=== PATIENT | male | born 1950 | race Caucasian/White ===

== ENCOUNTER 2021-09-09 12:17 | Observation (INO) ==
--- NOTE | 2021-09-09 12:56 | Emergency Department Note ---
History of Present Illness General Chief complaint: Arrhythmia/Palpitations Stated complaint: IRREGULAR HEARTBEAT Time Seen by Provider: 09/09/21 12:38 Source: patient History of Present Illness Provider complaint: Chest pain Onset (ago): week(s) Location: chest Radiation: non-radiation Pain Consistency: + intermittent and + now resolved Maximum Pain Intensity: 3 Quality: + dull Relieved By: + none Exacerbated By: + other (Using the stairs) Associated symptoms: + chest pain, + cough, + malaise and + shortness of breath; no fever/chills or no nausea/vomiting This is a 71-year-old male sent here from an urgent care center for evaluation of chest pain and palpitations. The patient states that he has had chest pain for at least a week probably longer. He describes it as a dull pain in the middle of his chest. He denies any radiation of his pain. He does not know any modifying factors but his states that he tends to have the chest pain when he comes down the stairs in the morning. He has associated shortness of breath with it. He has also had a cough for the past 3 days. He has chronic loss of taste or smell which is unchanged. He denies any diarrhea. He has been vaccinated for COVID-19 but has not received a booster. He did get a COVID test at the urgent care center but does not know the results. He also states that he has had palpitations and feels like his heart skips a beat every once in a while. He states the chest pain lasts about several minutes and then goes away on its own. He denies any leg swelling or pain. He has had no vomiting, abdominal pain or urinary symptoms. He does state that he has been feeling very fatigued for about a week. Home Medications Medication Instructions Recorded Confirmed Type amlodipine 10 mg tablet 10 mg PO QAM 07/17/19 09/09/21 History aspirin 81 mg tablet,delayed 81 mg PO QAM 07/17/19 09/09/21 History release atorvastatin 40 mg tablet 40 mg PO QAM 07/17/19 09/09/21 History furosemide 40 mg tablet 40 mg PO QAM 07/17/19 09/09/21 History glipizide 10 mg tablet 10 mg PO BID 07/17/19 09/09/21 History glucosam 750 mg-chondroi 100 1 tab PO QAM 07/17/19 09/09/21 History mg-hyalur 1.65 mg-CF borate 108 mg tablet ([employer]) lisinopril 40 mg tablet 40 mg PO BID 07/17/19 09/09/21 History sertraline 25 mg tablet (Zoloft) 25 mg PO QAM 07/17/19 09/09/21 History tamsulosin 0.4 mg capsule 0.4 mg PO QAM 07/17/19 09/09/21 History multivitamin 1 tab PO QAM 09/09/21 09/09/21 History Allergies Allergy/AdvReac Type Severity Reaction Status Date / Time No Known Allergies Allergy Unknown Verified 09/09/21 14:01 Past Med/Surg History Medical History (Updated 09/09/21 @ 17:03 by Irineo Griggs MD) Colon cancer NO CHEMO OR RADAITION Cyst, kidney, acquired MEDICAL DOCTOR WATHCING IT Depression Diabetes mellitus, type 2 Hyperlipidemia Hypertension Surgical History Hx of arthroscopy of right knee Hx of colonoscopy Hx of resection of large bowel D/T COLON CANCER Social History Smoking Status: Current every day smoker Tobacco Type: Cigarettes Cigarettes Per Day: 1/2 pack; Second Hand Exposure: No; Do You Dip or Chew Tobacco: No; Tobacco Cessation Education Requested by Patient: No Hx Alcohol Use: No Hx Substance Use: No Preferred Language: Slovenian Communication Ability: Effective Contract Writer Required: No Beliefs That Will Affect Care: None Current Living Situation: Spouse Other Information That Helps Us Care for You: No Feels Safe at Home: Yes Safety Concerns: Feels Safe At This Time Assistive Devices: None Review of Systems See HPI for pertinent positives & negatives. and A total of 10 systems reviewed and were otherwise negative Physical Exam Vital Signs Vital Signs - 24 hr 09/09/21 12:25 09/09/21 13:27 09/09/21 13:28 Temperature 36.7 C Temperature Source Oral Pulse Rate 68 60 Pulse Rate [Apical] Pulse Rhythm Regular Pulse Strength Normal Respiratory Rate 20 Respiratory Effort / Characteristics Non-Labored Spontaneous Respiratory Depth Normal Respiratory Pattern Regular Blood Pressure 150/75 H Blood Pressure [Left Arm] Blood Pressure Mean 100 Blood Pressure Mean [Left Arm] Pulse Oximetry 97 96 96 Oxygen Delivery Method Room Air Room Air Room Air Oxygen Flow Rate 0 Sepsis Recent Fever Within 48 Hours No Sepsis New/Unexplained Change in Mental Status N/A Sepsis Action Taken by Nursing No Action Required 09/09/21 14:17 Temperature Temperature Source Pulse Rate Pulse Rate [Apical] 65 Pulse Rhythm Pulse Strength Respiratory Rate 18 Respiratory Effort / Characteristics Respiratory Depth Respiratory Pattern Blood Pressure Blood Pressure [Left Arm] 137/69 Blood Pressure Mean Blood Pressure Mean [Left Arm] 91 Pulse Oximetry 98 Oxygen Delivery Method Room Air Oxygen Flow Rate Sepsis Recent Fever Within 48 Hours Sepsis New/Unexplained Change in Mental Status Sepsis Action Taken by Nursing Constitutional: Vital signs reviewed. Eyes: Pupils are equal round reactive to light. Conjunctiva are noninjected. ENT: Pharynx is clear without erythema or exudate. Mucous membranes are moist. Neck supple without meningeal signs. Respiratory: Clear to auscultation bilaterally. Breath sounds are equal bilaterally. Cardiovascular: Regular rate and rhythm. No rubs or gallops. GI: Soft, nondistended and nontender. Bowel sounds are present. Musculoskeletal: No peripheral edema. No lower extremity tenderness. Integumentary: No cyanosis. or jaundice. Neurological: The patient is awake and alert. No focal deficits. Psychiatric: Normal affect. Not anxious appearing. Medical Decision Making Differential Diagnosis Pneumonia, bronchitis, COVID-19, unstable angina, CO Medical Records Attestation: I reviewed the patient's medical records. I did perform a limited focused review of portions of the patient's old chart on the electronic medical record. The patient has had no recent pertinent visits to this hospital. Home Medications Current Medication List: was personally reviewed by me Laboratory Data Attestation: I reviewed the patient's lab results. Result diagrams: 09/09/21 13:10 09/09/21 13:10 Lab Results 09/09/21 09/09/21 09/09/21 Range/Units 13:10 13:10 13:10 WBC 5.13 (4.8-10.8) K/uL RBC 3.43 L (4.7-6.1) M/uL Hgb 11.5 L (14.0-18.0) g/dL Hct 33.3 L (42-52) % MCV 97.1 (80-100) fL MCH 33.5 (25-34) pg MCHC 34.5 (32-36) g/dL RDW Std Deviation 43.4 (36.4-46.3) fL RDW Coeff of Matt 12.2 (11.5-14.5) % Plt Count 171 (130-400) K/uL MPV 9.8 (7.4-10.4) fL Immature Gran % (Auto) 0.2 % Neut % (Auto) 64.3 % Lymph % (Auto) 23.2 % [place] % (Auto) 8.6 % Eos % (Auto) 3.3 % Baso % (Auto) 0.4 % Neut # (Auto) 3.30 (1.4-6.5) K/uL Lymph # (Auto) 1.19 L (1.2-3.4) K/uL [place] # (Auto) 0.44 (0.11-0.59) K/uL Eos # (Auto) 0.17 (0-0.5) K/uL Baso # (Auto) 0.02 (0-0.2) K/uL Immature Gran # (Auto) 0.01 (0.00-0.02) K/uL Sodium 138 (136-145) mmol/L Potassium 4.9 (3.5-5.1) mmol/L Chloride 107 (98-107) mmol/L Carbon Dioxide 26 (21-32) mmol/L Anion Gap 5 (3-11) BUN 48 H (6-23) mg/dl Creatinine 2.42 H (0.6-1.4) mg/dl Est Cr Clr Drug Dosing 30.6 ml/min Est GFR ( Amer) 30.4 ml/min Est GFR (Non-Af Amer) 26.3 ml/min BUN/Creatinine Ratio 19.8 (10-20) Glucose 119 H (70-99(Fasting)) mg/dl Calcium 8.8 (8.5-10.1) mg/dl Total Bilirubin 0.4 (0.2-1.0) mg/dl AST 18 (13-39) U/L ALT 20 (7-52) U/L Alkaline Phosphatase 85 (34-104) U/L Troponin I < 0.03 (0-0.04) ng/ml C-Reactive Protein 0.72 H (0-0.5) mg/dl Total Protein 6.6 (6.0-8.3) gm/dl Albumin 3.6 (3.4-5.0) gm/dl Globulin 3.0 (2.5-4.0) gm/dl Albumin/Globulin Ratio 1.2 (0.9-2) SARS-CoV-2, RNA, NAAT (NEGATIVE) 09/09/21 Range/Units 13:36 WBC (4.8-10.8) K/uL RBC (4.7-6.1) M/uL Hgb (14.0-18.0) g/dL Hct (42-52) % MCV (80-100) fL MCH (25-34) pg MCHC (32-36) g/dL RDW Std Deviation (36.4-46.3) fL RDW Coeff of Matt (11.5-14.5) % Plt Count (130-400) K/uL MPV (7.4-10.4) fL Immature Gran % (Auto) % Neut % (Auto) % Lymph % (Auto) % [place] % (Auto) % Eos % (Auto) % Baso % (Auto) % Neut # (Auto) (1.4-6.5) K/uL Lymph # (Auto) (1.2-3.4) K/uL [place] # (Auto) (0.11-0.59) K/uL Eos # (Auto) (0-0.5) K/uL Baso # (Auto) (0-0.2) K/uL Immature Gran # (Auto) (0.00-0.02) K/uL Sodium (136-145) mmol/L Potassium (3.5-5.1) mmol/L Chloride (98-107) mmol/L Carbon Dioxide (21-32) mmol/L Anion Gap (3-11) BUN (6-23) mg/dl Creatinine (0.6-1.4) mg/dl Est Cr Clr Drug Dosing ml/min Est GFR ( Amer) ml/min Est GFR (Non-Af Amer) ml/min BUN/Creatinine Ratio (10-20) Glucose (70-99(Fasting)) mg/dl Calcium (8.5-10.1) mg/dl Total Bilirubin (0.2-1.0) mg/dl AST (13-39) U/L ALT (7-52) U/L Alkaline Phosphatase (34-104) U/L Troponin I (0-0.04) ng/ml C-Reactive Protein (0-0.5) mg/dl Total Protein (6.0-8.3) gm/dl Albumin (3.4-5.0) gm/dl Globulin (2.5-4.0) gm/dl Albumin/Globulin Ratio (0.9-2) SARS-CoV-2, RNA, NAAT POSITIVE A* (NEGATIVE) Imaging Data Radiologist's Impression: Chest X-Ray 09/09/21 12:49 SINGLE VIEW CHEST CLINICAL HISTORY: Atypical chest pain. Palpitations. FINDINGS: An AP, portable, upright chest radiograph is obtained. No prior studies are available for comparison at the time of dictation. The examination is degraded by portable technique and apical lordotic positioning. The heart is enlarged noting atherosclerotic calcification of the thoracic aorta. The pulmonary vasculature is noncongested. There is mild bibasilar atelectasis. The lungs and pleural spaces are otherwise clear. No pneumothorax is seen. The skeletal structures appear osteopenic. The bony thorax is grossly intact. IMPRESSION: Cardiomegaly with no acute cardiopulmonary abnormality. ACT 112: Negative or not required by law. Electronically signed by: Jordon Olson M.D. 09/09/2021 1:06 PM ECG Data Attestation: I personally reviewed and interpreted this ECG as follows: Indication: + chest pain Rate (beats per minute): 71 Rhythm: + normal sinus ECG [place]: + Left axis deviation ECG ST segments: no ST elevation ECG Findings: + Q waves (Leads III and aVF); no PVCs Comparison ECG Date: from (September 11, 2011) Change: no significant change (Q waves and left axis deviation was previously present) MDM Narrative I did evaluate the patient as noted above. He is presenting with intermittent chest pain for the past week with palpitations. He also developed cold symptoms several days ago. He was sent here from an urgent care center. IV access was established. I did place an order for continuous cardiac monitoring. The monitor showed normal sinus rhythm at a rate of 60 bpm. I did order and personally review the patient's 12-lead EKG as described above. He has old Q waves and left axis deviation. No acute ischemic changes are noted. I did order and personally reviewed the images of the patient's chest x-ray as described above. This chest x-ray is unremarkable without signs of pneumonia. I did order and review the patient's blood work as noted in the electronic medical record. CBC demonstrates a hemoglobin 11.5. His white count is 5 and his platelet count is 171. Electrolytes are unremarkable. BUN and creatinine are 48 and 2.4 respectively. LFTs are unremarkable. Troponin is negative. COVID-19 testing is positive. He was placed in respiratory isolation. I did obtain records from the [facility]. His last creatinine was 2.8 on July 20. His last hemoglobin was 12.1 on July 20. I did discuss the test results with the patient and his . He will be hospitalized for further care and evaluation. I did discuss the case with the hospitalist and test case developer. Impression & Plan Exertional chest pain, COVID-19, Chronic kidney disease, Chronic anemia Discharge Plan Visit Data Chief Complaint: Arrhythmia/Palpitations Stated Complaint: IRREGULAR HEARTBEAT ED Provider: Austen Santillan Discharge Problem: Exertional chest pain, COVID-19, Chronic kidney disease, Chronic anemia Patient Disposition: Admitted As Inpatient Discharge Instructions Interventions: ED Discharge Assessment Last Done: 09/09/21 16:30 Discharge Problem: Chronic kidney disease Qualifiers: Chronic kidney disease stage: unspecified stage Qualified Code(s): N18.9 - Chronic kidney disease, unspecified
--- NOTE | 2021-09-09 13:08 | XRay Report ---
SINGLE VIEW CHEST CLINICAL HISTORY: Atypical chest pain. Palpitations. FINDINGS: An AP, portable, upright chest radiograph is obtained. No prior studies are available for c omparison at the time of dictation. The examination is degraded by portable technique and apical lord otic positioning. The heart is enlarged noting atherosclerotic calcification of the thoracic aorta. T he pulmonary vasculature is noncongested. There is mild bibasilar atelectasis. The lungs and pleural spaces are otherwise clear. No pneumothorax is seen. The skeletal structures appear osteopenic. The b edward thorax is grossly intact. IMPRESSION: Cardiomegaly with no acute cardiopulmonary abnormality. ACT 112: Negative or not required by law. Electronically signed by: Jordon Olson M.D. 09/09/2021 1:06 PM
[2021-09-09 13:20] LABS: Basophils # (auto) 0.02 K/uL (0-0.2); Basophils % (auto) 0.4 %; Eosinophils # (auto) 0.17 K/uL (0-0.5); Eosinophils % (auto) 3.3 %; Hematocrit (blood only) 33.3 % (42-52); Hemoglobin 11.5 g/dL (14.0-18.0); Immature Granulocytes # (auto) 0.01 K/uL (0.00-0.02); Immature Granulocytes % (auto) 0.2 %; Lymphocytes # (auto) 1.19 K/uL (1.2-3.4); Lymphocytes % (auto) 23.2 %; Mean Corpuscular Hemoglobin 33.5 pg (25-34); Mean Corpuscular Hgb Conc 34.5 g/dL (32-36); Mean Corpuscular Volume 97.1 fL (80-100); Mean Platelet Volume 9.8 fL (7.4-10.4); Monocytes # (auto) 0.44 K/uL (0.11-0.59); Monocytes % (auto) 8.6 %; Neutrophils % (auto) 64.3 %; Platelet Count 171 K/uL (130-400); RDW Coefficient of Variation 12.2 % (11.5-14.5); RDW Standard Deviation 43.4 fL (36.4-46.3); Red Blood Count 3.43 M/uL (4.7-6.1); White Blood Count 5.13 K/uL (4.8-10.8)
[2021-09-09 13:58] LABS: Troponin I < 0.03 ng/ml (0-0.04)
[2021-09-09 14:01] LABS: Alanine Aminotransferase 20 U/L (7-52); Albumin Globulin Ratio 1.2 (0.9-2); Albumin Level 3.6 gm/dl (3.4-5.0); Alkaline Phosphatase 85 U/L (34-104); Anion Gap 5 (3-11); Aspartate Aminotransferase 18 U/L (13-39); BUN Creatinine Ratio 19.8 (10-20); Bilirubin,Total 0.4 mg/dl (0.2-1.0); Blood Urea Nitrogen 48 mg/dl (6-23); Calcium 8.8 mg/dl (8.5-10.1); Carbon Dioxide 26 mmol/L (21-32); Chloride 107 mmol/L (98-107); Creatinine Clr Calc Pharmacy 30.6 ml/min; Est GFR (African American) 30.4 ml/min; Est GFR (Non-African American) 26.3 ml/min; Glucose 119 mg/dl (70-99(Fasting)); Potassium 4.9 mmol/L (3.5-5.1); Sodium 138 mmol/L (136-145); Total Protein 6.6 gm/dl (6.0-8.3)
[2021-09-09] MEDS ORDERED: CARBOHYDRATES FOR HYPOGLYCEMIA PO PRN ×2 (15:56→16:38)
[2021-09-09] MEDS ORDERED: DEXTROSE 50% 50 ML SYRINGE IV PRN ×2 (15:56→16:38)
[2021-09-09] MEDS ORDERED: GLUCOSE 40% GEL 15 GM TUBE PO PRN ×2 (15:56→16:38)
[2021-09-09] MEDS ORDERED: GLUCAGON FOR INJ 1 MG VIAL SQ PRN ×2 (15:56→16:38)
[2021-09-09] MEDS ORDERED: GLUCOSE 10 TABS/TUBE PO PRN ×2 (15:56→16:38)
--- NOTE | 2021-09-09 16:51 | History & Physical Report ---
Date of Service September 09, 2021 Assessment & Plan (1) Chest pain: (2) Palpitation: (3) Type 2 diabetes mellitus with chronic kidney disease: (4) Essential hypertension: (5) Chronic kidney disease: (6) COVID-19: (7) History of colon cancer: Plan: 1. Chest pain/palpitation- Details as above. Last echo 2011. No known h/o heart disease. Chest pain atypical. Trop negative in ED. EKG with no acute ischemic change. Trend trop, tele, repeat EKG in am. Echo. Cardio evaluation. Continue home aspirin. 2. Covid 19 positive- tested positive today. No respiratory issues, saturating well in room air, CXR with no pneumonia. Doesn't qualify for remdesevir or steroids. Conservative care 3. DM-2 with CKD4- Hold home glipizide. Diabetic diet. Sensitive SSI prn 4. Essential HTN- Stable, Continue home amlodipine, lisinopril with hold parameters 5. CKD-4- Cr 2.4, stable, at baseline. Avoid nephrotoxics. Hold home lasix 6. Depression- continue zoloft 7. H/o colon cancer s/p resection 2007 with no recurrence 8. Tobacco abuse- now down to half pack a day. Nicoderm patch Consider PT/OT eval DVT prophyalxis: sc heparin Contact: updated at bedside History of Present Illness Chief Complaint: Chest pain, palpitation, fatigue, weakness Primary Care Provider: Thomas Chavez DO Patient is a 71-year-old male with history of hypertension, diabetes mellitus type 2, CKD 4, colon cancer 2007 with resection with no recurrence, chronic back pain, tobacco abuse, depression who [facility] and [facility]ations. Patient has been having fatigue, weakness, chest congestion for the past week. Also had central dull chest pain for the past 3 days. Describes chest pain as central, dull, non exertional, no radiation with no associated symptoms. Would occur at rest, lasted for couple minutes only. Occured about 2-3 times a day. Also had intermittent palpitations unrelated to chest pain. [facility]. EKG was done which was abnormal and he was sent to ED for evaluation. In the ED, he was afebrile and hemodynamically stable. Labs reviewed, troponin negative, EKG with no acute ischemic changes. Also tested positive for Covid but chest x-ray was negative for pneumonia. Saturating well in room air. Comfortable during encounter. Denies any chest pain or palpitations since ED arrival. Denies any personal history of heart disease. Family history of heart attack in his grandfather. Doesn't see cardiology. Not much active physically. Smokes but cut down to about half pack a day. Allergies Allergy/AdvReac Type Severity Reaction Status Date / Time No Known Allergies Allergy Unknown Verified 09/09/21 14:01 Home Medications Medication Instructions Recorded Confirmed Type amlodipine 10 mg tablet 10 mg PO QAM 07/17/19 09/09/21 History aspirin 81 mg tablet,delayed 81 mg PO QAM 07/17/19 09/09/21 History release atorvastatin 40 mg tablet 40 mg PO QAM 07/17/19 09/09/21 History furosemide 40 mg tablet 40 mg PO QAM 07/17/19 09/09/21 History glipizide 10 mg tablet 10 mg PO BID 07/17/19 09/09/21 History glucosam 750 mg-chondroi 100 1 tab PO QAM 07/17/19 09/09/21 History mg-hyalur 1.65 mg-CF borate 108 mg tablet ([facility] lisinopril 40 mg tablet 40 mg PO BID 07/17/19 09/09/21 History sertraline 25 mg tablet (Zoloft) 25 mg PO QAM 07/17/19 09/09/21 History tamsulosin 0.4 mg capsule 0.4 mg PO QAM 07/17/19 09/09/21 History multivitamin 1 tab PO QAM 09/09/21 09/09/21 History Past Med/Surg History Medical History (Updated 09/09/21 @ 17:03 by Irineo Griggs MD) Colon cancer NO CHEMO OR RADAITION Cyst, kidney, acquired MEDICAL DOCTOR WATHCING IT Depression Diabetes mellitus, type 2 Hyperlipidemia Hypertension Surgical History Hx of arthroscopy of right knee Hx of colonoscopy Hx of resection of large bowel D/T COLON CANCER Social History Smoking Status: Current every day smoker Tobacco Type: Cigarettes Cigarettes Per Day: 1/2 pack; Second Hand Exposure: No; Do You Dip or Chew Tobacco: No; Tobacco Cessation Education Requested by Patient: No Hx Alcohol Use: No Hx Substance Use: No Preferred Language: Hungarian Communication Ability: Effective Secretary Book Keeper Required: No Beliefs That Will Affect Care: None Current Living Situation: Spouse Other Information That Helps Us Care for You: No Feels Safe at Home: Yes Safety Concerns: Feels Safe At This Time Assistive Devices: None Review of Systems Review of Systems: All systems reviewed & are unremarkable except as noted in Subjective Physical Exam Physical Exam: General: Lying comfortably in bed, not in distress, on room air HEENT: EOMI, STAN[place], MMM Chest: Clear breath sounds bilaterally, no wheezes or crackles CVS: Regular rate and rhythm, normal heart sounds, no murmur Abdomen: Soft, non tender, not distended, normal bowel sounds Neuro: Awake, alert, oriented, conversing well, non focal Extremities: No cyanosis, clubbing or edema Results & Data Results & Data ([facility]) Vital Signs (Past 12 Hours) Vital Signs Temp Pulse Pulse Resp BP BP Pulse Ox 09/09/21 16:30 65 12 122/61 97 09/09/21 16:00 62 15 120/58 L 94 09/09/21 14:17 65 18 137/69 98 09/09/21 13:28 96 09/09/21 13:27 60 96 09/09/21 12:25 36.7 C 68 20 150/75 H 97 Laboratory Results Short CBC 09/09/21 Range/Units 13:10 WBC 5.13 (4.8-10.8) K/uL Hgb 11.5 L (14.0-18.0) g/dL Hct 33.3 L (42-52) % Plt Count 171 (130-400) K/uL BMP 09/09/21 13:10 Sodium 138 Potassium 4.9 Chloride 107 Carbon Dioxide 26 BUN 48 H Creatinine 2.42 H Glucose 119 H Calcium 8.8 Cardiac Enzymes 09/09/21 Range/Units 13:10 Troponin I < 0.03 (0-0.04) ng/ml Liver Function 09/09/21 Range/Units 13:10 Total Bilirubin 0.4 (0.2-1.0) mg/dl AST 18 (13-39) U/L ALT 20 (7-52) U/L Alkaline Phosphatase 85 (34-104) U/L Albumin 3.6 (3.4-5.0) gm/dl Diagnostic Findings Chest X-Ray 09/09/21 12:49 SINGLE VIEW CHEST CLINICAL HISTORY: Atypical chest pain. Palpitations. FINDINGS: An AP, portable, upright chest radiograph is obtained. No prior studies are available for comparison at the time of dictation. The examination is degraded by portable technique and apical lordotic positioning. The heart is enlarged noting atherosclerotic calcification of the thoracic aorta. The pulmonary vasculature is noncongested. There is mild bibasilar atelectasis. The lungs and pleural spaces are otherwise clear. No pneumothorax is seen. The skeletal structures appear osteopenic. The bony thorax is grossly intact. IMPRESSION: Cardiomegaly with no acute cardiopulmonary abnormality. ACT 112: Negative or not required by law. Electronically signed by: Jordon Olson M.D. 09/09/2021 1:06 PM Code Status & VTE Plan VTE Prophylaxis Plan VTE Prophylaxis will be ordered: Yes (1) Chronic kidney disease Chronic kidney disease stage: unspecified stage Qualified Code(s): N18.9 - Chronic kidney disease, unspecified
[2021-09-09] MEDS ORDERED: amLODIPine BESYLATE 5 MG TAB PO SCH (21:00)
[2021-09-09] MEDS: INSULIN ASPART PER UNIT SC SCH (21:10)
[2021-09-09] MEDS: HEPARIN SOD 5,000 UNIT/0.5 ML VIAL SQ SCH (21:11)
[2021-09-09] MEDS ORDERED: ZOLPIDEM TARTRATE 5 MG TAB PO STA (23:00)
[2021-09-10] MEDS: HEPARIN SOD 5,000 UNIT/0.5 ML VIAL SQ SCH (06:19)
[2021-09-10] MEDS: INSULIN ASPART PER UNIT SC SCH ×2 (08:00→12:48)
[2021-09-10] MEDS ORDERED: SERTRALINE HCL 50 MG TABLET PO SCH (09:00)
[2021-09-10] MEDS ORDERED: lisinopril 40 MG TAB PO SCH (09:00)
[2021-09-10] MEDS ORDERED: ATORVASTATIN 40 MG TAB PO SCH (09:00)
[2021-09-10] MEDS ORDERED: ASPIRIN 81 MG ECTAB PO SCH (09:00)
[2021-09-10] MEDS ORDERED: TAMSULOSIN HCL 0.4 MG CAP PO SCH (09:00)
[2021-09-10 09:33] LABS: Basophils # (auto) 0.01 K/uL (0-0.2); Basophils % (auto) 0.3 %; Eosinophils # (auto) 0.09 K/uL (0-0.5); Eosinophils % (auto) 2.4 %; Hematocrit (blood only) 33.4 % (42-52); Hemoglobin 11.3 g/dL (14.0-18.0); Immature Granulocytes # (auto) 0.01 K/uL (0.00-0.02); Immature Granulocytes % (auto) 0.3 %; Lymphocytes # (auto) 1.23 K/uL (1.2-3.4); Lymphocytes % (auto) 32.7 %; Mean Corpuscular Hemoglobin 32.5 pg (25-34); Mean Corpuscular Hgb Conc 33.8 g/dL (32-36); Mean Platelet Volume 9.6 fL (7.4-10.4); Monocytes # (auto) 0.28 K/uL (0.11-0.59); Monocytes % (auto) 7.4 %; Neutrophils # (auto) 2.14 K/uL (1.4-6.5); Neutrophils % (auto) 56.9 %; Platelet Count 162 K/uL (130-400); RDW Standard Deviation 42.2 fL (36.4-46.3); Red Blood Count 3.48 M/uL (4.7-6.1); White Blood Count 3.76 K/uL (4.8-10.8)
[2021-09-10 09:53] LABS: Calcium 8.4 mg/dl (8.5-10.1); Creatinine Clr Calc Pharmacy 30.7 ml/min; Est GFR (African American) 30.6 ml/min; Est GFR (Non-African American) 26.4 ml/min; Potassium 4.3 mmol/L (3.5-5.1)
--- NOTE | 2021-09-10 11:31 | Electrocardiogram Report ---
Test Reason : Blood Pressure : / mmHG Vent. Rate : 058 BPM Atrial Rate : 058 BPM P-R Int : 142 ms QRS Dur : 090 ms QT Int : 434 ms P-R-T Axes : 011 -53 018 degrees QTc Int : 426 ms Sinus bradycardia Left axis deviation Inferior infarct (cited on or before 11-SEP-2011) Abnormal ECG When compared with ECG of 11-SEP-2011 09:06, No significant change was found Confirmed by Rich Carrera ([id number]) on 09/10/2021 11:30:58 AM Referred By: REFERRED SELF Confirmed By:Rich Carrera
--- NOTE | 2021-09-10 12:20 | Cardiology Consultation ---
Date of Consultation September 10, 2021 Assessment & Plan (1) Viral pericarditis with pericardial effusion: (2) COVID-19: (3) Chronic kidney disease: (4) HTN (hypertension): (5) Anemia: 71-year-old patient admitted with chest discomfort and echocardiogram revealing small pericardial effusion with out hemodynamic significance. Discomfort likely related to pericarditis in the setting of COVID-19 infection. No evidence of ACS or myocarditis. Patient with stage III-IV CKD which limits treatment options. Avoid high-dose NSAIDs and colchicine with diminished GFR. Recommend 10-day prednisone taper starting with 20 mg today. Repeat limited echocardiogram in 7-14 days. With significant risk factors noted above, further risk stratification with stress testing may be considered pending outpatient cardiology follow-up. Thank you for allow me to participate in the care of your patient. History of Present Illness Reason for Consultation: Chest pain, COVID-19 infection Requesting Physician: Dr. Clements Attending Physician: Mignon Brasher MD History of Present Illness 71-year-old patient present to the emergency department with chest discomfort, cough, and fatigue. Reports symptoms beginning on Saturday. Cough ensued on Saturday. Denies any sputum production. Admits to active tobacco abuse. Notes chest discomfort described as a sharp pain in his lower substernal region. Discomfort can last up to 1 hour. There is no positional component. Discomfort is not worsened/reproduced with deep inspiration. Currently pain-free however experienced discomfort last evening. No exertional chest heaviness, tightness, or pressure. Chronic dyspnea on exertion stable. Denies orthopnea, PND, or lower extremity edema. No palpitations, lightheadedness, dizziness, syncope, or near syncope. Cardiovascular risk factors include diabetes, dyslipidemia, chronic kidney disease, and hypertension. Denies personal history of coronary disease, congestive heart failure, peripheral vascular disease, or rheumatic fever as a child. Currently patient resting comfortably. Mild nonproductive cough appreciated. No conversational dyspnea. Requesting discharge if possible. Oxygen saturation 97% on room air. Allergies Allergy/AdvReac Type Severity Reaction Status Date / Time No Known Allergies Allergy Unknown Verified 09/09/21 14:01 Home Medications Medication Instructions Recorded Confirmed Type amlodipine 10 mg tablet 10 mg PO QAM 07/17/19 09/09/21 History aspirin 81 mg tablet,delayed 81 mg PO QAM 07/17/19 09/09/21 History release atorvastatin 40 mg tablet 40 mg PO QAM 07/17/19 09/09/21 History furosemide 40 mg tablet 40 mg PO QAM 07/17/19 09/09/21 History glipizide 10 mg tablet 10 mg PO BID 07/17/19 09/09/21 History glucosam 750 mg-chondroi 100 1 tab PO QAM 07/17/19 09/09/21 History mg-hyalur 1.65 mg-CF borate 108 mg tablet (TRAN.SL) lisinopril 40 mg tablet 40 mg PO BID 07/17/19 09/09/21 History sertraline 25 mg tablet (Zoloft) 25 mg PO QAM 07/17/19 09/09/21 History tamsulosin 0.4 mg capsule 0.4 mg PO QAM 07/17/19 09/09/21 History multivitamin 1 tab PO QAM 09/09/21 09/09/21 History prednisone 5 mg tablet See Rx Instructions .ROUTE 09/10/21 Rx .COMPLEX #18 tab Patient History Medical History (Updated 09/10/21 @ 12:18 by Austen Schmid DO) Colon cancer NO CHEMO OR RADAITION Cyst, kidney, acquired [employer]ICAL DOCTOR ELLIS TIRADO Depression Diabetes mellitus, type 2 Hyperlipidemia Hypertension Surgical History Hx of arthroscopy of right knee Hx of colonoscopy Hx of resection of large bowel D/T COLON CANCER Social History Smoking Status: Current every day smoker Tobacco Type: Cigarettes Cigarettes Per Day: 1/2 pack; Second Hand Exposure: No; Do You Dip or Chew Tobacco: No; Tobacco Cessation Education Requested by Patient: No Hx Alcohol Use: No Hx Substance Use: No Preferred Language: Lithuanian Communication Ability: Effective Electronics Supervisor Required: No Beliefs That Will Affect Care: None Current Living Situation: Spouse Other Information That Helps Us Care for You: No Feels Safe at Home: Yes Safety Concerns: Feels Safe At This Time Assistive Devices: None Review of Systems Review of Systems: All systems reviewed & are unremarkable except as noted in Subjective Physical Exam Constitutional: well developed and well nourished; no acute distress Respiratory: Auscultation: + diminished lung sounds (Bilateral); no crackles, no rales, no rhonchi and no wheezes Cardiovascular: Rate/Rhythm: regular rate and regular rhythm Heart Sounds: normal S1 and normal S2; no murmur Vessels: radial pulses present; no JVD and no carotid bruit Extremities: no edema Gastrointestinal (Abdomen): Inspection/Auscultation: abdomen normal to inspection and normal bowel sounds; abdomen not distended Percussion/Palpation: abdomen soft; abdomen nontender, no guarding and abdomen not rigid Neurologic: CN's II-XI intact bilaterally and moves all extremities; no focal motor deficits Motor/Sensory: no tremor Psychiatric: A+Ox3, euthymic affect Results & Data ([facility]) Vital Signs (Past 12 Hours) Vital Signs Temp Pulse Pulse Resp BP Pulse Ox 09/10/21 11:12 36.9 C 64 17 135/65 97 09/10/21 08:00 50 L 09/10/21 07:27 36.9 C 60 14 128/65 97 09/10/21 03:44 36.9 C 61 18 103/67 96 (1) Chronic kidney disease Chronic kidney disease stage: unspecified stage Qualified Code(s): N18.9 - Chronic kidney disease, unspecified
--- NOTE | 2021-09-10 12:21 | Discharge Summary ---
Date of Service September 10, 2021 Admission HPI Per Admitting Provider Patient is a 71-year-old male with history of hypertension, diabetes mellitus type 2, CKD 4, colon cancer 2007 with resection with no recurrence, chronic back pain, tobacco abuse, depression who [facility] and palpitations. Patient has been having fatigue, weakness, chest congestion for the past week. Also had central dull chest pain for the past 3 days. Describes chest pain as central, dull, non exertional, no radiation with no associated symptoms. Would occur at rest, lasted for couple minutes only. Occured about 2-3 times a day. Also had intermittent palpitations unrelated to chest pain. [facility]. EKG was done which was abnormal and he was sent to ED for evaluation. In the ED, he was afebrile and hemodynamically stable. Labs reviewed, troponin negative, EKG with no acute ischemic changes. Also tested positive for Covid but chest x-ray was negative for pneumonia. Saturating well in room air. Comfortable during encounter. De nies any chest pain or palpitations since ED arrival. Denies any personal history of heart disease. Family history of heart attack in his grandfather. Doesn't see cardiology. Not much active physically. Smokes but cut down to about half pack a day. Admission Exam Per Admitting Provider General: Lying comfortably in bed, not in distress, on room air HEENT: EOMI, STANLEY, MMM Chest: Clear breath sounds bilaterally, no wheezes or crackles CVS: Regular rate and rhythm, normal heart sounds, no murmur Abdomen: Soft, non tender, not distended, normal bowel sounds Neuro: Awake, alert, oriented, conversing well, non focal Extremities: No cyanosis, clubbing or edema Principal Diagnosis COVID 19 infection Viral pericarditis with pericardial effusion. Discharge Exam Constitutional + well hydrated; no acute distress Eyes PERRL, conjunctivae normal, anicteric sclerae ENMT Hearing deficits Respiratory normal respiratory effort, lungs clear to auscultation Cardiovascular Rate/Rhythm: regular rate and regular rhythm S1 S2 Gastrointestinal (Abdomen) normal bowel sounds, soft, nontender, no hepatosplenomegaly Musculoskeletal no cyanosis or clubbing, extremities motor strength 5/5 Neurologic PERRL, EOMI, accommodation nl, no face palsy, no dysarthria Psychiatric A+Ox3, euthymic affect Discharge Data Allergies Allergy/AdvReac Type Severity Reaction Status Date / Time No Known Allergies Allergy Unknown Verified 09/09/21 14:01 Consultations 09/09/21 14:36 ED Decision to Admit Stat 09/09/21 15:46 Consult Cardiology Routine Hospital Course (1) Chest pain: (2) Palpitation: (3) Type 2 diabetes mellitus with chronic kidney disease: (4) Essential hypertension: (5) Chronic kidney disease: (6) COVID-19: (7) History of colon cancer: Patient presented with chest pain has been intermittent. Chest pain is atypical EKG did not show ischemic changes Troponin trends were negative Echocardiogram showed EF of 55 to 60% with mild concentric LVH, mild MR, small circumferential pericardial effusion with mild organization, no echocardiographic indications of cardiac tamponade. Patient also tested positive for Covid 19. Chest x-ray did not show any acute abnormality. Has been on room air. Discussed with cardiology. Recommend discharging on a 10-day tapering dose of prednisone for possible viral pericarditis with pericardial effusion. Colchicine is contraindicated due to renal function. Patient discharged on prednisone taper 20 mg for 3 days, 10 mg for 3 days and 5 mg of 4 days and then stop. Patient to follow-up with cardiology outpatient in 2 weeks and will have repeat echocardiogram done for reevaluation Patient has CKD4. Patient also has diabetes mellitus type 2. Counseled patient on need to monitor blood sugar closely while on prednisone. I also called patient's and updated her about this. Provided patient education on COVID-19 home isolation instructions. Total Time Total Time Spent Total Time Spent (In Minutes): 35 Total Time Includes: Examination of the Patient, Discharge Planning, Medication Reconciliation, Communication With Other Providers and Other Discharge Plan Discharge Items Patient Disposition: Home - Self-Care Reason For Visit: CHEST PAIN, PALPITATION, FATIGUE, WEAKNESS Discharge Diagnosis: COVID 19 infection Pericardial effusion. Activity: Resume your previous activity Non-emergency contact: Primary Care Provider and Produce Sorter Call non-emergency contact if: you have any medication questions and your symptoms worsen Follow-up/Referrals: Thomas Chavez DO [Primary Care Provider] - Diet: Carb Consistent or DM2, Heart Healthy and Low Sodium (2gm) Addtl Attending Provider Instructions: Mr Gallardo You came to the hospital complaining of chest pain. You were evaluated by the Produce Sorter. Your echocardiogram showed small fluid around your heart and you tested positive for COVID 19 infection. You are started on prednisone. Please take prednisone 20mg daily from tomorrow, for 2 days (09/11/21 to 09/12/21), then take 10mg daily from 09/13/21 to 09/15/21, then take 5mg daily from 09/16/21 to and then stop. It is very important to monitor your blood glucose closely during this period as we discussed. Please ensure you follow up with Cardiology office. Please ensure home isolation for next 10 days as we discussed due to your COVID 19 infection. It was a pleasure taking care of you. Pending Studies at Discharge: No Stand-Alone Forms: My [facility], Smoking Cessation Medications and DC Order Prescriptions: New prednisone 5 mg tablet See Rx Instructions .ROUTE .COMPLEX Qty: 18 RF: 0 Continued furosemide 40 mg Tablet 40 mg PO QAM RF: 0 atorvastatin 40 mg Tablet 40 mg PO QAM RF: 0 glipizide 10 mg Tablet 10 mg PO BID RF: 0 aspirin 81 mg Tablet,Delayed Release (Dr/Ec) 81 mg PO QAM RF: 0 tamsulosin 0.4 mg Capsule 0.4 mg PO QAM RF: 0 amlodipine 10 mg Tablet 10 mg PO QAM RF: 0 sertraline [Zoloft] 25 mg Tablet 25 mg PO QAM RF: 0 lisinopril 40 mg Tablet 40 mg PO BID RF: 0 [facility] 750 mg-100 mg- 1.65 mg-108 mg Tablet 1 tab PO QAM RF: 0 multivitamin Tablet 1 tab PO QAM RF: 0 Discharge Orders: Discharge Order (Routine); Ordered 09/10/21 Ordered By: Mignon Brasher Admission Data Admit Date/Time: 09/09/21 15:46 Attending Provider: Mignon Brasher I. Admit Provider: Irineo Griggs Primary Care Provider: Thomas Chavez V. Other Providers: Wiley Toure ; Hi Watts ; Joel Beltran ; Austen Schmid ; Isaías Munroe ; Christoph Lamar ; Sharee Ambrose ; Steff Mcgowan ; Cata Bullock ; Vernon Douglas ; Irineo Griggs. Other Interventions: Discharge Summary Assessment (RN) Last Done: 09/10/21 12:44
[2021-09-10] MEDS ORDERED: predniSONE 20 MG TAB PO ONE (12:30)
[2021-09-11 07:16] LABS: Estimated Average Glucose 148 mg/dl; Hemoglobin A1C 6.8 % (4.5-5.6)
--- NOTE | 2021-09-11 10:20 | Electrocardiogram Report ---
Test Reason : Blood Pressure : / mmHG Vent. Rate : 071 BPM Atrial Rate : 071 BPM P-R Int : 132 ms QRS Dur : 088 ms QT Int : 396 ms P-R-T Axes : 014 -62 057 degrees QTc Int : 430 ms Normal sinus rhythm Left axis deviation Abnormal ECG When compared with ECG of 11-SEP-2011 09:06, No significant change was found Confirmed by Harpal Lemus ([id number]) on 09/11/2021 10:19:58 AM Referred By: REFERRED SELF Confirmed By:Jeremy Lemus
== END 2021-09-10 13:14 | disposition home or self-care (01) ==
LOC: ED 12:17 → 2E 12:17 → SUATTDRO 15:46 → 2E 16:30

== ENCOUNTER 2023-05-28 05:59 | Inpatient (IN) ==
--- NOTE | 2023-05-06 11:18 | PAT Medication Instructions ---
Medication Instructions Date of Service May 06, 2023 Home Medications amlodipine 10 mg tablet 5 mg PO QPM atorvastatin 40 mg tablet 40 mg PO QAM furosemide 40 mg tablet 40 mg PO QAM glipizide 10 mg tablet 10 mg PO BID glucosam 750 mg-chondroi 100 mg-hyalur 1.65 mg-CF borate 108 mg tablet ([facility]) 1 tab PO QAM lisinopril 40 mg tablet 40 mg PO BID sertraline 25 mg tablet (Zoloft) 25 mg PO QAM tamsulosin 0.4 mg capsule 0.4 mg PO QAM multivitamin 1 tab PO QAM ascorbic acid (vitamin C) 500 mg tablet (Vitamin C) 500 mg PO QAM aspirin 81 mg tablet,delayed release 81 mg PO QAM cinnamon bark 500 mg capsule (Cinnamon) 1,000 mg PO QPM iron 1 dose PO QAM trazodone 150 mg tablet 150 mg PO HS zinc 50 mg capsule 50 mg PO QAM ASK your prescriber and surgeon aspirin 81 mg tablet,delayed release 81 mg PO QAM STOP taking 2 weeks before surgery (or as soon as possible if surgery is within 2 weeks) glucosam 750 mg-chondroi 100 mg-hyalur 1.65 mg-CF borate 108 mg tablet ([facility]) 1 tab PO QAM cinnamon bark 500 mg capsule (Cinnamon) 1,000 mg PO QPM DO NOT take the morning of surgery furosemide 40 mg tablet 40 mg PO QAM glipizide 10 mg tablet 10 mg PO BID lisinopril 40 mg tablet 40 mg PO BID multivitamin 1 tab PO QAM ascorbic acid (vitamin C) 500 mg tablet (Vitamin C) 500 mg PO QAM iron 1 dose PO QAM zinc 50 mg capsule 50 mg PO QAM Take morning of surgery With a small sip of water, OTHERWISE NOTHING TO EAT OR DRINK AFTER MIDNIGHT: atorvastatin 40 mg tablet 40 mg PO QAM sertraline 25 mg tablet (Zoloft) 25 mg PO QAM tamsulosin 0.4 mg capsule 0.4 mg PO QAM Take evening before surgery amlodipine 10 mg tablet 5 mg PO QPM glipizide 10 mg tablet 10 mg PO BID lisinopril 40 mg tablet 40 mg PO BID trazodone 150 mg tablet 150 mg PO HS Other Notes If you have any questions please call us at [phone] or [phone] or [phone] or [phone]
--- NOTE | 2023-05-07 13:48 | Anesthesiology Consultation ---
Date of Service May 07, 2023 Assessment & Plan (1) Encounter for pre-operative examination: - Check BSG AM DOS - Infectious disease screening: Per assessment on 05/07/23: No known infectious disease contacts or current infectious disease symptoms. No noted Covid positive test result in past 90 days. - PCP visit (12/28/22): Seen for preop prior to cataract removal > "Preoperative serum creatinine >2.0 mg/dL (177 micromol/L). Yes.. Pt has revised cardiac index score of One Risk Factor- 1.0% (95% CI: 0.5-1.4) for the surgery scheduled. Patient is low risk for the listed procedure. There is no medical contraindication for the proposed surgery and anesthesia." Chart Review Chart Review: Acceptable Risk for Surgery and Patient seen in Pre Admission Testing Teaching & Discussion Pre-Anesthesia Teaching/Discussion Notes: Instructed NPO after midnight before surgery,except medications with 15 cc of water. Medication instructions provided according to the PAT guidelines. History Surgery Operation Date: 05/21/23 10:05 Proposed Procedures p L4-S1 Decompression and Fusion, Spinal Cord Monitoring - Romario Michaud DO Height/Weight Height: 5 ft 8 in Weight: 88.4 kg Allergies Allergy/AdvReac Type Severity Reaction Status Date / Time No Known Allergies Allergy Unknown Verified 05/01/23 12:21 Medications Home Medications Medication Instructions Recorded Confirmed Last Taken amlodipine 10 mg tablet 5 mg PO QPM 07/17/19 05/01/23 09/09/21 atorvastatin 40 mg tablet 40 mg PO QAM 07/17/19 05/01/23 09/09/21 furosemide 40 mg tablet 40 mg PO QAM 07/17/19 05/01/23 09/09/21 glipizide 10 mg tablet 10 mg PO BID 07/17/19 05/01/23 09/09/21 glucosam 750 mg-chondroi 100 1 tab PO QAM 07/17/19 05/01/23 09/09/21 mg-hyalur 1.65 mg-CF borate 108 mg tablet [place] [employer] lisinopril 40 mg tablet 40 mg PO BID 07/17/19 05/01/23 09/09/21 sertraline 25 mg tablet (Zoloft) 25 mg PO QAM 07/17/19 05/01/23 09/09/21 tamsulosin 0.4 mg capsule 0.4 mg PO QAM 07/17/19 05/01/23 09/09/21 multivitamin 1 tab PO QAM 09/09/21 05/01/23 09/09/21 ascorbic acid (vitamin C) 500 mg 500 mg PO QAM 05/01/23 05/01/23 Unknown tablet (Vitamin C) aspirin 81 mg tablet,delayed 81 mg PO QAM 05/01/23 05/01/23 Unknown release cinnamon bark 500 mg capsule 1,000 mg PO QPM 05/01/23 05/01/23 Unknown (Cinnamon) iron 1 dose PO QAM 05/01/23 05/01/23 Unknown trazodone 150 mg tablet 150 mg PO HS 05/01/23 05/01/23 Unknown zinc 50 mg capsule 50 mg PO QAM 05/01/23 05/01/23 Unknown Past Medical History Medical History Anemia Chronic kidney disease Stage IV, creatinine stable in the 2.1-2.4 range for past 1+ years PCP aware/monitoring Colon cancer Dx 2007, Treated surgically Cyst, kidney, acquired PCP monitors Depression Diabetes mellitus, type 2 Hard of hearing Hyperlipidemia Hypertension Exercise / Class Metabolic Activity II 4-5 Yardwork/Stairs/Walk up hill Past Surgical History Surgical History History of cataract surgery Hx of arthroscopy of right knee Hx of colonoscopy Hx of resection of large bowel Past Anesthesia History No Hx of Anesthesia Complications and No Family Hx of Anesthesia Complications History of PONV No Hx of PONV and No Hx of Motion Sickness Social History Smoking Status: Current every day smoker tobacco type: cigarettes Smoking cigarettes per day: 1/2-1 PPD Do You Dip or Chew Tobacco: Yes (occasional- advised none DOS) Hx Alcohol Use: No Hx Substance Use: No substance use type: does not use Review of Systems Patient denies chest pain, shortness of breath, dyspnea on exertion, fever, chills, cough, wheezing, palpitations. Physical Exam Vital Signs VITALS BP 113/68 P 63 TEMP 98.3 SP02 98%RA RESP 18 PHYSICAL Full cervical extension range of motion. Full TMJ range of motion. TMD 3.5 finger breaths Mallampati Score 1 Dentition: several missing, only few remaining, + loose teeth/poor dentition Lungs: clear throughout to auscultation Cardiac: regular rate and rhythm, no murmurs noted Spine: normal Carotid arteries: negative bruit Extremities: no LE edema Short connolly Lab Results Anesthesia Preop Results Results Anesthesia Widget: WBC 9.04 K/ul (4.8-10.8) 05/07/23 Hgb 12.5 g/dl (14.0-18.0) L 05/07/23 Hct 35.2 % (42.0-52.0) L 05/07/23 Plt 221 K/uL (130-400) 05/07/23 Na 139 mmol/L (136-145) 05/07/23 K 5.3 mmol/L (3.5-5.1) H 05/07/23 Cl 107 mmol/L (98-107) 05/07/23 CO2 29 mmol/L (21-32) 05/07/23 BUN 23 mg/dl (6-23) 05/07/23 Creat 2.19 mg/dl (0.6-1.4) H 05/07/23 Glucose Level 267 mg/dl (70-99(Fasting)) H 05/07/23 PT 10.7 Seconds (9.0-12.0) 05/07/23 PTT 21.9 Seconds (21.0-31.0) 05/07/23 INR 1.0 (0.9-1.1) 05/07/23 HA1c 7.6 % (4.5-5.6) H 05/07/23 Urine Color Dark Yellow 05/07/23 Urine Appearance Clear (Clear) 05/07/23 Urine pH 5.0 (4.5-7.5) 05/07/23 Urine Specific [place] 1.016 (1.000-1.030) 05/07/23 Urine Protein 1+ (Negative) H 05/07/23 Urine Glucose (UA) Negative (Negative) 05/07/23 Urine Ketones Negative (Negative) 05/07/23 Urine Blood Negative (Negative) 05/07/23 Urine Nitrite Negative (Negative) 05/07/23 Urine Bilirubin Negative (Negative) 05/07/23 Urine Urobilinogen Negative (Negative) 05/07/23 Urine Leukocyte Esterase Negative (Negative) 05/07/23 Urine WBC (Auto) 1-5 /hpf (0-5) 05/07/23 Urine RBC (Auto) 0-4 /hpf (0-4) 05/07/23 Urine Hyaline Casts (Auto) 5-10 /lpf (0-5) H 05/07/23 Urine Epithelial Cells (Auto) 0-5 /lpf (0-5) 05/07/23 Urine Bacteria (Auto) Negative (Negative) 05/07/23 Blood Type A Positive 05/07/23 Antibody Screen NEGATIVE 05/07/23 Testing Electrocardiogram Date: 05/07/23 SB at 56bpm. LAD. Low voltage QRS. Compared to 09/10/21, criteria for inferior infarct no longer present per heel attacher wood comparison. Chest X-Ray Date: 05/07/23 FINDINGS: Cardiomediastinal and hilar silhouettes are unchanged. Atherosclerosis of the aorta. No pneumothorax, pleural effusion, airspace consolidation or pulmonary edema. Spondylotic spurring of the spine. IMPRESSION: No acute process.
[~2023-05-28 05:59] MED LIST: ACETAMINOPHEN 500 MG TAB PO SCH; CeleBREX 200 MG CAP PO SCH; GABAPENTIN 900 MG DOSE PO SCH; LR 60ML/HR IV SCH; SODIUM CHLORIDE 0.9% 1000ML IV SCH; ceFAZolin 2000MG 2,000 MG/15 ML SYR IV SCH
[2023-05-28] MEDS ORDERED: CeleBREX 200 MG CAP PO SCH (06:00)
[2023-05-28] MEDS ORDERED: GABAPENTIN 900 MG DOSE PO SCH (06:00)
[2023-05-28] MEDS ORDERED: SODIUM CHLORIDE 0.9% 1000ML IV SCH (06:00)
[2023-05-28] MEDS ORDERED: ACETAMINOPHEN 500 MG TAB PO SCH (06:00)
[2023-05-28] MEDS ORDERED: ceFAZolin 2000MG 2,000 MG/15 ML SYR IV SCH (06:00)
[2023-05-28] MEDS ORDERED: ceFAZolin 330 MG/ML 1 GM VIAL ONE (06:54)
[2023-05-28] MEDS ORDERED: BUPIVACAINE/EPINEPHRINE 0.25% 1:200,000 30 ML VIAL ONE (06:55)
[2023-05-28] MEDS ORDERED: LR 60ML/HR IV SCH (07:00)
[2023-05-28] MEDS ORDERED: ROCURONIUM BROMIDE 10 MG/ML 5 ML VIAL IV ONE ×2 (07:10→08:32)
[2023-05-28] MEDS ORDERED: PROPOFOL IV EMULSION 10 MG/ML 20 ML VIAL IV ONE (07:10)
[2023-05-28] MEDS ORDERED: MIDAZOLAM HCL 1 MG/ML 2ML VIAL ONE (07:10)
[2023-05-28] MEDS ORDERED: fentaNYL citrate PF 100 MCG/2 ML VIAL ONE (07:10)
[2023-05-28] MEDS ORDERED: DexMEDEtomidine HCL IV 100 MCG/ML VIAL IV ONE (07:14)
--- NOTE | 2023-05-28 07:37 | History & Physical Bridge Note ---
Date of Service May 28, 2023 History & Physical Bridge Note I have examined the patient, reviewed the History & Physical and in the interval since the performance of the History & Physical I have noted the following changes of clinical significance: no changes noted
--- NOTE | 2023-05-28 07:38 | History & Physical Report ---
Date of Service May 28, 2023 Assessment & Plan (1) Neurogenic claudication due to lumbar spinal stenosis: Plan: L4-S1 decompression and fusion History of Present Illness Chief Complaint: Back and leg pain Primary Care Provider: Mark Choudhury MD This is a 73-year-old male presents chronic/back and leg pain Course of nonoperative care is here for surgical invention. Allergies Allergy/AdvReac Type Severity Reaction Status Date / Time No Known Allergies Allergy Unknown Verified 05/01/23 12:21 Home Medications Medication Instructions Recorded Confirmed Type amlodipine 10 mg tablet 5 mg PO QPM 07/17/19 05/01/23 History atorvastatin 40 mg tablet 40 mg PO QAM 07/17/19 05/28/23 History furosemide 40 mg tablet 40 mg PO QAM 07/17/19 05/28/23 History glipizide 10 mg tablet 10 mg PO BID 07/17/19 05/28/23 History glucosam 750 mg-chondroi 100 1 tab PO QAM 07/17/19 05/28/23 History mg-hyalur 1.65 mg-CF borate 108 mg tablet ([facility] [place] [employer]) lisinopril 40 mg tablet 40 mg PO BID 07/17/19 05/28/23 History sertraline 25 mg tablet (Zoloft) 25 mg PO QAM 07/17/19 05/28/23 History tamsulosin 0.4 mg capsule 0.4 mg PO QAM 07/17/19 05/28/23 History multivitamin 1 tab PO QAM 09/09/21 05/28/23 History ascorbic acid (vitamin C) 500 mg 500 mg PO QAM 05/01/23 05/01/23 History tablet (Vitamin C) aspirin 81 mg tablet,delayed 81 mg PO QAM 05/01/23 05/28/23 History release cinnamon bark 500 mg capsule 1,000 mg PO QPM 05/01/23 05/01/23 History (Cinnamon) iron 1 dose PO QAM 05/01/23 05/28/23 History trazodone 150 mg tablet 150 mg PO HS 05/01/23 05/28/23 History zinc 50 mg capsule 50 mg PO QAM 05/01/23 05/28/23 History Past Med/Surg History Medical History Anemia Chronic kidney disease Stage IV, creatinine stable in the 2.1-2.4 range for past 1+ years PCP aware/monitoring Colon cancer Dx 2007, Treated surgically Cyst, kidney, acquired PCP monitors Depression Diabetes mellitus, type 2 Hard of hearing Hyperlipidemia Hypertension Surgical History History of cataract surgery Hx of arthroscopy of right knee Hx of colonoscopy Hx of resection of large bowel Social History Smoking Status: Current every day smoker Tobacco Type: Cigarettes Cigarettes Per Day: 1/2-1 PPD; Second Hand Exposure: Yes ( smokes); Do You Dip or Chew Tobacco: Yes (occasional- advised none DOS); Tobacco Cessation Education Requested by Patient: No Hx Alcohol Use: No Hx Substance Use: No Preferred Language: Maltese Communication Ability: Effective Cash Crop Farmer Required: No Beliefs That Will Affect Care: None Current Living Situation: Spouse Assistive Devices: Hearing Aid - Bilateral Physical Exam Physical Exam: Patient is alert and oriented Heart regular in rhythm Lungs clear Results & Data Results & Data Vital Signs (Past 12 Hours) Vital Signs Temp Pulse Resp BP Pulse Ox O2 Del Method 05/28/23 06:27 37.0 C 65 18 123/67 97 Room Air
[2023-05-28] MEDS ORDERED: FLOSEAL HEMOSTATIC MATRIX 10ML TOP ONE (08:30)
[2023-05-28] MEDS ORDERED: ONDANSETRON INJ 2 MG/ML 2 ML VIAL IV PRN ×2 (08:41→11:43)
[2023-05-28] MEDS ORDERED: LABETALOL HCL IV 5 MG/ML 20ML IV PRN (08:41)
[2023-05-28] MEDS ORDERED: FLUMAZENIL 0.1 MG/1 ML 10 ML VIAL IV PRN (08:41)
[2023-05-28] MEDS ORDERED: fentaNYL citrate PF 100 MCG/2 ML VIAL IV PRN (08:41)
[2023-05-28] MEDS ORDERED: ePHEDrine sulfate 50 MG/ML AMP IV PRN (08:41)
[2023-05-28] MEDS ORDERED: ATROPINE SULFATE 0.1 MG/ML 10ML SYR IV PRN (08:41)
[2023-05-28] MEDS ORDERED: NALOXONE HCL 0.4 MG/1 ML VIAL/CARP IV PRN ×2 (08:41→11:43)
[2023-05-28] MEDS ORDERED: PROMETHAZINE HCL 12.5 MG in SODIUM CHLORIDE 0.9% 50 ML IV PRN ×2 (08:41→11:43)
[2023-05-28] MEDS ORDERED: HYDROmorphone INJ 1 MG/ML SYRINGE IV PRN ×2 (08:41→11:43)
[2023-05-28] MEDS ORDERED: ePHEDrine sulfate 50 MG/ML AMP ONE (08:46)
[2023-05-28] MEDS ORDERED: ONDANSETRON INJ 2 MG/ML 2 ML VIAL ONE (08:46)
[2023-05-28] MEDS ORDERED: DEXAMETHASONE SOD INJ 4 MG/ML VIAL ONE (08:46)
[2023-05-28] MEDS ORDERED: HYDROmorphone INJ 2 MG/ML SYR/VIAL ONE (09:00)
[2023-05-28] MEDS ORDERED: PHENYLEPHRINE 100MCG/ML 5ML SYR ONE (09:39)
[2023-05-28 09:41] LABS: iSTAT Blood Urea Nitrogen 31 mg/dl (7-18); iSTAT Carbon Dioxide 26 mmol/L (24-31); iSTAT Chloride 106 mmol/L (101-112); iSTAT Glucose 128 mg/dl (70-99); iSTAT Hematocrit 39 % (42-52); iSTAT Hemoglobin 13.3 g/dl (14.0-18.0); iSTAT Potassium 5.7 mmol/L (3.3-5.0); iSTAT Sodium 146 mmol/L (135-144)
[2023-05-28] MEDS ORDERED: SUGAMMADEX SODIUM 200 MG/2 ML VIAL IV ONE (09:56)
--- NOTE | 2023-05-28 10:05 | Operative Report ---
Post Operative Report Pre & Post Diagnosis Operation Date: 05/28/23 07:45 Pre-Op Diagnosis: Spinal Stenosis, Lumbar Region with Neurogenic Post-Op Diagnosis: Spinal Stenosis, Lumbar Region with Neurogenic I identified the patient and participated in the time-out.: Yes Procedure Operation Date: 05/28/23 07:45 Actual Procedures 1. Lumbar decompression bilateral medial facetectomies and foraminotomies L3- L4, L4-L5 and L5-S1. #2 posterior spinal fusion L4-S1. #3 placed posterior instrumentation L4-S1. #4 interbody fusion L4-5 L5-S1. #5 placement Spira 14 x 26 mm at L4-5 and 13 x 26 mm x 2 at L5-S1. #6 placement locally harvested morselized autograft and posterior gutters. #7 placement of I factor in the interbody space and infuse collagen sponge, mass graft in the posterior lateral gutters. Surgeon Romario Michaud, Veneer Repairer Machine Arabella Lake Estimated Blood Loss 350 Findings Consistent with Post-Op Diagnosis Specimens None Indications This is a 73-year-old male who presents above-mentioned diagnosis and failing since course of nonoperative care is here for surgical invention. Description of Procedure Patient was met with identified informed consent obtained. Patient was then taken to the operative suite underwent ablation placed in a prone position on the Jonathan table on top of the Kareem frame. All bony promises well-padded eyes inspected to ensure no external pressure placed upon the. This point the lumbar spine was prepped and draped in a sterile fashion. Sharp dissection with assistance of Bovie cautery to form down to and exposing the lamina transverse processes of L4-5 and the sacral ala bilaterally. From caudal cephalad fashion complete laminectomy L5 L4 partial laminectomy L3 was performed including bilateral medial facetectomies and foraminotomies addressing severe spinal stenosis. Pedicle screws were then placed in L4-L5 and S1 levels bilaterally with assistance of fluoroscopy and the properly sized edmund placed. By way of a transforaminal approach on the right and discectomy of L5-S1 was performed endplates guided to subcortical mean bone and a 13 x 26 mm Spira cage with I factor tapped in position. Then proceeded the transforaminal area at L5-S1 on the left. I completed the discectomy curetted the endplates to subcortical b leeding bone and placed a second 13 x 26 mm Spira cage filled with I factor into the space. I then proceeded L4-[address] the transforaminal approach and right complete discectomy was performed endplates guided to subcortical bleeding bone and a 14 x 26 mm Spira cage with I factor tapped in position. The rods were then compressed locked in final position bilaterally. The transverse processes of L4-5 and the sacral ala burred to subcortically bone. Infuse collagen sponge, master graft locally harvested morselized autograft was placed in the posterior gutters. 15 round RAÚL drain inserted. The incision was then closed with 1 Vicryl the fascia 2-0 Vicryl subcutaneously and 4 Monocryl for final skin closure. Steri-Strips sterile dressing placed. Patient waken taken to PACU in stable condition. Please note spinal cord monitoring was utilized at the procedure no changes noted. Lastly Arabella Lake was present at the entire surgeon while the patient positioning complex portion of the surgery and final skin closure. I attest to the content of the Intraoperative Record and any orders documented therein. Any exceptions are noted below.
--- NOTE | 2023-05-28 10:11 | Fluoroscopy Report ---
FL lumbar spine 2-3V CLINICAL HISTORY: L4-S1 DECOMPRESSION AND FUSION COMPARISON STUDY: None FLUOROSCOPY TIME: 24.5 seconds FLUOROSCOPY IMAGES: 2 EXPOSURE DOSE: 17.26 mGy FINDINGS: Posterior interbody edmund and screw fusion with discectomy at L4-S1. The hardware appears int act. No unexpected opaque foreign bodies. IMPRESSION: Fluoroscopic assistance as above. ACT 112: Negative or not required by law. Electronically signed by: Michael Jones M.D. 05/28/2023 10:10 AM
--- NOTE | 2023-05-28 11:33 | Anesthesiology Progress Note ---
Date of Service May 28, 2023 Anesthesia Post Procedure Vital Signs Vital Signs: Temp Pulse Pulse Resp BP Pulse Ox O2 Del Method 05/28/23 11:25 72 12 116/54 L 95 Nasal Cannula 05/28/23 11:15 36.4 C L 70 10 L 116/51 L 96 Nasal Cannula 05/28/23 11:05 70 12 104/54 L 95 Nasal Cannula 05/28/23 10:55 71 12 117/61 96 Nasal Cannula 05/28/23 10:45 71 10 L 121/54 L 94 Oxymask 05/28/23 10:35 72 12 111/56 L 93 Oxymask 05/28/23 10:25 81 12 115/55 L 95 Oxymask 05/28/23 10:19 36.1 C L 74 16 134/53 L 96 Oxymask 05/28/23 06:27 37.0 C 65 18 123/67 97 Room Air O2 Flow Rate 05/28/23 11:25 3 05/28/23 11:15 3 05/28/23 11:05 3 05/28/23 10:55 3 05/28/23 10:45 6 05/28/23 10:35 6 05/28/23 10:25 6 05/28/23 10:19 6 05/28/23 06:27 Pain Intensity Back: Pain Intensity: 6 Transfer of Care Handoff Completed per policy Notes Mental Status: alert / awake / arousable Patient Amnestic to Procedure: Yes Nausea / Vomiting: adequately controlled Pain: adequately controlled Airway Patency, RR, SpO2: stable & adequate BP & HR: stable & adequate Hydration State: stable & adequate Anesthetic Complications: no major complications apparent
[2023-05-28] MEDS ORDERED: PHARMACY GLYCEMIC MGMT CONSULT PRN (11:43)
[2023-05-28] MEDS ORDERED: traMADol HCL 50 MG TABLET PO PRN (11:43)
[2023-05-28] MEDS ORDERED: hydrOXYzine HCl 25 MG TAB PO PRN (11:43)
[2023-05-28] MEDS ORDERED: ACETAMINOPHEN 500 MG TAB PO PRN (11:43)
[2023-05-28] MEDS ORDERED: FAMOTIDINE 20 MG TAB PO PRN (11:43)
[2023-05-28] MEDS ORDERED: HYDROmorphone INJ 0.5 MG/0.5 ML SYR IV PRN (11:43)
[2023-05-28] MEDS ORDERED: DO NOT ADMINISTER FLU VACCINE PRN (11:43)
[2023-05-28] MEDS ORDERED: diphenhydrAMINE Capsule 25 MG CAP PO PRN (11:43)
[2023-05-28] MEDS ORDERED: METOCLOPRAMIDE HCL INJ 5 MG/ML 2 ML VIAL IV PRN (11:43)
[2023-05-28] MEDS ORDERED: ONDANSETRON 4 MG OD TAB PO PRN (11:43)
[2023-05-28] MEDS ORDERED: oxyCODONE HCL IR 5 MG TAB (IMMEDIATE RELEASE) PO PRN (11:43)
[2023-05-28] MEDS ORDERED: ALUMINUM/MAGNESIUM SUSP 30 ML UDC PO PRN (11:43)
[2023-05-28] MEDS ORDERED: LORazepam 2 MG/1 ML VIAL IV PRN (11:43)
[2023-05-28] MEDS ORDERED: DO NOT ADMINISTER PNEUMOCOCCAL VACCINE PRN (11:43)
[2023-05-28] MEDS ORDERED: MAGNESIUM HYDROXIDE SUSP 30 ML UDC PO PRN (11:43)
[2023-05-28] MEDS ORDERED: SOD PHOSPHATE/SOD BIPHOSPHATE ENEMA 132 ML BTL PR PRN (11:43)
[2023-05-28] MEDS ORDERED: bisacodyL 10 MG SUPP PR PRN (11:43)
[2023-05-28] MEDS ORDERED: ACETAMINOPHEN 1,000 MG/100 ML VIAL IV PRN (11:43)
[2023-05-28] MEDS: SODIUM CHLORIDE 0.9% 1,000 ML IV SCH ×2 (11:57→20:46)
[2023-05-28] MEDS: INSULIN ASPART PER UNIT CHARGE SC SCH ×3 (12:29→20:55)
[2023-05-28] MEDS ORDERED: LANTUS PER UNIT CHARGE SC SCH (12:30)
--- NOTE | 2023-05-28 12:52 | Hospitalist Consultation ---
Date of Consultation May 28, 2023 Assessment & Plan (1) Neurogenic claudication due to lumbar spinal stenosis: - Pain management, bowel regimen and DVT ppx per the primary team - PT/OT consults - Follow am CBC to monitor for acute blood loss - last hgb was 13.3 today prior to surgery - Pt notes hx of constipation and uses docusate and miralax on daily basis, has required lactulose in the past (2) DM (diabetes mellitus): - Holding glipizide - ISS with accuchecks achs -Last A1c was 7.6 in April (3) HTN (hypertension): -May continue amlodipine, lisinopril, and resuming Lasix in the morning. -Noted that the patient was slightly hyperkalemic with a potassium of 5.7 with [id number] check this morning, monitor with a.m. lab, encourage water consumption, patient has been on 100 mL NSS since 1143 this morning. Will allow 1 bag total infusion. -Monitor volume status closely, Wright catheter in place, strict I's and O's (4) Hyperlipidemia: -Continue statin therapy (5) Chronic kidney disease: -Stage III, chronic, stable - Trend creatinine/BUN with a.m. labs DVT PPx: teds, scds Lines 2 PIV CODE: Full code GI/FEN: DM/low potassium clear liquid diet for now, advance as tolerated Dispo: From home, likely to remain in the hospital x 1-2 days Thank you for involving us in the care of Mr. Gallardo. If you have any questions or concerns please do not hesitate to call. At this time medicine will follow along. Supervising Physician Co-Signing Physician Notes Patient seen and examined at bedside as a consult for medical management status post lumbar spine surgery. Patient underwent elective surgery today for RLE radiculopathy/worsening ambulation/severe back pain. Patient still drowsy from anesthesia but reports improvement in his RLE radiculopathy symptoms. Patient's at bedside. Continue other home medication as able, low potassium diet for noted mild hyperkalemia in the lab. Labs in AM. Monitor for acute blood loss anemia. On exam: GENERAL: Appears lethargic, opens eyes spontaneously, NAD, on 1 L oxygen via nasal cannula HEENT: No pallor, no icterus. Pupils equal, round and reactive to light. Oral mucosa moist. NECK: No JVD, no neck masses. HEART: S1 and S2 heard. Regular rate and rhythm. No murmur, no gallop. RESPIRATORY SYSTEM: Normal AP diameter. No accessory muscle use. No wheezing, no crackles. ABDOMEN: Soft, bowel sounds present, nontender, no distention. CENTRAL NERVOUS SYSTEM: No facial droop. Speech is clear. Obeys simple commands. Moves extremities. EXTREMITIES: No edema, no erythema seen. Low back dressing C/D/I. RAÚL drain with moderate serosanguineous collection noted. I have seen and examined the patient and have discussed the case with the pr rosanneer above. I agree with the assessment and plan as stated. History of Present Illness Reason for Consultation: Post op medical management Requesting Physician: Dr. Michaud Attending Physician: Romario Michaud, DO History of Present Illness This is a 73 yo M with PMhx of HTN, HLD, DM II, MDD, diverticulosis, with hx of benign colon polyps who presents for elective L3-S1 lumbar decompression, facetectomy, foraminotomy, fusion by Dr. Michaud on 05/28/2023. He was having lower back pain and difficulty standing and walking, has been ongoing for a number of years but over the past 1 year had significantly worsened. Pt is still somnolent at the time of my visit. His is present at bedside and reports that he has been upstairs for about 2 hours, and that she came in shortly after lunchtime. He has been following commands, can move his legs and arms without difficulty, his speech is somewhat garbled and his slower responses. notes that he speaks like this whenever he first gets up in the morning and is very tired. He denies any acute pain or complaints. He tolerated a full cup of water and to frozen ice cups at lunchtime. Denies any nausea, vomiting. notes that he has issues with constipation and takes stool softener, fiber agent and sometimes requires lactulose at home. Last bowel movement was yesterday. Patient does not know his home medications, has a list which we reviewed at bedside. She notes that he does not manage any of his medications himself, she does it for him. He has had much difficulty with walking prior to the surgery and is hopeful this will improve things. Allergies Allergy/AdvReac Type Severity Reaction Status Date / Time No Known Allergies Allergy Unknown Verified 05/01/23 12:21 Home Medications Medication Instructions Recorded Confirmed Type amlodipine 10 mg tablet 5 mg PO QPM 07/17/19 05/28/23 History atorvastatin 40 mg tablet 40 mg PO QAM 07/17/19 05/28/23 History furosemide 40 mg tablet 40 mg PO QAM 07/17/19 05/28/23 History glipizide 10 mg tablet 10 mg PO BID 07/17/19 05/28/23 History lisinopril 40 mg tablet 40 mg PO BID 07/17/19 05/28/23 History sertraline 25 mg tablet (Zoloft) 25 mg PO QAM 07/17/19 05/28/23 History tamsulosin 0.4 mg capsule 0.4 mg PO QAM 07/17/19 05/28/23 History multivitamin 1 tab PO QAM 09/09/21 05/28/23 History ascorbic acid (vitamin C) 500 mg 500 mg PO QAM 05/01/23 05/28/23 History tablet (Vitamin C) aspirin 81 mg tablet,delayed 81 mg PO QAM 05/01/23 05/28/23 History release cinnamon bark 500 mg capsule 1,000 mg PO QPM 05/01/23 05/28/23 History (Cinnamon) iron 1 dose PO QAM 05/01/23 05/28/23 History trazodone 150 mg tablet 150 mg PO HS 05/01/23 05/28/23 History zinc 50 mg capsule 50 mg PO QAM 05/01/23 05/28/23 History docusate sodium 50 mg capsule 50 mg PO DAILY 05/28/23 05/28/23 History polyethylene glycol 3350 17 17 g PO DAILY 05/28/23 05/28/23 History gram/dose oral powder Patient History Medical History (Updated 05/28/23 @ 13:33 by Georgette Butler PA-C) Chronic kidney disease Stage IV, creatinine stable in the 2.1-2.4 range for past 1+ years PCP aware/monitoring Hard of hearing Anemia Colon cancer Dx 2007, Treated surgically Cyst, kidney, acquired PCP monitors Diabetes mellitus, type 2 Depression Hypertension Hyperlipidemia Surgical History History of cataract surgery Hx of arthroscopy of right knee Hx of resection of large bowel Hx of colonoscopy Social History Smoking Status: Current every day smoker Tobacco Type: Cigarettes Cigarettes Per Day: 1/2-1 PPD; Second Hand Exposure: Yes ( smokes); Do You Dip or Chew Tobacco: Yes (occasional- advised none DOS); Tobacco Cessation Education Requested by Patient: No Hx Alcohol Use: No Hx Substance Use: No Preferred Language: Georgian Communication Ability: Effective Electrical Hardware Engineer Required: No Beliefs That Will Affect Care: None Current Living Situation: Spouse Assistive Devices: Hearing Aid - Bilateral Review of Systems Review of Systems: Constitutional: No fever, sweats or chills Eyes: No diplopia, no worsening or blurred vision ENT: normal hearing, no trouble swallowing Respiratory: No cough, sputum, dyspnea at rest or on exertion Cardiovascular: No chest pain, tightness or palpitations Abdomen: No pain, nausea, vomiting, diarrhea or constipation Musculoskeletal: No joint pain, calf pain, swelling Neurologic: No weakness, numbness/tingling, or balance problems Psychiatric: No anxiety or depression Skin: No rash or itch Physical Exam Physical Exam: General: awake, fatigued and lethargic still s/p surgery, answers questions with one word and slow, no apparent distress Head: Normocephalic, atraumatic ENT: PERRL, EOMI, no pharyngeal exudate, mucous membranes moist Chest: Clear to auscultation, on room air, no adventitious breath sounds Cardiac: Regular rate and rhythm, no murmur, no JVD, normal peripheral pulses, good capillary refill Back: Lumbar spine dressing c/d/i, RAÚL drain in place : wright catheter in place draining dark yellow urine Abdominal: NABS x 4 quadrants, soft, nondistended, nontender to palpation, no rebound or guarding Extremities: Normal inspection, no peripheral edema or erythema, calfs nontender to palpation Psych: Normal mood and affect Neuro: AAO x 3, strength intact bilaterally and rated 4/5 throughout, no gross motor deficits, speech is garbled and slowed currently, no peripheral sensory deficits Results & Data Results & Data Vital Signs (Past 12 Hours) Vital Signs Temp Pulse Pulse Resp BP Pulse Ox O2 Del Method 05/28/23 12:36 36.4 C L 76 12 116/62 96 Nasal Cannula 05/28/23 12:10 36.6 C 77 12 120/60 97 Nasal Cannula 05/28/23 11:40 36.5 C 76 12 138/62 95 Nasal Cannula 05/28/23 11:25 72 12 116/54 L 95 Nasal Cannula 05/28/23 11:15 36.4 C L 70 10 L 116/51 L 96 Nasal Cannula 05/28/23 11:05 70 12 104/54 L 95 Nasal Cannula 05/28/23 10:55 71 12 117/61 96 Nasal Cannula 05/28/23 10:45 71 10 L 121/54 L 94 Oxymask 05/28/23 10:35 72 12 111/56 L 93 Oxymask 05/28/23 10:25 81 12 115/55 L 95 Oxymask 05/28/23 10:19 36.1 C L 74 16 134/53 L 96 Oxymask 05/28/23 06:27 37.0 C 65 18 123/67 97 Room Air O2 Flow Rate 05/28/23 12:36 1 05/28/23 12:10 2 05/28/23 11:40 2 05/28/23 11:25 3 05/28/23 11:15 3 05/28/23 11:05 3 05/28/23 10:55 3 05/28/23 10:45 6 05/28/23 10:35 6 05/28/23 10:25 6 05/28/23 10:19 6 05/28/23 06:27 (5) Chronic kidney disease Chronic kidney disease stage: unspecified stage Qualified Code(s): N18.9 - Chronic kidney disease, unspecified
[2023-05-28] MEDS ORDERED: INFLUENZA VACCINE HIGH-DOSE (HD-IIV4) PF 65+ 0.7mL SYR IM ONE (13:02)
--- NOTE | 2023-05-28 14:46 | Pharmacy Report ---
Pharmacy Glycemic Short Note 2 - Date of Service May 28, 2023 - Glycemic Short BSG Results (Last 24 hours): 05/28/23 05/28/23 05/28/23 06:30 07:41 10:24 POC Glucose 161 H 188 H POC Glucose (other) 128 H 05/28/23 11:49 POC Glucose 239 H POC Glucose (other) OUTPATIENT ANTIDIABETIC REGIMEN: * Glipizide 10 mg PO BID ASSESSMENT: * 73 y/o M admitted for Lumbar decompression surgery. Patient with history of type 2 diabetes managed on only oral glipizide at home. * He received IV Dexamethasone 8 mg in OR this morning. IV Dex 6 mg QAM continued. * Blood sugars trended up from 161 mg/dl this AM to 239 mg/dl pre-lunch. * Basal insulin ordered based on stress of 3 and Novolog also based on stress of 3. PLAN FOR INPATIENT GLYCEMIC CONTROL: * Hold outpatient oral diabetes medications * Basal insulin * Lantus 20 units SQ x1 today, will re-assess dose tomorrow AM * Bolus insulin * NovoLog per scale ACHS or Q6hrs while NPO and 00,04 checks added * Goal Range: Low 110 mg/dL - High 140 mg/dL * Correction Factor: 20 mg/dL/unit * Nutritional / Prandial insulin per carb ratio of 1 unit per 7 grams CHO consumed
[2023-05-28] MEDS: ceFAZolin 2000MG 2,000 MG/15 ML SYR IV SCH (15:24)
[2023-05-28] MEDS: amLODIPine BESYLATE 5 MG TAB PO SCH (20:34)
[2023-05-28] MEDS: DOCUSATE SODIUM/SENNA 50/8.6MG TAB PO SCH (20:35)
[2023-05-28] MEDS: traZODone HCL 50 MG TAB PO SCH (20:35)
[2023-05-28] MEDS ORDERED: glipiZIDE 5 MG TAB PO SCH (21:00)
[2023-05-28] MEDS ORDERED: lisinopril 40 MG TAB PO SCH (21:00)
[2023-05-29] MEDS: INSULIN ASPART PER UNIT CHARGE SC SCH ×6 (00:19→20:59)
[2023-05-29] MEDS: ceFAZolin 2000MG 2,000 MG/15 ML SYR IV SCH (00:19)
[2023-05-29] MEDS: POLYETHYLENE (MIRALAX) 17 GM PACK PO SCH ×3 (05:36→17:09)
[2023-05-29] MEDS: SODIUM CHLORIDE 0.9% 1,000 ML IV SCH (07:08)
[2023-05-29 07:09] LABS: Basophils # (auto) 0.01 K/uL (0.00-0.20); Basophils % (auto) 0.1 %; Eosinophils # (auto) 0.01 K/uL (0.00-0.50); Eosinophils % (auto) 0.1 %; Hematocrit (blood only) 24.4 % (42.0-52.0); Hemoglobin 8.7 g/dl (14.0-18.0); Immature Granulocytes # (auto) 0.08 K/uL (0.01-0.20); Immature Granulocytes % (auto) 0.6 %; Lymphocytes # (auto) 1.46 K/uL (1.20-3.40); Lymphocytes % (auto) 10.6 %; Mean Corpuscular Hemoglobin 33.3 pg (25.0-34.0); Mean Corpuscular Hgb Conc 35.7 g/dL (32.0-36.0); Mean Corpuscular Volume 93.5 fL (80.0-100.0); Mean Platelet Volume 10.3 fL (9.4-12.4); Monocytes # (auto) 0.88 K/uL (0.11-0.59); Monocytes % (auto) 6.4 %; Neutrophils % (auto) 82.2 %; Platelet Count 167 K/uL (130-400); RDW Coefficient of Variation 12.7 % (11.5-14.5); Red Blood Count 2.61 M/uL (4.70-6.10); White Blood Count 13.74 K/ul (4.8-10.8)
[2023-05-29 07:40] LABS: Calcium 7.8 mg/dl (8.6-10.3); Potassium 4.1 mmol/L (3.5-5.1)
[2023-05-29 07:45] LABS: BUN Creatinine Ratio 11.1 (10-20); Creatinine Clr Calc Pharmacy 25.2 ml/min; Est GFR (African American) 24.2 ml/min; Est GFR (Non-African American) 20.9 ml/min
[2023-05-29] MEDS: LANTUS PER UNIT CHARGE SC SCH (08:37)
[2023-05-29] MEDS: dexAMETHasone 6 MG in SYRINGE 0 ML IV SCH (08:40)
[2023-05-29] MEDS: ATORVASTATIN 40 MG TAB PO SCH (08:40)
[2023-05-29] MEDS: ZINC SULFATE 220 MG CAPSULE PO SCH (08:41)
[2023-05-29] MEDS: FUROSEMIDE 40 MG TAB PO SCH (08:41)
[2023-05-29] MEDS: SERTRALINE HCL 50 MG TABLET PO SCH (08:41)
[2023-05-29] MEDS: TAMSULOSIN HCL 0.4 MG CAP PO SCH (08:42)
[2023-05-29] MEDS: ASPIRIN 81 MG ECTAB PO SCH (08:42)
[2023-05-29] MEDS: MULTIVITAMIN TAB PO SCH (08:42)
[2023-05-29] MEDS ORDERED: IRON PO SCH (09:00)
--- NOTE | 2023-05-29 09:59 | Orthopedic Progress Note ---
Date of Service May 29, 2023 Assessment & Plan (1) Neurogenic claudication due to lumbar spinal stenosis: Plan: At this time we will continue physical therapy monitor his RAÚL output of the discharge home later this week. Admission and Anticipated Discharge Date Admission Date: May 28, 2023 Subjective Back pain controlled leg pain improved Physical Exam Physical Exam: Patient is constricted testing. Peers comfortable. Results & Data Vital Signs (Past 12 Hours) Vital Signs Temp Pulse Pulse Resp BP BP Pulse Ox 05/29/23 07:09 37.0 C 74 18 108/58 L 93 05/29/23 04:00 36.8 C 72 18 95/55 L 96 05/29/23 00:04 36.8 C 70 18 107/64 96 O2 Del Method 05/29/23 07:09 Room Air 05/29/23 04:00 Room Air 05/29/23 00:04 Room Air
--- NOTE | 2023-05-29 12:39 | Hospitalist Progress Note ---
Date of Service May 29, 2023 Assessment & Plan (1) Neurogenic claudication due to lumbar spinal stenosis: Plan: Pain management, bowel regimen and DVT ppx per the primary team PT/OT consults Follow am CBC to monitor for acute blood loss - Pt notes hx of constipation and uses docusate and miralax on daily basis, has required lactulose in the past, bowel regimen per surgery (2) Acute blood loss anemia: Plan: Preop hemoglobin 12.5 POD #1 hemoglobin 8.7 Anemia secondary to expected surgical blood loss Continue to monitor hemoglobin, no indication for transfusion at this time Transfuse for hemoglobin less than 7 or otherwise symptomatic (3) DM (diabetes mellitus): Plan: chronic, stable Holding glipizide ISS with accuchecks achs Last A1c was 7.6 in April pharmacy on board, appreciate their recommendations (4) HTN (hypertension): Plan: Hold amlodipine, lisinopril, and Lasix as blood pressure softer side Resume when able (5) Hyperlipidemia: Plan: Continue statin therapy chronic, stable (6) Chronic kidney disease: Plan: Acute/Chronic CKD-3 Baseline cr appears to be 2.1-2.4 hold lasix, lisinopril cr 2.89 today will continue IVF, repeat labs in a.m. DVT PPx: teds, scds CODE: Full code Dispo: per primary Thank you for this consultation. We will follow the patient with you during their hospital stay. You can reach a member of the [facility] Hospitalist Team 11/02 via hospitalist role on tiger text. Pt was seen and examined in collaboration with Dr. Yoder, please see addendum Admission and Anticipated Discharge Date Admission Date: May 28, 2023 Supervising Physician Co-Signing Physician Notes I have seen and discussed the case with the collaborating KEIRA. I agree with the above H&P. I have reviewed and confirmed the patients medical history, the findings on physical examination, and the patients diagnosis and treatment plan with [place] CROCKETT and agree with the information documented. Mr Gallardo is a 73 year old gentleman who is now POD 1 from lumbar decompression. Patient with hypertension, DM, CKD. Patient with relative hypotension post-op, as well as post op anemia noted. Trend H&H and hold home meds for BP. Transfuse hgb < 7.0. Rest as above. Subjective Patient was seen and examined in room 301. Follow-up lumbar surgery. Currently he complains of incisional lower back pain but denies any radicular symptoms. He denies any fever, chills, sweats, lightheadedness, dizziness, chest pain, shortness of breath, nausea or vomiting. He did have vomiting yesterday but this has since resolved and he is tolerating diet. He states he is not yet passing flatus. Review of Systems Review of Systems: All systems reviewed & are unremarkable except as noted in HPI & below Physical Exam Physical Exam: Gen: WD/WN, NAD, A&O x3 HEENT: Normocephalic, atraumatic, conjunctivae moist, sclerae anicteric, mucous membranes moist. Lung: Clear to Auscultation bilaterally, no wheezes/rales/rhonchi Heart: Regular rate, regular rhythm, no murmurs, rubs, or gallops Abdomen: Soft, NT, ND +BS x 4 Extremities: No edema, lumbar dressing CDI with RAÚL drain in place with serosanguineous drainage Skin: Warm, no rash, negative turgor. : Vences catheter draining yellow urine Results & Data Results & Data Vital Signs (Past 12 Hours) Vital Signs Temp Pulse Pulse Resp BP BP Pulse Ox 05/29/23 11:28 36.7 C 78 18 115/66 94 05/29/23 07:09 37.0 C 74 18 108/58 L 93 05/29/23 04:00 36.8 C 72 18 95/55 L 96 O2 Del Method 05/29/23 11:28 Room Air 05/29/23 07:09 Room Air 05/29/23 04:00 Room Air Laboratory Results Short CBC 05/29/23 Range/Units 06:18 WBC 13.74 H (4.8-10.8) K/ul Hgb 8.7 L (14.0-18.0) g/dl Hct 24.4 L (42.0-52.0) % Plt Count 167 (130-400) K/uL BMP 05/29/23 06:18 Sodium 138 Potassium 4.1 Chloride 108 H Carbon Dioxide 26 BUN 32 H Creatinine 2.89 H Glucose 70 Calcium 7.8 L Medications Administered Current Inpatient Medications Acetaminophen (Acetaminophen 500 Mg Tab) 1,000 mg PO Q8H PRN PRN Reason: MILD Pain Scale 1,2,3 & Pre PT Stop: 06/27/23 11:42 Al Hydrox/Mg Hydrox/Simethicone (Aluminum/Magnesium Susp 30 Ml Udc) 30 ml PO Q6H PRN PRN Reason: Dyspepsia Stop: 06/27/23 11:42 Amlodipine Besylate (Amlodipine Besylate 5 Mg Tab) 5 mg PO QPM [facility] Stop: 06/27/23 20:59 Last Admin: 05/28/23 20:34 Dose: 5 mg Aspirin (Aspirin 81 Mg Ectab) 81 mg PO [facility] Stop: 06/28/23 08:59 Last Admin: 05/29/23 08:42 Dose: 81 mg Atorvastatin Calcium (Atorvastatin 40 Mg Tab) 40 mg PO [facility] Stop: 06/28/23 08:59 Last Admin: 05/29/23 08:40 Dose: 40 mg Bisacodyl (Bisacodyl 10 Mg Supp) 10 mg AL DAILY PRN PRN Reason: Constipation Stop: 06/27/23 11:42 Diphenhydramine HCl (Diphenhydramine Capsule 25 Mg Cap) 25 mg PO Q6H PRN PRN Reason: Allergic Rhinitis/Insomnia Stop: 06/27/23 11:42 Famotidine (Famotidine 20 Mg Tab) 20 mg PO Q12H PRN PRN Reason: Dyspepsia Stop: 06/27/23 11:42 Furosemide (Furosemide 40 Mg Tab) 40 mg PO [facility] Stop: 06/28/23 08:59 Last Admin: 05/29/23 08:41 Dose: 40 mg Hydromorphone HCl (Hydromorphone Inj 0.5 Mg/0.5 Ml Syr) 0.5 mg IV Q3H PRN PRN Reason: MODERATE Pain (Scale 4,5,6) & Pre PT Stop: 06/11/23 11:42 Hydromorphone HCl (Hydromorphone Inj 1 Mg/Ml Syringe) 1 mg IV Q3H PRN PRN Reason: SEVERE Pain (Scale 7,8,9,10) Stop: 06/11/23 11:42 Hydroxyzine HCl (Hydroxyzine Hcl 25 Mg Tab) 25 mg PO Q8H PRN PRN Reason: Anxiety Stop: 06/27/23 11:42 Last Admin: 05/28/23 20:44 Dose: 25 mg Sodium Chloride (Nss) 1,000 mls @ 100 mls/hr IV .Q10H [facility] Stop: 06/27/23 11:42 Last Admin: 05/29/23 07:08 Dose: 100 mls/hr Promethazine HCl 12.5 mg/ (Sodium Chloride) 50.5 mls @ 202 mls/hr IV Q6H PRN PRN Reason: Nausea &/or Vomiting Stop: 06/27/23 11:42 Dexamethasone 6 mg/ Syringe 1.5 mls @ 1 mls/min IV DAILY [facility] Stop: 05/31/23 09:02 Last Admin: 05/29/23 08:40 Dose: 1 mls/min Influenza Virus Vaccine Quadrival (Do Not Administer Flu Vaccine) 1 each N/A PRN PRN PRN Reason: Notification Stop: 06/27/23 11:42 Insulin Aspart (Insulin Aspart Per Unit Charge) 0 units SC ACHS [facility] Stop: 06/27/23 12:29 Last Admin: 05/29/23 12:28 Dose: 6 units Insulin Glargine (Lantus Per Unit Charge) 20 units SC QAM [facility] Stop: 06/28/23 08:59 Last Admin: 05/29/23 08:37 Dose: 20 units Lisinopril (Lisinopril 40 Mg Tab) 40 mg PO BID [facility] Stop: 06/27/23 20:59 Last Admin: 05/28/23 20:35 Dose: 40 mg Lorazepam (Lorazepam 0.5 Mg Tab) 0.5 mg PO Q8H PRN PRN Reason: Sedation/Anxiety Stop: 06/27/23 11:42 Lorazepam (Lorazepam 2 Mg/1 Ml Vial) 0.5 mg IV Q8H PRN PRN Reason: Sedation/Anxiety Stop: 06/27/23 11:42 Magnesium Hydroxide (Magnesium Hydroxide Susp 30 Ml Udc) 30 ml PO Q24H PRN PRN Reason: Constipation Stop: 06/27/23 11:42 Metoclopramide HCl (Metoclopramide Hcl Inj 5 Mg/Ml 2 Ml Vial) 10 mg IV Q6H PRN PRN Reason: Nausea &/or Vomiting Stop: 06/27/23 11:42 Miscellaneous Information (Pharmacy Glycemic Mgmt Consult) 1 each N/A UD PRN PRN Reason: Consult Stop: 06/27/23 11:42 Multivitamins (Multivitamin Tab) 1 tab PO QAM [facility] Stop: 06/28/23 08:59 Last Admin: 05/29/23 08:42 Dose: 1 tab Naloxone HCl (Naloxone Hcl 0.4 Mg/1 Ml Vial/Carp) 0.1 mg IV Q5M PRN PRN Reason: Oversedation/Resp depression Stop: 06/27/23 11:42 Ondansetron HCl (Ondansetron Inj 2 Mg/Ml 2 Ml Vial) 4 mg IV Q6H PRN PRN Reason: Nausea &/or Vomiting Stop: 06/27/23 11:42 Last Admin: 05/28/23 20:45 Dose: 4 mg Ondansetron HCl (Ondansetron 4 Mg Od Tab) 4 mg PO Q6H PRN PRN Reason: Nausea Stop: 06/27/23 11:42 Oxycodone HCl (Oxycodone Hcl Ir 5 Mg Tab (Immediate Release)) 5 - 10 mg PO Q4H PRN PRN Reason: Pain & Pre PT Stop: 06/11/23 11:42 Pneumococcal Polyvalent Vaccine (Do Not Administer Pneumococcal Vaccine) 1 each N/A PRN PRN PRN Reason: Notification Stop: 06/27/23 11:42 Polyethylene Glycol (Polyethylene (Miralax) 17 Gm Pack) 17 gm PO Q6 [facility] Stop: 06/28/23 05:59 Last Admin: 05/29/23 12:31 Dose: 17 gm Senna/Docusate Sodium (Docusate Sodium/Senna 50/8.6mg Tab) 2 tab PO HS [facility] Stop: 06/27/23 20:59 Last Admin: 05/28/23 20:35 Dose: 2 tab Sertraline HCl (Sertraline Hcl 50 Mg Tablet) 25 mg PO QAM [facility] Stop: 06/28/23 08:59 Last Admin: 05/29/23 08:41 Dose: 25 mg Sodium Biphosphate/Sodium Phosphate (Sod Phosphate/Sod Biphosphate Enema 132 Ml Btl) 132 ml AL ONE PRN PRN Reason: Constipation Stop: 06/27/23 11:42 Tamsulosin HCl (Tamsulosin Hcl 0.4 Mg Cap) 0.4 mg PO QAM [facility] Stop: 06/28/23 08:59 Last Admin: 05/29/23 08:42 Dose: 0.4 mg Tramadol HCl (Tramadol Hcl 50 Mg Tablet) 50 - 100 mg PO Q4H PRN PRN Reason: Moderate-Severe pain & Pre PT Stop: 06/27/23 11:42 Trazodone HCl (Trazodone Hcl 50 Mg Tab) 150 mg PO HS [facility] Stop: 06/27/23 20:59 Last Admin: 05/28/23 20:35 Dose: 150 mg Zinc Sulfate (Zinc Sulfate 220 Mg Capsule) 220 mg PO QAM [facility] Stop: 06/28/23 08:59 Last Admin: 05/29/23 08:41 Dose: 220 mg (6) Chronic kidney disease Chronic kidney disease stage: unspecified stage Qualified Code(s): N18.9 - Chronic kidney disease, unspecified
[2023-05-29] MEDS ORDERED: LORazepam 0.5 MG in SYRINGE 0.25 ML IV PRN (14:25)
[2023-05-29] MEDS: LACTATED RINGER'S 1,000 ML IV SCH (16:34)
[2023-05-29] MEDS: DOCUSATE SODIUM/SENNA 50/8.6MG TAB PO SCH (20:53)
[2023-05-29] MEDS: traZODone HCL 50 MG TAB PO SCH (20:53)
[2023-05-29] MEDS: LORazepam 0.5 MG TAB PO PRN (20:59)
[2023-05-30] MEDS: POLYETHYLENE (MIRALAX) 17 GM PACK PO SCH ×5 (00:53→22:53)
[2023-05-30] MEDS: LACTATED RINGER'S 1,000 ML IV SCH (04:59)
[2023-05-30 06:59] LABS: Basophils # (auto) 0.01 K/uL (0.00-0.20); Basophils % (auto) 0.1 %; Eosinophils # (auto) 0.02 K/uL (0.00-0.50); Eosinophils % (auto) 0.2 %; Hematocrit (blood only) 24.2 % (42.0-52.0); Hemoglobin 8.6 g/dl (14.0-18.0); Immature Granulocytes # (auto) 0.05 K/uL (0.01-0.20); Immature Granulocytes % (auto) 0.4 %; Lymphocytes # (auto) 1.59 K/uL (1.20-3.40); Lymphocytes % (auto) 13.9 %; Mean Corpuscular Hemoglobin 32.8 pg (25.0-34.0); Mean Corpuscular Hgb Conc 35.5 g/dL (32.0-36.0); Mean Corpuscular Volume 92.4 fL (80.0-100.0); Mean Platelet Volume 10.4 fL (9.4-12.4); Monocytes # (auto) 0.76 K/uL (0.11-0.59); Monocytes % (auto) 6.7 %; Neutrophils # (auto) 8.99 K/uL (1.40-6.50); Neutrophils % (auto) 78.7 %; Platelet Count 169 K/uL (130-400); RDW Coefficient of Variation 12.6 % (11.5-14.5); RDW Standard Deviation 42.6 fL (36.4-46.3); Red Blood Count 2.62 M/uL (4.70-6.10); White Blood Count 11.42 K/ul (4.8-10.8)
[2023-05-30 07:31] LABS: BUN Creatinine Ratio 13.3 (10-20); Calcium 8.5 mg/dl (8.6-10.3); Est GFR (African American) 26.3 ml/min; Est GFR (Non-African American) 22.7 ml/min; Potassium 4.2 mmol/L (3.5-5.1)
[2023-05-30] MEDS: ATORVASTATIN 40 MG TAB PO SCH (07:58)
[2023-05-30] MEDS: ASPIRIN 81 MG ECTAB PO SCH (07:58)
[2023-05-30] MEDS: ZINC SULFATE 220 MG CAPSULE PO SCH (07:59)
[2023-05-30] MEDS: SERTRALINE HCL 50 MG TABLET PO SCH (07:59)
[2023-05-30] MEDS: TAMSULOSIN HCL 0.4 MG CAP PO SCH (07:59)
[2023-05-30] MEDS: dexAMETHasone 6 MG in SYRINGE 0 ML IV SCH (07:59)
[2023-05-30] MEDS: MULTIVITAMIN TAB PO SCH (07:59)
[2023-05-30] MEDS: LANTUS PER UNIT CHARGE SC SCH (08:09)
[2023-05-30] MEDS: INSULIN ASPART PER UNIT CHARGE SC SCH ×4 (08:09→21:29)
--- NOTE | 2023-05-30 10:28 | Orthopedic Progress Note ---
Date of Service May 30, 2023 Assessment & Plan (1) Neurogenic claudication due to lumbar spinal stenosis: Plan: José is postoperative day 2 status post L4-S1 decompression and instrumented fusion. We will continue with physical therapy today. Maintain RAÚL drain. Continue with pain control. DVT prophylaxis is in the form of teds and SCDs. Anticipate discharge home tomorrow Admission and Anticipated Discharge Date Admission Date: May 28, 2023 Subjective José is postoperative day 2 status post L4-S1 decompression instrumented fusion. No complaints. He is doing well. Pain is improved. RAÚL drain output last shift was 80 cc. Yesterday in physical therapy ambulating roughly 130 feet. Review of Systems Review of Systems: All systems reviewed & are unremarkable except as noted in HPI & below Physical Exam Physical Exam: Alert and oriented x3 No acute distress Lumbar dressing is clean dry and intact with functioning RAÚL drain Strength intact bilateral lower extremities Results & Data Vital Signs (Past 12 Hours) Vital Signs Temp Pulse Resp BP Pulse Ox O2 Del Method 05/30/23 07:25 36.6 C 60 18 157/75 H 95 Room Air
--- NOTE | 2023-05-30 13:30 | Pharmacy Report ---
Pharmacy Glycemic Short Note 2 - Date of Service May 30, 2023 - Glycemic Short BSG Results (Last 24 hours): 05/29/23 05/29/23 05/30/23 16:37 20:45 05:36 Glucose 97 POC Glucose 153 H 145 H 05/30/23 05/30/23 07:28 11:52 Glucose POC Glucose 114 H 162 H OUTPATIENT ANTIDIABETIC REGIMEN: * Glipizide 10 mg PO BID ASSESSMENT: 05/30: * Patient received total of 40 units of insulin yesterday: 20 units basal and 20 units bolus. * BSGs yesterday were 42-111-223-145 mg/dl. Fasting BSG today was 97 mg/dl. * Patient continues on IV Dex 6 mg qAM- tomorrow will be the last dose of this. * Basal insulin reduced slightly for tomorrow AM, in case patient gets discharged home on oral anti-diabetic meds, to prevent hypoglycemia. 05/28: * 73 y/o M admitted for Lumbar decompression surgery. Patient with history of type 2 diabetes managed on only oral glipizide at home. * He received IV Dexamethasone 8 mg in OR this morning. IV Dex 6 mg QAM continued. * Blood sugars trended up from 161 mg/dl this AM to 239 mg/dl pre-lunch. * Basal insulin ordered based on stress of 3 and Novolog also based on stress of 3. PLAN FOR INPATIENT GLYCEMIC CONTROL: * Hold outpatient oral diabetes medications * Basal insulin * Lantus 20 units SQ today, 15 units SQ tomorrow AM * Bolus insulin * NovoLog per scale ACHS or Q6hrs while NPO and 00,04 checks added * Goal Range: Low 110 mg/dL - High 140 mg/dL * Correction Factor: 20 mg/dL/unit * Nutritional / Prandial insulin per carb ratio of 1 unit per 6 grams CHO consumed
--- NOTE | 2023-05-30 14:33 | Hospitalist Progress Note ---
Date of Service May 30, 2023 Assessment & Plan (1) Neurogenic claudication due to lumbar spinal stenosis: Plan: POD#2 Pain management, bowel regimen and DVT ppx per the primary team PT/OT consults Pt notes hx of constipation and uses docusate and miralax on daily basis, has required lactulose in the past, bowel regimen per surgery Passing flatus today, consider adding lactulose tomorrow if no bowel movement before (2) Acute blood loss anemia: Plan: Preop hemoglobin 12.5 POD #1 hemoglobin 8.7 -> stable at 8.6 today Anemia secondary to expected surgical blood loss Continue to monitor hemoglobin, no indication for transfusion at this time Transfuse for hemoglobin less than 7 or otherwise symptomatic (3) DM (diabetes mellitus): Plan: chronic, stable Holding glipizide ISS with accuchecks achs Last A1c was 7.6 in April pharmacy on board, appreciate their recommendations (4) HTN (hypertension): Plan: Resumed amlodipine for this evening, continue pain control Cont holding lisinopril and Lasix for now, although renal function improving Resume when able (5) Hyperlipidemia: Plan: Continue statin therapy chronic, stable (6) Chronic kidney disease: Plan: Acute/Chronic CKD-4 GFR reveals a range of 26.3-29.2 since Aug 2021. Baseline cr appears to be 2.1-2.4 hold lasix, lisinopril cr 2.89 -> 2.70 today repeat labs in a.m. DVT PPx: teds, scds CODE: Full code Dispo: per primary Thank you for this consultation. We will follow the patient with you during their hospital stay. You can reach a member of the [facility] Hospitalist Team 11/02 via hospitalist role on tiger text. Pt was seen and examined in collaboration with Dr. Yoder, please see addendum Admission and Anticipated Discharge Date Admission Date: May 28, 2023 Supervising Physician Co-Signing Physician Notes I have seen and discussed the case with the collaborating KEIRA. I agree with the above H&P. I have reviewed and confirmed the patients medical history, the findings on physical examination, and the patients diagnosis and treatment plan with [place] CROCKETT and agree with the information documented. Mr Gallardo is a 73 year old gentleman who is now POD 1 from lumbar decompression. Patient with hypertension, DM, CKD. Patient with relative hypotension post-op, as well as post op anemia noted.Hypotension improving, resuming amlodipine. JENNIFER improving slowly, will introduce lasix and lisinopril as able, monitor fluid status.. Transfuse hgb < 7.0. Rest as above. Subjective Seen and examined in 301 in follow up for spinal surgery. Feeling well today and sitting at edge of bed. Pain currently controlled. Tolerating diet without N/V. No F/C, chest pain, SOB, abdominal pain, dysuria. Vences removed and urinating without issue. Passing flatus, no post-op bowel movement. Review of Systems Review of Systems: At least ten systems reviewed and negative except as noted in the HPI. Physical Exam Physical Exam: Gen: WD/WN, NAD, sitting at side of bed, A&Ox3 HEENT: Normocephalic, atraumatic, conjunctivae moist, sclerae anicteric, mucous membranes moist Lung: Clear to Auscultation bilaterally, no wheezes/rales/rhonchi Heart: Regular rate, regular rhythm, no murmurs, rubs, or gallops Abdomen: Soft, NT, ND +BS x 4 Extremities: Spinal dressing c/d/i, RAÚL drain visualized, no edema Skin: Warm, no rash Results & Data Results & Data Vital Signs (Past 12 Hours) Vital Signs Temp Pulse Resp BP Pulse Ox O2 Del Method 05/30/23 07:50 Room Air 05/30/23 07:25 36.6 C 60 18 157/75 H 95 Room Air Laboratory Results Short CBC 05/30/23 Range/Units 05:36 WBC 11.42 H (4.8-10.8) K/ul Hgb 8.6 L (14.0-18.0) g/dl Hct 24.2 L (42.0-52.0) % Plt Count 169 (130-400) K/uL BMP 05/30/23 05:36 Sodium 139 Potassium 4.2 Chloride 108 H Carbon Dioxide 26 BUN 36 H Creatinine 2.70 H Glucose 97 Calcium 8.5 L Diagnostic Findings Lumbar Spine X-Ray 05/28/23 07:45 [place] lumbar spine 2-3V CLINICAL HISTORY: L4-S1 DECOMPRESSION AND FUSION COMPARISON STUDY: None FLUOROSCOPY TIME: 24.5 seconds FLUOROSCOPY IMAGES: 2 EXPOSURE DOSE: 17.26 mGy FINDINGS: Posterior interbody edmund and screw fusion with discectomy at L4-S1. The hardware appears intact. No unexpected opaque foreign bodies. IMPRESSION: Fluoroscopic assistance as above. ACT 112: Negative or not required by law. Electronically signed by: Michael Jones M.D. 05/28/2023 10:10 AM (6) Chronic kidney disease Chronic kidney disease stage: stage 4 (severe) Qualified Code(s): N18.4 - Chronic kidney disease, stage 4 (severe)
[2023-05-30 21:18] VITALS: RESP 16; O2SAT 97
[2023-05-30] MEDS: amLODIPine BESYLATE 5 MG TAB PO SCH (21:28)
[2023-05-30] MEDS: traZODone HCL 50 MG TAB PO SCH (21:29)
[2023-05-30] MEDS: DOCUSATE SODIUM/SENNA 50/8.6MG TAB PO SCH (21:29)
[2023-05-30] MEDS: LORazepam 0.5 MG TAB PO PRN (21:32)
[2023-05-31] MEDS: POLYETHYLENE (MIRALAX) 17 GM PACK PO SCH ×2 (05:39→13:02)
[2023-05-31 07:13] LABS: BUN Creatinine Ratio 16.2 (10-20); Calcium 8.8 mg/dl (8.6-10.3); Creatinine Clr Calc Pharmacy 29.5 ml/min; Est GFR (African American) 29.3 ml/min; Est GFR (Non-African American) 25.3 ml/min
[2023-05-31 07:30] VITALS: BP 152/73; PULSE 67; TEMP 98.2
[2023-05-31] MEDS: ASPIRIN 81 MG ECTAB PO SCH (08:12)
[2023-05-31] MEDS: dexAMETHasone 6 MG in SYRINGE 0 ML IV SCH (08:12)
[2023-05-31] MEDS: MULTIVITAMIN TAB PO SCH (08:12)
[2023-05-31] MEDS: ATORVASTATIN 40 MG TAB PO SCH (08:12)
[2023-05-31] MEDS: TAMSULOSIN HCL 0.4 MG CAP PO SCH (08:13)
[2023-05-31] MEDS: ZINC SULFATE 220 MG CAPSULE PO SCH (08:13)
[2023-05-31] MEDS: SERTRALINE HCL 50 MG TABLET PO SCH (08:13)
[2023-05-31] MEDS: INSULIN ASPART PER UNIT CHARGE SC SCH ×2 (08:23→13:01)
[2023-05-31] MEDS ORDERED: LANTUS PER UNIT CHARGE SC SCH (09:00)
--- NOTE | 2023-05-31 10:34 | Discharge Summary ---
Date of Service May 31, 2023 Admission HPI Per Admitting Provider This is a 73-year-old male presents chronic/back and leg pain Course of nonoperative care is here for surgical invention. Principal Diagnosis Lumbar spinal stenosis with neurogenic claudication Discharge Data Allergies Allergy/AdvReac Type Severity Reaction Status Date / Time No Known Allergies Allergy Unknown Verified 05/01/23 12:21 Consultations 05/28/23 11:43 Consult Hospitalist Routine Procedures Performed Operation Date: 05/28/23 07:45 Actual Procedures p L4-S1 Decompression and Fusion, Spinal Cord Monitoring - Romario Michaud DO Ordered Studies 05/28/23 07:45 [place] lumbar spine 2-3V Routine Hospital Course (1) Neurogenic claudication due to lumbar spinal stenosis: Patient with lumbar decompression fusion tolerated well taken to the orthopedic for postoperative. Postop day 1 is up and ambulating progressed out of hospital stay RAÚL drain decreasing ability. Extra strength testing. Pain well controlled. Subsequently discharged home. Discharge orders instructions are on the chart for further review. Total Time Total Time Spent Total Time Spent (In Minutes): 20 minutes Discharge Plan Discharge Items Patient Disposition: Home - Self-Care Reason For Visit: Spinal Stenosis, Lumbar Region with Neurogenic Discharge Diagnosis: lumbar stenosis with neurogenic claudication Activity: As commented below Non-emergency contact: Primary Care Provider Call non-emergency contact if: you have any medication questions Follow-up/Referrals: Mark Choudhury MD [Primary Care Provider] - (Date & Time 06/04/2023 11:00 AM Provider Mahi Zelaya MD Department [facility] ) Diet: Regular Addtl Attending Provider Instructions: ACTIVITY RECOMMENDATIONS: SELF CARE INSTRUCTIONS AFTER THORACIC/LUMBAR FUSIONS 1. You may walk to your tolerance. It is good exercise for your legs and back. Expect some back and intermittent leg aches and pains. 2. You may perform "counter-top" level activities (make a sandwich, josee with a project, etc.). 3. No bending or lifting of more than 10 pounds or back twisting of any nature (roll like a log when turning in bed). 4. You may ride in a car for 20-30 minutes at a time. No driving until after your first visit with your doctor. 5. Frequent changes of position and restricting sitting to 30 minutes at a time will help limit the amount of back spasms and stiffness you may experience. 6. You may discontinue the use of ambulatory aids (cane, crutches, etc.) once your strength and confidence allow. 7. You may ship engines operating engineer the shower and let water strike your incision when you arrive home at least once daily. Do not take a tub bath, sit in a hot tub or go into a swimming pool until after your first recheck in the office. SPECIAL CARE INSTRUCTIONS: VERY IMPORTANT TO READ AND REVIEW A. Your surgical incision has been closed with a cosmetic suture under the skin that will dissolve in about 6 weeks. In 14 days, you can use a pair of clean scissors and cut the suture that is left outside of the skin at the ends of your incision. 1. The small skin tapes can be removed 7 days after surgery if they have not fallen off by that point. 2. You may keep the wound open to air as much as possible to promote healing after post-op day number 5 unless told otherwise by your doctor. 3. If you think the wound looks like it is becoming infected (redness or worsening drainage) and/or you are experiencing fever, chill or worsening back pain and muscle spasms, contact the office so that we may evaluate you as soon as possible. B. Complications are uncommon, but please contact us if you have any signs or symptoms of: 1. wound infection (fever higher than 102.5 degrees F, redness, separation of wound, drainage, or increasing pain from the incision) 2. blood clots in legs (pain, swelling, redness and warmth in legs) 3. urinary tract infection (fever higher than 102.5 degrees F, burning upon urination or increased frequency of urination) 4. nerve problems (inability to walk on your toes or heels, numbness, loss of bowel or bladder control) 5. any other symptoms that concern you C. Please call the office at if you have any concerns or questions about your operation or recovery. D. No smoking! Smoking drastically decreases the chance of a solid fusion. E. Do not take any anti-inflammatory medications (Indocin, Advil, Motrin, Aspirin, Naprosyn, etc.) as these may inhibit the chance of a solid fusion. Tylenol is okay to take for pain. MANAGING PAIN AFTER SPINAL SURGERY 1. Narcotic medication is intended for short-term use and will be provided for surgical pain. Surgical pain usually lasts for a period of 4-6 weeks. Narcotic medication includes Percocet, Vicodin, Darvocet, Tylenol #3 or Lortab. 2. Longer-term pain is more appropriately treated with non-narcotic medication such as Tylenol ES. 3. Muscle spasm is not appropriately treated with narcotics. Muscle relaxers such as Soma, Flexeril or Skelaxin can be used along with Tylenol ES. 4. Remember that we all live with some "aches and pains". This is not unusual or uncommon after an injury or as we get older. a. Back pain is expected and may include muscle spasms for 4 to 6 weeks after surgery. The pain should gradually improve. If the pain worsens for no apparent reason, please contact the office. b. Intermittent leg pain may also be experienced and should not be concerned about unless it worsens for no apparent reason. If so, please contact the office. 5. We will provide appropriate medication within the normal guidelines of their prescribed use. We will also be very cautious and aware of potential abuse and extended duration of patients' medication needs. a. Pain medications are for your comfort and to assist with sleep and rest so that the tissue can heal. They are not provided in order to return to normal activity and should not be used through the day. To do so or worsening pain at night can result from ongoing tissue damage and development of tolerance to the prescribed medicine. 6. Please allow 2-3 days to process refills. Prescriptions will not be mailed but must be picked up at the office. FOLLOW UP VISIT: Keep your scheduled follow-up appointment. Any questions, please call the office at . Pending Studies at Discharge: No Stand-Alone Forms: My [facility] [employer], Smoking Cessation Medications and DC Order Prescriptions: New tramadol 50 mg tablet 50 mg PO Q6H PRN (Reason: pain, moderate) Qty: 30 0RF oxycodone 5 mg tablet 5 mg PO Q6H PRN (Reason: pain) Qty: 30 0RF Continued furosemide 40 mg Tablet 40 mg PO QAM atorvastatin 40 mg Tablet 40 mg PO QAM glipizide 10 mg Tablet 10 mg PO BID tamsulosin 0.4 mg Capsule 0.4 mg PO QAM amlodipine 10 mg Tablet 5 mg PO QPM sertraline [Zoloft] 25 mg Tablet 25 mg PO QAM lisinopril 40 mg Tablet 40 mg PO BID aspirin 81 mg Tablet,Delayed Release (Dr/Ec) 81 mg PO QAM ascorbic acid (vitamin C) [Vitamin C] 500 mg Tablet 500 mg PO QAM trazodone 150 mg Tablet 150 mg PO HS zinc 50 mg Capsule 50 mg PO QAM cinnamon bark [Cinnamon] 500 mg Capsule 1,000 mg PO QPM iron 1 dose PO QAM docusate sodium 50 mg Capsule 50 mg PO DAILY polyethylene glycol 3350 17 gram/dose Powder 17 g PO DAILY multivitamin Tablet 1 tab PO QAM Discharge Orders: Discharge Order (Routine); Ordered 05/31/23 Ordered By: Romario iMchaud Admission Data Admit Date/Time: 05/28/23 10:07 Attending Provider: Romario Michaud Admit Provider: Romario Michaud Primary Care Provider: Mark Choudhury Other Providers: Marla Brown; Yarelis Luong
[2023-05-31] MEDS: FUROSEMIDE 40 MG TAB PO SCH (12:22)
--- NOTE | 2023-05-31 13:22 | Hospitalist Progress Note ---
Date of Service May 31, 2023 Assessment & Plan (1) Neurogenic claudication due to lumbar spinal stenosis: Plan: POD#3 Pain management, bowel regimen and DVT ppx per the primary team PT/OT consults Pt notes hx of constipation and uses docusate and miralax on daily basis, has required lactulose in the past, bowel regimen per surgery Passing flatus today, no postop bowel movement yet (2) Acute blood loss anemia: Plan: Preop hemoglobin 12.5 POD #1 hemoglobin 8.7 -> stable at 8.6 today Anemia secondary to expected surgical blood loss Continue to monitor hemoglobin, no indication for transfusion at this time Transfuse for hemoglobin less than 7 or otherwise symptomatic (3) DM (diabetes mellitus): Plan: chronic, stable Holding glipizide ISS with accdonna mai Last A1c was 7.6 in April pharmacy on board, appreciate their recommendations (4) HTN (hypertension): Plan: Amlodipine resumed yesterday, lasix resumed today Renal function continues to improve Patient instructed to resume home dose lisinopril tomorrow (5) Hyperlipidemia: Plan: Continue statin therapy chronic, stable (6) Chronic kidney disease: Plan: Acute/Chronic CKD-4 GFR reveals a range of 26.3-29.2 since Aug 2021. Baseline cr appears to be 2.1-2.4 hold lasix, lisinopril cr 2.89 -> 2.70 -> 2.47 today repeat labs in a.m. DVT PPx: teds, scds CODE: Full code Dispo: per primary Thank you for this consultation. We will follow the patient with you during their hospital stay. You can reach a member of the [facility] Hospitalist Team 11/02 via hospitalist role on tiger text. Pt was seen and examined in collaboration with Dr. Yoder, please see addendum Admission and Anticipated Discharge Date Admission Date: May 28, 2023 Supervising Physician Co-Signing Physician Notes I have seen and discussed the case with the collaborating KEIRA. I agree with the above H&P. I have reviewed and confirmed the patients medical history, the fin dings on physical examination, and the patients diagnosis and treatment plan with [place] CROCKETT and agree with the information documented. Mr Gallardo is a 73 year old gentleman who is now POD 1 from lumbar decompression. Patient with hypertension, DM, CKD. Patient with relative hypotension post-op, as well as post op anemia noted.Hypotension improving, resumed amlodipine.Resumed lasix today. Resume lisinopril tomorrow. Medically stable for d/c. Rest as above. Subjective Seen and examined in 301 in follow up for spinal surgery. Feeling well today and resting in bed. No acute changes overnight. Pain currently controlled. Tolerating diet without N/V. No F/C, chest pain, SOB, abdominal pain, dysuria. Vences removed and urinating without issue. Passing flatus, no post-op bowel movement. Review of Systems Review of Systems: At least ten systems reviewed and negative except as noted in the HPI. Physical Exam Physical Exam: Gen: WD/WN, NAD, laying in bed comfortably, A&Ox3 HEENT: Normocephalic, atraumatic, conjunctivae moist, sclerae anicteric, mucous membranes moist Lung: Clear to Auscultation bilaterally, no wheezes/rales/rhonchi Heart: Regular rate, regular rhythm, no murmurs, rubs, or gallops Abdomen: Soft, NT, ND +BS x 4 Extremities: Spinal dressing c/d/i, RAÚL drain visualized, no edema Skin: Warm, no rash Results & Data Results & Data Vital Signs (Past 12 Hours) Vital Signs Temp Pulse Resp BP Pulse Ox O2 Del Method 05/31/23 07:29 36.8 C 67 16 152/73 H 97 Room Air 05/31/23 07:25 Room Air Laboratory Results [facility] 05/31/23 06:24 Sodium 139 Potassium 4.0 Chloride 107 Carbon Dioxide 27 BUN 40 H Creatinine 2.47 H Glucose 91 Calcium 8.8 Diagnostic Findings Lumbar Spine X-Ray 05/28/23 07:45 FL lumbar spine 2-3V CLINICAL HISTORY: L4-S1 DECOMPRESSION AND FUSION COMPARISON STUDY: None FLUOROSCOPY TIME: 24.5 seconds FLUOROSCOPY IMAGES: 2 EXPOSURE DOSE: 17.26 mGy FINDINGS: Posterior interbody edmund and screw fusion with discectomy at L4-S1. The hardware appears intact. No unexpected opaque foreign bodies. IMPRESSION: Fluoroscopic assistance as above. ACT 112: Negative or not required by law. Electronically signed by: Michael Jones M.D. 05/28/2023 10:10 AM (6) Chronic kidney disease Chronic kidney disease stage: stage 4 (severe) Qualified Code(s): N18.4 - Chronic kidney disease, stage 4 (severe)
--- OUTSIDE RECORDS SUMMARY | 2023-06-01 14:43 | External Medical Summary | Summary of Care ---
Author Name Unknown Organization [facility] Address [address] [place] [address] Phone [phone] Care Team Providers Care Chaplain Name Role Phone Mark Santos DO Primary Care Provid er Reason for Visit * Reason Comments eRx-Medication Refill Encounter Details Date Type Department Care Team ([facility] Contact Info) Description 05/24/[address] [phone] Mark Santos DO [address] [place] [id number] Dyslipidemia, goal LDL below 100 Allergies No known active allergiesdocumented as of this encounter (statuses as of 05/25/2023) Medications Medication Sig Dispensed Refills Start Date End Date Status ASPIRIN EC LOW STRENGTH TBEC 81 MG OR 1 by mouth daily to prevent heart attack 100 5 5 Active Iron-Vitamin C 65-125 MG Oral Tablet Take 1 Tablet by mouth in the morning. 0 0 Active Spironolactone 25 MG Oral Tablet (Aldactone) Take 0.5 Tabs by mouth daily. 45 Tab 0 1 Active traZODone HCl 100 MG Oral Tablet (Desyrel)Indicati ons:Persistent insomnia TAKE 1 TABLET BY MOUTH EVERYDAY AT BEDTIME 90 Tablet 1 1 Active Lactulose 10 GM/15ML Oral Solution (Constulose)Indic ations:Constipati on, unspecified constipation type Take 15 mL by mouth 3 times a day as needed for Constipation. severe constipation 237 mL 1 1 Active Additional Information Patient not taking.Reported on 01/09/2023 Multivitamin Adult Oral Tablet Take by mouth . 0 Ac tive Cinnamon 500 MG Oral Capsule Take 1 Capsule by mouth in the morning. 0 Active Zinc 10 MG Mouth/Throat Lozenge Apply to the mouth or throat . 0 Active Iron 28 MG Oral Tablet Take 1 Tablet by mouth in the morning. 0 Active Docusate Sodium 50 MG Oral Capsule Take by mouth daily . 0 Active Polyethylene Glycol 3350 17 GM Oral Packet (Miralax) Take 1 Packet by mouth in the morning. 0 Active Lisinopril 40 MG Oral TabletIndications :DM type 2, goal: symptom mgmt (HCC),Proteinuria , unspecified type,HTN, goal below 130/80 TAKE 1 TABLET BY MOUTH EVERY DAY 90 Tablet 3 3 Active Tamsulosin HCl 0.4 MG Oral Capsule (Flomax)Indicatio ns:Benign nodular prostatic hyperplasia without lower urinary tract symptoms TAKE 1 CAPSULE BY MOUTH EVERY DAY 90 Capsule 3 3 Active Sertraline HCl 50 MG Oral Tablet (Zoloft) TAKE 1 TABLET BY MOUTH EVERY DAY 90 Tablet 3 3 Active amLODIPine Besylate 10 MG Oral Tablet (Norvasc)Indicati ons:HTN, goal below 130/80 TAKE 1/2 TABLET BY MOUTH EVERY DAY 45 Tablet 0 3 Active HYDROcodone-Aceta minophen 5-325 MG Oral TabletIndications :Chronic bilateral low back pain with right-sided sciatica Take 1 Tablet by mouth every 6 hours as needed for Pain, Mild. 20 Tablet 0 3 Active Furosemide 40 MG Oral Tablet (Lasix)Indication s:Proteinuria, unspecified type,HTN, goal below 130/80 TAKE 1 TABLET BY MOUTH EVERY DAY 90 Tablet 1 3 Active prednisoLONE Acetate 1 % Ophthalmic Suspension (Pred Forte) Instill 1 Drop into both eyes in the morning and 1 Drop at noon and 1 Drop in the evening and 1 Drop before bedtime. 10 mL 1 3 Active Additional Information Patient not taking.Reported on 05/09/2023 glipiZIDE 10 MG Oral Tablet (Glucotrol)Indica tions:Type 2 diabetes mellitus with stage 3 chronic kidney disease, without long-term current use of insulin (HCC),DM type 2, goal: symptom mgmt (HCC) TAKE 2 TABLETS BY MOUTH TWICE A DAY 30 MINUTES BEFORE MORNING AND EVENING MEALS 360 Tablet 2 3 Active Atorvastatin Calcium 40 MG Oral Tablet (Lipitor)Indicati ons:Dyslipidemia, goal LDL below 100 TAKE 1 TABLET BY MOUTH EVERY DAY 90 Tablet 3 3 Active Atorvastatin Calcium 40 MG Oral Tablet (Lipitor)Indicati ons:Dyslipidemia, goal LDL below 100 TAKE 1 TABLET BY MOUTH EVERY DAY 90 Tablet 3 2 05/25/20 23 Discontinued documented as of this encounter (statuses as of 05/25/2023) Active Problems Problem Noted Date Diagnosed Date Insomnia due to medical condition 07/11/2022 Daytime somnolence 07/11/2022 Hx of colonic polyps 08/31/2021 Overview: Per colonoscopy 08/31/21 Diverticulosis of sigmoid colon 08/31/2021 Overview: Per colonoscopy 08/31/21 Recurrent major depressive disorder, in partial remission 04/11/2020 Type 2 diabetes mellitus wit h stage 4 chronic kidney disease, without long-term current use of insulin 11/11/2019 Hypertension associated with type 2 diabetes juan jose litus 08/18/2009 Overview: Per HTN Taxonomy. Hyperlipidemia due to type 2 diabetes mellitus 1 09/07/2008 Overview: Per Lipid Taxonomy. Tobacco use disorder 07/25/2005 documented as of this encounter (statuses as of 05/25/2023) Resolved Problems Problem Noted Date Diagnosed Date Resolved Date Ageusia 09/22/2020 07/05/2021 Type 2 diabetes mellitus wit h stage 3 chronic kidney disease, without long-term current use of insulin 11/11/2019 11/11/2019 Type 2 diabetes mellitus wit h hemoglobin A1c goal of less than 8.0% 11/11/2019 07/05/2021 Benign hypertension with chr onic kidney disease, stage III 02/19/2019 07/01/2019 Type 2 diabetes mellitus wit h stage 3 chronic kidney disease, without long-term current use of insulin 09/21/2015 07/01/2019 Kidney disease, chronic, sta ge III (GFR 30-59 ml/min) 12/10/2011 01/11/2017 Overview: Per CKD protocol #1 Type 2 diabetes mellitus wit h hemoglobin A1c goal of 7.0%-8.0% 04/13/2011 05/17/2015 Overview: ICD-10 update of inactive term DM type 2 causing renal disease 09/06/2009 10/14/2018 Proteinuria 09/06/2009 07/05/2021 Benign neoplasm of colon 08/22/200909/2016 Overview: polyps x5, adenomatous tissue f/u in 2 yrs Type 2 diabetes mellitus wit h hemoglobin A1c goal of less than 7.0% 05/19/2009 04/13/2011 Overview: Per Diabetes Taxonomy. ICD-10 update of inactive term Malignant neoplasm of colon 05/24/2008 10/14/2018 ADVANCE DIRECTIVE INFORMATION 11/22/2005 04/19/2020 Overview: Booklet given to pt today. HTN, goal below 140/90 08/15/200408/18 Overview: Per HTN Taxonomy. Dyslipidemia, goal to be determined 08/15/2004 07/07/2009 Overview: Per Lipid Taxonomy. Type 2 diabetes mellitus wit h hemoglobin A1c goal of less than 7.0% 01/04/2004 05/19/2009 Overview: Per Diabetes Taxonomy. ICD-10 update of inactive term documented as of this encounter (statuses as of 05/25/2023) Immunizations Name Administration Dates Next Due Pneumococcal Conjugate Vacc, 13 Valent (Prevnar) 06/07/2020 Pneumococcal Polysaccharide PPV23 (Pneumovax) ,11/22/2005 11/22/2010 Season Influenza, Quad, PF, Adjuvanted, 65+ Yrs, IM (FLUAD) 06/07/2020 Seasonal Influenza, Quadrivalent Hd (Fluzone Hd) 07/11/2022,07/05/2021 TDAP (age 11 and older)(Adacel) 03/16/2008 documented as of this encounter Social History Tobacco Use Types Packs/Day Years Used Date Smoking Tobacco: Every Day Cigarettes 1 40 Smokeless Tobacco: Current Alcohol Use Standard Drinks/Week Comments Not Currently 0 (1 standard drink = 0.6 oz pur e alcohol) has not had for many years PHQ-2 Answer Date Recorded PHQ Adult Total Score 0 07/11/2022 Hunger Vital Sign Answer Date Recorded Within the past 12 months, y ou worried that your food would run out before you got the money to buy more. Never true 11/08/19 21 Within the past 12 months, t he food you bought just didn't last and you didn't have money to get more. Never true 11/07/2020 Sex and Gender Information Value Date Recorded Sex Assigned at Male 09/22/2020 2:25 PM EST Gender Identity Male 09/22/2020 2:25 PM EST Sexual Orientation Straight 09/22/2020 2: 25 PM EST Job Start Date Occupation Industry Not on file Not on file Not on file documented as of this encounter Miscellaneous Notes * Telephone Encounter - Alberto Ferrell RP - 05/25/2023 3:20 PM EDTSigned Prescriptions: Disp Refills Atorvastatin Calcium 40 MG Oral Tablet (Li*90 Tab*3 Sig: TAKE 1 TABLET BY MOUTH EVERY DAYAuthorizing Provider: MARK SANTOS User: ALBERTO FERRELL documented in this encounter Plan of Treatment Upcoming Encounters Date Type Department Care Team ([facility] Contact Info) Description 06/12/2023 1:40 PM EST Office Visit [address] [phone] Mark Santos DO [address] [place] [phone] 03/19/2024 3:15 PM EDT Office Visit Ophthalmology, [facility] [address] [place] [address] Kody Mason, DO [address] [place] [id number] Scheduled Procedures Name Priority Associated Diagnoses Date/Ti me COLONOSCOPY FLEXIBLE PROXIMA L DIAGNOSTIC Recall History of colonic polyps Health Maintenance Due Date Last Done Comments DISCUSS TOBACCO CESSATION (REFER TO SMARTSET #3293) 1950 COVID-19 Vaccine (#1) 1950 Zoster Vaccines (1 of 2) 02/02/2002 Hepatitis B (1 of 3 - Risk 3-dose series) 2012 DTaP,Tdap,and Td Vaccines (2 - Td or Tdap) 03/16/2018 03/16/2008 PTH 11/18/2021 11/18/2020, 07/23, 08/03/2019, Additional history exists Nephrology Referral 07/26/2022 07/26/2021, 9 Influenza Vaccine (FLU shot) (#1) 2023 07/11/2022, 07/05/2021, 06/07/2020 Albumin/Creatinine Ratio 07/04/2023 022, 07/26/2021, 08/15/2020, Additional history exists GFR 07/04/2023 01/02/2023, 06/21, 04/02/2022, Additional history exists HbA1c 07/04/2023 01/02/2023, 06/0 03/2023, 04/02/2022, Additional history exists Phosphate 07/04/2023 07/04/2022, 03/22, 08/15/2020, Additional history exists Depression Screening 07/11/2023 07/11/2022 Diabetic Foot Exam 07/11/2023 07/11/2022, 1 09/05/2020, 04/11/2020, Additional history exists Diabetic Eye Exam 11/02/2023 11/01/2022, , 11/01/2022, Additional history exists Hgb 01/03/2024 01/02/2023, 03/22, 07/20/2021, Additional history exists COLONOSCOPY-EVERY 3 YRS AGES 18-100 08/31/2024 08/31/2021, 08/31/2021, 09/16/2019, Additional history exists Lipid Panel 01/03/2028 01/02/2023, 03/22, 07/20/2021, Additional history exists AAA Screening Completed 07/13/2019, 12/2011, 05/16/2009 LUNG CANCER SCREENING - USE SMARTSET [id number] Completed 07/13/2019, 05/23/2009 Pneumococcal Vaccine: 65+ Years Completed 07/05/2021, 06/07/2020, 11/22/2005 COLONOSCOPY-ANNUAL AGES 18-100 Discontinued 08/31/2021, 08/31/2021, 09/16/2019, Additional history exists GARDASIL-HPV IMMUNIZATION SERIES Aged Out No longer eligible based on patient's age to complete this topic MENINGOCOCCAL (MENACTRA/MENVEO) Aged Out No longer eligible based on patient's age to complete this topic documented as of this encounter Medical Devices Implanted Type Area Bag Filler Machine Operator Device Identifier Shelf Expiration Date Model / Serial / Lot Lens [id number] 12.5mm+22.50 - [id number] - [id number] Implanted:Qty: 1 on 01/09/2023 by Kody Mason DO at OR [facility] Left: Eye [employer] 08/21/2025 [id number] / [id number] / [id number] Lens [id number] 12.5mm+22.00 - [id number] - [id number] Implanted:Qty: 1 on 02/06/2023 by Kody Mason DO at OR [facility] Right: Eye [employer]OM[employer] 02/18/2025 [id number] / [id number] / [id number] documented as of this encounter Visit Diagnoses Diagnosis Dyslipidemia, goal LDL below 100 Other and unspecified hyperlipidemia documented in this encounter Advance Directives Latest Code Status on File Code Status Date Activated Date Inactivated Comments Full Code 02/06/2023 9:09 AM 02/06/2023 3:34 PM Question Answer Comments Discussion of Advance Directives occurred with: Not Discussed due to patient's condition Code Status History Code Status Date Activated Date Inactivated Comments Full Code 01/09/2023 10:47 AM 01/09/2023 5:32 PM Question Answer Comments Discussion of Advance Directives occurred with: Not Discussed due to patient's condition Care Teams Chaplain Relationship Specialty Start Date End Date Mark Santos DO [address] [place] [phone] PCP - General Internal Medicine 12/09/20 documented as of this encounter
--- OUTSIDE RECORDS SUMMARY | 2023-06-01 14:44 | External Medical Summary | Summary of Care ---
Author Name Unknown Organization [facility] Address [address] [place] [address] Phone [phone] Care Team Providers Care Hot Oiler Name Role Phone Macey Mark Morris Primary Care Provid er Encounter Details Date Type Department Care Team Description 03/12/2023 Orders Only Outcomes Research Department [address] [place] [address] Kyleigh Conway CHRA [employer] [facility] Other*[id number] Allergies No known active allergiesdocumented as of this encounter (statuses as of 03/12/2023) Medications Medication Sig Dispensed Refills Start Date End Date Status ASPIRIN EC LOW STRENGTH TBEC 81 MG OR 1 by mouth daily to prevent heart attack 100 5 10/02/2004 Active Iron-Vitamin C 65-125 MG Oral Tablet Take 1 Tablet by mouth in the morning. 0 08/04/2019 Active Spironolactone 25 MG Oral Tablet (Aldactone) Take 0.5 Tabs by mouth daily. 45 Tab 0 11/21/2020 Active traZODone HCl 100 MG Oral Tablet (Desyrel)Indication s:Persistent insomnia TAKE 1 TABLET BY MOUTH EVERYDAY AT BEDTIME 90 Tablet 1 06/28/2021 Active Lactulose 10 GM/15ML Oral Solution (Constulose)Indicat ions:Constipation, unspecified constipation type Take 15 mL by mouth 3 times a day as needed for Constipation. severe constipation 237 mL 1 07/05/2021 Active Additional Information Patient not taking.Reported on 01/09/2023 Multivitamin Adult Oral Tablet Take by mouth . 0 Active Cinnamon 500 MG Oral Capsule Take 1 [...] by mouth in the morning. 0 Active glipiZIDE 10 MG Oral Tablet (Glucotrol)Indicati ons:Type 2 diabetes mellitus with stage 3 chronic kidney disease, without long-term current use of insulin (HCC),DM type 2, goal: symptom mgmt (HCC) TAKE 2 TABS BY MOUTH 2 TIMES A DAY 30 MINUTES BEFORE MORNING AND EVENING MEALS. 360 Tablet 2 06/21/2022 Active Atorvastatin Calcium 40 MG Oral Tablet (Lipitor)Indication s:Dyslipidemia, goal LDL below 100 TAKE 1 TABLET BY MOUTH EVERY DAY 90 Tablet 3 06/29/2022 Active Lisinopril 40 MG Oral TabletIndications:D M type 2, goal: symptom mgmt (HCC),Proteinuria, unspecified type,HTN, goal below 130/80 TAKE 1 TABLET BY MOUTH EVERY DAY 90 Tablet 3 08/11/2022 Active Tamsulosin HCl 0.4 MG Oral Capsule (Flomax)Indications :Benign nodular prostatic hyperplasia without lower urinary tract symptoms TAKE 1 CAPSULE BY MOUTH EVERY DAY 90 Capsule 3 09/12/2022 Active Sertraline HCl 50 MG Oral Tablet (Zoloft) TAKE 1 TABLET BY MOUTH EVERY DAY 90 Tablet 3 09/12/2022 Active amLODIPine Besylate 10 MG Oral Tablet (Norvasc)Indication s:HTN, goal below 130/80 TAKE 1/2 TABLET BY MOUTH EVERY DAY 45 Tablet 0 09/12/2022 Active HYDROcodone-Acetami nophen 5-325 MG Oral TabletIndications: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 20 Tablet 0 09/11/2022 Active Furosemide 40 MG Oral Tablet (Lasix)Indications: Proteinuria, unspecified type,HTN, goal below 130/80 TAKE 1 TABLET BY MOUTH EVERY DAY 90 Tablet 1 12/07/2022 Active prednisoLONE Acetate 1 % Ophthalmic Suspension (Pred Forte) Instill 1 Drop into both eyes in the morning and 1 Drop at noon and 1 Drop in the evening and 1 Drop before bedtime. 10 mL 1 01/17/2023 Active documented as of this encounter (statuses as of 03/12/2023) Active Problems Problem Noted Date Insomnia due to medical condition 2021 Daytime somnolence 07/11/2022 Hx of colonic polyps 08/31/2021 Overview: Per colonoscopy 08/31/21 Diverticulosis of sigmoid colon 08/31/19 Overview: Per colonoscopy 08/31/21 Recurrent major depressive disorder, in partial remission 04/11/2020 Type 2 diabetes mellitus wit h stage 4 chronic kidney disease, without long-term current use of insulin 11/11/2019 Hypertension associated with type 2 diab etes mellitus 08/18/2009 Overview: Per HTN Taxonomy. Hyperlipidemia due to type 2 diabetes me llitus 07/07/2009 Overview: Per Lipid Taxonomy. Tobacco use disorder 07/25/2005 documented as of this encounter (statuses as of 03/12/2023) Resolved Problems Problem Noted Date Resolved Date Ageusia 09/22/2020 07/05/2021 Type 2 diabetes mellitus wit h stage 3 chronic kidney disease, without long-term current use of insulin 11/11/201910/21 Type 2 diabetes mellitus wit h hemoglobin A1c goal of less than 8.0% 11/11/2019 07/05/2021 Benign hypertension with chronic kidney disease, stage III 02/19/2019 07/01/2019 Type 2 diabetes mellitus wit h stage 3 chronic kidney disease, without long-term current use of insulin 09/21/201506/21 Kidney disease, chronic, stage III (GFR 30-59 ml /min) 12/10/2011 01/11/2017 Overview: Per CKD protocol #1 Type 2 diabetes mellitus wit h hemoglobin A1c goal of 7.0%-8.0% 04/13/2011 05/17/2015 Overview: ICD-10 update of inactive term DM type 2 causing renal disease 09/06/2009 10/14/2018 Proteinuria 09/06/2009 07/05/2021 Benign neoplasm of colon 08/22/2009 017 Overview: polyps x5, adenomatous tissue f/u in 2 yrs Type 2 diabetes mellitus wit h hemoglobin A1c goal of less than 7.0% 05/19/2009 04/13/2011 Overview: Per Diabetes Taxonomy. ICD-10 update of inactive term Malignant neoplasm of colon 05/24/200809/20 ADVANCE DIRECTIVE INFORMATION 11/22/2005 Overview: Booklet given to pt today. HTN, goal below 140/90 08/15/2004 0 Overview: Per HTN Taxonomy. Dyslipidemia, goal to be determined 08/15/2004 07/07/2009 Overview: Per Lipid Taxonomy. Type 2 diabetes mellitus wit h hemoglobin A1c goal of less than 7.0% 01/04/2004 05/19/2009 Overview: Per Diabetes Taxonomy. ICD-10 update of inactive term documented as of this encounter (statuses as of 03/12/2023) Immunizations Name Administration Dates Next Due Pneumococcal [...] alcohol) has not had for many years Food Insecurity Answer Date Recorded Within the past 12 months, y ou worried that your food would run out before you got money to buy more. Never true 11/07/2020 Within the past 12 months, t he food you bought just didn't last and you didn't have money to get more. Never true 11/07/2020 Sex Assigned at Date Recorded Male 09/22/2020 2:[address] Job Start Date Occupation Industry Not on file Not on file Not on file documented as of this encounter Plan of Treatment Upcoming Encounters Date Type Specialty Care Team Description 03/14/2023 [facility] [place] [phone] 06/12/2023 [facility] Visit [facility] [place] [place] [address] Scheduled Orders Name Type Priority Associated Diagnoses Orde r Schedule MYCODE SUBSEQUENT ADULT Lab Routine [facility] Research Other*[id number] Every 6 Months for 2 Occurrences starting 03/12/2023 until 03/31/2024 Scheduled Procedures Name Priority Associated Diagnoses Date/Ti me COLONOSCOPY FLEXIBLE PROXIMA L DIAGNOSTIC Recall History of colonic polyps Health Maintenance Due Date Last Done Comments DISCUSS TOBACCO CESSATION (REFER TO SMARTSET #3291) 1950 COVID-19 Vaccine (#1) 1950 Zoster Vaccines (1 of 2) 02/02/1971 DTaP,Tdap,and Td Vaccines (2 - Td or [...] 07/04/2023 07/04/2022, 03/22, 08/15/2020, Additional history exists DIABETES-FOOT EXAM 07/11/2023 07/11/2022, 1 09/05/2020, 04/11/2020, Additional history exists Depression Screening, Annual for Pts 12 and Over 07/11/2023 07/11/2022 DIABETES-EYE EXAM 11/02/2023 11/01/2022, , 11/01/2022, Additional history exists Hgb 01/03/2024 01/02/2023, 03/22, 07/20/2021, Additional history exists COLONOSCOPY-EVERY 3 YRS AGES 18-100 08/31/2024 08/31/2021, 08/31/2021, 09/16/2019, Additional history exists Lipid Panel 01/03/2028 01/02/2023, 03/22, 07/20/2021, Additional history exists AAA Screening Completed 07/13/2019, 12/2011, 05/16/2009 LUNG CANCER SCREENING - USE SMARTSET 53528 Completed 07/13/2019, 05/23/2009 Pneumococcal Vaccine: 65+ Years Completed 07/05/2021, 06/07/2020, 11/22/2005 COLONOSCOPY-ANNUAL AGES 18-100 Discontinued 08/31/2021, 08/31/2021, 09/16/2019, Additional history exists GARDASIL-HPV IMMUNIZATION SERIES Aged Out No longer eligible based on patient's age to complete this topic Hepatitis B Aged Out No longer eligi ble based on patient's age to complete this topic MENINGOCOCCAL (MENACTRA/MENVEO) Aged Out No longer eligible based on patient's age to complete this topic documented as of this encounter Medical Devices Implanted Type Area [employer] Associate Justice Device Identifier Shelf Expiration Date Model / Serial / Lot Lens [id number] 12.5mm+22.50 - [id number] - [id number] Implanted:Qty: 1 on 01/09/2023 by Kody Mason DO at OR [facility] Left: Eye [employer] LOMB 08/21/2025 [id number] / [id number] / [id number] Lens [id number] 12.5mm+22.00 - [id number] - [id number] Implanted:Qty: 1 on 02/06/2023 by Kody Mason DO at OR [facility] Right: Eye BAUSCH [employer] LOMB 02/18/2025 [id number] / [id number] / [id number] documented as of this encounter Visit Diagnoses Diagnosis [facility] Other*[id number] documented in this encounter Advance Directives Latest [...] Discussed due to patient's condition Care Teams Hot Oiler Relationship Specialty Start Date End Date Mark Choudhury DO [address] [place], [place] [phone] PCP - General Internal Medicine 12/09/20 documented as of this encounter
--- OUTSIDE RECORDS SUMMARY | 2023-06-01 14:44 | External Medical Summary | Summary of Care ---
Author Name Unknown Organization [facility] [address] [facility] [address] Phone [phone] Care Team Providers Care Director Of Religious Life Name Role Phone Mark Choudhury DO Primary Care Provid er Reason for Visit * Reason Comments Pre-op Clearance Encounter Details Date Type Department Care Team Description 05/09/2023 Office Visit [facility] [address] [place] [address] Cata Sebastian PA-C [address] [place] [phone] Pre-op evaluation* Allergies No known active allergiesdocumented as of this encounter (statuses as of 05/10/2023) Medications Medication Sig Dispensed Refills Start Date [...] by mouth in the morning. 0 Active Atorvastatin Calcium 40 MG Oral Tablet [...] before bedtime. 10 mL 1 01/17/2023 Active Additional Information Patient not taking.Reported on 05/09/2023 glipiZIDE 10 MG Oral Tablet (Glucotrol)Indicati ons:Type 2 diabetes mellitus with stage 3 chronic kidney disease, without long-term current use of insulin (HCC),DM type 2, goal: symptom mgmt (HCC) TAKE 2 TABLETS BY MOUTH TWICE A DAY 30 MINUTES BEFORE MORNING AND EVENING MEALS 360 Tablet 2 03/29/2023 Active documented as of this encounter (statuses as of 05/10/2023) Active Problems Problem Noted Date Insomnia due [...] as of this encounter (statuses as of 05/10/2023) Resolved Problems Problem Noted Date Resolved Date [...] as of this encounter (statuses as of 05/10/2023) Immunizations Name Administration Dates Next Due Pneumococcal [...] on file documented as of this encounter Last Filed Vital Signs Vital Sign Reading Time Taken Comments Blood Pressure 110/62 05/09/2023 11:02 AM EDT Pulse 90 05/09/2023 11:02 AM EDT Temperature 35.7 C (96.2 F) 05/09/2023 11:02 AM E DT Respiratory Rate 20 05/09/2023 11:02 AM EDT Oxygen Saturation 98% 05/09/2023 11:02 AM EDT Inhaled Oxygen Concentration - - Weight 89 kg (196 lb 3.2 oz) 05/09/2023 11:02 AM EDT Height - - Body Mass Index 30.72 02/06/2023 9:02 AM EDT documented in this encounter Progress Notes * Cata Sebastian PA-C - 05/09/2023 11:21 AM EDT Images from the original note were not included. Pre-Operative Medical Evaluation Procedure Information Type of Surgery: Lumbar Decompression at L4-L5 and L5-S1 with facetectomies Referring Physician / Surgeon: Dr. Michaud Date of procedure: 05/21/23 Brief History of Present Illness: Pt states that he has been feeling well. He has no specific complaints or concerns today. Pt is present today with . He specifically denies chest pain, SOB, Palpitations or dizziness. Medical History Problem List: Insomnia due to medical condition (07/11/2022) Daytime somnolence (07/11/2022) Hx of colonic polyps (08/31/2021) Diverticulosis of sigmoid colon (08/31/2021) Ageusia (09/22/2020) Recurrent major depressive disorder, in partial remission (HCC) () Type 2 diabetes mellitus with stage 4 chronic kidney disease, without long-term current use of insulin (HCC) (11/11/2019) Type 2 diabetes mellitus with stage 3 chronic kidney disease, without long-term current use of insulin ([facility]) (11/11/2019) Type 2 diabetes mellitus with hemoglobin A1c goal of less than 8.0% ([facility]) (11/11/2019) Benign hypertension with chronic kidney disease, stage III ([facility]) (07/2018) Type 2 diabetes mellitus with stage 3 chronic kidney disease, without long-term current use of insulin ([facility]) (09/21/2015) Kidney disease, chronic, stage III (GFR 30-59 ml/min) ([facility]) (2011) Type 2 diabetes mellitus with hemoglobin A1c goal of 7.0%-8.0% ([facility]) (04/13/2011) DM type 2 causing renal disease ([facility]) (09/06/2009) Proteinuria (09/06/2009) Benign neoplasm of colon (08/22/2009) Hypertension associated with type 2 diabetes mellitus (08/18/2009) Hyperlipidemia due to type 2 diabetes mellitus (07/07/2009) Type 2 diabetes mellitus with hemoglobin A1c goal of less than 7.0% ([facility]) (05/19/2009) Malignant neoplasm of colon ([facility]) (05/24/2008) ADVANCE DIRECTIVE INFORMATION (11/22/2005) Tobacco use disorder (07/25/2005) HTN, goal below 140/90 (08/15/2004) Dyslipidemia, goal to be determined (08/15/2004) Type 2 diabetes mellitus with hemoglobin A1c goal of less than 7.0% ([facility]) (01/04/2004) Current Medications glipiZIDE 10 MG Oral Tablet (Glucotrol), TAKE 2 TABLETS BY MOUTH TWICE A DAY 30 MINUTES BEFORE MORNING AND EVENING MEALS Furosemide 40 MG Oral Tablet (Lasix), TAKE 1 TABLET BY MOUTH EVERY DAY amLODIPine Besylate 10 MG Oral Tablet (Norvasc), TAKE 1/2 TABLET BY MOUTH EVERY DAY Sertraline HCl 50 MG Oral Tablet (Zoloft), TAKE 1 TABLET BY MOUTH EVERY DAY Tamsulosin HCl 0.4 MG Oral Capsule (Flomax), TAKE 1 CAPSULE BY MOUTH EVERY DAY HYDROcodone-Acetaminophen 5-325 MG Oral Tablet, 1 Tablet, Oral, Q6H PRN Lisinopril 40 MG Oral Tablet, TAKE 1 TABLET BY MOUTH EVERY DAY Atorvastatin Calcium 40 MG Oral Tablet (Lipitor), TAKE 1 TABLET BY MOUTH EVERY DAY Cinnamon 500 MG Oral Capsule, 500 mg, Oral, Daily(AM) Docusate Sodium 50 MG Oral Capsule, , Oral, Daily(AM) Iron 28 MG Oral Tablet, 28 mg, Oral, Daily(AM) Zinc 10 MG Mouth/Throat Lozenge, Apply to the mouth or throat . Multivitamin Adult Oral Tablet, Take by mouth . traZODone HCl 100 MG Oral Tablet (Desyrel), TAKE 1 TABLET BY MOUTH EVERYDAY AT BEDTIME Spironolactone 25 MG Oral Tablet (Aldactone), 12.5 mg, Oral, Daily(AM) Iron-Vitamin C 65-125 MG Oral Tablet, 1 Tablet, Oral, Daily(AM) ASPIRIN EC LOW STRENGTH TBEC 81 MG OR, 1 by mouth daily to prevent heart attack prednisoLONE Acetate 1 % Ophthalmic Suspension (Pred Forte), 1 Drop, Both eyes, QID(AM/NOON/PM/HS) (Patient not taking: Reported on 05/09/2023) Polyethylene Glycol 3350 17 GM Oral Packet (Miralax), 17 g, Oral, Daily(AM) (Patient not taking: Reported on 01/09/2023) Lactulose 10 GM/15ML Oral Solution (Constulose), 10 g, Oral, TID PRN (Patient not taking: Reported on 01/09/2023) Allergies: Patient has no known allergies. Past Medical History: has a past medical history of Benign neoplasm of colon (08/2009), Benign neoplasm of colon (09/05/11), Benign neoplasm of colon (04/2012), DM type 1, goal A1c below 7, and Dyslipidemia, goal to be determined. Past Surgical History: has a past surgical history that includes Colonoscopy w/ Lesion Removal, Snare (05/07/2008); Partial Colectomy w/Anastomosis (06/07/2008); Colonoscopy w/ Lesion Removal, Snare (08/26/2009); Colonoscopy w/ Biopsy (Rectum) (09/05/2011); cystoscopy (09/19/2011); Colonoscopy, Diagnostic (Rectum) (05/16/2012); Colonoscopy, Diagnostic (Rectum) (06/06/2015); Colonoscopy, Diagnostic (Rectum) (07/30/2019); Colonoscopy, Diagnostic (Rectum) (09/16/2019); exploration of scrotum (N/A, 12/15/2020); Colonoscopy, Diagnostic (Rectum) (08/31/2021); Inject Dx/Ther Substance Interlaminar Lumbar/Sacral W Image Guide (12/19/2022); cataract surgery,complex (Left, 01/09/2023); cataract surgery,complex (Right, 02/06/2023); and Lumbar / Sacral Epidural, single level (03/06/2023). Social History: reports that he has been smoking cigarettes. He has a 40.00 pack-year smoking history. He uses smokeless tobacco. He reports that he does not currently use alcohol. He reports that he does not use drugs. Family History: family history includes Diabetes in his father; Heart Disorder in his grandfather (paternal). Anesthesia History Type of Anesthesia: General Endotracheal and Caudal block Anesthesia reaction: No History of surgical complications: None Personal history of venous thromboembolic disease: None Physical Exam Vitals: 05/09/23 1102 Temp: 35.7 C (96.2 F) Pulse: 90 Resp: 20 SpO2: 98% BP: 110/62 Labs reviewed and are significant for: Labs reviewed and all stable. EKG by my review is significant for: EKG reviewed and when compared with ECG of Aug 2021 criteria for inferior infarct is no longer present. No other acute changes were found. Chest X-ray also reviewed and showed no acute findings Surgical Risk Scoring Revised Cardiac Risk Index (RCRI) High-risk type of surgery (examples include vascular and any open intraperitoneal or intrathoracic procedures): 0=No History of ischemic heart disease (history of myocardial infarction or positive exercise test, current compliant of chest pain considered to be secondary to myocardia ischemia, use of nitrate therapy, or ECG with pathological Q waves; do not count prior coronary revascularization procedure unless one of the other criteria for ischemic heart disease is present): 0=No History of heart failure: 0=No History of cerebrovascular disease: 0=No Diabetes mellitus requiring treatment with insulin: 0=No Preoperative serum creatinine >2.0 mg/dL (177 micromol/L): 1=Yes Pt has revised cardiac index score of: One Risk Factor- 1.0% (95% CI: 0.5-1.4) Screening for Obstructive Sleep Apnea (STOP-BANG) Do you Snore loudly? 1=Yes Do you often feel Tired, Fatigued, or Sleep? 0=No Has anyone Observed you Stop Breathing or Choking/Gasping during sleep? 0=No Do you have or are you being treated for High Blood Pressure? 1=Yes BMI over 35? 0=No Age older than 50? 1=Yes Neck size large? (For males - 17 inches or larger, For females - 16 inches or larger) 1=Yes Male? 1=Yes Score 0-2:low risk ANA MARÍA, 3-4: intermediate risk of ANA MARÍA, 5-8: high risk ANA MARÍA 5 Assessment and Plan There are no diagnoses linked to this encounter. Functional Assessment They are able to walk up a flight of stairs and walk two blocks at a moderate pace. The patient's functional status is adequate (equal to 4 METS). 1 MET: 4 METs: 4-10 METs: Can take care of self, such as eat, dress or use the toilet. Can walk to block or go up a flight of steps. Can do heavy house work. Surgical Risk Assessment Patient is low medical risk for the listed procedure. Labs, EKG and chest x-rays reviewed. No acutefindings or red flags. Pt cleared for surgery. Additional consults or testing: None documented in this encounter Nursing Notes * FABIANO Fung - 05/09/2023 11:00 AM EDT The patient has been properly identified by confirmation of name and date of . Chief Complaint Patient presents with Pre-op Clearance documented in this encounter Plan of Treatment Upcoming Encounters Date Type Specialty Care Team Description 06/12/2023 Office Visit [facility] [address] [facility] [place] [phone] 03/19/2024 Office Visit Ophthalmology Kody Mason DO [address] [place] [address] Scheduled Procedures Name Priority Associated Diagnoses Date/Ti me COLONOSCOPY FLEXIBLE PROXIMA L DIAGNOSTIC Recall History of colonic polyps Health Maintenance Due Date Last Done Comments DISCUSS TOBACCO CESSATION (REFER TO SMARTSET #0308) 1950 COVID-19 Vaccine (#1) 1950 Zoster Vaccines (1 of 2) 02/02/1971 DTaP,Tdap,and Td Vaccines (2 - Td or Tdap) 03/16/2018 03/16/2008 PTH 11/18/2021 11/18/2020, 07/23, 08/03/2019, Additional history exists Nephrology Referral 07/26/2022 07/26/2021, 9 Influenza Vaccine (FLU shot) (#1) 2023 07/11/2022, 07/05/2021, 06/07/2020 Albumin/Creatinine Ratio 07/04/2023 022, 07/26/2021, 08/15/2020, Additional history exists GFR 07/04/2023 01/02/2023, 06/21, 04/02/2022, Additional history exists HbA1c 07/04/2023 01/02/2023, 03/2023, 04/02/2022, Additional history exists Phosphate 07/04/2023 07/04/2022, 03/22, 08/15/2020, Additional history exists Depression Screening 07/11/2023 07/11/2022 Diabetic Foot Exam 07/11/2023 07/11/2022, 1 09/05/2020, 04/11/2020, Additional history exists DIABETES-EYE EXAM 11/02/2023 11/01/2022, , 11/01/2022, Additional history exists Hgb 01/03/2024 01/02/2023, 03/22, 07/20/2021, Additional history exists COLONOSCOPY-EVERY 3 YRS AGES 18-100 08/31/2024 08/31/2021, 08/31/2021, 09/16/2019, Additional history exists Lipid Panel 01/03/2028 01/02/2023, 03/22, 07/20/2021, Additional history exists AAA Screening Completed 07/13/2019, 12/2011, 05/16/2009 LUNG CANCER SCREENING - USE SMARTSET 19785 Completed 07/13/2019, 05/23/2009 Pneumococcal Vaccine: 65+ Years [...] this encounter Medical Devices Implanted Type Area Raw Shellfish Preparer Device Identifier Shelf Expiration Date Model / Serial / Lot Lens [id number] 12.5mm+22.50 - [id number] - [id number] Implanted:Qty: 1 on 01/09/2023 by Kody Mason DO at OR [facility] Left: Eye [employer]OM[employer] 08/21/2025 [id number] / [id number] / [id number] Lens [id number] 12.5mm+22.00 - [id number] - [id number] Implanted:Qty: 1 on 02/06/2023 by Kody Mason DO at OR [facility] Right: Eye BAUSCH [employer] LOMB 02/18/2025 [id number] / [id number] / [id number] documented as of this encounter Visit Diagnoses Diagnosis Pre-op evaluation- Primary Preoperative examination, unspecified documented in this encounter Advance Directives Latest [...] Discussed due to patient's condition Care Teams Director Of Religious Life Relationship Specialty Start Date End Date Mark Choudhury DO [address] [place] [id number] PCP - General Internal Medicine 12/09/20 documented as of this encounter
--- OUTSIDE RECORDS SUMMARY | 2023-06-01 14:44 | External Medical Summary | Summary of Care ---
Author Name Unknown Organization [facility] Address [address] [facility] [place] [address] Phone [phone] Care Team Providers Care Stock Pitcher Name Role Phone JamesaddisonMarkothy Primary Care Provid er Reason for Visit * Reason Comments Post-Op 1 month Post OP OU. Pt states "Vision is good" Encounter Details Date Type Department Care Team Description 03/14/2023 Office Visit Ophthalmology, [facility] [address] [facility] [place] [address] Kody Maosn DO [address] [facility] [place] [address] Pseudophakia*; S/P LASIK surgery Allergies No known active allergiesdocumented as of this encounter (statuses as of 03/14/2023) Medications Medication Sig Dispensed Refills Start Date [...] as of this encounter (statuses as of 03/14/2023) Active Problems Problem Noted Date Insomnia due [...] as of this encounter (statuses as of 03/14/2023) Resolved Problems Problem Noted Date Resolved Date [...] as of this encounter (statuses as of 03/14/2023) Immunizations Name Administration Dates Next Due Pneumococcal [...] on file documented as of this encounter Progress Notes * Kody Mason, DO - 03/14/2023 3:45 PM EDT 03/14/2023 [facility] Ophthalmology Clinic Note HPI: José Gallardo is a 73 year old pt who presents to the eye clinic today for return. 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 Base Eye Exam Visual Acuity (Snellen - Linear) Right Left Dist sc 20/25 -1 20/25 Near az 20/100 20/30 Tonometry (Tonopen, 3:58 PM) Right Left Pressure 11 10 Visual Zuniga (Counting fingers) Right Left Full Full Neuro/Psych Oriented x3: Yes Mood/Affect: Normal Dilation Both eyes: 0.5% Proparacaine @ 3:58 PM Additional Tests Keratometry K1 Kendleton K2 Kendleton Right 41.00 116 41.75 026 Left 41.75 068 42.50 158 Slit Lamp and Fundus Exam External Exam Right Left External Normal Normal Slit Lamp Exam Right Left Lids/Lashes DCL DCL Conjunctiva/Sclera White and quiet White and quiet Cornea LASIK flap, decreased TBUT LASIK flap, decreased TBUT Anterior Chamber Deep and quiet Deep and quiet Iris Round and reactive Round and reactive Lens PCIOL, trace PCO PCIOL, trace PCO Refraction Manifest Refraction Sphere Cylinder Kendleton Right -0.25 +0.75 016 Left -1.00 +1.00 167 A/P: Pseudophakia OU -Looks good -Happy w/ vision at near and far uncorrected RTC 1 year, AR, dilate, diabetic eye exam or sooner prn. Kody Mason DO 03/14/23 documented in this encounter Nursing Notes * FARA Willis - 03/14/2023 3:53 PM EDT José Gallardo Jr. presents for p/o check. 1 month post-op ECCE w/IOL insertion Surgical eye- BOTH EYES Patient denies complaints Have you finished taking the prescribed drops? Yes Current Ophthalmic Medications: None Vision, tonometry and AR can be found in the ophth exam documented in this encounter Plan of Treatment Upcoming Encounters Date Type Specialty Care Team Description 06/12/2023 Office Visit Family Medicine Mark Choudhury DO [address] [facility] [place] [address] 03/19/2024 Office Visit Ophthalmology Kody Mason DO [address] [facility] [place], [place] [id number] Scheduled Procedures Name Priority Associated Diagnoses Date/Ti [...] Additional history exists AAA Screening Completed 07/13/2019, 02/0 12/2011, 05/16/2009 LUNG CANCER SCREENING - USE SMARTSET 16471 Completed 07/13/2019, 05/23/2009 Pneumococcal Vaccine: 65+ Years [...] this encounter Medical Devices Implanted Type Area Blow Pit Operator Device Identifier Shelf Expiration Date Model / Serial / Lot Lens [id number] 12.5mm+22.50 - [id number] - [id number] Implanted:Qty: 1 on 01/09/2023 by Kody Mason DO at OR [facility] Left: Eye BAUSCH [employer] LOMB 08/21/2025 [id number] / [id number] / [id number] Lens [id number] 12.5mm+22.00 - [id number] - [id number] Implanted:Qty: 1 on 02/06/2023 by Kody Mason DO at OR [facility] Right: Eye BAUSCH & LOMB 02/18/2025 [id number] / [id number] / [id number] documented as of this encounter Visit Diagnoses Diagnosis Pseudophakia- Primary Lens replaced by other means S/P LASIK surgery Other states following surgery of eye and adnexa documented in this encounter Advance Directives Latest [...] Discussed due to patient's condition Care Teams Stock Pitcher Relationship Specialty Start Date End Date Mark Choudhury DO [address] [place] [address] PCP - General Internal Medicine 12/09/20 documented as of this encounter
--- OUTSIDE RECORDS SUMMARY | 2023-06-01 14:44 | External Medical Summary | Summary of Care ---
Author Name Unknown Organization [facility] Address [address] [facility] [place] [address] Phone [phone] Care Team Providers Care Inventory Specialist Name Role Phone JamesaddisonMarkothy Primary Care Provid er Reason for Visit * Reason Comments Post-Op 1 day Post Op OD. Pt states "Pain yesterday but not today, OD is doing good" notes watering a lot OD Encounter Details Date Type Department Care Team Description 02/07/2023 Office Visit Ophthalmology, [facility] [address] [facility] [place] [address] Kody Mason DO [address] [facility] [place] [address] Pseudophakia* Allergies No known active allergiesdocumented as of this encounter (statuses as of 02/07/2023) Medications Medication Sig Dispensed Refills Start Date [...] as of this encounter (statuses as of 02/07/2023) Active Problems Problem Noted Date Insomnia due [...] as of this encounter (statuses as of 02/07/2023) Resolved Problems Problem Noted Date Resolved Date [...] as of this encounter (statuses as of 02/07/2023) Immunizations Name Administration Dates Next Due Pneumococcal Conjugate Vacc, 13 Valent (Prevnar) 06/07/2020 Pneumococcal Polysaccharide PPV23 (Pneumovax) ,11/22/2005 11/22/2010 Seasonal Influenza, Quadrivalent Hd (Fluzone Hd) 07/11/2022,07/05/2021 Seasonal Influenza, Quadriva lent, No Preserve, Adjuvanted, 65+ Yrs, IM 06/07/2020 TDAP (age 11 and older)(Adacel) 03/16/2008 documented [...] of this encounter Progress Notes * Kody Mason DO - 02/07/2023 11:15 AM EDT 02/07/2023 [facility] Ophthalmology Post-operative Clinic Note HPI: José Gallardo Jr. is a 73 year old pt who presents to the eye clinic today for 1 day post-op CE PCIOL OD (Ensor TCC, post-refractive [email or web address] measurements, IFIS, MX60E 22.0 02/06/23). +FBS VAsc: 20/30 IOP: 15 mmhg LL: Normal Conjunctiva: Normal Cornea: CCI and paracentesis brook negative, sliver epi defect CCI, PEK AC: 2+ c/f Iris: residual dilation Lens: PCIOL centered A/P: 1 day post op CE PCIOL OD (Ensor TCC, post-refractive [email or web address] measurements, IFIS, MX60E 22.0 02/06/23) Doing well today Brook negative wounds Normal IOP Expected post operative inflammation is seen Reviewed eye drops: Vigamox QID Prednisolone QID Reviewed activity restrictions - no bending or lifting, no strenuous activity. Wear eye shield at bedtime. Call with flashes, floaters, dec vision eye pain. Advised of combustion engineer coverage for after hours/weekend emergencies. RTC 1 week or sooner prn. Kody Mason DO 02/07/23 documented in this encounter Nursing Notes * FARA Willis - 02/07/2023 11:41 AM EDT 1 day S/P cataract extraction OD VA 20/30-1 documented in this encounter Plan of Treatment Upcoming Encounters Date Type Specialty Care Team Description 02/14/2023 Office Visit Pain Medicine NicolasChuy goncalves, DO [address] [place] [address] 02/14/2023 Office Visit Ophthalmology Kody Mason, DO [address] [place] [address] 06/12/2023 Office Visit [facility] Medicine [facility] [address] Scheduled Procedures Name Priority Associated Diagnoses Date/Ti me COLONOSCOPY FLEXIBLE PROXIMA L DIAGNOSTIC Recall History of colonic polyps Health Maintenance Due Date Last Done Comments DISCUSS TOBACCO CESSATION (REFER TO SMARTSET #4071) 1950 COVID-19 Vaccine (#1) 1950 Zoster Vaccines [...] 05/16/2009 LUNG CANCER SCREENING - USE SMARTSET 51869 Completed 07/13/2019, 05/23/2009 Pneumococcal Vaccine: 65+ Years [...] this encounter Medical Devices Implanted Type Area Tomography Technologist Device Identifier Shelf Expiration Date Model / Serial / Lot Lens [id number] 12.5mm+22.50 - [id number] - [id number] Implanted:Qty: 1 on 01/09/2023 by Kody Mason DO at OR [facility] Left: Eye BAUSCH & LOMB 08/21/2025 [id number] / [id number] / [id number] Envista Intraocular Lens Implanted:Qty: 1 on 02/06/2023 by Kody Mason DO at OR [facility] Right: Eye BAUSCH & LOMB 02/18/2025 [id number] / [id number] / [id number] documented as of this encounter Visit Diagnoses Diagnosis Pseudophakia- Primary Lens replaced by other means documented in this encounter Advance Directives Latest [...] Discussed due to patient's condition Care Teams Inventory Specialist Relationship Specialty Start Date End Date [place] [address] PCP - General Internal Medicine 12/09/20 documented as of this encounter
--- OUTSIDE RECORDS SUMMARY | 2023-06-01 14:44 | External Medical Summary | Summary of Care ---
Author Name Unknown Organization [facility] Address [address] [facility] [place] [address] Phone [phone] Care Team Providers Care Logistics Supply Officer Name Role Phone JamesaddisonMark Arturo Primary Care Provid er Encounter Details Date Type Department Care Team Description 02/14/2023 Office Visit Interventional Pain Center, [facility] [address] [place] [address] CousinsChuy DO [address] [place] [address] Lumbar radicular pain*; Spinal stenosis of lumbar region with neurogenic claudication Allergies No known active allergiesdocumented as of this encounter (statuses as of 02/14/2023) Medications Medication Sig Dispensed Refills Start Date [...] as of this encounter (statuses as of 02/14/2023) Active Problems Problem Noted Date Insomnia due [...] as of this encounter (statuses as of 02/14/2023) Resolved Problems Problem Noted Date Resolved Date [...] as of this encounter (statuses as of 02/14/2023) Immunizations Name Administration Dates Next Due Pneumococcal [...] as of this encounter Progress Notes * Chuy Dominguez Cousins, DO - 02/14/2023 1:02 PM EDT Name: José Gallardo Jr. Date: 02/14/2023 HPI: José Gallardo Jr. is a 73 year old male who presents for re-evaluation. He had undergone caudal epidural steroid injection about 2 months ago without notable improvement. He is asked to present today for re-evaluation. He is having predominantly right lumbosacral or upper buttock pain then skipping to the posterior lateral calf. He denies obvious motor weakness. Symptoms still remain moderate tosevere despite significant conservative treatment to this point. I did review his MRI images with he and his today. He does have the right- sided facet cyst L5-S1 as well as the moderate to marked the central stenosis L4-L5. History: Past Medical History: Diagnosis Date Benign neoplasm of colon 08/2009 polyps x5, adenomatous tissue f/u in 2 yrs Benign neoplasm of colon 09/05/11 -benign--poor prep repeat in one year cold bx Benign neoplasm of colon 04/2012 adenomatous polyp repeat in 3 yrs DM type 1, goal A1c below 7 Dyslipidemia, goal to be determined Past Surgical History: Procedure Laterality Date CATARACT SURGERY,COMPLEX Left 01/09/2023 LEFT EXTRACAPSULAR CATARACT REMOVAL COMPLEX WITH IOL performed by Kody Mason DO at OR [facility] CATARACT SURGERY,COMPLEX Right 02/06/2023 RIGHT EXTRACAPSULAR CATARACT REMOVAL COMPLEX WITH IOL performed by Kody Mason DO at OR [facility] COLONOSCOPY W/ BIOPSY (RECTUM) 09/05/2011 polyps x2 --benign--poor prep repeat in one year cold bx COLONOSCOPY W/ LESION REMOVAL, SNARE 05/07/2008 polyp x 2 removed, diverticula COLONOSCOPY W/ LESION REMOVAL, SNARE 08/26/2009 polyps x5, adenomatous tissue f/u in 2 yrs COLONOSCOPY, DIAGNOSTIC (RECTUM) 05/16/2012 adenomatous polyp repeat in 3 yrs COLONOSCOPY, DIAGNOSTIC (RECTUM) 06/06/2015 adenomatous polyp, repeat 5 yr/COLONOSCOPY FLEXIBLE PROXIMAL DIAGNOSTIC performed by Tanner Bruner MD at ENDOSCOPY [facility] COLONOSCOPY, DIAGNOSTIC (RECTUM) 07/30/2019 poor prep, repeat / [facility] COLONOSCOPY, DIAGNOSTIC (RECTUM) 09/16/2019 adenomatous polyps, fair prep, repeat 1 yr / [facility] COLONOSCOPY, DIAGNOSTIC (RECTUM) 08/31/2021 benign adenomatous polyps, diverticulosis, lipoma, repeat 3 yrs / COLONOSCOPY FLEXIBLE PROXIMAL DIAGNOSTIC performed by Tanner Bruner MD at ENDOSCOPY [facility] CYSTOSCOPY 09/19/2011 cysto under anesthesia EXPLORATION OF SCROTUM N/A 12/15/2020 SCROTAL EXPLORATION performed by Clara Yi MD at [facility] INJECT DX/THER SUBSTANCE INTERLAMINAR LUMBAR/SACRAL W IMAGE GUIDE 12/19/2022 INJECTION SPINE LUMBAR OR SACRAL performed by Chuy Asencio DO at OR [facility] PARTIAL COLECTOMY W/ANASTOMOSIS 06/07/2008 Laparoscopic, hand assisted, converted to open low anterior resection with primary anastomosis, proctoscopy, [facility], Dr. Thompson Current Outpatient Medications Medication Sig Dispense Refill ASPIRIN EC LOW STRENGTH TBEC 81 MG OR 1 by mouth daily to prevent heart attack 100 5 Iron-Vitamin C 65-125 MG Oral Tablet Take 1 Tablet by mouth in the morning. Spironolactone 25 MG Oral Tablet (Aldactone) Take 0.5 Tabs by mouth daily. 45 Tab 0 traZODone HCl 100 MG Oral Tablet (Desyrel) TAKE 1 TABLET BY MOUTH EVERYDAY AT BEDTIME 90 Tablet1 Lactulose 10 GM/15ML Oral Solution (Constulose) Take 15 mL by mouth 3 times a day as needed forConstipation. severe constipation (Patient not taking: Reported on 01/09/2023) 237 mL 1 Multivitamin Adult Oral Tablet Take by mouth . Cinnamon 500 MG Oral Capsule Take 1 Capsule by mouth in the morning. Zinc 10 MG Mouth/Throat Lozenge Apply to the mouth or throat . Iron 28 MG Oral Tablet Take 1 Tablet by mouth in the morning. Docusate Sodium 50 MG Oral Capsule Take by mouth daily . Polyethylene Glycol 3350 17 GM Oral Packet (Miralax) Take 1 Packet by mouth in the morning. (Patient not taking: Reported on 01/09/2023) glipiZIDE 10 MG Oral Tablet (Glucotrol) TAKE 2 TABS BY MOUTH 2 TIMES A DAY 30 MINUTES BEFORE MORNING AND EVENING MEALS. 360 Tablet 2 Atorvastatin Calcium 40 MG Oral Tablet (Lipitor) TAKE 1 TABLET BY MOUTH EVERY DAY 90 Tablet 3 Lisinopril 40 MG Oral Tablet TAKE 1 TABLET BY MOUTH EVERY DAY 90 Tablet 3 Tamsulosin HCl 0.4 MG Oral Capsule (Flomax) TAKE 1 CAPSULE BY MOUTH EVERY DAY 90 Capsule 3 Sertraline HCl 50 MG Oral Tablet (Zoloft) TAKE 1 TABLET BY MOUTH EVERY DAY 90 Tablet 3 amLODIPine Besylate 10 MG Oral Tablet (Norvasc) TAKE 1/2 TABLET BY MOUTH EVERY DAY 45 Tablet 0 HYDROcodone-Acetaminophen 5-325 MG Oral Tablet Take 1 Tablet by mouth every 6 hours as needed for Pain, Mild. 20 Tablet 0 Furosemide 40 MG Oral Tablet (Lasix) TAKE 1 TABLET BY MOUTH EVERY DAY 90 Tablet 1 prednisoLONE Acetate 1 % Ophthalmic Suspension (Pred Forte) Instill 1 Drop into both eyes in the morning and 1 Drop at noon and 1 Drop in the evening and 1 Drop before bedtime. 10 mL 1 No current facility-administered medications for this visit. Review of patient's allergies indicates: No Known Allergies Social History Tobacco Use Smoking Status Every Day Packs/day: 1.00 Years: 40.00 Pack years: 40.00 Types: Cigarettes Smokeless Tobacco Current Social History Substance and Sexual Activity Alcohol Use Not Currently Comment: has not had for many years EXAM MRI L SPINE WO CONTRAST-09/17/2022 12:14 pm HISTORY Low back pain; Low back pain, no complicating feature; Chronic LBP duration >= 3 months; Worsening or not improving; PT/chiropractic in the last 60 days; No known/automatically detected potential contraindications to imaging COMPARISON CT abdomen of 2009 TECHNIQUE Sagittal T1, T2, STIR, axial T1, T2 sagittal images of lumbar spine are obtained. FINDINGS There are 5 lumbar type vertebrae. Conus terminates at T12-L1. Mild disc disease at L5-S1. Disc spaces are normal. Minimal anterolisthesis of L4 on L5 due to severe facet arthropathy. Findings by level: L1-2: Mild facet arthropathy without canal or foraminal narrowing. L2-3: Mild facet arthropathy without canal or foraminal narrowing L3-4: Moderate facet arthropathy and mild bilateral foraminal narrowing L4-5: Moderate canal narrowing. Moderate to severe bilateral foraminal narrowing there is a small ligamentum flavum cyst lobe measuring 6 mm which causes mild effacement of right lateral recess and may contact the right L5 nerve root. L5-S1: Mild facet arthropathy and moderate left foraminal narrowing. There is moderate/severe rightforaminal narrowing. PHYSICAL EXAM: There were no vitals taken for this visit. He can stand ambulate with an antalgic gait. He has +5 over 5 motor function lower extremities. There are no gross sensory deficits noted. He does complain of pain with extension facet loading on theright although not his usual pain. ASSESSMENT: Right lumbar radicular pain Lumbar facet cyst Lumbar spinal stenosis RECOMMENDATION: He does have rather severe facet arthropathy although symptoms still seem more radicular. Did offerto pursue a 2nd injection using a transforaminal approach targeting right L5. Procedural risks including bleeding, infection, headache, nerve or spinal cord injury, worsening pain or steroid side effects were reviewed and accepted. He would like to proceed will be scheduled pending insurance approval. Chuy Asencio DO 02/14/2023 1:02 PM I spent a total of 20-29 minutes (exact time 23 mins) on the date of service in preparation, delivery, and documentation of the care provided to José Gallardo JrRacquel excluding any time spent in the performance of separately billed services. documented in this encounter Plan of Treatment Upcoming Encounters Date Type Specialty Care Team Description 02/14/2023 Office Visit Ophthalmology Kody Mason DO [address] [place] [address] Pseudophakia* 03/06/2023 Hospital Encounter Surgery Chuy Asencio DO [address] [place] [address] 03/06/2023 Surgery Surgery Chuy Asencio DO [address] [place] [address] INJECTION TRANSFORAMINAL EPIDURAL LUMBAR OR SACRAL 06/12/2023 Office Visit Family Medicine M[place], Mark Morris, [address] [address] Scheduled Orders Name Type Priority Associated Diagnoses Orde r Schedule LUMBAR / SACRAL EPIDURAL, SINGLE LEVEL Procedures Routine Lumbar radicular pain Expected: 02/28/2023, Expires: 03/17/2024 Scheduled Procedures Name Priority Associated Diagnoses Date/Ti me INJECTION TRANSFORAMINAL EPIDURAL LUMBAR OR SACRAL Lumbar radiculopathy 03/06/2023 2:20 PM EDT COLONOSCOPY FLEXIBLE PROXIMAL DIAGNOSTIC Recall History of colonic polyps Health Maintenance Due Date Last Done Comments DISCUSS TOBACCO CESSATION (REFER TO SMARTSET #1103) 1950 COVID-19 Vaccine (#1) 1950 Zoster Vaccines (1 of 2) 02/02/1971 DTaP,Tdap,and Td Vaccines (2 - Td or Tdap) 03/16/2018 03/16/2008 PTH 11/18/2021 11/18/2020, 07/23, 08/03/2019, Additional history exists Nephrology Referral 07/26/2022 07/26/2021, 9 Influenza Vaccine (FLU shot) (#1) 2023 07/11/2022, 07/05/2021, 06/07/2020 Albumin/Creatinine Ratio 07/04/2023 022, 07/26/2021, 08/15/2020, Additional history exists GFR 07/04/2023 01/02/2023, 06/21, 04/02/2022, Additional history exists HbA1c 07/04/2023 01/02/2023, 0603/2023, 04/02/2022, Additional history exists Phosphate 07/04/2023 07/04/2022, [...] 05/16/2009 LUNG CANCER SCREENING - USE SMARTSET 96885 Completed 07/13/2019, 05/23/2009 Pneumococcal Vaccine: 65+ Years [...] this encounter Medical Devices Implanted Type Area Route Service Representative Device Identifier Shelf Expiration Date Model / Serial / Lot Lens [id number] 12.5mm+22.50 - [id number] - [id number] Implanted:Qty: 1 on 01/09/2023 by Kody Mason DO at OR [facility] Left: Eye [employer]USCH [employer] LOMB 08/21/2025 [id number] / [id number] / [id number] Lens [id number] 12.5mm+22.00 - [id number] - [id number] Implanted:Qty: 1 on 02/06/2023 by Kody Mason DO at OR [facility] Right: Eye BAUSCH & LOMB 02/18/2025 [id number] / [id number] / [id number] documented as of this encounter Visit Diagnoses Diagnosis Pseudophakia- Primary Lens replaced by other means Lumbar radicular pain- Primary Thoracic or lumbosacral neuritis or radiculitis, unspecified Spinal stenosis of lumbar region with neurogenic claudication Spinal stenosis, lumbar region, with neurogenic claudication Lumbar radiculopathy Thoracic or lumbosacral neuritis or radiculitis, unspecified documented in this encounter Advance Directives [...] Discussed due to patient's condition Care Teams Logistics Supply Officer Relationship Specialty Start Date End Date Mark Choudhury, [address] [address] PCP - General Internal Medicine 12/09/20 documented as of this encounter
--- OUTSIDE RECORDS SUMMARY | 2023-06-01 14:44 | External Medical Summary ---
Author Name Unknown Address Unknown Organization : Laboratory Report Ordering Provider Test Date Status LUANA SAUER 02/06/2023 09:32:39 Final Observation Date Value Abnormality Reference (Units ) Status Glucose Point of Care 02/06/2023 09:32:39 136 Above high normal 70-120 (mg/dL) Final Performing Location
--- OUTSIDE RECORDS SUMMARY | 2023-06-01 14:44 | External Medical Summary | Summary of Care ---
Author Name Unknown Organization [facility] Address [address] [facility] [place] [address] Phone [phone] Care Team Providers Care Web Communications Specialist Name Role Phone JamesaddisonMark Arturo DO Primary Care Provid er Reason for Visit * Reason Comments Lumbar Pain W/radiation Encounter Details Date Type Department Care Team Description 04/16/2023 Telemedicine Inter[facility], [facility] [address] [place] [address] CousinsChuy DO [address] [place] [address] Lumbar radicular pain*; Spinal stenosis of lumbar region with neurogenic claudication Allergies No known active allergiesdocumented as of this encounter (statuses as of 04/16/2023) Medications Medication Sig Dispensed Refills Start Date [...] before bedtime. 10 mL 1 01/17/2023 Active glipiZIDE 10 MG Oral Tablet (Glucotrol)Indicati ons:Type 2 diabetes mellitus with stage 3 chronic kidney disease, without long-term current use of insulin (HCC),DM type 2, goal: symptom mgmt (HCC) TAKE 2 TABLETS BY MOUTH TWICE A DAY 30 MINUTES BEFORE MORNING AND EVENING MEALS 360 Tablet 2 03/29/2023 Active documented as of this encounter (statuses as of 04/16/2023) Active Problems Problem Noted Date Insomnia due [...] as of this encounter (statuses as of 04/16/2023) Resolved Problems Problem Noted Date Resolved Date [...] as of this encounter (statuses as of 04/16/2023) Immunizations Name Administration Dates Next Due Pneumococcal [...] of this encounter Progress Notes * Chuy Valenzuelasincolton, DO - 04/16/2023 12:28 PM EDT Name: José Gallardo Jr. Date: 04/16/2023 HPI: José Gallardo Jr. is a 73 year old male who presents for telephonic visit.After connecting to the patient via telephone, the patient was identified by name and date of . Patient was then informed that this was a telephone call only visit. The patient agreed to participate. Visit Disposition: Routine follow-up Total call duration was 6 minutes. Not improved with right L5 TF BHANU, or previous caudal BHANU. Still with right back/hip/calf pain as before. Interested in seeing at [facility], not going to [place] or . No motor weakness or B/B dysfunction. History: Past Medical History: Diagnosis Date Benign [...] performed by Kody Mason DO at OR [facility] CATARACT SURGERY,COMPLEX Right 02/06/2023 RIGHT EXTRACAPSULAR CATARACT REMOVAL COMPLEX WITH IOL performed by Kody Mason DO at OR [facility] COLONOSCOPY W/ BIOPSY (RECTUM) 09/05/2011 polyps [...] performed by Tanner Bruner MD at ENDOSCOPY [facility] COLONOSCOPY, DIAGNOSTIC (RECTUM) 07/30/2019 poor prep, repeat / [facility] COLONOSCOPY, DIAGNOSTIC (RECTUM) 09/16/2019 adenomatous polyps, fair prep, repeat 1 yr / [facility] COLONOSCOPY, DIAGNOSTIC (RECTUM) 08/31/2021 benign adenomatous polyps, diverticulosis, lipoma, repeat 3 yrs / COLONOSCOPY FLEXIBLE PROXIMAL DIAGNOSTIC performed by Tanner Bruner MD at ENDOSCOPY [facility] CYSTOSCOPY 09/19/2011 cysto under anesthesia EXPLORATION OF SCROTUM N/A 12/15/2020 SCROTAL EXPLORATION performed by Clara Yi MD at [place] [facility] INJECT DX/THER SUBSTANCE INTERLAMINAR LUMBAR/SACRAL W IMAGE GUIDE 12/19/2022 INJECTION SPINE LUMBAR OR SACRAL performed by Chuy Asencio DO at OR [facility] LUMBAR / SACRAL EPIDURAL, SINGLE LEVEL 03/06/2023 INJECTION TRANSFORAMINAL EPIDURAL LUMBAR OR SACRAL performed by Chuy Asencio DO at OR [facility] PARTIAL COLECTOMY W/ANASTOMOSIS 06/07/2008 Laparoscopic, hand assisted, converted to open low anterior resection with primary anastomosis, proctoscopy, [facility], Dr. Thompson Current Outpatient Medications Medication Sig [...] MOUTH EVERYDAY AT BEDTIME 90 Tablet 1 Lactulose 10 GM/15ML Oral Solution (Constulose) Take 15 mL by mouth 3 times a day as needed for Constipation. severe constipation (Patient not taking: Reported on [...] morning. (Patient not taking: Reported on 01/09/2023) Atorvastatin Calcium 40 MG Oral Tablet (Lipitor) [...] 1 Drop before bedtime. 10 mL 1 glipiZIDE 10 MG Oral Tablet (Glucotrol) TAKE 2 TABLETS BY MOUTH TWICE A DAY 30 MINUTES BEFORE MORNING AND EVENING MEALS 360 Tablet 2 No current facility-administered medications for this visit. Review of patient's allergies indicates: No Known Allergies Social History Tobacco Use Smoking Status Every Day Packs/day: 1.00 Years: 40.00 Pack years: 40.00 Types: Cigarettes Smokeless Tobacco Current Social History Substance and Sexual Activity Alcohol Use Not Currently Comment: has not had for many years ASSESSMENT: Right Lumbar radicular pain Lumbar spinal stenosis Lumbar facet cyst RECOMMENDATION: I will arrange for spine surgical evaluation as above Chuy Asencio DO 04/16/2023 12:28 PM documented in this encounter Plan of Treatment Upcoming Encounters Date Type Specialty Care Team Description 06/12/2023 Office Visit Family Medicine Mark Choudhury DO [address] [place] [address] 03/19/2024 Office Visit Ophthalmology Kody Mason, DO [address] [facility] [place] [id number] Scheduled Procedures Name Priority Associated Diagnoses Date/Ti me COLONOSCOPY FLEXIBLE PROXIMA L DIAGNOSTIC Recall History of colonic polyps Health Maintenance Due Date Last Done Comments DISCUSS TOBACCO CESSATION (REFER TO SMARTSET #2468) 1950 COVID-19 Vaccine (#1) 1950 Zoster Vaccines [...] 05/16/2009 LUNG CANCER SCREENING - USE SMARTSET [id number] Completed 07/13/2019, 05/23/2009 Pneumococcal Vaccine: 65+ Years [...] this encounter Medical Devices Implanted Type Area Sizing Sponger Device Identifier Shelf Expiration Date Model / Serial / Lot Lens [id number] 12.5mm+22.50 - [id number] - [id number] Implanted:Qty: 1 on 01/09/2023 by Kody Mason DO at OR [facility] Left: Eye [employer] 08/21/2025 [id number] / [id number] / [id number] Lens [id number] 12.5mm+22.00 - [id number] - [id number] Implanted:Qty: 1 on 02/06/2023 by Kody Mason DO at OR [facility] Right: Eye [employer]CH [employer] LOMB 02/18/2025 [id number] / [id number] / [id number] documented as of this encounter Visit Diagnoses Diagnosis Lumbar radicular pain- Primary Thoracic or lumbosacral neuritis or radiculitis, unspecified Spinal stenosis of lumbar region with neurogenic claudication Spinal stenosis, lumbar region, with neurogenic claudication documented in this encounter Advance Directives Latest [...] Discussed due to patient's condition Care Teams Web Communications Specialist Relationship Specialty Start Date End Date Mark Choudhury, [place] [address] PCP - General Internal Medicine 12/09/20 documented as of this encounter
--- OUTSIDE RECORDS SUMMARY | 2023-06-01 14:44 | External Medical Summary | Summary of Care ---
Author Name Unknown Organization [facility] Address [address] [place] [address] Phone [phone] Care Team Providers Care Osd Clerk Name Role Phone Mark Choudhuryothy Primary Care Provid er Reason for Referral * Precert (Within 10 days (routine)) - Authorized Specialty Diagnoses / Procedures Referred By Contac t Referred To Contact Radiology Diagnoses Spinal stenosis, lumbar region with neurogenic claudication Procedures MRI L SPINE WO CONTRAST Isaías Chow PA-C [address] [place] [id number] Referral ID Status Reason Start Date Expiration Date V isits Requested Visits Authorized [id number] Authorized 05/01/2023 999 [id number] Encounter Details Date Type Department Care Team Description 05/01/2023 Orders Only Radiology, [facility] [address] [place] [address] Requisition, External Radiology [address] [place] [address] Spinal stenosis, lumbar region with neurogenic claudication* Allergies No known active allergiesdocumented as of this encounter (statuses as of 05/01/2023) Medications Medication Sig Dispensed Refills Start Date [...] as of this encounter (statuses as of 05/01/2023) Active Problems Problem Noted Date Insomnia due [...] Taxonomy. Hyperlipidemia due to type 2 diabetes llverónica 07/07/2009 Overview: Per Lipid Taxonomy. Tobacco use disorder 07/25/2005 documented as of this encounter (statuses as of 05/01/2023) Resolved Problems Problem Noted Date Resolved Date [...] as of this encounter (statuses as of 05/01/2023) Immunizations Name Administration Dates Next Due Pneumococcal [...] Encounters Date Type Specialty Care Team Description 05/02/2023 Imaging Radiology 05/09/2023 Office Visit Family Medicine Cata Sebastian PA-C [address] [place] [address] 06/12/2023 Office Visit Family Medicine Mark Choudhury DO [address] [place] [address] 03/19/2024 Office Visit [facility] Mason, DO [address] [facility] [place] [address] Scheduled Orders Name Type Priority Associated Diagnoses Orde r Schedule MRI L SPINE WO CONTRAST Medical Imaging Routine Spinal stenosis, lumbar region with neurogenic claudication Expected: 05/01/2023, Expires: 06/01/2024 Scheduled Procedures Name Priority Associated Diagnoses Date/Ti me COLONOSCOPY FLEXIBLE PROXIMA L DIAGNOSTIC Recall History of colonic polyps Health Maintenance Due Date Last Done Comments DISCUSS TOBACCO CESSATION (REFER TO SMARTSET #8870) 1950 COVID-19 Vaccine (#1) 1950 Zoster Vaccines [...] 05/16/2009 LUNG CANCER SCREENING - USE SMARTSET [id number] Completed 07/13/2019, 05/23/2009 Pneumococcal Vaccine: 65+ Years [...] this encounter Medical Devices Implanted Type Area Assembler Tester Device Identifier Shelf Expiration Date Model / Serial / Lot Lens [id number] 12.5mm+22.50 - [id number] - [id number] Implanted:Qty: 1 on 01/09/2023 by Kody Mason DO at OR [facility] Left: Eye [employer] 08/21/2025 [id number] / [id number] / [id number] Lens [id number] 12.5mm+22.00 - [id number] - [id number] Implanted:Qty: 1 on 02/06/2023 by Kody Mason DO at OR [facility] Right: Eye BA[employer]CH [employer] LOMB 02/18/2025 [id number] / [id number] / [id number] documented as of this encounter Visit Diagnoses Diagnosis Spinal stenosis, lumbar region with neurogenic claudication- Primary documented in this encounter Advance Directives Latest [...] Discussed due to patient's condition Care Teams Osd Clerk Relationship Specialty Start Date End Date Mark Choudhury DO [address] [place] [id number] PCP - General Internal Medicine 12/09/20 documented as of this encounter
--- OUTSIDE RECORDS SUMMARY | 2023-06-01 14:44 | External Medical Summary | Summary of Care ---
Author Name Unknown Organization [facility] Address [address] [facility] [place] [address] Phone [phone] Care Team Providers Care Security Screener Name Role Phone Mark Santos DO Primary Care Provid er Reason for Visit * Reason Comments eRx-Medication Refill Encounter Details Date Type Department Care Team Description 03/26/[address] [phone] Mark Santos DO [address] [place] [id number] Type 2 diabetes mellitus with stage 3 chronic kidney disease, without long-term current use of insulin (HCC); DM type 2, goal: symptom mgmt ([facility]) Allergies No known active allergiesdocumented as of this encounter (statuses as of 03/29/2023) Medications Medication Sig Dispensed Refills Start Date [...] MOUTH EVERY DAY 90 Tablet 3 2 Active Lisinopril 40 MG Oral TabletIndications :DM [...] before bedtime. 10 mL 1 3 Active glipiZIDE 10 MG Oral Tablet (Glucotrol)Indica tions:Type 2 diabetes mellitus with stage 3 chronic kidney disease, without long-term current use of insulin (HCC),DM type 2, goal: symptom mgmt (HCC) TAKE 2 TABLETS BY MOUTH TWICE A DAY 30 MINUTES BEFORE MORNING AND EVENING MEALS 360 Tablet 2 3 Active glipiZIDE 10 MG Oral Tablet (Glucotrol)Indica tions:Type 2 diabetes mellitus with stage 3 chronic kidney disease, without long-term current use of insulin (HCC),DM type 2, goal: symptom mgmt (HCC) TAKE 2 TABS BY MOUTH 2 TIMES A DAY 30 MINUTES BEFORE MORNING AND EVENING MEALS. 360 Tablet 2 2 03/29/20 23 Discontinued documented as of this encounter (statuses as of 03/29/2023) Active Problems Problem Noted Date Insomnia due [...] as of this encounter (statuses as of 03/29/2023) Resolved Problems Problem Noted Date Resolved Date [...] as of this encounter (statuses as of 03/29/2023) Immunizations Name Administration Dates Next Due Pneumococcal [...] encounter Miscellaneous Notes * Telephone Encounter - Mark Santos DO - 03/29/2023 6:39 AM EDT Signed Prescriptions: Disp Refills glipiZIDE 10 MG Oral Tablet (Glucotrol) 360 Ta*2 Sig: TAKE 2 TABLETS BY MOUTH TWICE A DAY 30 MINUTES BEFORE MORNING AND EVENING MEALS Authorizing Provider: MARK SANTOS * Telephone Encounter - Interface, E-Rx S[facility] Inbound - 03/28/2023 11:23 AM EDT Pending Prescriptions: Disp Refills glipiZIDE 10 MG Oral Tablet [Pharmacy Med *360 Ta*2 Sig: TAKE 2 TABLETS BY MOUTH TWICE A DAY 30 MINUTES BEFORE MORNING AND EVENING MEALS * Telephone Encounter - Lissy Saavedra [facility] - 03/28/2023 7:11 AM EDTPending Prescriptions: Disp Refills glipiZIDE 10 MG Oral Tablet [Pharmacy Med *360 Ta*2 Sig: TAKE 2 TABLETS BY MOUTH TWICE A DAY 30 MINUTES BEFORE MORNING AND EVENING MEALS * Telephone Encounter - Lissy Saavedra [facility] - 03/28/2023 7:11 AM EDT Unable to authorize medication refills for pended medication(s) at this time. Part of the protocol criteria used for refill authorization was not satisfied. Patient needs creatinine within normal limits. Please approve if appropriate. Serum creatinine: 2.1 mg/dL (H) 01/02/23 0942 Estimated creatinine clearance: 34.3 mL/min (A) ThanksLissy Clinical Pharmacist [facility] ([facility]) [phone] 03/28/2023, 7:11 AM * Telephone Encounter - Lissy Saavedra [facility] - 03/28/2023 7:10 AM EDT Did you pend patient's preferred pharmacy and medication before forwarding?yes Pharmacy: [id number] [facility] Pending Prescriptions: Disp Refills glipiZIDE 10 MG Oral Tablet (Glucotrol) [*360 Ta*2 Sig: TAKE 2 TABLETS BY MOUTH TWICE A DAY 30 MINUTES BEFORE MORNING AND EVENING MEALS Last Visit: 12/28/2022 (in office), Visit date not found (telemedicine) Next Visit: 06/12/2023 If no future appointments scheduled, and last appointment is greater than a year ago, please schedule patient for a follow-up appointment Last date the medication was ordered: 06/21/22 Is this request for a controlled substance?No Urine Drug Screen:No results found for this or any previous visit. Patient Phone Numbers Labs: Lab Results Component Value Date/Time CREAT 2.1 (H) 01/02/2023 09:42 AM CREAT 2.8 (H) 08/15/2020 03:19 PM POTASSIUM 4.9 01/02/2023 09:42 AM POTASSIUM 4.9 08/15/2020 03:19 PM TSH 1.30 11/18/2020 03:07 PM TSH 1.61 05/24/2017 12:02 PM LDLCALC UNINTERPRETABLE RESULT 04/22/2014 08:45 AM LDLDIRECT 87 01/02/2023 09:42 AM LDLDIRECT 57 03/29/2020 08:58 AM LDLDIRECT 100 10/02/2018 08:19 AM ALT 17 01/02/2023 09:42 AM ALT 15 08/15/2020 03:19 PM HGBA1C 7.8 (H) 01/02/2023 09:42 AM HGBA1C 7.5 (H) 12/28/2022 12:35 PM HGBA1C 7.0 (H) 06/03/2020 09:34 AM documented in this encounter Plan of Treatment Upcoming Encounters Date Type Specialty Care Team Description 06/12/2023 [facility] [address] [facility] [place] [address] 03/19/2024 Office Visit Ophthalmology Kody Mason DO [address] [place] [address] Scheduled Procedures Name Priority Associated Diagnoses Date/Ti me COLONOSCOPY FLEXIBLE PROXIMA L DIAGNOSTIC Recall History of colonic polyps Health Maintenance Due Date Last Done Comments DISCUSS TOBACCO CESSATION (REFER TO SMARTSET #8661) 1950 COVID-19 Vaccine (#1) 1950 Zoster Vaccines [...] 05/16/2009 LUNG CANCER SCREENING - USE SMARTSET [id number] Completed 07/13/2019, 05/23/2009 Pneumococcal Vaccine: 65+ Years [...] this encounter Medical Devices Implanted Type Area Working Supervisor Device Identifier Shelf Expiration Date Model / Serial / Lot Lens [id number] 12.5mm+22.50 - [id number] - [id number] Implanted:Qty: 1 on 01/09/2023 by Kody Mason DO at OR [facility] Left: Eye [employer] 08/21/2025 [id number] / [id number] / [id number] Lens [id number] 12.5mm+22.00 - [id number] - [id number] Implanted:Qty: 1 on 02/06/2023 by Kody Mason DO at OR [facility] Right: Eye [employer]CH [employer] LOMB 02/18/2025 [id number] / [id number] / [id number] documented as of this encounter Visit Diagnoses Diagnosis DM type 2, goal: symptom mgmt (HCC) Type II or unspecified type diabetes mellitus without mention of complication, not stated as uncontrolled documented in this encounter Advance Directives Latest [...] Discussed due to patient's condition Care Teams Security Screener Relationship Specialty Start Date End Date Mark Santos DO [address] [place] [address] PCP - General Internal Medicine 12/09/20 documented as of this encounter
--- OUTSIDE RECORDS SUMMARY | 2023-06-01 14:44 | External Medical Summary | Summary of Care ---
Author Name Unknown Organization [facility] Address [address] [facility] [place] [address] Phone [phone] Care Team Providers Care Produce Specialist Name Role Phone JamesaddisonMarkothy Primary Care Provid er Reason for Visit * Auth/Cert Specialty Diagnoses / Procedures Referred By Karen t Referred To Contact Diagnoses Cataract Cataract [H26.9] Procedures CATARACT SURGERY,COMPLEX RIGHT EXTRACAPSULAR CATARACT REMOVAL COMPLEX WITH IOL Referral ID Status Reason Start Date Expiration Date Visits Re quested Visits Authorized [id number] Encounter Details Date Type Department Care Team Description 02/06/2023 Hospital Encounter OR [facility], Operating Room [facility] [address] [place] [address] Kody Mason DO [address] [facility] [place] [address] Allergies No known active allergiesdocumented as of this encounter (statuses as of 02/06/2023) Medications Medication Sig Dispensed Refills Start Date [...] as of this encounter (statuses as of 02/06/2023) Active Problems Problem Noted Date Insomnia due [...] as of this encounter (statuses as of 02/06/2023) Resolved Problems Problem Noted Date Resolved Date [...] as of this encounter (statuses as of 02/06/2023) Immunizations Name Administration Dates Next Due Pneumococcal [...] Sign Reading Time Taken Comments Blood Pressure 117/84 02/06/2023 11:15 AM EDT Pulse 60 02/06/2023 11:15 AM EDT Temperature 36.4 C (97.5 F) 02/06/2023 11:00 AM E DT Respiratory Rate 16 02/06/2023 11:15 AM EDT Oxygen Saturation 100% 02/06/2023 11:15 AM EDT Inhaled Oxygen Concentration - - Weight 88.5 kg (195 lb) 02/06/2023 9:02 AM EDT Height 170.2 cm (5' 7.01") 02/06/2023 9:02 AM ED T Body Mass Index 30.53 02/06/2023 9:02 AM EDT documented in this encounter Discharge Instructions * Discharge Instr - AVS* Kody Mason, - 02/06/2023 10:57 AM EDT Discharge Date: 02/06/23 Check your Patient Education Brochure for further information. If you have any further questions orconcerns after discharge and before 4:00 p.m. please contact your surgeons (Dr. Kody Mason) office at [phone]. After 4:00 p.m. or on the weekend, call the [facility] at ([phone]) and ask for the fish icer pollution control technician in [place]. Go to the Emergency Room if you feel the situation is an emergency. If you present to another facility's emergency room, please call and inform your surgeon's office at the phone number provided above. The information below provides you with the instructions and the list of medications you need to betaking following discharge from the hospital. If you have any questions, please ask before leaving.Please carry this letter with you when you see your doctor in the clinic. If you have questions, you can reach us at the numbers above. Diet: Start with clear liquids (jello, tea, apple juice), avoid dairy products (milk, cheese, pudding, ice cream) and fried, greasy foods. Progress to prescribed diet as tolerated. If nausea should occur, have clear liquids only until soft foods can be tolerated. Activity: A responsible adult must be with the patient for 24 hours after surgery. Rest today and tomorrow, and then increase activity as tolerated. DO NOT drive, operate any appliances and/or machinery or sign legal documents for 24 hours. DO NOT touch or rub the operative eye. Keep shield in place except to place eyedrops. Sleep with eyeshield in place. Eye Drops: Begin eyedrops when arrive home Moxifloxacin: One Drop to right eye 4 times per day Prednisolone acetate (shake well): One Drop to right eye 4 times per day Erythromycin ophthalmic ointment - Instill at bedtime or as needed for pain/discomfort right eye Please use the Moxifloxacin drop first followed by the prednisolone drop. Shake the prednisolone 10-15 times prior to use. Wait at least 5 minutes between eyedrops. Please use your eyedrops first thing in morning prior to postoperative day 1 visit. Pain Contol: Tylenol extra-strength 1 tablet every 4 hours as needed for pain. Warnings: Call your surgeon promptly in case of: A. Pain that is not relieved by the medicine you were told to take (surface irritation and burning is common and not a concern) B. Swelling or pus-like drainage C. Persistent nausea and vomiting D. Other Questions or concerns Special Instructions: A. Do not lift heavy objects or bend until appointment tomorrow. B. If you have burning or scratchy sensation, it is okay to use the ophthalmic ointment In the blue kit - apply 1/4 inch into the gutter created by pulling lower eyelid down. Other Instructions/follow-up: A. A follow-up appointment has been made for you tomorrow, at the Eye clinic in the [facility] on the second floor. Please show up at your scheduled appointment time. B. Please Bring the blue bag with both eyedrops with you to post-op visit tomorrow. documented in this encounter Progress Notes * Kody Mason DO - 02/06/2023 10:57 AM EDT [facility] ENDOSCOPY [address] [address] OUTPATIENT SURGERY DISCHARGE SUMMARY NOTE Name: José Gallardo Jr. Location: OR [facility]/[place] Date: 02/06/2023 Time: 10:57 AM Surgery Date: 02/06/2023 Procedure: Procedure(s): RIGHT EXTRACAPSULAR CATARACT REMOVAL COMPLEX WITH IOL Right Surgeon: Surgeon(s): Kody Mason DO Discharge Diagnosis: Same After examination of this patient, I have determined he is ready for discharge to home when the patient meets criteria. Discharge instructions were given to the patient. documented in this encounter H&P Notes * Kody Mason DO - 02/06/2023 10:10 AM EDT HISTORY & PHYSICAL INTERVAL NOTE [address] [address] History and Physical Update: Name: José Gallardo Jr. Location: OR [facility]/[place] Date: 02/06/2023 Time: 10:10 AM DATE OF HISTORY AND PHYSICAL: 02/06/23 BP: 134 mmHg/65 mmHg (02/06/23901) Pulse: 67 (02/06/23901) Temp: 36.11 C (02/06/23901) Resp: 17 (02/06/23901) SpO2: 100 % (02/06/23901) Heart Exam: regular rate and rhythm Lung Exam: clear to auscultation bilaterally This patient has undergone a preprocedural evaluation. A determination has been made to proceed with the planned procedure under [facility] procedural guidelines and the [facility] Non-Emergent, Elective Medical Services and Treatment Recommendations (published on 10-27-19). I have reviewed the H&P previously performed and examined the patient today. There are no new findings noted. * Kody Mason DO - 02/06/2023 10:09 AM EDT HISTORY & PHYSICAL EXAMINATION - Ophthalmology [facility] [address] [address] Name: José Gallardo Jr. Location: [facility]/[place] Date: 02/06/2023 Time: 10:10 AM PRESENTING PROBLEM: Cataract, right eye HISTORY OF PRESENT ILLNESS: José is a 73 year old male who presents for cataract extraction with implant, right eye. PAST MEDICAL HISTORY: Past Medical History: Diagnosis Date Benign neoplasm of colon 08/2009 polyps x5, adenomatous tissue f/u in 2 yrs Benign neoplasm of colon 09/05/11 -benign--poor prep repeat in one year cold bx Benign neoplasm of colon 04/2012 adenomatous polyp repeat in 3 yrs DM type 1, goal A1c below 7 Dyslipidemia, goal to be determined PAST SURGICAL HISTORY: Past Surgical History: Procedure Laterality Date CATARACT SURGERY,COMPLEX Left 01/09/2023 LEFT EXTRACAPSULAR CATARACT REMOVAL COMPLEX WITH IOL performed by Kody Mason DO at OR [facility] COLONOSCOPY W/ BIOPSY (RECTUM) 09/05/2011 polyps x2 [...] performed by Tanner Bruner MD at ENDOSCOPY [facility] COLONOSCOPY, DIAGNOSTIC (RECTUM) 07/30/2019 poor prep, repeat / [facility] COLONOSCOPY, DIAGNOSTIC (RECTUM) 09/16/2019 adenomatous polyps, fair prep, repeat 1 yr / [facility] COLONOSCOPY, DIAGNOSTIC (RECTUM) 08/31/2021 benign adenomatous polyps, diverticulosis, lipoma, repeat 3 yrs / COLONOSCOPY FLEXIBLE PROXIMAL DIAGNOSTIC performed by Tanner Bruner MD at ENDOSCOPY [facility] CYSTOSCOPY 09/19/2011 cysto under anesthesia EXPLORATION OF SCROTUM N/A 12/15/2020 SCROTAL EXPLORATION performed by Clara Yi MD at [place] [facility] INJECT DX/THER SUBSTANCE INTERLAMINAR LUMBAR/SACRAL W IMAGE GUIDE 12/19/2022 INJECTION SPINE LUMBAR OR SACRAL performed by Chuy Asencio DO at OR [facility] PARTIAL COLECTOMY W/ANASTOMOSIS 06/07/2008 Laparoscopic, hand assisted, converted to open low anterior resection with primary anastomosis, proctoscopy, [facility], Dr. Thompson FAMILY HISTORY: Family History Problem Relation Age of Onset Diabetes Father Heart Disorder Grandfather (Paternal) Multiple MT's? age 75 SOCIAL HISTORY: Social History Tobacco Use Smoking status: Every Day Packs/day: 1.00 Years: 40.00 Pack years: 40.00 Types: Cigarettes Smokeless tobacco: Current Vaping Use Vaping Use: Never used Substance Use Topics Alcohol use: Not Currently Comment: has not had for many years Drug use: No CURRENT HOSPITAL MEDICATIONS: Note that completed medications (per the MAR) continue to display for 24 hours. Ordered medicationsto be given in the future also display. Current Facility-Administered Medications Medication Dose Route Frequency Provider isolyte-S pH 7.4 infusion Intravenous Continuous Kody Mason DO lidocaine urethral/mucosal 2 % gel 2 mL 2 mL Topical Once Kody Mason DO ALLERGIES: Patient has no known allergies. REVIEW OF SYSTEMS: no recent significant change in vision, no eye pain, redness, discharge and no diplopia PHYSICAL EXAMINATION: Head: normocephalic / atraumatic Ears: hearing intact to voice Nose: nares clear Throat: throat normal Respiratory: CTA Neck: clear Cardiovascular: normal S1 S2 Abdomen: obese Extremities: 1+ edema Neurologic: grossly intact Mental Status/Communication: within range of normal variation Physical Disabilities: none IMPRESSION: Cataract, right eye PLAN: 1. Cataract extraction with implant, right eye 2. IN & OUT surgery 3. F/u 1 day post operatively in office 4. Instructions to be given in post op recovery area This H&P is intended for pre-operative clearance. documented in this encounter Nursing Notes * Yue Mariscal RN - 02/06/2023 11:28 AM EDT Patient awake and oriented x3. Denies pain. No drainage from eye noted. Tolerating PO fluids. Discharge instructions given and patient verbalizes understanding. Patient ambulated to private vehicle and discharged to home. * Yue Mariscal RN - 02/06/2023 11:00 AM EDT Patient transferred to pacu 2 status post right cataract removal and lens placement. No drainage noted. Patient awake. Denies pain and nausea. Respirations are even and unlabored on room air. Abdomensoft and non distended. Vital signs stable. * Erma Siegel RN - 02/06/2023 9:23 AM EDT Surgical consent verified with patient. Patient agrees with listed procedure and verified signature. documented in this encounter OR Notes * OR Surgeon - Kody Mason DO - 02/06/2023 10:57 AM EDT [facility] [address] [address] OPERATIVE REPORT Name: José Gallardo Jr. Date: 02/06/2023 Time: 10:58 AM Service: Ophthalmology Date of Operation: 02/06/2023 Pre-op Diagnosis: 1. 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 Nuclear age related Cataract Right eye Surgeon: Kody Mason DO Assistants: None Anesthesia: Monitored Local Anesthesia with Sedation Operation: Cataract extraction to the Right eye with implantation of posterior intraocular lens. Case considered complex due to need of iris manipulation device to aid in pupillary dilation. Findings: None Estimated Blood Loss: minimal IV Intake:<100 ml Urine output: 0 ml Drains: 0 INDICATIONS AND PERTINENT HISTORY: The patient has a visually significant cataract of the Right eye. The proposed procedure was discussed in detail with the patient. All feasible options were reviewed with the appropriate indications and expected outcomes. Specimens and Disposition: None Complications: none Condition: Stable Description of Operation: The patient was identified with two identifiers and the procedure verified. Proper consent was verified. Antibiotic and dilating drops were instilled in the right eye pre-operatively in the Pre-operative holding area. Fifteen minutes prior to transfer to the Operating Room, topical proparacaine drops and topical 2% lidocaine jelly were placed over the right eye. The patient was then taken back tothe Operating Room. Ophthalmic Betadine 5% was placed in the superior and inferior cul-de-sacs of the right eye. The right eye was then prepped with 10% povidone-iodine and draped in the usual sterile fashion. After the lid speculum was inserted, a paracentesis incision was made at the 11 o'clock position with a sharp blade. MPF lidocaine was instilled. The anterior chamber was then refilled withViscoat. The main wound was then created at 9' using the 2.4mm phacokeratome blade. Due to poor dilation, a Malyugan ring, 7.0 mm in size was inserted into the anterior chamber and put into place with the manipulator. Additional viscoelastic was instilled into the anterior chamber. A continuous curvilinear capsulorrhexis was then performed initially with a cystotome, then completed with Utrada forceps. Hydrodissection and hydrodelineation were achieved with balanced salt solution through a Guerra cannula. The phacoemulsification handpiece was utilized to remove the lens nucleus with a [id number] technique. Residual cortical material was removed with the irrigating and aspirating device. The capsular bag was re-formed with viscoelastic. An [id number] 22.0 diopters in power, acrylic foldable lens was placed into the capsular bag uneventfully and rotated into position with a Sinskey hook. It was noted to be in a central and stable position. The Malyugin ring was removed. The residual viscoelastic was irrigated and aspirated from the anterior chamber. Stromal hydration was applied to the wound. The anterior chamber was re-formed with balanced salt solution. The wounds were checked with Weck-cels and found to be watertight. The lid speculum was then removed. Brimonidine, prednisolone acetate, ocuflox drops and erythromycin oph ointment were instilled in the eye. The patient tolerated the procedure well. There were no complications I performed the entire procedure Kody Mason DO 02/06/2023 10:58 AM documented in this encounter Plan of Treatment Upcoming Encounters Date Type Specialty Care Team Description 02/07/2023 Office Visit Ophthalmology Kody Mason DO [address] [facility] [place] [address] 02/14/2023 Office Visit Pain Medicine Chuy Asencio DO [address] [place] [address] 02/14/2023 Office Visit Ophthalmology Kody Mason DO [address] [facility] [place] [address] 06/12/2023 Office Visit Family Medicine Mark Choudhury DO [address] [place], [place] [id number] Scheduled Orders Name Type Priority Associated Diagnoses Orde r Schedule GLUCOSE METER, POINT OF CARE (COMMUNICATION ORDER) Point of Care Testing Routine As Needed until discontinued starting 02/06/2023 Scheduled Procedures Name Priority Associated Diagnoses Date/Ti me EXTRACAPSULAR CATARACT REMOVAL COMPLEX WITH IOL Cataract 02/06/2023 10:07 AM EDT COLONOSCOPY FLEXIBLE PROXIMAL DIAGNOSTIC Recall History of colonic polyps Health Maintenance Due Date Last Done Comments DISCUSS TOBACCO CESSATION (REFER TO SMARTSET #2436) 1950 COVID-19 Vaccine (#1) 1950 Zoster Vaccines [...] 01/03/2028 01/02/2023, 03/22, 07/20/2021, Additional history exists LUNG CANCER SCREENING - USE SMARTSET 22840 Completed 07/13/2019, 05/23/2009 Pneumococcal Vaccine: 65+ Years Completed 07/05/2021, 06/07/2020, 11/22/2005 COLONOSCOPY-ANNUAL AGES 18-100 Discontinued 08/31/2021, 08/31/2021, 09/16/2019, Additional history exists AAA Screening Completed 12/12/2022, 11/19, 07/13/2019, Additional history exists GARDASIL-HPV IMMUNIZATION SERIES Aged Out No longer eligible based on patient's age to complete this topic Hepatitis B Aged Out No longer eligi ble based on patient's age to complete this topic MENINGOCOCCAL (MENACTRA/MENVEO) Aged Out No longer eligible based on patient's age to complete this topic documented as of this encounter Medical Devices Implanted Type Area Director Of Epidemiology Device Identifier Shelf Expiration Date Model / Serial / Lot Lens [id number] 12.5mm+22.50 - [id number] - [id number] Implanted:Qty: 1 on 01/09/2023 by Kody Mason DO at OR [facility] Left: Eye [employer] 08/21/2025 [id number] / [id number] / [id number] Envista Intraocular Lens Implanted:Qty: 1 on 02/06/2023 by Kody Mason DO at OR [facility] Right: Eye [employer]OM[employer] 02/18/2025 [id number] / [id number] / [id number] documented as of this encounter Procedures Procedure Name Priority Date/Time Associated Diagnosis Comments GLUCOSE METER, POINT OF CARE [facility] 02/06/2023 9:32 AM EDT documented in this encounter Results * (ABNORMAL) GLUCOSE METER, POINT OF CARE (02/06/2023 9:32 AM EDT) Glucose Meter 136(H) 70 - 120 mg/dL 02/06/2023 9:35 AM EDT [facility] [place] 57 Blood Whole blood specimen / Unknown 02/06/2023 9:32 AM EDT 02/06/2023 9:35 AM EDT Kody Mason DO LAB POINT OF CARE TE ST DOCKED DEVICE UNSOLICITED RESULTS [facility] [place] 57 [address] [facility] [place] [address] documented in this encounter Visit Diagnoses Diagnosis Age-related nuclear cataract of right eye- Primary Senile nuclear sclerosis Pseudophakia- Primary Lens replaced by other means documented in this encounter Administered Medications Inactive Administered Medications - up to 3 most recent administrations Medication Order MAR Action Action Date Dose Rate Site Acetaminophen (Tylenol) tab 650 mg 650 mg, Oral, PRN Pain, Mild, Starting on Sat02/06/23 at 1104, Until Sat02/06/23 at 1529, For 1 dose, Maximum of 4 grams (4000 mg) per day., Post-op cyclopentolate (Cyclogyl) 1 % ophthalmic solution 1 Drop 1 Drop, Right eye, Q5 MINUTES, First dose on Sat02/06/23 at 0945, Last dose on Sat02/06/23 at 0955, For 3 doses Given 02/06/2023 9:40 AM EDT 1 Drop Given 02/06/2023 9:34 AM EDT 1 Drop Given 02/06/2023 9:29 AM EDT 1 Drop Diclofenac Sodium (Voltaren) 0.1 % ophthalmic solution 1 Drop 1 Drop, Right eye, Q5 MINUTES, First dose on Sat02/06/23 at 0945, Last dose on Sat02/06/23 at 0955, For 3 doses, PRE-OP: One drop to right eye every 5 minutes for 3 doses, Pre-Op Given 02/06/2023 9:4 0 AM EDT 1 Drop Given 02/06/2023 9:35 AM EDT 1 Drop Given 02/06/2023 9:29 AM EDT 1 Drop isolyte-S pH 7.4 infusion Intravenous, Plasma-LYTE 148, isolyte-S, and isolyte-S pH 7.4 are considered equivalent - including for MAR barcode scanning., CONTINUOUS, Starting on Sat02/06/23 at 0945, Until Sat02/06/23 at 1529, Pre-Op Continue from Pre-Op 02/06/2023 10:19 AM EDT 100 mL/hr New Bag 02/06/2023 9:42 AM EDT 1,000 mL 100 mL/hr moxifloxacin (Vigamox) 0.5 % ophthalmic solution 1 Drop 1 Drop, Right eye, Q5 MINUTES, First dose on Sat02/06/23 at 0945, Last dose on Sat02/06/23 at 0955, For 3 doses, PRE-OP: One drop to right eye every 5 minutes for 3 doses, Pre-Op Given 02/06/2023 9:3 9 AM EDT 1 Drop Given 02/06/2023 9:34 AM EDT 1 Drop Given 02/06/2023 9:29 AM EDT 1 Drop prednisoLONE Acetate (Pred Forte) 1 % ophthalmic suspension 1 Drop 1 Drop, Right eye, Q5 MINUTES, First dose on Sat02/06/23 at 0945, Last dose on Sat02/06/23 at 0955, For 3 doses, PRE-OP: One drop to right eye every 5 minutes for 3 doses., Pre-Op Given 02/06/2023 9:40 AM EDT 1 Drop Given 02/06/2023 9:35 AM EDT 1 Drop Given 02/06/2023 9:29 AM EDT 1 Drop proparacaine (Alcaine) 0.5 % ophthalmic solution 1 Drop 1 Drop, Right eye, ONCE, On Sat02/06/23 at 0945, For 1 dose, PRE-OP: 15 minutes prior to scheduled surgery time for 1 dose, Pre-Op Given 02/06/2023 9:29 AM EDT 1 Drop tropicamide 1%-PHENYLephrine 2.5% Ophthalmic Solution 1 Drop, Right eye, Q5 MINUTES, First dose on Sat02/06/23 at 0945, Last dose on Sat02/06/23 at 0955, For 3 doses Given 02/06/2023 9:40 AM EDT 1 Drop Given 02/06/2023 9:34 AM EDT 1 Drop Given 02/06/2023 9:29 AM EDT 1 Drop documented in this encounter Active and Recently Administered Medications Times are shown in EDT. Scheduled Medication Order 02/04/2023 02/05/2023 02/06/2023 cyclopentolate (Cyclogyl) 1 % ophthalmic solution 1 Drop (COMPLETED) 1 Drop, Right eye, Q5 MINUTES, First dose on Sat02/06/23 at 0945, Last dose on Sat02/06/23 at 0955, For 3 doses 0929 (Given - Provid er: Erma Siegel RN)0934 (Given - Provider: Erma Siegel RN)0940 (Given - Provider: Erma Siegel RN) Diclofenac Sodium (Voltaren) 0.1 % ophthalmic solution 1 Drop (COMPLETED) 1 Drop, Right eye, Q5 MINUTES, First dose on Sat02/06/23 at 0945, Last dose on Sat02/06/23 at 0955, For 3 doses, PRE-OP: One drop to right eye every 5 minutes for 3 doses, Pre-Op 09 (Given - Provid er: Erma Siegel RN)0935 (Given - Provider: Erma Siegel RN)0940 (Given - Provider: Erma Siegel RN) lidocaine urethral/mucosal 2 % gel 2 mL 2 mL, Topical, ONCE, On Sat02/06/23 at 0945, For 1 dose, 15 minutes prior to scheduled surgery time, apply 2 ml to superior and inferior fornices right eye & tape eyes shut., Pre-Op 944 (Due) moxifloxacin (Vigamox) 0.5 % ophthalmic solution 1 Drop (COMPLETED) 1 Drop, Right eye, Q5 MINUTES, First dose on Sat02/06/23 at 0945, Last dose on Sat02/06/23 at 0955, For 3 doses, PRE-OP: One drop to right eye every 5 minutes for 3 doses, Pre-Op 928 (Given - Provid er: Erma Siegel RN)0934 (Given - Provider: Erma Siegel RN)0939 (Given - Provider: Erma Siegel RN) prednisoLONE Acetate (Pred Forte) 1 % ophthalmic suspension 1 Drop (COMPLETED) 1 Drop, Right eye, Q5 MINUTES, First dose on Sat02/06/23 at 0945, Last dose on Sat02/06/23 at 0955, For 3 doses, PRE-OP: One drop to right eye every 5 minutes for 3 doses., Pre-Op 09 (Given - Provid er: Erma Siegel RN)0935 (Given - Provider: Erma Siegel RN)0940 (Given - Provider: Erma Siegel RN) proparacaine (Alcaine) 0.5 % ophthalmic solution 1 Drop (COMPLETED) 1 Drop, Right eye, ONCE, On Sat02/06/23 at 0945, For 1 dose, PRE-OP: 15 minutes prior to scheduled surgery time for 1 dose, Pre-Op 0929 (Given - Provid er: Erma Siegel RN) tropicamide 1%-PHENYLephrine 2.5% Ophthalmic Solution (COMPLETED) 1 Drop, Right eye, Q5 MINUTES, First dose on Sat02/06/23 at 0945, Last dose on Sat02/06/23 at 0955, For 3 doses 0929 (Given - Provid er: Erma Siegel RN)0934 (Given - Provider: Erma Siegel RN)0940 (Given - Provider: Erma Siegel RN) Continuous Medication Order 02/04/2023 02/05/2023 02/06/2023 isolyte-S pH 7.4 infusion Intravenous, Plasma-LYTE 148, isolyte-S, and isolyte-S pH 7.4 are considered equivalent - including for MAR barcode scanning., CONTINUOUS, Starting on Sat02/06/23 at 0945, Until Sat02/06/23 at 1529, Pre-Op 0942 (New Bag - Prov ider: Erma Siegel RN)1019 (Continue from Pre-Op - Provider: Keegan Sommer CRNA) PRN Medication Order 02/04/2023 02/05/2023 02/06/2023 Acetaminophen (Tylenol) tab 650 mg 650 mg, Oral, PRN Pain, Mild, Starting on Sat02/06/23 at 1104, Until Sat02/06/23 at 1529, For 1 dose, Maximum of 4 grams (4000 mg) per day., Post-op briMONidine tartrate (Alphagan) 0.2 % ophthalmic solution (CANCELED) ONCE PRN INTRA PROCEDURE, Starting on Sat02/06/23 at 1034, Until Sat02/06/23 at 1053, Intra-Op 1034 (Given - Provid er: Kody Mason DO) DUOVISC inj KIT (CANCELED) ONCE PRN INTRA PROCEDURE, Starting on Sat02/06/23 at 1034, Until Sat02/06/23 at 1053, Intra-Op 1034 (Given - Provid er: Kody Mason DO - Comment: qs) EPINEPHrine 0.5 mg in balanced salt solution 500 mL inj (CANCELED) ONCE PRN INTRA PROCEDURE, Starting on Sat02/06/23 at 1034, Until Sat02/06/23 at 1053, Intra-Op 1034 (Given - Provid er: Kody Mason, - Comment: qs) Erythromycin ophthalmic ointment (CANCELED) ONCE PRN INTRA PROCEDURE, Starting on Sat02/06/23 at 1035, Until Sat02/06/23 at 1053, Intra-Op 1035 (Given - Provid er: Kody Mason DO) hydroxypropyl methylcellulose (Ocucoat) 2 % intraocular inj (CANCELED) ONCE PRN INTRA PROCEDURE, Starting on Sat02/06/23 at 1035, Until Sat02/06/23 at 1053, Intra-Op 1035 (Given - Provid er: Kody Mason DO - Comment: qs) Lidocaine 1 % (PF) inj (CANCELED) ONCE PRN INTRA PROCEDURE, Starting on Sat02/06/23 at 1035, Until Sat02/06/23 at 1053, Intra-Op 1035 (Given - Provid er: Kody Mason DO - Comment: qs) moxifloxacin (Vigamox) 0.5 % ophthalmic solution (CANCELED) ONCE PRN INTRA PROCEDURE, Starting on Sat02/06/23 at 1035, Until Sat02/06/23 at 1053, Intra-Op 1035 (Given - Provid er: Kody Mason, DO - Comment: qs) prednisoLONE Acetate (Pred Forte) 1 % ophthalmic suspension (CANCELED) ONCE PRN INTRA PROCEDURE, Starting on Sat02/06/23 at 1035, Until Sat02/06/23 at 1053, Intra-Op 1035 (Given - Provid er: Kody Mason DO) Tetracaine (Pontocaine) 0.5 % ophthalmic solution (CANCELED) ONCE PRN INTRA PROCEDURE, Starting on Sat02/06/23 at 1035, Until Sat02/06/23 at 1053, Intra-Op 1035 (Given - Provid er: Kody Mason DO) documented in this encounter Advance Directives Latest [...] Discussed due to patient's condition Care Teams Produce Specialist Relationship Specialty Start Date End Date Mark Choudhury, [facility] [address] PCP - General Internal Medicine 12/09/20 documented as of this encounter
--- OUTSIDE RECORDS SUMMARY | 2023-06-01 14:44 | External Medical Summary | Summary of Care ---
Author Name Unknown Organization [facility] Address [address] [facility] [address] Phone [phone] Care Team Providers Care Writing Tutor Name Role Phone JamesaddisonMarkothy Primary Care Provid er Reason for Visit * Reason Comments Post-Op 1 week post op OD Encounter Details Date Type Department Care Team Description 02/14/2023 Office Visit Ophthalmology, [facility] [address] [facility] [place] [id number] Kody Mason DO [address] [facility] [place] [address] Pseudophakia* Allergies No known active allergiesdocumented as [...] Day Cigarettes 1 40 Smokeless Tobacco: Current Tobacco Cessation:Ready to Q uit: No; Counseling Given: No Alcohol Use Standard Drinks/Week Comments Not Currently [...] Progress Notes * Kody Mason DO - 02/14/2023 3:00 PM EDT 02/14/2023 [facility] Ophthalmology Post-operative Clinic Note HPI: José Gallardo Jr. is a 73 year old pt who presents to the eye clinic today for 1 week post-opCE PCIOL OD (Ensor TCC, post-refractive [email or web address] measurements, IFIS, MX60E 22.0 02/06/23). VA: 20/25 IOP: 12 mmHg LL: Normal Conjunctiva: Normal Cornea: CCI and paracentesis brook negative, LASIK flap AC: 1+ c/f Iris: dilation Lens: PCIOL centered Vitreous: PVD Optic nerve: Normal Macula: Normal Vessels: Normal Periphery: No break/tear A/P: 1 week post op CE PCIOL OD (Ensor TCC, post-refractive [email or web address] measurements, IFIS, MX60E 22.0 02/06/23) Stable DFE Taper prednisolone as directed by one drop weekly May stop vigamox D/c eye shield Gradual return to normal activity levels Call with flashes, floaters, dec vision eye pain. Advised of tongsman coverage for after hours/weekend emergencies. RTC 4 weeks or sooner prn. Kody Mason DO 02/14/23 documented in this encounter Nursing Notes * Willie Henry RN - 02/14/2023 2:08 PM EDT 1 week S/P cataract extraction OD documented in this encounter Plan of Treatment Upcoming Encounters Date Type Specialty Care Team Description 03/06/2023 Hospital Encounter Surgery Chuy Asencio, DO [address] [place] [address] 03/06/2023 Surgery Surgery Chuy Asencio, [address] [place] [address] INJECTION TRANSFORAMINAL EPIDURAL LUMBAR OR SACRAL 03/14/2023 Office Visit Ophthalmology Kody Mason, DO [address] [place] [address] 06/12/2023 Office Visit Family Medicine Mark Choudhury DO [address] [place] [address] Scheduled Procedures Name Priority Associated Diagnoses Date/Ti me INJECTION TRANSFORAMINAL EPIDURAL LUMBAR OR SACRAL Lumbar radiculopathy 03/06/2023 2:20 PM EDT COLONOSCOPY FLEXIBLE PROXIMAL DIAGNOSTIC Recall History of colonic polyps Health Maintenance Due Date Last Done Comments DISCUSS TOBACCO CESSATION (REFER TO SMARTSET #2660) 1950 COVID-19 Vaccine (#1) 1950 Zoster Vaccines [...] 05/16/2009 LUNG CANCER SCREENING - USE SMARTSET 56115 Completed 07/13/2019, 05/23/2009 Pneumococcal Vaccine: 65+ Years [...] this encounter Medical Devices Implanted Type Area Railcar Switcher Device Identifier Shelf Expiration Date Model / Serial / Lot Lens [id number] 12.5mm+22.50 - [id number] - [id number] Implanted:Qty: 1 on 01/09/2023 by Kody Mason DO at OR [facility] Left: Eye [employer]OMB 08/21/2025 [id number] / [id number] / [id number] Lens [id number] 12.5mm+22.00 - [id number] - [id number] Implanted:Qty: 1 on 02/06/2023 by Kody Mason DO at OR [facility] Right: Eye BAUSCH & LOMB 02/18/2025 [id number] / [id number] / [id number] documented as of this encounter Visit Diagnoses Diagnosis Pseudophakia- Primary Lens replaced by other means Lumbar radiculopathy Thoracic or lumbosacral neuritis or [...] Discussed due to patient's condition Care Teams Writing Tutor Relationship Specialty Start Date End Date Mark Choudhury DO [address] [place] [phone] PCP - General Internal Medicine 12/09/20 documented as of this encounter
--- OUTSIDE RECORDS SUMMARY | 2023-06-01 14:44 | External Medical Summary | Summary of Care ---
Author Name Unknown Organization [facility] Address [address] [facility] [place] [address] Phone [phone] Care Team Providers Care Fingerprint Expert Name Role Phone JamesaddisonMark Arturo Primary Care Provid er Reason for Visit * Auth/Cert Specialty Diagnoses / Procedures Referred By Karen t Referred To Contact Diagnoses Lumbar radiculopathy Lumbar radiculopathy [M54.16] Procedures LUMBAR / SACRAL EPIDURAL, SINGLE LEVEL INJECTION TRANSFORAMINAL EPIDURAL LUMBAR OR SACRAL Referral ID Status Reason Start Date Expiration Date Visits Re quested Visits Authorized [id number] Encounter Details Date Type Department Care Team Description 03/06/2023 Hospital Encounter OR [facility], Operating Room [facility] [address] [place] [id number] Cousins, Chuy Dominguez DO [address] [place] [address] Allergies No known active allergiesdocumented as of this encounter (statuses as of 03/07/2023) Medications Medication Sig Dispensed Refills Start Date [...] as of this encounter (statuses as of 03/07/2023) Active Problems Problem Noted Date Insomnia due [...] as of this encounter (statuses as of 03/07/2023) Resolved Problems Problem Noted Date Resolved Date [...] as of this encounter (statuses as of 03/07/2023) Immunizations Name Administration Dates Next Due Pneumococcal [...] Sign Reading Time Taken Comments Blood Pressure 132/67 03/06/2023 2:17 PM EDT Pulse 78 03/06/2023 2:17 PM EDT Temperature 36.7 C (98.1 F) 03/06/2023 2:17 PM ED T Respiratory Rate 18 03/06/2023 2:17 PM EDT Oxygen Saturation 98% 03/06/2023 2:17 PM EDT Inhaled Oxygen Concentration - - Weight - - Height - - Body Mass Index - - documented in this encounter Discharge Instructions * Discharge Instr - AVS* Chuy Asencio DO - 03/06/2023 2:13 PM EDT [facility] [address] [place] [address] Discharge Date: 03/06/2023 [facility] at [phone] during business hours. For after-hours emergencies call 911. Your attending physician at the time of your discharge was: Chuy Asencio DO [address] [facility] [place] [address] The information below provides you with the instructions and the list of medications you need to betaking following discharge from the hospital. If you have any questions, please ask before leaving.Please carry this letter with you when you see your doctor in the clinic. Diet: Resume your normal diet If you are diabetic, follow your blood sugars closely for next 2-3 days as they are likely to be elevated. If you are having difficulty controlling your blood sugars call your family doctor or the physician that treats your diabetes. Activity: Do not engage in strenuous activity today Resume your normal activities tomorrow Do not soak in water for 24 hours. No swimming, hot tub or bath but showering is allowed. Do not use heat on the injection site for 24 hours. If uncomfortable ice may be helpful. Some injections may make your arms or legs weak for a few hours. Be extremely careful when walking or changing positions that you do not fall. Have someone assist you for the next 6 hours. If weakness or numbness becomes progressive CALL IMMEDIATELY or GO TO THE NEAREST EMERGENCY ROOM Keep a diary of your pain until seen in the office to help us determine how effective the injectionwas Do not restart physical therapy or chiropractic manipulation until 48 hours after your injection Call : If weakness or numbness suddenly becomes worse or become progressive If the injection site becomes red, swollen, warm to the touch, begins to bleed or drain fluid, or is excessively painful. If you have any questions Medications: Resume all the medications you were taking prior to your injection. Resume your anticoagulants tomorrow unless otherwise instructed by your family physician, level vial inspector or the anticoagulation clinic. Additional Instructions: Driving: . Date you may return to work or school: Follow Up: Call [phone] in 4 weeks. documented in this encounter Progress Notes * Chuy Asencio DO - 03/06/2023 2:13 PM EDT [facility] [address] [address] OUTPATIENT SURGERY DISCHARGE SUMMARY NOTE Name: José Gallardo Location: OR [facility]/OR Date: 03/06/2023 Time: 2:13 PM Surgery Date: 03/06/2023 Procedure: Procedure(s): INJECTION TRANSFORAMINAL EPIDURAL LUMBAR OR SACRAL No laterality found for procedure #1 Surgeon: Surgeon(s): Chuy Asencio DO Discharge Diagnosis: right lumbar radicular pain After examination of this patient, I have determined he is ready for discharge to home when the patient meets criteria. Discharge instructions were given to the patient. documented in this encounter H&P Notes * Chuy Asencio DO - 03/06/2023 7:01 AM EDT Interventional Pain Pre-Procedure Assessment Name:José Gallardo Jr. Date:03/06/2023 Time:7:01 AM Procedure(s): Right L5 transforaminal epidural steroid injection Diagnosis: Lumbar radicular pain Pre-Procedure Assessment: Prior to the procedure, the patient was identified. The patient's history, medications and allergies were reviewed . The patient is competent. The risks and benefits of the proposed procedure and theplanned sedation were discussed with the patient. All questions were answered and informed consent for the procedure was obtained. Prior to Admission medications Medication Sig Last Dose Discont. prednisoLONE Acetate 1 % Ophthalmic Suspension (Pred Forte) Instill 1 Drop into both eyes in the morning and 1 Drop at noon and 1 Drop in the evening and 1 Drop before bedtime. Furosemide 40 MG Oral Tablet (Lasix) TAKE 1 TABLET BY MOUTH EVERY DAY amLODIPine Besylate 10 MG Oral Tablet (Norvasc) TAKE 1/2 TABLET BY MOUTH EVERY DAY Sertraline HCl 50 MG Oral Tablet (Zoloft) TAKE 1 TABLET BY MOUTH EVERY DAY Tamsulosin HCl 0.4 MG Oral Capsule (Flomax) TAKE 1 CAPSULE BY MOUTH EVERY DAY HYDROcodone-Acetaminophen 5-325 MG Oral Tablet Take 1 Tablet by mouth every 6 hours as needed for Pain, Mild. Lisinopril 40 MG Oral Tablet TAKE 1 TABLET BY MOUTH EVERY DAY Atorvastatin Calcium 40 MG Oral Tablet (Lipitor) TAKE 1 TABLET BY MOUTH EVERY DAY glipiZIDE 10 MG Oral Tablet (Glucotrol) TAKE 2 TABS BY MOUTH 2 TIMES A DAY 30 MINUTES BEFORE MORNING AND EVENING MEALS. Cinnamon 500 MG Oral Capsule Take 1 Capsule by mouth in the morning. Docusate Sodium 50 MG Oral Capsule Take by mouth daily . Iron 28 MG Oral Tablet Take 1 Tablet by mouth in the morning. Polyethylene Glycol 3350 17 GM Oral Packet (Miralax) Take 1 Packet by mouth in the morning. Patient not taking: Reported on 01/09/2023 Zinc 10 MG Mouth/Throat Lozenge Apply to the mouth or throat . Multivitamin Adult Oral Tablet Take by mouth . Lactulose 10 GM/15ML Oral Solution (Constulose) Take 15 mL by mouth 3 times a day as needed for Constipation. severe constipation Patient not taking: Reported on 01/09/2023 traZODone HCl 100 MG Oral Tablet (Desyrel) TAKE 1 TABLET BY MOUTH EVERYDAY AT BEDTIME Spironolactone 25 MG Oral Tablet (Aldactone) Take 0.5 Tabs by mouth daily. Iron-Vitamin C 65-125 MG Oral Tablet Take 1 Tablet by mouth in the morning. ASPIRIN EC LOW STRENGTH TBEC 81 MG OR 1 by mouth daily to prevent heart attack Review of patient's allergies indicates: No Known Allergies There were no vitals taken for this visit. Physical Exam: Mental Status Examination: alert and oriented. Airway Examination: normal oropharyngeal airway and neck mobility. Respiratory Examination: clear to auscultation. CV Examination: normal. ASA Grade: II - A patient with mild systemic disease. After reviewing the risks and benefits, the patient was deemed in satisfactory condition to undergothe procedure. The anesthesia plan was to use local anesthesia. Chuy Asencio DO 03/06/2023 documented in this encounter Nursing Notes * Barbara Hernandez RN - 03/06/2023 2:20 PM EDT Discharged via wheelchair to car. No drainage noted @ discharge. * Kourtney Jackson RN - 03/06/2023 2:11 PM EDT Band aid applied to area. Patient transferred to PACU 11 via wheelchair * Kourtney Jackson RN - 03/06/2023 2:07 PM EDT Patient tolerating pain management injection well. documented in this encounter OR Notes * OR Surgeon - Chuy Asencio DO - 03/06/2023 2:14 PM EDT OPERATIVE RECORD OR [facility], Operating Room [facility] [address] [place] [id number] José Gallardo Jr. : 1950 Location: @LOCATIONNAME@ SERVICE: Pain Management DATE: 03/06/2023 PRE-OP DIAGNOSIS: Right lumbar radicular pain. POST-OP DIAGNOSIS: Same. SURGEON: Chuy Asencio DO. ASSISTANTS: None. ANESTHESIA: 2 cubic centimeters of 1% lidocaine. OPERATION: Right L5 transforaminal epidural steroid injection. FINDINGS: No intraoperative findings. ESTIMATED BLOOD LOSS: None. DRAINS: There were no drains placed. FLUIDS: None. URINE OUTPUT: None. SPECIMEN: None collected. COMPLICATIONS: None. CONDITION: Good. INDICATIONS AND HISTORY: The patient presents in anticipation of undergoing epidural steroid injection for persistent low back and right lower extremity radicular pain refractory to conservative treatment. The injection procedure was reviewed, as well as the risks of bleeding, infection, headache, nerve or spinal cord injury, worsening pain, or steroid side effects. DESCRIPTION OF OPERATION: The patient was identified, and the procedure was verified. After obtaining appropriate informed consent, the patient was taken to the fluoroscopy suite, placed in a prone position. A time-out was taken to properly identify the patient and injection sites. The right lumbarregion was sterilely prepped with ChloraPrep and draped. C-arm was turned in a left oblique projection. The skin and subcutaneous tissue infiltrated with 1% lidocaine, 2 cubic centimeters. A #22-gauge, 5-inch spinal needle was then directed with the aid of oblique and lateral fluoroscopic control toward the superior aspect of the right L5 neural foramen. There was no pain or paresthesia with needle placement. No aspiration of blood or cerebrospinal fluid. With the C-arm in an AP projection and the aid of real-time fluoroscopy, Omnipaque 240, 0.75 cubic centimeters, was easily injected and showed excellent neural and epidural spread. There was a transient paresthesia with contrast injection,so the needle was withdrawn slightly and additional 0.25cc of contrast was injected without pain. There was no evidence of intravascular or subarachnoid spread of contrast. Dexamethasone 10 mg with 1cubic centimeter of preservative-free normal saline was slowly and easily injected without pain. There was appropriate washout of contrast. The needle was removed. The patient tolerated the procedurewell and will be re-evaluated in 4 weeks by phone, and was given appropriate discharge instructionsfollowing postprocedural monitoring. documented in this encounter Plan of Treatment Upcoming Encounters Date Type Specialty Care Team Description 03/14/2023 Office Visit Ophthalmology Kody Mason DO [address] [facility] [place] [address] 06/12/2023 Office Visit Family Medicine Mark Choudhury DO [address] [place] [address] Scheduled Procedures Name Priority Associated Diagnoses Date/Ti me COLONOSCOPY FLEXIBLE PROXIMA L DIAGNOSTIC Recall History of colonic polyps Health Maintenance Due Date Last Done Comments DISCUSS TOBACCO CESSATION (REFER TO SMARTSET #3297) 1950 COVID-19 Vaccine (#1) 1950 Zoster Vaccines [...] 05/16/2009 LUNG CANCER SCREENING - USE SMARTSET 33135 Completed 07/13/2019, 05/23/2009 Pneumococcal Vaccine: 65+ Years [...] this encounter Medical Devices Implanted Type Area Web Press Operator Apprentice Device Identifier Shelf Expiration Date Model / Serial / Lot Lens [id number] 12.5mm+22.50 - [id number] - [id number] Implanted:Qty: 1 on 01/09/2023 by Kody Mason DO at OR [facility] Left: Eye [employer]OM[employer] 08/21/2025 [id number] / [id number] / [id number] Lens [id number] 12.5mm+22.00 - [id number] - [id number] Implanted:Qty: 1 on 02/06/2023 by Kody Mason DO at [facility] Right: Eye BA[employer]CH [employer] LOMB 02/18/2025 [id number] / [id number] / [id number] documented as of this encounter Procedures Procedure Name Priority Date/Time Associated Diagnosis Comments FLUORO INTERVENTIONAL PAIN PROCEDURE NONBILLABLE Routine 03/06/2023 2:15 PM EDT documented in this encounter Results * FLUORO INTERVENTIONAL PAIN PROCEDURE NONBILLABLE (03/06/2023 2:15 PM EDT) Narrative Scheduling, Silent - 03/06/2023 2:15 PM EDT This procedure will not be read by a Radiologist. Please see operative note. Chuy Asencio DO RAD FLUOROSCOPY documented in this encounter Administered Medications Inactive Administered Medications - up to 3 most recent administrations Medication Order MAR Action Action Date Dose Rate Site Dexamethasone Sodium Phosphate (Decadron) 10 MG/ML inj 8 mg 8 mg, Intramuscular, ONCE, On Sat03/06/23 at 1430, For 1 dose, PROTECT FROM LIGHT Given 03/06/2023 2:10 PM EDT 8 mg Other -Specify Iohexol (Omnipaque 180) inj 0.5 mL 0.5 mL, Injection, ONCE, On Sat03/06/23 at 1430, For 1 dose Given 03/06/2023 2:09 PM EDT 0.5 mL lidocaine 1 % inj 20 mg 20 mg (2 mL), Subcutaneous, ONCE, On Sat03/06/23 at 1430, For 1 dose Given 03/06/2023 2:06 PM EDT 20 mg Other -Specify documented in this encounter Active and Recently Administered Medications Times are shown in EDT. Scheduled Medication Order 03/04/2023 03/05/2023 03/06/2023 Dexamethasone Sodium Phosphate (Decadron) 10 MG/ML inj 8 mg (COMPLETED) 8 mg, Intramuscular, ONCE, On Sat03/06/23 at 1430, For 1 dose, PROTECT FROM LIGHT 1410 (Given - Provid er: Kourtney Jackson RN - Comment: RIGHT L5) Iohexol (Omnipaque 180) inj 0.5 mL (COMPLETED) 0.5 mL, Injection, ONCE, On Sat03/06/23 at 1430, For 1 dose 1409 (Given - Provid er: Kourtney Jackson RN - Comment: RIGHT L5) lidocaine 1 % inj 20 mg (COMPLETED) 20 mg (2 mL), Subcutaneous, ONCE, On Sat03/06/23 at 1430, For 1 dose 1406 (Given - Provid er: Kourtney Jackson RN - Comment: RIGHT L5) documented in this encounter Advance Directives Latest [...] Discussed due to patient's condition Care Teams Fingerprint Expert Relationship Specialty Start Date End Date Mark Choudhury, DO [address] [place] [address], [place] [address] PCP - General Internal Medicine 12/09/20 documented as of this encounter
--- OUTSIDE RECORDS SUMMARY | 2023-06-01 14:44 | External Medical Summary | Summary of Care ---
Author Name Unknown Organization [facility] Address [address] [facility] [place] [address] Phone [phone] Care Team Providers Care Grit Blaster Name Role Phone Jamesaddison Mark Morris DO Primary Care Provid er Reason for Visit * Reason Onset Date Comments Films 04/16/2023 Encounter Details Date Type Department Care Team Description 04/16/2023 Telephone Interventional Pain Center, [facility] [address] [place] [address] CousinsChuy DO [address] [place] [address] Films Allergies No known active allergiesdocumented as of [...] encounter Miscellaneous Notes * Telephone Encounter - ANA MARÍA Mcwilliams - 04/16/2023 3:29 PM EDT [facility] requesting 09-17-22 MRI images be pushed to their system. [place] Authorization to Release on file. Images pushed to [facility] external connection through [employer] Report(s) faxed to [phone]. Successful fax confirmation received. * Telephone Encounter - Cata Aranda LPN - 04/16/2023 3:23 PM EDT Please push lumbar spine images to [facility] for upcoming apt Thank you! documented in this encounter Plan of Treatment Upcoming Encounters Date Type Specialty Care Team Description 06/12/2023 Office Visit Family Medicine [facility] [address] 03/19/2024 Office Visit Ophthalmology Kody Mason DO [address] [facility] [place] [address] Scheduled Procedures Name Priority Associated Diagnoses Date/Ti me COLONOSCOPY FLEXIBLE PROXIMA L DIAGNOSTIC Recall History of colonic polyps Health Maintenance Due Date Last Done Comments DISCUSS TOBACCO CESSATION (REFER TO SMARTSET #7381) 1950 COVID-19 Vaccine (#1) 1950 Zoster Vaccines [...] 05/16/2009 LUNG CANCER SCREENING - USE SMARTSET [id number] Completed 07/13/2019, 05/23/2009 Pneumococcal Vaccine: 65+ Years [...] this encounter Medical Devices Implanted Type Area Manager Assessment Device Identifier Shelf Expiration Date Model / Serial / Lot Lens [id number] 12.5mm+22.50 - [id number] - [id number] Implanted:Qty: 1 on 01/09/2023 by Kody Mason DO at OR [facility] Left: Eye [employer] LOMB 08/21/2025 [id number] / [id number] / [id number] Lens [id number] 12.5mm+22.00 - [id number] - [id number] Implanted:Qty: 1 on 02/06/2023 by Kody Mason DO at OR [facility] Right: Eye [employer]CH [employer] LOMB 02/18/2025 [id number] / [id number] / [id number] documented as of this encounter Advance Directives Latest Code Status [...] Discussed due to patient's condition Care Teams Grit Blaster Relationship Specialty Start Date End Date Mark Choudhury, [address] [place] [address] PCP - General Internal Medicine 12/09/20 documented as of this encounter
--- OUTSIDE RECORDS SUMMARY | 2023-06-01 14:44 | External Medical Summary | Summary of Care ---
Author Name Unknown Organization [facility] Address [address] [facility] [place] [address] Phone [phone] Care Team Providers Care Side Laster Name Role Phone Jose Emadeline Mark Morris DO Primary Care Provid er Reason for Visit * Reason Onset Date Comments Appointment 05/02/2023 Encounter Details Date Type Department Care Team Description 05/02/2023 Telephone Radiology [address] [facility] [place] [address] Norma Lorenz, RT (R) Appointment Allergies No known active allergiesdocumented as of this encounter (statuses as of 05/02/2023) Medications Medication Sig Dispensed Refills Start Date [...] as of this encounter (statuses as of 05/02/2023) Active Problems Problem Noted Date Insomnia due [...] as of this encounter (statuses as of 05/02/2023) Resolved Problems Problem Noted Date Resolved Date [...] as of this encounter (statuses as of 05/02/2023) Immunizations Name Administration Dates Next Due Pneumococcal [...] encounter Miscellaneous Notes * Telephone Encounter - RT Simon (R) - 05/02/2023 8:37 AM EDT Name: José Gallardo Jr. Do you have any of the following: Pacemaker, stents, heart valves, aneurysm clips? No Have you ever worked with metal or have you ever gotten metal in your eyes? No Have you had a colonoscopy in the last 30 days? No On dialysis? No Do you have any dermals or body piercing's? No or ? Do you wear an insulin pump or diabetic monitor? no RT Simon (R) documented in this encounter Plan of Treatment Upcoming Encounters Date Type Specialty Care Team Description 05/04/2023 Imaging Radiology 05/09/2023 Office Visit Family Medicine Cata Sebastian PA-C [address] [place] [address] 06/12/2023 Office Visit Family Medicine Mark Choudhury DO [address] [place] [address] 03/19/2024 Office Visit Ophthalmology Kody Mason, DO [address] [place] [address] Scheduled Procedures Name Priority Associated Diagnoses Date/Ti me COLONOSCOPY FLEXIBLE PROXIMA L DIAGNOSTIC Recall History of colonic polyps Health Maintenance Due Date Last Done Comments DISCUSS TOBACCO CESSATION (REFER TO SMARTSET #2189) 1950 COVID-19 Vaccine (#1) 1950 Zoster Vaccines [...] 05/16/2009 LUNG CANCER SCREENING - USE SMARTSET [id number] Completed 07/13/2019, 05/23/2009 Pneumococcal Vaccine: 65+ Years [...] this encounter Medical Devices Implanted Type Area Music Promoter Device Identifier Shelf Expiration Date Model / Serial / Lot Lens [id number] 12.5mm+22.50 - [id number] - [id number] Implanted:Qty: 1 on 01/09/2023 by Kody Mason DO at OR [facility] Left: Eye BAUSCH [employer] LOMB 08/21/2025 [id number] / [id number] / [id number] Lens [id number] 12.5mm+22.00 - [id number] - [id number] Implanted:Qty: 1 on 02/06/2023 by Kody Mason DO at OR [facility] Right: Eye BAUSCH & LOMB 02/18/2025 [id number] / [id number] / [id number] documented as of this encounter Advance Directives [...] Discussed due to patient's condition Care Teams Side Laster Relationship Specialty Start Date End Date Mark Choudhury, [place] [address] PCP - General Internal Medicine 12/09/20 documented as of this encounter
--- OUTSIDE RECORDS SUMMARY | 2023-06-01 14:44 | External Medical Summary | Summary of Care ---
Author Name Unknown Organization [facility] Address [address] [facility] [place] [address] Phone [phone] Care Team Providers Care Instrument Repair Technician Name Role Phone Jose EmadelineMark Arturo Primary Care Provid er Encounter Details Date Type Department Care Team (Late st Contact Info) Description 05/07/2023 Result Scan Unspecified Department <No scans attached> Allergies No known active allergiesdocumented as of this encounter (statuses as of 05/14/2023) Medications Medication Sig Dispensed Refills Start Date [...] as of this encounter (statuses as of 05/14/2023) Active Problems Problem Noted Date Diagnosed Date [...] as of this encounter (statuses as of 05/14/2023) Resolved Problems Problem Noted Date Diagnosed Date [...] as of this encounter (statuses as of 05/14/2023) Immunizations Name Administration Dates Next Due Pneumococcal [...] Recorded PHQ Adult Total Score 0 07/11/2022 Sex and Gender Information Value Date Recorded Sex Assigned at Male 09/22/2020 2:25 PM EST Gender Identity Male 09/22/2020 2:25 PM EST Sexual Orientation Straight 09/22/2020 2: 25 PM EST Job Start Date Occupation Industry Not on file Not on file Not on file documented as of this encounter Plan of Treatment Upcoming Encounters Date Type Department Care Team (Late st Contact Info) Description 06/12/2023 1:40 PM EST Office Visit [facility] [address] [facility] [place] [phone] Mark Choudhury Arturo, DO [address] [facility] [address] 03/19/2024 3:15 PM EDT Office Visit Ophthalmology, [facility] [address] [place] [address] Kody Mason, DO [address] [place] [phone] Scheduled Procedures Name Priority Associated Diagnoses Date/Ti me COLONOSCOPY FLEXIBLE PROXIMA L DIAGNOSTIC Recall History of colonic polyps Health Maintenance Due Date Last Done Comments DISCUSS TOBACCO CESSATION (REFER TO SMARTSET #1383) 1950 COVID-19 Vaccine (#1) 1950 Zoster Vaccines [...] 05/16/2009 LUNG CANCER SCREENING - USE SMARTSET [id number] Completed 07/13/2019, 05/23/2009 Pneumococcal Vaccine: 65+ Years Completed 07/05/2021, 06/07/2020, 11/22/2005 COLONOSCOPY-ANNUAL AGES 18-100 Discontinued 08/31/2021, 08/31/2021, 09/16/2019, Additional history exists GARDASIL-HPV IMMUNIZATION SERIES Aged Out No longer eligible based on patient's age to complete this topic MENINGOCOCCAL (MENACTRA/MENVEO) Aged Out No longer eligible based on patient's age to complete this topic documented as of this encounter Medical Devices Implanted Type Area Duralumin Mechanic Device Identifier Shelf Expiration Date Model / Serial / Lot Lens [id number] 12.5mm+22.50 - [id number] - [id number] Implanted:Qty: 1 on 01/09/2023 by Kody Mason DO at OR [facility] Left: Eye BAUSCH [employer] LOMB 08/21/2025 [id number] / [id number] / [id number] Lens [id number] 12.5mm+22.00 - [id number] - [id number] Implanted:Qty: 1 on 02/06/2023 by Kody Mason DO at OR [facility] Right: Eye BAUSCH & LOMB 02/18/2025 [id number] / [id number] / [id number] documented as of this encounter Procedures Procedure Name Priority Date/Time Associated Diagnosis Comments EKG SCANNED RESULT 05/07/2023 documented in this encounter Results * EKG SCANNED RESULT (05/07/2023) 05/07/2023 No Physician Data Unknown EKG documented in this encounter Advance Directives Latest [...] Discussed due to patient's condition Care Teams Instrument Repair Technician Relationship Specialty Start Date End Date Mark Choudhury DO [address] [place] [address] PCP - General Internal Medicine 12/09/20 documented as of this encounter
--- OUTSIDE RECORDS SUMMARY | 2023-06-01 14:45 | External Medical Summary | Summary of Care ---
Author Name Unknown Organization [facility] Address [address] [facility] [place] [address] Phone [phone] Care Team Providers Care Rail Track Layer Name Role Phone JamesaddisonMarkothy Primary Care Provid er Encounter Details Date Type Department Care Team Description 01/10/2023 Office Visit Ophthalmology, [facility] [address] [facility] [place] [phone] Kody Mason DO [address] [facility] [place] [address] After cataract not obscuring vision, left*; S/P LASIK surgery Allergies No known active allergiesdocumented as of this encounter (statuses as of 01/10/2023) Medications Medication Sig Dispensed Refills Start Date [...] EVERY DAY 90 Tablet 1 12/07/2022 Active documented as of this encounter (statuses as of 01/10/2023) Active Problems Problem Noted Date Insomnia due [...] as of this encounter (statuses as of 01/10/2023) Resolved Problems Problem Noted Date Resolved Date [...] as of this encounter (statuses as of 01/10/2023) Immunizations Name Administration Dates Next Due Pneumococcal [...] Progress Notes * Kody Mason DO - 01/10/2023 11:15 AM EDT 01/10/2023 [facility] Note HPI: José Gallardo Jr. 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 Wear eye shield at bedtime. Call with flashes, floaters, dec vision eye pain. Advised of director of food and nutrition coverage for after hours/weekend emergencies. RTC 1 week or sooner prn. Kody Mason DO 01/10/23 documented in this encounter Plan of Treatment Upcoming Encounters Date Type Specialty Care Team Description 01/17/2023 Office Visit Ophthalmology Kody Mason DO [address] [place] [address] 02/06/2023 Hospital Encounter Surgery Kody Mason DO [address] [place] [address] 02/06/2023 Surgery Surgery Kody Mason, DO [address] [place] [address] RIGHT EXTRACAPSULAR CATARACT REMOVAL COMPLEX WITH IOL 02/07/2023 Office Visit Ophthalmology Kody Mason, DO [address] [place] [address] 02/13/2023 Office Visit Family Medicine Mark Choudhury, DO [address] [place] [phone] 02/14/2023 Office Visit Ophthalmology Kody Mason, DO [address] [place] [address] Scheduled Procedures Name Priority Associated Diagnoses Date/Ti me EXTRACAPSULAR CATARACT REMOVAL COMPLEX WITH IOL Cataract 02/06/2023 10:24 AM EDT COLONOSCOPY FLEXIBLE PROXIMAL DIAGNOSTIC Recall History of colonic polyps Health Maintenance Due Date Last Done Comments DISCUSS TOBACCO CESSATION (REFER TO SMARTSET #3291) 1950 COVID-19 Vaccine (#1) 1950 Zoster Vaccines (1 of 2) 02/02/1971 DTaP,Tdap,and Td Vaccines (2 - Td or Tdap) 03/16/2018 03/16/2008 PTH 11/18/2021 11/18/2020, 07/23, 08/03/2019, Additional history exists Nephrology Referral 07/26/2022 07/26/2021, 9 Albumin/Creatinine Ratio 07/04/2023 022, 07/26/2021, 08/15/2020, Additional history exists GFR 07/04/2023 01/02/2023, 06/21, 04/02/2022, Additional history exists HbA1c 07/04/2023 01/02/2023, 06/03/2023, 04/02/2022, Additional history exists Phosphate 07/04/2023 07/04/2022, [...] exists LUNG CANCER SCREENING - USE SMARTSET [id number] Completed 07/13/2019, 05/23/2009 Pneumococcal Vaccine: 65+ Years Completed 07/05/2021, 06/07/2020, 11/22/2005 COLONOSCOPY-ANNUAL AGES 18-100 Discontinued 08/31/2021, 08/31/2021, 09/16/2019, Additional history exists Influenza Vaccine (FLU shot) Completed 07/11/2022, 07/05/2021, 06/07/2020 GARDASIL-HPV IMMUNIZATION SERIES Aged Out No longer eligible based on patient's age to complete this topic Hepatitis B Aged Out No longer eligi ble based on patient's age to complete this topic MENINGOCOCCAL (MENACTRA/MENVEO) Aged Out No longer eligible based on patient's age to complete this topic documented as of this encounter Medical Devices Implanted Type Area Apricot Washer Device Identifier Shelf Expiration Date Model / Serial / Lot Lens [id number] 12.5mm+22.50 - [id number] - [id number] Implanted:Qty: 1 on 01/09/2023 by Kody Mason DO at OR [facility] Left: Eye BAUSCH & LOMB 08/21/2025 [id number] / [id number] / [id number] documented as of this encounter Visit Diagnoses Diagnosis After cataract not obscuring vision, left- Primary S/P LASIK surgery Other states following surgery of eye and adnexa Cataract Unspecified cataract documented in this encounter Advance Directives Latest Code Status on File Code Status Date Activated Date Inactivated Comments Full Code 01/09/2023 10:47 AM 01/09/2023 5:32 PM Question Answer Comments Discussion of Advance Directives occurred with: Not Discussed due to patient's condition Care Teams Rail Track Layer Relationship Specialty Start Date End Date Mark Choudhury, [place] [address] PCP - General Internal Medicine 12/09/20 documented as of this encounter
--- OUTSIDE RECORDS SUMMARY | 2023-06-01 14:45 | External Medical Summary ---
Author Name Unknown Address Unknown Organization K01:[facility] - [address] [facility] [place] [address] Laboratory Report Ordering Provider Test Date Status DANIELLE BERNAL 01/02/2023 09:42:17 Final Observation Date Value Abnormality Reference (Units ) Status BUN 01/02/2023 09:42:17 24 Above high normal 6-20 (mg/dL) Final Creatinine 01/02/2023 09:42:17 2.1 Above high normal 0.6-1.2 (mg/dL) Final Glomerular filtration rate/1.73 sq M.predicted [Volume Rate/Area] in Serum, Plasma or Blood by Creatinine-based formula (CKD-EPI) 01/02/2023 09:42:17 32 Below low normal >=60 (mL/min) Final eGFR is calculated based on the CKD-EPI 2020 equation SODIUM 01/02/2023 09:42:17 140 135-146 (m mol/L) Final Potassium 01/02/2023 09:42:17 4.9 3.5-5.1 (m mol/L) Final Cl 01/02/2023 09:42:17 102 98-107 (mm ol/L) Final CO2 01/02/2023 09:42:17 25 22-32 (mmo l/L) Final Anion gap 01/02/2023 09:42:17 13 7-15 (mmol /L) Final Glucose 01/02/2023 09:42:17 159 Above high normal 70 -120 (mg/dL) Final Albumin 01/02/2023 09:42:17 4.0 3.8-5.0 (g /dL) Final AST (Aspartate aminotransferase) 01/02/2023 09:42:17 11 10-50 (U/L) Fin al Alk Phos 01/02/2023 09:42:17 105 35-130 (U/ L) Final Bilirubin, Total 01/02/2023 09:42:17 0.4 <=1 .2 (mg/dL) Final Calcium 01/02/2023 09:42:17 9.7 8.4-10.2 ( mg/dL) Final Protein 01/02/2023 09:42:17 6.8 6.0-8.3 (g /dL) Final ALT (Alanine aminotransferase) 01/02/2023 09:42:17 17 10-50 (U/L) Jeovanny campbell Performing Location [facility] - [address] [facility] [address]
--- OUTSIDE RECORDS SUMMARY | 2023-06-01 14:45 | External Medical Summary | Summary of Care ---
Author Name Unknown Organization [facility] Address [address] [facility] [place] [address] Phone [phone] Care Team Providers Care Network Control Operators Supervisor Name Role Phone JamesaddisonMarkothy Primary Care Provid er Reason for Visit * Auth/Cert Specialty Diagnoses / Procedures Referred By Karen t Referred To Contact Diagnoses Cataract Cataract [H26.9] Procedures CATARACT SURGERY,COMPLEX LEFT EXTRACAPSULAR CATARACT REMOVAL COMPLEX WITH IOL Referral ID Status Reason Start Date Expiration Date Visits Re quested Visits Authorized [id number] Encounter Details Date Type Department Care Team Description 01/09/2023 Hospital Encounter OR [facility], Operating Room [facility] [address] [facility] [place] [address] Kody Mason DO [address] [facility] [place] [address] Allergies No known active allergiesdocumented as of [...] Sign Reading Time Taken Comments Blood Pressure 117/64 01/09/2023 1:21 PM EDT Pulse 67 01/09/2023 1:21 PM EDT Temperature 36.7 C (98 F) 01/09/2023 1:06 PM EDT Respiratory Rate 20 01/09/2023 1:21 PM EDT Oxygen Saturation 100% 01/09/2023 1:21 PM EDT Inhaled Oxygen Concentration - - Weight 88.5 kg (195 lb) 01/09/2023 10:58 AM EDT Height 170.2 cm (5' 7") 01/09/2023 10:58 AM EDT Body Mass Index 30.54 01/09/2023 10:58 AM EDT documented in this encounter Discharge Instructions * Discharge Instr - AVS* Kody Mason, - 01/09/2023 1:04 PM EDT Discharge Date: 01/09/23 Check your Patient Education Brochure for further information. If you have any further questions orconcerns after discharge and before 4:00 p.m. please contact your surgeons (Dr. Kody Mason) office at [phone]. After 4:00 p.m. or on the weekend, call the [facility] at ([phone]) and ask for the helper electrical manager consumer insights in [place]. Go to the Emergency Room if you [...] when arrive home Moxifloxacin: One Drop to left eye 4 times per day Prednisolone acetate (shake well): One Drop to left eye 4 times per day Erythromycin ophthalmic ointment - Instill at bedtime or as needed for pain/discomfort left eye Please use the Moxifloxacin drop first [...] tomorrow, at the Eye clinic in the [facility] on the second floor. Please show up at your scheduled appointment time. B. Please Bring the blue bag with both eyedrops with you to post-op visit tomorrow. documented in this encounter Progress Notes * Kody Mason DO - 01/09/2023 1:04 PM EDT [facility] ENDOSCOPY [address] [address] OUTPATIENT SURGERY DISCHARGE SUMMARY NOTE Name: José Gallardo Jr. Location: OR [facility]/OR Date: 01/09/2023 Time: 1:04 PM Surgery Date: 01/09/2023 Procedure: Procedure(s): LEFT EXTRACAPSULAR CATARACT REMOVAL COMPLEX WITH IOL Left Surgeon: Surgeon(s): Kody Mason DO Discharge Diagnosis: Same After examination of this patient, I have determined he is ready for discharge to home when the patient meets criteria. Discharge instructions were given to the patient. documented in this encounter H&P Notes * Kody Mason DO - 01/09/2023 12:09 PM EDT HISTORY & PHYSICAL INTERVAL NOTE [address] [address] History and Physical Update: Name: José Gallardo Jr. Location: OR [facility]/[place] Date: 01/09/2023 Time: 12:09 PM DATE OF HISTORY AND PHYSICAL: 12/28/22 BP: 141 mmHg/61 mmHg (01/09/23 1058) Pulse: 68 (01/09/23 1058) Temp: 36.11 C (01/09/23 1058) Resp: 20 (01/09/23 1058) SpO2: 100 % (01/09/23 1058) Heart Exam: regular rate and rhythm Lung Exam: clear to auscultation bilaterally This patient has undergone a preprocedural evaluation. A determination has been made to proceed with the planned procedure under [facility] procedural guidelines and the [facility] Non-Emergent, Elective Medical Services and Treatment Recommendations (published on 10-27-19). I have reviewed the H&P previously performed and examined the patient today. There are no new findings noted. * Kody Mason DO - 12/31/2022 1:43 PM EDT Images from the original note were not included. See pcp clearance. Office Visit Awaiting Cosign 12/28/2022 [facility] Jamar Guerrero PA-C Family Medicine Rahulart Jeffrey MD Family Medicine (Cosigner) Preop examination +3 more Dx Pre-op Clearance; Referred by Kody Mason DO Reason for Visit Progress Notes Jamar Guerrero PA-C (Physician Supervisor Capacitor Processing - Certified) Family Medicine Expand All Collapse All Nursing Notes: Lucia Medeiros, [facility] 12/28/22 1218 Sign at exiting of workspace The patient has been properly identified by confirmation of name and date of . Chief Complaint Patient presents with Pre-op Clearance Pt here for pre-op clearance. Having surgery 01/09/23 & 02/06/[address] Mason for Cataract removal. Preoperative Risk Assessment Note José Au Sami Dang [id number] 12/28/2022 Referred by: Dr. Kody Mason Pre-operative evaluation for: Bilateral cataract removal. Date of procedure: 01/09/23, 02/06/23. Brief History of Present Illness: Here for pre-op clearance. Current active medical problems and status: Patient Active Problem List Diagnosis Code Tobacco use disorder F17.200 Hyperlipidemia due to type 2 diabetes mellitus (HCC) E11.69, E78.5 Hypertension associated with type 2 diabetes mellitus ([facility]) E11.59, I15.2 Type 2 diabetes mellitus with stage 4 chronic kidney disease, without long- term current use of insulin ([facility]) E11.22, N18.4 Recurrent major depressive disorder, in partial remission ([facility]) F33.41 Hx of colonic polyps Z86.010 Diverticulosis of sigmoid colon K57.30 Insomnia due to medical condition G47.01 Daytime somnolence R40.0 Current active allergy list: Review of patient's allergies indicates: No Known Allergies Major Risk Factors for Cardiac Events: History of PR, cardiac revascularization, cardiac bypass: No History of cerebrovascular accident or TIA: No History of systolic heart failure: No History of insulin-dependent diabetes: No History of chronic kidney disease (creatinine greater than 2): Yes Creatinine Results: Lab Results Component Value Date/Time CREATININE - [facility] 2.3 (H) 07/04/2022 10:09 AM CREATININE - [facility] 2.4 (H) 04/02/2022 09:40 AM CREATININE - [facility] 2.8 (H) 07/20/2021 10:40 AM CREATININE - [facility] 2.8 (H) 08/15/2020 03:19 PM CREATININE - [facility] 2.7 (H) 06/03/2020 09:34 AM CREATININE - [facility] 2.5 (H) 03/29/2020 08:58 AM Anesthesia History: Type of Anesthesia:MAC-Monitored Anesthesia Care Anesthesia reaction:No History of surgical complications: No Personal history of venous thromboembolic disease: No Functional Assessment: They are able to walk up a flight of stairs. The patient's functional status is adequate (equal to 4 METS). Can take care of self, such as eat, dress or use the toilet=1MET Can walk to block or go up a flight of steps=4 METs Can do heavy house work=4-10 METs Can participate in strenuous sports=>10 METs} Family History: CAD:No Stroke:No DM:Yes, father Family history is notable for DM. Past Medical History: Diagnosis Date Benign neoplasm of colon 08/2009 polyps x5, adenomatous tissue f/u in 2 yrs Benign neoplasm of colon 09/05/11 -benign--poor prep repeat in one year cold bx Benign neoplasm of colon 04/2012 adenomatous polyp repeat in 3 yrs DM type 1, goal A1c below 7 Dyslipidemia, goal to be determined Past Surgical History: Procedure Laterality Date COLONOSCOPY W/ BIOPSY (RECTUM) 09/05/2011 polyps x2 [...] performed by Tanner Bruner MD at ENDOSCOPY [facility] COLONOSCOPY, DIAGNOSTIC (RECTUM) 07/30/2019 poor prep, repeat / [facility] COLONOSCOPY, DIAGNOSTIC (RECTUM) 09/16/2019 adenomatous polyps, fair prep, repeat 1 yr / [facility] COLONOSCOPY, DIAGNOSTIC (RECTUM) 08/31/2021 benign adenomatous polyps, diverticulosis, lipoma, repeat 3 yrs / COLONOSCOPY FLEXIBLE PROXIMAL DIAGNOSTIC performed by Tanner Bruner MD at ENDOSCOPY [facility] CYSTOSCOPY 09/19/2011 cysto under anesthesia EXPLORATION OF SCROTUM N/A 12/15/2020 SCROTAL EXPLORATION performed by Clara Yi MD at OR [facility] INJECT DX/THER SUBSTANCE INTERLAMINAR LUMBAR/SACRAL W IMAGE GUIDE 12/19/2022 INJECTION SPINE LUMBAR OR SACRAL performed by Chuy Asencio DO at OR [facility] PARTIAL COLECTOMY W/ANASTOMOSIS 06/07/2008 Laparoscopic, hand assisted, converted to open low anterior resection with primary anastomosis, proctoscopy, [facility], Dr. Thompson Current Outpatient Medications Medication Sig [...] a day as needed forConstipation. severe constipation 237 mL 1 Multivitamin Adult Oral Tablet [...] 1 Packet by mouth in the morning. glipiZIDE 10 MG Oral Tablet (Glucotrol) TAKE [...] BY MOUTH EVERY DAY 90 Tablet 1 No current facility-administered medications for this visit. Screening for Obstructive Sleep Apnea (STOP-Bang): Do you Snore loudly? No Do you often feel Tired, Fatigued, or Sleep? No Has anyone Observed you Stop Breathing or Choking/Gasping during sleep? No Do you have or are you being treated for High Blood Pressure? Yes BMI over 35? No Age older than 50? Yes, age 72 Neck size large? (For males - 17 inches or larger, For females - 16 inches or larger) No Male? Yes Score: 3 0-2:low risk ANA MARÍA, 3-4: intermediate risk of ANA MARÍA, 5-8: high risk ANA MARÍA Social History: Social History Socioeconomic History Marital status: Spouse name: Not on file Number of children: Not on file Years of education: Not on file Highest education level: Not on file Occupational History Not on file Tobacco Use Smoking status: Every Day Packs/day: 1.00 Years: 40.00 Pack years: 40.00 Types: Cigarettes Smokeless tobacco: Current Vaping Use Vaping Use: Never used Substance and Sexual Activity Alcohol use: Not Currently Comment: has not had for many years Drug use: No Sexual activity: Not on file Other Topics Concern Not on file Social History Narrative Not on file Social Determinants of Health Financial Resource Strain: Not on file Food Insecurity: Not on file Transportation Needs: Not on file Physical Activity: Not on file Stress: Not on file Social Connections: Not on file Intimate Partner Violence: Not on file Housing Stability: Not on file Review of Systems: Constitutional ROS: No change in weight, No weakness, No fatigue and No fevers, sweats, or chills Eye ROS: No recent significant change in vision and No eye pain, redness, discharge. +Cataracts. Ear ROS: No ear pain, No drainage and No tinnitus. +Vertigo. +Hearing loss - hearing aids. Nose ROS: No nasal stuffiness and No significant epistaxis Mouth/Throat ROS: No bleeding gums, No thrush or No sore throat Neck ROS: No lumps or masses, No swollen glands, No recent swelling in thyroid area, No significantpain in neck and No h/o goiter or thyroid disease Pulmonary ROS: No cough, sputum, or hemoptysis, No wheezing, No rales, No shortness of breath and No recent change in breathing Cardiovascular ROS: No chest pain, No shortness of breath, No dyspnea on exertion, No orthopnea, Noparoxysmal nocturnal dyspnea, No edema, No palpitations and No syncope Gastrointestinal ROS: No abdominal pain, No change in bowel habits, No significant heartburn, No significant change in appetite, No nausea, vomiting, diarrhea, or constipation, No hematemesis, No blood in stools or black tarry stools, No abdominal bloating or early satiety and No dysphagia Genito-Urinary Male ROS: No dysuria, No frequency, No incontinence and No urgency Musculoskeletal/Extremities ROS: +Chronic back/hip pain Hematologic/Lymphatic ROS: No coagulation disorder, No anemia, No abnormal bleeding, No chills, No bruising, No HIV risk factors, No night sweats, No swollen nodes, No weight loss and No history of transfusion Skin/Integumentary ROS: No edema, No rash and No itching Neurologic ROS: No headaches, No seizures and No weakness Endocrine ROS: +Diabetes Psychiatric ROS: No depression, No anxiety and No psychosis Physical exam: BP 142/70 | Pulse 75 | Temp 36.7 C (98.1 F) (Tympanic) | Resp 18 | Wt 89 kg (196 lb 3.2 oz) | SpO2 99% | BMI 30.08 kg/m | BSA 2.06 m General: alert, no distress, well nourished and well developed Head: Normocephalic, No masses, lesions, tenderness or abnormalities Ears: External ears normal, Canals clear, TM's Normal, bilateral hearing aids Nose: no mucosal erythema, no mucosal edema, no purulent discharge Oropharynx: no exudate, no erythema, lips, buccal mucosa, and tongue normal and mucous membranes are moist Neck: supple, no adenopathy, no bruits, thyroid normal size, non-tender, without nodularity Heart: regular rate & rhythm Lungs: lungs clear to auscultation Abdomen: abdomen soft, non-tender, normal bowel sounds and no masses or organomegaly Back: decreased ROM Extremities: no edema Skin: skin color, texture, turgor are normal, no rashes or significant lesions Labs: Results for orders placed or performed in visit on 12/28/22 HEMOGLOBIN A1C, POINT OF CARE Result Value Ref Range Hemoglobin A1c 7.5 (H) 4.0 - 5.6 % Creatinine Results: Lab Results Component Value Date/Time CREATININE - [facility] 2.3 (H) 07/04/2022 10:09 AM CREATININE - [facility] 2.4 (H) 04/02/2022 09:40 AM CREATININE - [facility] 2.8 (H) 07/20/2021 10:40 AM CREATININE - [facility] 2.8 (H) 08/15/2020 03:19 PM CREATININE - [facility] 2.7 (H) 06/03/2020 09:34 AM CREATININE - [facility] 2.5 (H) 03/29/2020 08:58 AM Preop examination (Primary) Cataract of both eyes, unspecified cataract type Type 2 diabetes mellitus with stage 4 chronic kidney disease, without long-term current use of insulin (HCC) - HEMOGLOBIN A1C, POINT OF CARE Tobacco use disorder Revised Cardiac Risk Index (RCRI): Six independent predictors of major cardiac complications are: 1. High-risk type of surgery (examples include vascular and any open intraperitoneal or intrathoracic procedures). No 2. History of ischemic heart disease (history of myocardial infarction or positive exercise test, current compliant of chest pain considered to be secondary to myocardia ischemia, use of nitrate therapy, or ECG with pathological Q waves; do not count prior coronary revascularization procedure unless one of the other criteria for ischemic heart disease is present). No 3. History of heart failure. No 4. History of cerebrovascular disease. No 5. Diabetes mellitus requiring treatment with insulin. No 6. Preoperative serum creatinine >2.0 mg/dL (177 micromol/L). Yes Pt has revised cardiac index score of One Risk Factor- 1.0% (95% CI: 0.5-1.4) for the surgery scheduled. Patient is low risk for the listed procedure. There is no medical contraindication for the proposed surgery and anesthesia. Jamar Guerrero PA-C [address] [address] documented in this encounter Nursing Notes * Yue Mariscal RN - 01/09/2023 1:31 PM EDT Patient awake and oriented x3. Denies pain. No drainage from eye noted. Tolerating PO fluids. Discharge instructions given and patient verbalizes understanding. [facility] and discharged to home. * Yue Mariscal RN - 01/09/2023 1:06 PM EDT Patient transferred to pacu 2 status post left cataract removal and lens placement. No drainage noted. Patient awake. Denies pain and nausea. Respirations are even and unlabored on room air. Abdomen soft and non distended. Vital signs stable. * Yumiko Lancaster RN - 01/09/2023 11:04 AM EDT Surgical consent verified with patient. Patient agrees with listed procedure and verified signature. documented in this encounter OR Notes * OR Surgeon - Kody Mason DO - 01/09/2023 1:04 PM EDT [facility] [address] [address] OPERATIVE REPORT Name: José Gallardo Date: 01/09/2023 Time: 1:04 PM Service: Ophthalmology Date of Operation: 01/09/2023 Pre-op Diagnosis: Nuclear age related Cataract Left eye Post-op Diagnosis: Nuclear age related Complex Cataract Left eye Surgeon: Kody Mason DO Assistants: None Anesthesia: Monitored Local Anesthesia with Sedation Operation: Cataract extraction to the Left eye with implantation of posterior intraocular lens. Case considered complex due to need of iris manipulation device to aid in pupillary dilation. Findings: None Estimated Blood Loss: minimal IV Intake:<100 ml Urine output: 0 ml Drains: 0 INDICATIONS AND PERTINENT HISTORY: The patient has a visually significant cataract of the Left eye.The proposed procedure was discussed in detail with the patient. All feasible options were reviewedwith the appropriate indications and expected outcomes. Specimens and Disposition: None Complications: none Condition: Stable Description of Operation: The patient was identified with two identifiers and the procedure verified. Proper consent was verified. Antibiotic and dilating drops were instilled in the Left eye pre-operatively in the Pre-operative holding area. Fifteen minutes prior to transfer to the Operating Room, topical proparacaine drops and topical 2% lidocaine jelly were placed over the Left eye. The patient was then taken back to the Operating Room. Ophthalmic Betadine 5% was placed in the superior and inferior cul-de-sacs of theLeft eye. The Left eye was then prepped with 10% povidone-iodine and draped in the usual sterile fashion. After the lid speculum was inserted, a paracentesis incision was made at the 5 o'clock position with a sharp blade. MPF lidocaine was instilled. The anterior chamber was then refilled with Viscoat. The main wound was then created at 3' using the 2.4mm phacokeratome blade. Due to poor dilation, a Malyugan ring, 7.0 mm in size was inserted into the anterior chamber and put into place with themanipulator. Additional viscoelastic was instilled into the anterior chamber. A continuous curvilinear capsulorrhexis was then performed initially with a cystotome, then completed with Utrada forceps. Hydrodissection and hydrodelineation were achieved with balanced salt solution through a Guerra cannula. The phacoemulsification handpiece was utilized to remove the lens nucleus with a orzeon-ifu-dxeifwh technique. Residual cortical material was removed with the irrigating and aspirating device. The capsular bag was re-formed with viscoelastic. An MX60E 22.50 diopters in power, acrylic foldable lens was placed into the capsular bag uneventfully and rotated into position with a Sinskey hook. Itwas noted to be in a central and stable position. The Malyugin ring was removed. The residual viscoelastic was irrigated and aspirated from the anterior chamber. Stromal hydration was applied to the wound. The anterior chamber was re-formed with balanced salt solution. The wounds were checked with Weck-cels and found to be watertight. The lid speculum was then removed. Brimonidine, prednisolone, and ocuflox drops and erythromycin oph ointment were instilled in the eye. The patient tolerated theprocedure well. There were no complications I performed the procedure Kody Mason DO 01/09/2023 1:04 PM documented in this encounter Plan of Treatment Upcoming Encounters Date Type Specialty Care Team Description 01/10/2023 Office Visit Ophthalmology Kody Mason DO [address] [place] [id number] 01/17/2023 Office Visit Ophthalmology Kody Mason DO [address] [place] [address] 02/06/2023 Hospital Encounter Surgery Kody Mason DO [address] [place] [place] [address] 02/06/2023 Surgery Surgery Kody Mason DO [address] [place] [address] RIGHT EXTRACAPSULAR CATARACT REMOVAL COMPLEX WITH IOL 02/07/2023 Office Visit Ophthalmology Kdoy Mason, DO [address] [place] [place] [address] 02/13/2023 Office Visit Family Medicine Mark Choudhury Arturo, DO [address] [place] [address] 02/14/2023 Office Visit Ophthalmology Kody Mason, DO [address] [place] [address] Scheduled Orders Name Type Priority Associated Diagnoses Orde r Schedule GLUCOSE METER, POINT OF CARE (COMMUNICATION ORDER) Point of Care Testing Routine Perform Now for 1 Occurrences starting 01/09/2023 until 01/09/2023 Scheduled Procedures Name Priority Associated Diagnoses Date/Ti me EXTRACAPSULAR CATARACT REMOVAL COMPLEX WITH IOL Cataract 02/06/2023 10:24 AM EDT COLONOSCOPY FLEXIBLE PROXIMAL DIAGNOSTIC Recall History of colonic polyps Health Maintenance Due Date Last Done Comments DISCUSS TOBACCO CESSATION (REFER TO SMARTSET #3292) 1950 COVID-19 Vaccine (#1) 1950 Zoster Vaccines [...] exists LUNG CANCER SCREENING - USE SMARTSET 77782 Completed 07/13/2019, 05/23/2009 Pneumococcal Vaccine: 65+ Years [...] this encounter Medical Devices Implanted Type Area Post Form Remover Device Identifier Shelf Expiration Date Model / Serial / Lot Envista Intraocular Lens Implanted:Qty: 1 on 01/09/2023 by Kody Mason DO at OR [facility] Left: Eye [employer]OM[employer] 08/21/2025 [id number] 250 / [id number] / [id number] documented as of this encounter Visit Diagnoses Diagnosis Age-related nuclear cataract of left eye- Primary Senile nuclear sclerosis After cataract not obscuring vision, left- Primary S/P LASIK surgery Other states following surgery of eye and adnexa Cataract Unspecified cataract documented in this encounter Administered Medications Inactive Administered Medications - up to 3 most recent administrations Medication Order MAR Action Action Date Dose Rate Site Acetaminophen (Tylenol) tab 650 mg 650 mg, Oral, PRN Pain, Mild, Starting on Sat01/09/23 at 1311, Until Sat01/09/23 at 1732, For 1 dose, Maximum of 4 grams (4000 mg) per day., Post-op cyclopentolate (Cyclogyl) 1 % ophthalmic solution 1 Drop 1 Drop, Left eye, Q5 MINUTES, First dose on Sat01/09/23 at 1130, Last dose on Sat01/09/23 at 1140, For 3 doses Given 01/09/2023 11:18 AM EDT 1 Drop Given 01/09/2023 11:12 AM EDT 1 Drop Given 01/09/2023 11:06 AM EDT 1 Drop Diclofenac Sodium (Voltaren) 0.1 % ophthalmic solution 1 Drop 1 Drop, Left eye, Q5 MINUTES, First dose on Sat01/09/23 at 1130, Last dose on Sat01/09/23 at 1140, For 3 doses, PRE-OP: One drop to left eye every 5 minutes for 3 doses, Pre-Op Given 01/09/2023 11:17 AM EDT 1 Drop Given 01/09/2023 11:12 AM EDT 1 Drop Given 01/09/2023 11:06 AM EDT 1 Drop isolyte-S pH 7.4 infusion Intravenous, Plasma-LYTE 148, isolyte-S, and isolyte-S pH 7.4 are considered equivalent - including for MAR barcode scanning., CONTINUOUS, Starting on Sat01/09/23 at 1130, Until Sat01/09/23 at 1732, Pre-Op Continue from Pre-Op 01/09/2023 12:12 PM EDT 100 mL/hr New Bag 01/09/2023 11:13 AM EDT 1,000 mL 100 mL/hr lidocaine urethral/mucosal 2 % gel 2 mL 2 mL, Topical, ONCE, On Sat01/09/23 at 1130, For 1 dose, 15 minutes prior to scheduled surgery time, apply 2 ml to superior and inferior fornices left eye & tape eyes shut., Pre-Op Given 01/09/2023 11:45 AM EDT 2 mL moxifloxacin (Vigamox) 0.5 % ophthalmic solution 1 Drop 1 Drop, Left eye, Q5 MINUTES, First dose on Sat01/09/23 at 1130, Last dose on Sat01/09/23 at 1140, For 3 doses, PRE-OP: One drop to left eye every 5 minutes for 3 doses, Pre-Op Given 01/09/2023 11:17 AM EDT 1 Drop Given 01/09/2023 11:12 AM EDT 1 Drop Given 01/09/2023 11:06 AM EDT 1 Drop prednisoLONE Acetate (Pred Forte) 1 % ophthalmic suspension 1 Drop 1 Drop, Left eye, Q5 MINUTES, First dose on Sat01/09/23 at 1130, Last dose on Sat01/09/23 at 1140, For 3 doses, PRE-OP: One drop to left eye every 5 minutes for 3 doses., Pre-Op Given 01/09/2023 11:17 AM EDT 1 Drop Given 01/09/2023 11:12 AM EDT 1 Drop Given 01/09/2023 11:05 AM EDT 1 Drop proparacaine (Alcaine) 0.5 % ophthalmic solution 1 Drop 1 Drop, Left eye, ONCE, On Sat01/09/23 at 1130, For 1 dose, PRE-OP: 15 minutes prior to scheduled surgery time for 1 dose, Pre-Op Given 01/09/2023 11:0 5 AM EDT 1 Drop tropicamide 1%-PHENYLephrine 2.5% Ophthalmic Solution 1 Drop, Left eye, Q5 MINUTES, First dose on Sat01/09/23 at 1130, Last dose on Sat01/09/23 at 1140, For 3 doses Given 01/09/2023 11:18 AM EDT 1 Drop Given 01/09/2023 11:12 AM EDT 1 Drop Given 01/09/2023 11:06 AM EDT 1 Drop documented in this encounter Active and Recently Administered Medications Times are shown in EDT. Scheduled Medication Order 01/07/2023 01/08/2023 01/09/2023 cyclopentolate (Cyclogyl) 1 % ophthalmic solution 1 Drop (COMPLETED) 1 Drop, Left eye, Q5 MINUTES, First dose on Sat01/09/23 at 1130, Last dose on Sat01/09/23 at 1140, For 3 doses 1106 (Given - Provid er: Yumiko Lancaster RN)1112 (Given - Provider: Yumiko Lancaster RN)1118 (Given - Provider: Yumiko Lancaster RN) Diclofenac Sodium (Voltaren) 0.1 % ophthalmic solution 1 Drop (COMPLETED) 1 Drop, Left eye, Q5 MINUTES, First dose on Sat01/09/23 at 1130, Last dose on Sat01/09/23 at 1140, For 3 doses, PRE-OP: One drop to left eye every 5 minutes for 3 doses, Pre-Op 1106 (Given - Provid er: Yumiko Lancaster RN)1112 (Given - Provider: Yumiko Lancaster RN)1117 (Given - Provider: Yumiko Lancaster RN) lidocaine urethral/mucosal 2 % gel 2 mL (COMPLETED) 2 mL, Topical, ONCE, On Sat01/09/23 at 1130, For 1 dose, 15 minutes prior to scheduled surgery time, apply 2 ml to superior and inferior fornices left eye & tape eyes shut., Pre-Op 1145 (Given - Provid er: Genet Fonseca RN) moxifloxacin (Vigamox) 0.5 % ophthalmic solution 1 Drop (COMPLETED) 1 Drop, Left eye, Q5 MINUTES, First dose on Sat01/09/23 at 1130, Last dose on Sat01/09/23 at 1140, For 3 doses, PRE-OP: One drop to left eye every 5 minutes for 3 doses, Pre-Op 1106 (Given - Provid er: uYmiko Lancaster RN)1112 (Given - Provider: Yumiko Lancaster RN)1117 (Given - Provider: Yumiko Lancaster RN) prednisoLONE Acetate (Pred Forte) 1 % ophthalmic suspension 1 Drop (COMPLETED) 1 Drop, Left eye, Q5 MINUTES, First dose on Sat01/09/23 at 1130, Last dose on Sat01/09/23 at 1140, For 3 doses, PRE-OP: One drop to left eye every 5 minutes for 3 doses., Pre-Op 1105 (Given - Provid er: Yumiko Lancaster RN)1112 (Given - Provider: Yumiko Lancaster RN)1117 (Given - Provider: Yumiko Lancaster RN) proparacaine (Alcaine) 0.5 % ophthalmic solution 1 Drop (COMPLETED) 1 Drop, Left eye, ONCE, On Sat01/09/23 at 1130, For 1 dose, PRE-OP: 15 minutes prior to scheduled surgery time for 1 dose, Pre-Op 1105 (Given - Provid er: Yumiko Lancaster RN) tropicamide 1%-PHENYLephrine 2.5% Ophthalmic Solution (COMPLETED) 1 Drop, Left eye, Q5 MINUTES, First dose on Sat01/09/23 at 1130, Last dose on Sat01/09/23 at 1140, For 3 doses 1106 (Given - Provid er: Yumiko Lancaster RN)1112 (Given - Provider: Yumiko Lancaster RN)1118 (Given - Provider: Yumiko Lancaster RN) Continuous Medication Order 01/07/2023 01/08/2023 01/09/2023 isolyte-S pH 7.4 infusion Intravenous, Plasma-LYTE 148, isolyte-S, and isolyte-S pH 7.4 are considered equivalent - including for MAR barcode scanning., CONTINUOUS, Starting on Sat01/09/23 at 1130, Until Sat01/09/23 at 1732, Pre-Op 1113 (New Bag - Prov ider: Yumiko Lancaster RN)1212 (Continue from Pre-Op - Provider: Erik Devine CRNA)1302 (Anes Intra-Op Fluid - Provider: Erik Devine CRNA) PRN Medication Order 01/07/2023 01/08/2023 01/09/2023 Acetaminophen (Tylenol) tab 650 mg 650 mg, Oral, PRN Pain, Mild, Starting on Sat01/09/23 at 1311, Until Sat01/09/23 at 1732, For 1 dose, Maximum of 4 grams (4000 mg) per day., Post-op briMONidine tartrate (Alphagan) 0.2 % ophthalmic solution (CANCELED) ONCE PRN INTRA PROCEDURE, Starting on Sat01/09/23 at 1236, Until Sat01/09/23 at 1300, Intra-Op 1236 (Given - Provid er: Kody Mason, DO - Comment: qs) DUOVISC inj KIT (CANCELED) ONCE PRN INTRA PROCEDURE, Starting on Sat01/09/23 at 1236, Until Sat01/09/23 at 1300, Intra-Op 1236 (Given - Provid er: Kody Mason DO - Comment: qs) EPINEPHrine 0.5 mg in balanced salt solution 500 mL inj (CANCELED) ONCE PRN INTRA PROCEDURE, Starting on Sat01/09/23 at 1235, Until Sat01/09/23 at 1300, Intra-Op 1235 (Given - Provid er: Kody Mason, - Comment: qs) Erythromycin ophthalmic ointment (CANCELED) ONCE PRN INTRA PROCEDURE, Starting on Sat01/09/23 at 1237, Until Sat01/09/23 at 1300, Intra-Op 1237 (Given - Provid er: Kody Mason DO) hydroxypropyl methylcellulose (Ocucoat) 2 % intraocular inj (CANCELED) ONCE PRN INTRA PROCEDURE, Starting on Sat01/09/23 at 1237, Until Sat01/09/23 at 1300, Intra-Op 1237 (Given - Provid er: Kody Mason DO - Comment: qs) Lidocaine 1 % (PF) inj (CANCELED) ONCE PRN INTRA PROCEDURE, Starting on Sat01/09/23 at 1238, Until Sat01/09/23 at 1300, Intra-Op 1238 (Given - Provid er: Kody Mason DO - Comment: qs) moxifloxacin (Vigamox) 0.5 % ophthalmic solution (CANCELED) ONCE PRN INTRA PROCEDURE, Starting on Sat01/09/23 at 1238, Until Sat01/09/23 at 1300, Intra-Op 1238 (Given - Provid er: Kody Mason DO) prednisoLONE Acetate (Pred Forte) 1 % ophthalmic suspension (CANCELED) ONCE PRN INTRA PROCEDURE, Starting on Sat01/09/23 at 1238, Until Sat01/09/23 at 1300, Intra-Op 1238 (Given - Provid er: Kody Mason DO) Tetracaine (Pontocaine) 0.5 % ophthalmic solution (CANCELED) ONCE PRN INTRA PROCEDURE, Starting on Sat01/09/23 at 1238, Until Sat01/09/23 at 1300, Intra-Op 1238 (Given - Provid er: Kody Mason DO) documented in this encounter Advance Directives Latest Code Status on File Code Status Date Activated Date Inactivated Comments Full Code 01/09/2023 10:47 AM 01/09/2023 5:32 PM Question Answer Comments Discussion of Advance Directives occurred with: Not Discussed due to patient's condition Care Teams Network Control Operators Supervisor Relationship Specialty Start Date End Date Mark Choudhury, [address] [place] [address] PCP - General Internal Medicine 12/09/20 documented as of this encounter
--- OUTSIDE RECORDS SUMMARY | 2023-06-01 14:45 | External Medical Summary ---
Author Name Unknown Address Unknown Organization [id number]:LABORATORY [facility] [place] - [address] [facility] [id number] Laboratory Report Ordering Provider Test Date Status JIHAN BERNALARACELI 01/02/2023 09:42:17 Final Observation Date Value Abnormality Reference (Units ) Status HbA1C 01/02/2023 09:42:17 7.8 Above high normal 4. 0-5.6 (%) Final The use of HbA1c to monitor glycemic status is based on normal hemoglobin and HbA composition. This test should not be used in patients with abnormal hemoglobin that affects the half life of the red blood cell or the in vivo glycation rates. Glucose, estimated average 01/02/2023 09:42:17 177 Above high normal <126 (mg/dL) Jeovanny al Performing Location LABORATORY [facility] [place] - [address] [facility] [id number]
--- OUTSIDE RECORDS SUMMARY | 2023-06-01 14:45 | External Medical Summary ---
Author Name Unknown Address Unknown Organization : Laboratory Report Ordering Provider Test Date Status LUANA SAUER 01/09/2023 11:01:02 Final Observation Date Value Abnormality Reference (Units ) Status Glucose Point of Care 01/09/2023 11:01:02 135 Above high normal 70-120 (mg/dL) Final Performing Location
--- OUTSIDE RECORDS SUMMARY | 2023-06-01 14:45 | External Medical Summary | Summary of Care ---
Author Name Unknown Organization [facility] Address [address] [place] [facility] [place] [address] Phone [phone] Care Team Providers Care Electrical Design Engineer Name Role Phone Mark Choudhury DO Primary Care Provid er Reason for Visit * Reason Comments Outpatient Testing Encounter Details Date Type Department Care Team Description 01/02/2023 Laboratory Laboratory Patient Service [address] [phone] [address] Hyperlipidemia due to type 2 diabetes mellitus (HCC); Hypertension associated with type 2 diabetes mellitus (HCC); Type 2 diabetes mellitus with stage 4 chronic kidney disease, without long-term current use of insulin (HCC) Allergies No known active allergiesdocumented as of this encounter (statuses as of 01/02/2023) Medications Medication Sig Dispensed Refills Start Date [...] severe constipation 237 mL 1 07/05/2021 Active Multivitamin Adult Oral Tablet Take by mouth [...] as of this encounter (statuses as of 01/02/2023) Active Problems Problem Noted Date Insomnia due [...] as of this encounter (statuses as of 01/02/2023) Resolved Problems Problem Noted Date Resolved Date [...] as of this encounter (statuses as of 01/02/2023) Immunizations Name Administration Dates Next Due Pneumococcal [...] Encounters Date Type Specialty Care Team Description 01/09/2023 Hospital Encounter Surgery Kody Mason, DO [address] [address] 01/09/2023 Surgery Surgery Kody Mason, DO [address] [address] LEFT EXTRACAPSULAR CATARACT REMOVAL COMPLEX WITH IOL 01/10/2023 Office Visit Ophthalmology Kody Mason, DO [address] [address] 01/17/2023 Office Visit Ophthalmology Kody Mason, DO [address] [address] 02/06/2023 Hospital Encounter Surgery Kody Mason, DO [address] [address] 02/06/2023 Surgery Surgery Kody Mason, DO [address] [address] RIGHT EXTRACAPSULAR CATARACT REMOVAL COMPLEX WITH IOL 02/07/2023 Office Visit Ophthalmology Kody Mason, [address] [address] 02/13/2023 Office Visit Family Medicine Mark Choudhury, DO [address] [place], [place] [phone] 02/14/2023 Office Visit Ophthalmology Kody Mason, DO [address] [place] [address] Pending Results Name Type Priority Associated Diagnoses Date /Time COMPREHENSIVE METABOLIC PANEL Lab Routine Hyperlipidemia due to type 2 diabetes mellitus (HCC) Hypertension associated with type 2 diabetes mellitus (HCC) Type 2 diabetes mellitus with stage 4 chronic kidney disease, without long-term current use of insulin (HCC) 01/02/2023 9:42 AM EDT HEMOGLOBIN A1C Lab Routine Hyperlipidemia due to type 2 diabetes mellitus (HCC) Hypertension associated with type 2 diabetes mellitus (HCC) Type 2 diabetes mellitus with stage 4 chronic kidney disease, without long-term current use of insulin (HCC) 01/02/2023 9:42 AM EDT LIPID PANEL WITH DIRECT LDL IF TG IS HIGH Lab Routine Hyperlipidemia due to type 2 diabetes mellitus (HCC) Hypertension associated with type 2 diabetes mellitus (HCC) Type 2 diabetes mellitus with stage 4 chronic kidney disease, without long-term current use of insulin (HCC) 01/02/2023 9:42 AM EDT CBC WITH WBC DIFFERENTIAL Lab Routine Hyperlipidemia due to type 2 diabetes mellitus (HCC) Hypertension associated with type 2 diabetes mellitus (HCC) Type 2 diabetes mellitus with stage 4 chronic kidney disease, without long-term current use of insulin (HCC) 01/02/2023 9:42 AM EDT CBC Lab Routine Hyperlipidemia due to type 2 diabetes mellitus (HCC) Hypertension associated with type 2 diabetes mellitus (HCC) Type 2 diabetes mellitus with stage 4 chronic kidney disease, without long-term current use of insulin (HCC) 01/02/2023 9:42 AM EDT DIFFERENTIAL, AUTOMATED Lab Routine Hyperlipidemia due to type 2 diabetes mellitus (HCC) Hypertension associated with type 2 diabetes mellitus (HCC) Type 2 diabetes mellitus with stage 4 chronic kidney disease, without long-term current use of insulin (HCC) 01/02/2023 9:42 AM EDT Scheduled Procedures Name Priority Associated Diagnoses Date/Ti me EXTRACAPSULAR CATARACT REMOVAL COMPLEX WITH IOL Cataract 01/09/2023 12:35 PM EDT EXTRACAPSULAR CATARACT REMOVAL COMPLEX WITH IOL Cataract 02/06/2023 10:24 AM EDT COLONOSCOPY FLEXIBLE PROXIMAL DIAGNOSTIC Recall History of colonic polyps Health Maintenance Due Date Last Done Comments DISCUSS TOBACCO CESSATION (REFER TO SMARTSET #8269) 1950 COVID-19 Vaccine (#1) 1950 Zoster Vaccines (1 of 2) 02/02/1971 DTaP,Tdap,and Td Vaccines (2 - Td or Tdap) 03/16/2018 03/16/2008 PTH 11/18/2021 11/18/2020, 07/23, 08/03/2019, Additional history exists Nephrology Referral 07/26/2022 07/26/2021, 9 GFR 01/02/2023 07/04/2022, 03/22, 07/20/2021, Additional history exists Hgb 04/02/2023 04/02/2022, 06/23, 12/09/2020, Additional history exists HbA1c 06/29/2023 12/28/2022, 03/22, 07/20/2021, Additional history exists Albumin/Creatinine Ratio 07/04/2023 022, 07/26/2021, 08/15/2020, Additional history exists Phosphate 07/04/2023 07/04/2022, 03/22, 08/15/2020, Additional history exists DIABETES-FOOT EXAM 07/11/2023 07/11/2022, 1 09/05/2020, 04/11/2020, Additional history exists Depression Screening, Annual for Pts 12 and Over 07/11/2023 07/11/2022 DIABETES-EYE EXAM 11/02/2023 11/01/2022, , 11/01/2022, Additional history exists COLONOSCOPY-EVERY 3 YRS AGES 18-100 08/31/2024 08/31/2021, 08/31/2021, 09/16/2019, Additional history exists Lipid Panel 04/02/2027 04/02/2022, 06/23, 11/18/2020, Additional history exists LUNG CANCER SCREENING - USE SMARTSET [id number] Completed 07/13/2019, 05/23/2009 Pneumococcal Vaccine: 65+ Years [...] documented as of this encounter Medical Devices Not on filedocumented as of this encounter Visit Diagnoses Diagnosis Age-related nuclear cataract of left eye- Primary Senile nuclear sclerosis Hyperlipidemia due to type 2 diabetes mellitus (HCC) Hypertension associated with type 2 diabetes mellitus (HCC) Type 2 diabetes mellitus with stage 4 chronic kidney disease, without long-term current use of insulin (HCC) Cataract Unspecified cataract Cataract Unspecified cataract documented in this encounter Care Teams Electrical Design Engineer Relationship Specialty Start Date End Date Mark Choudhury DO [address] [place] [phone] PCP - General Internal Medicine 12/09/20 documented as of this encounter
--- OUTSIDE RECORDS SUMMARY | 2023-06-01 14:45 | External Medical Summary ---
Author Name Unknown Address Unknown Organization K01:[place] [place] [address] [place] [address] Laboratory Report Ordering Provider Test Date Status JIHAN BERNALARACELI 01/02/2023 09:42:17 Final Observation Date Value Abnormality Reference (Units ) Status LDL, (direct) 01/02/2023 09:42:17 87 <=129 (mg/dL) Final LDL Cholesterol Reference Ra nges (mg/dL):
<70 Target level for high risk ASCVD patient
<100 Optimal for general population
100-129 Near optimal for general population
130-159 Borderline high
160-189 High
>=190 Very high Performing Location LABORATORY [facility] - [address] [place] [address]
--- OUTSIDE RECORDS SUMMARY | 2023-06-01 14:45 | External Medical Summary | Summary of Care ---
Author Name Unknown Organization [facility] Address [address] [facility] [place] [address] Phone [phone] Care Team Providers Care Food Safety Officer Name Role Phone Jamesaddison Mark Morris Primary Care Provid er Reason for Visit * Reason Onset Date Comments Follow Up 01/16/2023 Encounter Details Date Type Department Care Team Description 01/16/2023 Telephone Interventional Pain Center, [facility] [address] [place] [address] CousinChuy segura DO [address] [place] [address] Follow Up Allergies No known active allergiesdocumented as of this encounter (statuses as of 01/17/2023) Medications Medication Sig Dispensed Refills Start Date [...] as of this encounter (statuses as of 01/17/2023) Active Problems Problem Noted Date Insomnia due [...] as of this encounter (statuses as of 01/17/2023) Resolved Problems Problem Noted Date Resolved Date [...] as of this encounter (statuses as of 01/17/2023) Immunizations Name Administration Dates Next Due Pneumococcal [...] encounter Miscellaneous Notes * Telephone Encounter - Cata Aranda LPN - 01/16/2023 9:45 AM EDT Pt scheduled * Telephone Encounter - Chuy Asencio DO - 01/16/2023 8:49 AM EDT I considered looking at the facet joints, but will need office evaluation for documentation, now that medicare requires pre cert for facet injection. * Telephone Encounter - Cata Aranda LPN - 01/16/2023 8:25 AM EDT Patient reports no improvement after injection, still has low back, R hip and lower leg pain documented in this encounter Plan of Treatment Upcoming Encounters Date Type Specialty Care Team Description 01/17/2023 Office Visit Ophthalmology Kody Mason, [address] [address] 02/06/2023 Hospital Encounter Surgery Kody Mason, [address] [address] 02/06/2023 Surgery Surgery Kody Mason, [address] [address] RIGHT EXTRACAPSULAR CATARACT REMOVAL COMPLEX WITH IOL 02/07/2023 Office Visit Ophthalmology Kody Mason, [address] [address] 02/13/2023 Office Visit Family [facility] [address] [facility] [address] 02/14/2023 Office Visit Pain Medicine [place]colton Chuy Dominguez, DO [address] [place] [address] 02/14/2023 Office Visit Ophthalmology Kody Mason, DO [address] [address] [place] [address] Scheduled Procedures Name Priority Associated Diagnoses Date/Ti [...] exists LUNG CANCER SCREENING - USE SMARTSET [id number] Completed 07/13/2019, 05/23/2009 Pneumococcal Vaccine: 65+ Years [...] this encounter Medical Devices Implanted Type Area Dairy Processing Supervisor Device Identifier Shelf Expiration Date Model / Serial / Lot Lens [id number] 12.5mm+22.50 - [id number] - [id number] Implanted:Qty: 1 on 01/09/2023 by Kody Mason DO at OR [facility] Left: Eye [employer] LOMB 08/21/2025 [id number] / [id number] / [id number] documented as of this encounter Advance Directives Latest Code Status on File Code Status Date Activated Date Inactivated Comments Full Code 01/09/2023 10:47 AM 01/09/2023 5:32 PM Question Answer Comments Discussion of Advance Directives occurred with: Not Discussed due to patient's condition Care Teams Food Safety Officer Relationship Specialty Start Date End Date Mark Choudhury, [place] [address] PCP - General Internal Medicine 12/09/20 documented as of this encounter
--- OUTSIDE RECORDS SUMMARY | 2023-06-01 14:45 | External Medical Summary ---
Author Name Unknown Address Unknown Organization K01:[facility] [place] [address] [facility] [place] [address] Laboratory Report Ordering Provider Test Date Status DANIELLE BERNAL 01/02/2023 09:42:17 Final Observation Date Value Abnormality Reference (Units ) Status SYNC LEUKOCYTES IN BLOOD BY AUTOMATED COUNT 01/02/2023 09:42:17 10.13 4.00-10.80 (K/uL) Final Segs 01/02/2023 09:42:17 67.4 40.0-75.0 (%) Final Lymphs % 01/02/2023 09:42:17 22.2 18.0-42.0 (%) Final Monos 01/02/2023 09:42:17 5.7 1.0-11.0 (%) Final Eosinophils 01/02/2023 09:42:17 3.6 0.0-6.0 (%) Final Basos 01/02/2023 09:42:17 0.7 0.0-2.0 (%) Final Immature Granulocyte, Percent 01/02/2023 09:42:17 0.4 0.0-2.0 (%) Final Absolute Segs 01/02/2023 09:42:17 6.83 1.80-7.70 (K/uL) Final Lymphs, absolute 01/02/2023 09:42:17 2.25 1.00-4.80 (K/ul) Final Monos, Abs 01/02/2023 09:42:17 0.58 0.00-1.10 (K/uL) Final Eos, Abs 01/02/2023 09:42:17 0.36 0.00-0.70 (K/uL) Final Basos, Abs 01/02/2023 09:42:17 0.07 0.00-0.20 (K/uL) Final Immature Granulocytes, Number 01/02/2023 09:42:17 0.04 0.00-0.20 (K/uL) Final Performing Location [facility] [place] [address] [facility] [address]
--- OUTSIDE RECORDS SUMMARY | 2023-06-01 14:45 | External Medical Summary ---
Author Name Unknown Address Unknown Organization K01:[facility] [place] [address] [place] [address] Laboratory Report Ordering Provider Test Date Status DANIELLE BERNAL 01/02/2023 09:42:17 Final Observation Date Value Abnormality Reference (Units ) Status Triglyceride 01/02/2023 09:42:17 351 Above high normal <=174 (mg/dL) Final Triglyceride Reference Range s (mg/dL):
<150 Acceptable
150-174 Borderline high
175-499 High
>=500 Very high Cholesterol 01/02/2023 09:42:17 186 <200 (mg /dL) Final Total Cholesterol Reference Ranges (mg/dL):
<200 Desirable
200-239 Borderline high
>=240 High HDL 01/02/2023 09:42:17 28 Below low normal >39 (mg/dL) Final HDL Cholesterol Reference Ra nges (mg/dL):
>=60 High (Desirable)
<50 Low (Undesirable) For Females
<40 Low (Undesirable) For Males NON-HDL CHOLESTEROL 01/02/2023 09:42:17 158 <=159 (mg/dL) Final Non-HDL Cholesterol Referenc e Range (mg/dL):
<100 Target level for high risk ASCVD patient
<130 Optimal for general population
130-159 Near optimal for general population
160-189 Borderline High
190-219 High
>=220 Very High Performing Location LABORATORY [facility] - [address] [place] [address]
--- OUTSIDE RECORDS SUMMARY | 2023-06-01 14:45 | External Medical Summary | Summary of Care ---
Author Name Unknown Organization [facility] Address [address] [facility] [place] [address] Phone [phone] Care Team Providers Care Plastic And Reconstructive Surgeon Name Role Phone JamesaddisonMarkothy Primary Care Provid er Reason for Visit * Reason Comments Post-Op 1 week Post Op OS. P t states "Vision is good in OS" Encounter Details Date Type Department Care Team Description 01/17/2023 Office Visit Ophthalmology, [facility] [address] [facility] [place] [address] Kody Mason DO [address] [facility] [place] [phone] After cataract not obscuring vision, left* Allergies No known active allergiesdocumented as of [...] Progress Notes * Kody Mason DO - 01/17/2023 3:00 PM EDT 01/17/2023 [facility] Ophthalmology Post-operative Clinic Note HPI: José Gallardo JrRacquel is a 72 year old pt who presents to the eye clinic today for 1 week post-opCE PCIOL OS (Ensor TCC, post-refractive [email or web address] measurements, IFIS, MX60E 22.50 01/09/2023) Past Ocular History: T2DM w/o hx of retinopathy Hx of LASIK OU (20 years ago, [place]) VAsc: 20/30 IOP: 8 mmhg LL: Normal Conjunctiva: Normal Cornea: CCI and paracentesis brook negative, LASIK flap AC: 1+ c/f Iris: residual dilation, TID's Lens: PCIOL centered Vitreous: PVD Optic nerve: Normal Macula: Normal Vessels: Normal Periphery: No break/tear A/P: 1 week post op CE PCIOL OS (Ensor TCC, post-refractive [email or web address] measurements, IFIS, MX60E 22.50 01/09/2023) Stable DFE Vision improved. Taper prednisolone as directed by one drop weekly May stop vigamox D/c eye shield Gradual return to normal activity levels Call with flashes, floaters, dec vision eye pain. Advised of transformation architect coverage for after hours/weekend emergencies. RTC DOS or sooner prn. Kody Mason DO 01/17/23 documented in this encounter Nursing Notes * FARA Willis - 01/17/2023 3:05 PM EDT José Gallardo Jr. presents for p/o check. 1 week post-op ECCE w/IOL insertion Surgical eye LEFT EYE Patient denies complaints Current Ophthalmic Medications: Pred Forte and Ofloxacin 1gtt 4 times daily in surgical eye Are you taking the drops as directed? Yes documented in this encounter Plan of Treatment Upcoming Encounters Date Type Specialty Care Team Description 02/06/2023 Hospital Encounter Surgery Kody Mason, DO [address] [address] 02/06/2023 Surgery Surgery Kody Mason, DO [address] [address] RIGHT EXTRACAPSULAR CATARACT REMOVAL COMPLEX WITH IOL 02/07/2023 Office Visit Ophthalmology Kody Mason, DO [address] [address] 02/13/2023 Office Visit Family Medicine Mark Choudhury, DO [address] [place] [address] 02/14/2023 Office Visit Pain Medicine Chuy Asencio, DO [address] [place] [address] 02/14/2023 Office Visit Ophthalmology Kody Mason, DO [address] [address] Scheduled Procedures Name Priority Associated Diagnoses Date/Ti me EXTRACAPSULAR CATARACT REMOVAL COMPLEX WITH IOL Cataract 02/06/2023 10:24 AM EDT COLONOSCOPY FLEXIBLE PROXIMAL DIAGNOSTIC Recall History of colonic polyps Health Maintenance Due Date Last Done Comments DISCUSS TOBACCO CESSATION (REFER TO SMARTSET #9758) 1950 COVID-19 Vaccine (#1) 1950 Zoster Vaccines [...] exists LUNG CANCER SCREENING - USE SMARTSET 58633 Completed 07/13/2019, 05/23/2009 Pneumococcal Vaccine: 65+ Years [...] this encounter Medical Devices Implanted Type Area Deicer Finisher Device Identifier Shelf Expiration Date Model / Serial / Lot Lens [id number] 12.5mm+22.50 - [id number] - [id number] Implanted:Qty: 1 on 01/09/2023 by Kody Mason DO at OR [facility] Left: Eye BAUSCH & LOMB 08/21/2025 [id number] / [id number] / [id number] documented as of this encounter Visit Diagnoses Diagnosis After cataract not obscuring vision, left- Primary Cataract Unspecified cataract documented in this encounter Advance Directives Latest Code Status on File Code Status Date Activated Date Inactivated Comments Full Code 01/09/2023 10:47 AM 01/09/2023 5:32 PM Question Answer Comments Discussion of Advance Directives occurred with: Not Discussed due to patient's condition Care Teams Plastic And Reconstructive Surgeon Relationship Specialty Start Date End Date Mark Choudhury DO [address] [place] [id number] PCP - General Internal Medicine 12/09/20 documented as of this encounter
--- OUTSIDE RECORDS SUMMARY | 2023-06-01 14:45 | External Medical Summary ---
Author Name Unknown Address Unknown Organization K01:[facility] [place] [address] [place] [address] Laboratory Report Ordering Provider Test Date Status DANIELLE BERNAL 01/02/2023 09:42:17 Final Observation Date Value Abnormality Reference (Units ) Status WBC, Total 01/02/2023 09:42:17 10.13 4.00-10.80 (K/uL) Final RBC 01/02/2023 09:42:17 4.18 4.50-5.25 (M/uL) Final Hemoglobin 01/02/2023 09:42:17 13.8 Below low normal 14.0-16.8 (g/dL) Final HCT 01/02/2023 09:42:17 39.9 Below low normal 40.0-48.4 (%) Final MCV 01/02/2023 09:42:17 95.5 82.0-99.5 (fL) Final MCH 01/02/2023 09:42:17 33.0 27.0-34.0 (pg) Final MCHC 01/02/2023 09:42:17 34.6 32.0-36.0 (g/dL) Final RDW 01/02/2023 09:42:17 12.0 11.5-15.5 (%) Final Platelets 01/02/2023 09:42:17 273 140-400 (K/uL) Final MPV 01/02/2023 09:42:17 9.7 6.6-11.1 (fL) Final Nucleated erythrocytes/100 leukocytes [Ratio] in Blood by Automated count 01/02/2023 09:42:17 0 <=0 (/100 WBCs) Final Performing Location [facility] [place] [address] [place] [address]
--- OUTSIDE RECORDS SUMMARY | 2023-06-01 14:46 | External Medical Summary ---
Author Name Unknown Address Unknown Organization : Laboratory Report Ordering Provider Test Date Status ARSALAN VALENCIA 12/28/2022 12:35:18 Final Observation Date Value Abnormality Reference (Units ) Status HbA1C 12/28/2022 12:35:18 7.5 Above high normal 4. 0-5.6 (%) Final Performing Location
--- OUTSIDE RECORDS SUMMARY | 2023-06-01 14:46 | External Medical Summary | Summary of Care ---
Author Name Unknown Organization [facility] Address [address] [facility] [place] [address] Phone [phone] Care Team Providers Care Drag Out Man Name Role Phone Mark Choudhuryothy Primary Care Provid er Reason for Visit * Auth/Cert Specialty Diagnoses / Procedures Referred By Contchasity t Referred To Contact Diagnoses Spinal stenosis of lumbar region with neurogenic claudication Spinal stenosis of lumbar region with neurogenic claudication [M48.062] Procedures INJECT DX/THER SUBSTANCE INTERLAMINAR LUMBAR/SACRAL W IMAGE GUIDE INJECTION SPINE LUMBAR OR SACRAL Referral ID Status Reason Start Date Expiration Date Visits Re quested Visits Authorized [id number] Encounter Details Date Type Department Care Team Description 12/19/2022 Hospital Encounter OR [facility], Operating Room [facility] [address] [place] [id number] Chuy Asencio DO [address] [place] [id number] Allergies No known active allergiesdocumented as of this encounter (statuses as of 12/20/2022) Medications Medication Sig Dispensed Refills Start Date [...] as of this encounter (statuses as of 12/20/2022) Active Problems Problem Noted Date Insomnia due [...] as of this encounter (statuses as of 12/20/2022) Resolved Problems Problem Noted Date Resolved Date [...] as of this encounter (statuses as of 12/20/2022) Immunizations Name Administration Dates Next Due Pneumococcal [...] Sign Reading Time Taken Comments Blood Pressure 158/67 12/19/2022 12:18 PM EDT Pulse 82 12/19/2022 12:18 PM EDT Temperature 36.1 C (97 F) 12/19/2022 11:59 AM EDT Respiratory Rate 15 12/19/2022 12:18 PM EDT Oxygen Saturation 99% 12/19/2022 12:18 PM EDT Inhaled Oxygen Concentration - - Weight - - Height - - Body Mass Index - - documented in this encounter Discharge Instructions * Discharge Instr - AVS* Chuy Asencio DO - 12/19/2022 12:16 PM EDT [facility] [address] [place] [address] Discharge Date: 12/19/2022 You may call [facility] at [phone] during business hours. For after-hours emergencies call 911. Your attending physician at the time of your discharge was: Chuy Asencio DO [address] [facility] [place] [address] The information below provides you with the [...] unless otherwise instructed by your family physician, human resources benefits assistant or the anticoagulation clinic. Additional Instructions: {[id number]} Driving: . Date you may return to work or school: Follow Up: Call [phone] in 4 weeks. documented in this encounter Progress Notes * Chuy Asencio DO - 12/19/2022 12:16 PM EDT [facility] [address] [place] [address] OUTPATIENT SURGERY DISCHARGE SUMMARY NOTE Name: José Gallardo Jr. Location: OR [facility]/OR Date: 12/19/2022 Time: 12:16 PM Surgery Date: 12/19/2022 Procedure: Procedure(s): INJECTION SPINE LUMBAR OR SACRAL No laterality found for procedure #1 Surgeon: Surgeon(s): Chuy Asencio DO Discharge Diagnosis: Lumbar radicular pain After examination of this patient, I have determined he is ready for discharge to home when the patient meets criteria. Discharge instructions were given to the patient. documented in this encounter H&P Notes * Chuy Asencio, DO - 12/19/2022 6:54 AM EDT Interventional Pain Pre-Procedure Assessment Name:José Gallardo Jr. Date:12/19/2022 Time:6:54 AM Procedure(s): Caudal epidural steroid injection Diagnosis: Lumbar spinal stenosis Pre-Procedure Assessment: Prior to the procedure, the patient was identified. The patient's history, medications and allergies were reviewed . The patient is competent. The risks and benefits of the proposed procedure and theplanned sedation were discussed with the patient. All questions were answered and informed consent for the procedure was obtained. Prior to Admission medications Medication Sig Last Dose Discont. Furosemide 40 MG Oral Tablet (Lasix) TAKE [...] 1 Packet by mouth in the morning. Zinc 10 MG Mouth/Throat Lozenge Apply to the mouth or throat . Multivitamin Adult Oral Tablet Take by mouth . Lactulose 10 GM/15ML Oral Solution (Constulose) Take 15 mL by mouth 3 times a day as needed for Constipation. severe constipation traZODone HCl 100 MG Oral Tablet (Desyrel) [...] to use local anesthesia. Chuy Asencio DO 12/19/2022 documented in this encounter Nursing Notes * Aleyda Loo RN - 12/19/2022 12:20 PM EDT Visited by Dr Asencio. Verbalized understanding of discharge directions. Ready for discharge to home. * Sofy Avila RN - 12/19/2022 12:13 PM EDT Pt tolerates injection well. documented in this encounter OR Notes * OR Surgeon - Chuy Asencio DO - 12/19/2022 12:17 PM EDT OPERATIVE RECORD [facility], Operating Room [facility] [address] [facility] [place] [address] José Gallardo : 1950 DOS: 12/19/2022 SERVICE: INTERVENTIONAL PAIN MANAGEMENT PRE-OP DIAGNOSIS: Lumbar radicular pain. POST-OP DIAGNOSIS: Same. SURGEON: Chuy Asencio DO. ASSISTANTS: None. ANESTHESIA: 2 cubic centimeters of 1% lidocaine. OPERATION: Caudal epidural steroid injection. FINDINGS: No intraoperative findings. ESTIMATED BLOOD LOSS: None. DRAINS: There were no drains placed. FLUIDS: No IV fluids. URINE OUTPUT: None. SPECIMEN: No specimens collected. COMPLICATIONS: None. CONDITION: Good. INDICATIONS AND HISTORY: José Gallardo Jr. presents in anticipation of undergoing epidural steroidinjection for persistent low back and lower extremity radicular pain refractory to conservative treatment. The injection procedure was reviewed, as well as the risks of bleeding, infection, headache,nerve or spinal cord injury, worsening pain, or steroid side effects. DESCRIPTION OF OPERATION: After obtaining appropriate informed consent, José Gallardo Jr. was taken to the fluoroscopy suite, placed in a prone position. Time- out was taken to properly identify the patient and procedure, and the sacral hiatus was identified and the overlying skin sterilely preppedwith ChloraPrep and draped. 1% lidocaine, 2 cubic centimeters, was infiltrated in skin and subcutaneous tissue and a #25 gauge, 3-1/2 inch spinal needle was directed with fluoroscopic guidance through the sacral hiatus, into the sacral canal without pain or paresthesia. After negative aspiration for blood or cerebrospinal fluid, Omnipaque 180, 0.5 cubic centimeter was easily injected, showed appropriate epidural spread in P-A and lateral fluoroscopic views. There was no evidence of intravascular or subarachnoid spread of contrast. Kenalog 40 mg with 4 cubic centimeters of preservative-free normal saline was slowly and easily injected without pain. There was appropriate washout of contrast. The needle was removed. Patient tolerated procedure well. José Gallardo Jr. will be re-evaluated by phone in approximately 4 weeks, and was given appropriate discharge instructions following postprocedure monitoring. Chuy Asencio DO 12/19/2022 12:17 PM documented in this encounter Plan of Treatment Upcoming Encounters Date Type Specialty Care Team Description 12/24/2022 Office Visit Family Medicine Mark Choudhury DO [address] [place] [address] 12/27/2022 Office Visit Ophthalmology Kody Mason DO [address] [place] [address] 12/28/2022 Office Visit Family Medicine Jamar Guerrero PA-C [address] [facility] [place] [address] 01/02/2023 Laboratory Laboratory [place], [facility] [address] [place] [address] 01/09/2023 Hospital Encounter Surgery Kody Mason, DO [address] [place] [address] 01/09/2023 Surgery Surgery Kody Mason, DO [address] [place] [address] LEFT EXTRACAPSULAR CATARACT REMOVAL COMPLEX WITH IOL 01/10/2023 Office Visit Ophthalmology Kody Mason, DO [address] [place] [address] 01/17/2023 Office Visit Ophthalmology Kody Mason, DO [address] [place] [address] 02/06/2023 Hospital Encounter Surgery Kody Mason, DO [address] [place] [address] 02/06/2023 Surgery Surgery Kody Mason, DO [address] [place] [address] RIGHT EXTRACAPSULAR CATARACT REMOVAL COMPLEX WITH IOL 02/07/2023 Office Visit Ophthalmology Kody Mason, [address] [place] [address] 02/13/2023 Office Visit Family Medicine Mark Choudhury, DO [address] [facility] [place] [address] 02/14/2023 Office Visit Ophthalmology Kody Mason, DO [address] [facility] [place] [address] Scheduled Procedures Name Priority Associated Diagnoses Date/Ti me EXTRACAPSULAR CATARACT REMOVAL COMPLEX WITH IOL Cataract 01/09/2023 1:37 PM EDT EXTRACAPSULAR CATARACT REMOVAL COMPLEX WITH IOL Cataract 02/06/2023 10:24 AM EDT COLONOSCOPY FLEXIBLE PROXIMAL DIAGNOSTIC Recall History of colonic polyps Health Maintenance Due Date Last Done Comments DISCUSS TOBACCO CESSATION (REFER TO SMARTSET #4008) 1950 COVID-19 Vaccine (#1) 1950 Zoster Vaccines (1 of 2) 02/02/1971 DTaP,Tdap,and Td Vaccines (2 - Td or Tdap) 03/16/2018 03/16/2008 PTH 11/18/2021 11/18/2020, 07/23, 08/03/2019, Additional history exists Nephrology Referral 07/26/2022 07/26/2021, 9 HbA1c 09/30/2022 04/02/2022, 06/23, 11/18/2020, Additional history exists GFR 01/02/2023 07/04/2022, 03/22, 07/20/2021, Additional history exists Hgb 04/02/2023 04/02/2022, 06/23, 12/09/2020, Additional history exists Albumin/Creatinine Ratio 07/04/2023 022, [...] exists LUNG CANCER SCREENING - USE SMARTSET 33946 Completed 07/13/2019, 05/23/2009 Pneumococcal Vaccine: 65+ Years [...] Not on filedocumented as of this encounter Procedures Procedure Name Priority Date/Time Associated Diagnosis Comments FLUORO INTERVENTIONAL PAIN PROCEDURE NONBILLABLE Routine 12/19/2022 12:22 PM EDT documented in this encounter Results * FLUORO INTERVENTIONAL PAIN PROCEDURE NONBILLABLE (12/19/2022 12:22 PM EDT) Narrative Scheduling, Silent - 12/19/2022 12:23 PM EDT This procedure will not be read by a Radiologist. Please see operative note. Chuy Alberto Valenzuelasins DO RAD FLUOROSCOPY documented in this encounter Administered Medications Inactive Administered Medications - up to 3 most recent administrations Medication Order MAR Action Action Date Dose Rate Site Iohexol (Omnipaque 180) inj 0.5 mL 0.5 mL, Injection, ONCE, On Sat12/19/22 at 1230, For 1 dose Given 12/19/2022 12:12 PM EDT 0.5 mL Back Middle lidocaine 1 % inj 20 mg 20 mg (2 mL), Subcutaneous, ONCE, On Sat12/19/22 at 1230, For 1 dose Given 12/19/2022 12:12 PM EDT 20 mg Back Middle Triamcinolone Acetonide (Kenalog) 40 MG/ML inj 40 mg 40 mg, Injection, ONCE, On Sat12/19/22 at 1230, For 1 dose Given 12/19/2022 12:13 PM EDT 40 mg Back Middle documented in this encounter Active and Recently Administered Medications Times are shown in EDT. Scheduled Medication Order 12/17/2022 12/18/2022 12/19/2022 Iohexol (Omnipaque 180) inj 0.5 mL (COMPLETED) 0.5 mL, Injection, ONCE, On Sat12/19/22 at 1230, For 1 dose 1212 (Given - Provid er: Sofy Avila RN - Comment: caudal) lidocaine 1 % inj 20 mg (COMPLETED) 20 mg (2 mL), Subcutaneous, ONCE, On Sat12/19/22 at 1230, For 1 dose 1212 (Given - Provid er: Sofy Avila RN - Comment: caudal) Triamcinolone Acetonide (Kenalog) 40 MG/ML inj 40 mg (COMPLETED) 40 mg, Injection, ONCE, On Sat12/19/22 at 1230, For 1 dose 1213 (Given - Provid er: Sofy Avila RN - Comment: caudal) documented in this encounter Care Teams Drag Out Man Relationship Specialty Start Date End Date Mark Choudhury, DO [address] [place] [address] PCP - General Internal Medicine 12/09/20 documented as of this encounter
--- OUTSIDE RECORDS SUMMARY | 2023-06-01 14:46 | External Medical Summary | Summary of Care ---
Author Name Unknown Organization [facility] Address [address] [facility] [address] Phone [phone] Care Team Providers Care Music Publicist Name Role Phone Mark Choudhury DO Primary Care Provid er Reason for Visit * Reason Comments Pre-op Clearance Encounter Details Date Type Department Care Team Description 12/28/2022 Office Visit [facility] [address] [place] [address] Jamar Guerrero PA-C [address] [place] [address] [phone] Preop examination*; Cataract of both eyes, unspecified cataract type; Type 2 diabetes mellitus with stage 4 chronic kidney disease, without long-term current use of insulin (HCC); Tobacco use disorder Allergies No known active allergiesdocumented as of this encounter (statuses as of 12/29/2022) Medications Medication Sig Dispensed Refills Start Date [...] as of this encounter (statuses as of 12/29/2022) Active Problems Problem Noted Date Insomnia due [...] as of this encounter (statuses as of 12/29/2022) Resolved Problems Problem Noted Date Resolved Date [...] as of this encounter (statuses as of 12/29/2022) Immunizations Name Administration Dates Next Due Pneumococcal [...] Sign Reading Time Taken Comments Blood Pressure 142/70 12/28/2022 12:19 PM EDT Pulse 75 12/28/2022 12:19 PM EDT Temperature 36.7 C (98.1 F) 12/28/2022 12:19 PM E DT Respiratory Rate 18 12/28/2022 12:19 PM EDT Oxygen Saturation 99% 12/28/2022 12:19 PM EDT Inhaled Oxygen Concentration - - Weight 89 kg (196 lb 3.2 oz) 12/28/2022 12:19 PM EDT Height - - Body Mass Index 30.08 11/21/2022 4:34 PM EDT documented in this encounter Progress Notes * Jamar Guerrero PA-C - 12/28/2022 12:19 PM EDT Nursing Notes: Lucia Medeiros, [facility] 12/28/22 1218 Sign at exiting of workspace The patient has been properly identified by confirmation of name and date of . Chief Complaint Patient presents with Pre-op Clearance Pt here for pre-op clearance. Having surgery 01/09/23 & 02/06/[address] Mason for Cataract removal. Preoperative Risk Assessment Note José Gallardo Jr. [id number] 12/28/2022 Referred by: Dr. Kody Mason Pre-operative evaluation for: Bilateral cataract removal. Date of procedure: 01/09/23, 02/06/23. Brief History of Present Illness: Here for pre-op clearance. Current active medical problems and status: Patient Active Problem List Diagnosis Code Tobacco use disorder F17.200 Hyperlipidemia due to type 2 diabetes mellitus (HCC) E11.69, E78.5 Hypertension associated with type 2 diabetes mellitus (HCC) E11.59, I15.2 Type 2 diabetes mellitus with stage 4 chronic kidney disease, without long- term current use of insulin (HCC) E11.22, N18.4 Recurrent major depressive disorder, in partial remission (HCC) F33.41 Hx of colonic polyps Z86.010 Diverticulosis of sigmoid colon K57.30 Insomnia due to medical condition G47.01 Daytime somnolence R40.0 Current active allergy list: Review of patient's allergies indicates: No Known Allergies Major Risk Factors for Cardiac Events: History of NC, cardiac revascularization, cardiac bypass: No History of [...] performed by Tanner Bruner MD at [facility] COLONOSCOPY, DIAGNOSTIC (RECTUM) 07/30/2019 poor prep, repeat / [facility] COLONOSCOPY, DIAGNOSTIC (RECTUM) 09/16/2019 adenomatous polyps, fair prep, repeat 1 yr / [facility] COLONOSCOPY, DIAGNOSTIC (RECTUM) 08/31/2021 benign adenomatous polyps, diverticulosis, lipoma, repeat 3 yrs / COLONOSCOPY FLEXIBLE PROXIMAL DIAGNOSTIC performed by Tanner Bruner MD at [facility] CYSTOSCOPY 09/19/2011 cysto under anesthesia EXPLORATION OF SCROTUM N/A 12/15/2020 SCROTAL EXPLORATION performed by Clara Yi MD at [facility] INJECT DX/THER SUBSTANCE INTERLAMINAR LUMBAR/SACRAL W IMAGE GUIDE 12/19/2022 INJECTION SPINE LUMBAR OR SACRAL performed by Chuy Asencio DO at [facility] PARTIAL COLECTOMY W/ANASTOMOSIS 06/07/2008 Laparoscopic, hand assisted, converted to open low anterior resection with primary anastomosis, proctoscopy, [facility], Dr. Thompson Current Outpatient Medications Medication Sig [...] proposed surgery and anesthesia. Jamar Guerrero PA-C [address] [address] documented in this encounter Nursing Notes * Lucia Medeiros CMA - 12/28/2022 12:14 PM EDT The patient has been properly identified by confirmation of name and date of . Chief Complaint Patient presents with Pre-op Clearance Pt here for pre-op clearance. Having surgery 01/09/23 & 02/06/[address] Mason for Cataract removal. documented in this encounter Plan of Treatment Upcoming Encounters Date Type Specialty Care Team Description 01/02/2023 Laboratory Laboratory [place], [facility] [address] [place] [address] 01/09/2023 Hospital Encounter Surgery Kody Mason DO [address] [place] [address] 01/09/2023 Surgery Surgery Kody Mason DO [address] [place] [address] LEFT EXTRACAPSULAR CATARACT REMOVAL COMPLEX WITH IOL 01/10/2023 Office Visit Ophthalmology Kody Mason, DO [address] [place] [address] 01/17/2023 Office Visit Ophthalmology Kody Mason, DO [address] [place] [address] 02/06/2023 Hospital Encounter Surgery Kody Mason, DO [address] [place] [address] 02/06/2023 Surgery Surgery Kody Mason, DO [address] [place] [address] RIGHT EXTRACAPSULAR CATARACT REMOVAL COMPLEX WITH IOL 02/07/2023 Office Visit Ophthalmology Kody Mason, DO [address] [place] [address] 02/13/2023 Office Visit Family Medicine Mark Choudhury, DO [address] [place] [address] 02/14/2023 Office Visit Ophthalmology Kody Mason, [address] [place] [address] Scheduled Procedures Name Priority Associated Diagnoses Date/Ti me EXTRACAPSULAR CATARACT REMOVAL COMPLEX WITH IOL Cataract 01/09/2023 12:47 PM EDT EXTRACAPSULAR CATARACT REMOVAL COMPLEX WITH IOL Cataract 02/06/2023 10:24 AM EDT COLONOSCOPY FLEXIBLE PROXIMAL DIAGNOSTIC Recall History of colonic polyps Health Maintenance Due Date Last Done Comments DISCUSS TOBACCO CESSATION (REFER TO SMARTSET #8422) 1950 COVID-19 Vaccine (#1) 1950 Zoster Vaccines [...] exists LUNG CANCER SCREENING - USE SMARTSET 85627 Completed 07/13/2019, 05/23/2009 Pneumococcal Vaccine: 65+ Years [...] Procedure Name Priority Date/Time Associated Diagnosis Comments HEMOGLOBIN A1C, POINT OF CARE Routine 12/28/2022 12:35 PM EDT Type 2 diabetes mellitus with stage 4 chronic kidney disease, without long-term current use of insulin (HCC) documented in this encounter Results * (ABNORMAL) HEMOGLOBIN A1C, POINT OF CARE (12/28/2022 12:35 PM EDT) Hemoglobin A1c 7.5(H) 4.0 - 5.6 % 12/28/2022 1:48 PM EDT [facility] [address] Blood 12/28/2022 12:3 5 PM EDT 12/28/2022 1:48 PM EDT Jamar Guerrero PA-C LAB POINT OF CARE TEST DOCKED DEVICE UNSOLICITED RESULTS [facility] [address] [place] [address] documented in this encounter Visit Diagnoses Diagnosis Preop examination- Primary Preoperative examination, unspecified Cataract of both eyes, unspecified cataract type Type 2 diabetes mellitus with stage 4 chronic kidney disease, without long-term current use of insulin (HCC) Tobacco use disorder Cataract Unspecified cataract Cataract Unspecified cataract documented in this encounter Care Teams Music Publicist Relationship Specialty Start Date End Date Mark Choudhury DO [address] [place] [address] PCP - General Internal Medicine 12/09/20 documented as of this encounter"
--- OUTSIDE RECORDS SUMMARY | 2023-06-01 14:46 | External Medical Summary | Summary of Care ---
Author Name Unknown Organization [facility] Address [address] [place] [address] Phone [phone] Care Team Providers Care Public Information Relations Manager Name Role Phone Mark Santos DO Primary Care Provid er Reason for Visit * Reason Comments eRx-Medication Refill Encounter Details Date Type Department Care Team Description 12/06/2022 Refill Family [address] [address] Mark Santos DO [address] [place] [address] Proteinuria, unspecified type; HTN, goal below 130/80 Allergies No known active allergiesdocumented as of this encounter (statuses as of 12/07/2022) Medications Medication Sig Dispensed Refills Start Date [...] severe constipation 237 mL 1 1 Active Multivitamin Adult Oral Tablet Take by [...] 0 Active glipiZIDE 10 MG Oral Tablet (Glucotrol)Indica tions:Type 2 diabetes mellitus with stage 3 chronic kidney disease, without long-term current use of insulin (HCC),DM type 2, goal: symptom mgmt (HCC) TAKE 2 TABS BY MOUTH 2 TIMES A DAY 30 MINUTES BEFORE MORNING AND EVENING MEALS. 360 Tablet 2 2 Active Atorvastatin Calcium 40 MG Oral Tablet [...] EVERY DAY 90 Tablet 1 3 Active Furosemide 40 MG Oral Tablet (Lasix)Indication s:Proteinuria, unspecified type,HTN, goal below 130/80 TAKE 1 TABLET BY MOUTH EVERY DAY 90 Tablet 1 2 12/08/19 23 Discontinued documented as of this encounter (statuses as of 12/07/2022) Active Problems Problem Noted Date Insomnia due [...] as of this encounter (statuses as of 12/07/2022) Resolved Problems Problem Noted Date Resolved Date [...] as of this encounter (statuses as of 12/07/2022) Immunizations Name Administration Dates Next Due Pneumococcal [...] Telephone Encounter - Mark Santos DO - 12/07/2022 6:39 AM EDT Signed Prescriptions: Disp Refills Furosemide 40 MG Oral Tablet (Lasix) 90 Tab*1 Sig: TAKE 1 TABLET BY MOUTH EVERY DAY Authorizing Provider: MARK SANTOS * Telephone Encounter - Lissy Saavedra RPh - 12/06/2022 12:00 PM EDTPending Prescriptions: Disp Refills Furosemide 40 MG Oral Tablet [Pharmacy Med*90 Tab*1 Sig: TAKE 1 TABLET BY MOUTH EVERY DAY * Telephone Encounter - Lissy Saavedra RPh - 12/06/2022 12:00 PM EDT Unable to authorize medication refills for pended medication(s) at this time. Part of the protocol criteria used for refill authorization was not satisfied. Patient needs creatinine within normal limits. Please approve if appropriate. Creatinine Results: Lab Results Component Value Date/Time CREATININE - [facility] 2.3 (H) 07/04/2022 10:09 AM CREATININE - [facility] 2.4 (H) 04/02/2022 09:40 AM CREATININE - [facility] 2.8 (H) 07/20/2021 10:40 AM CREATININE - [facility] 2.8 (H) 08/15/2020 03:19 PM CREATININE - [facility] 2.7 (H) 06/03/2020 09:34 AM CREATININE - [facility] 2.5 (H) 03/29/2020 08:58 AM CREATININE, 24 HOUR URINE - [facility] 2.592 (H) 11/08/2005 11:29 AM CREATININE, RANDOM URINE - [facility] 154 07/04/2022 10:09 AM CREATININE, RANDOM URINE - [facility] 160 07/26/2021 11:32 AM CREATININE, RANDOM URINE - [facility] 84 08/15/2020 03:28 PM CREATININE, RANDOM URINE - [facility] 62 08/03/2019 01:59 PM CREATININE, RANDOM URINE - [facility] 129 06/24/2019 09:21 AM CREATININE-OUTSIDE LAB 1.74 (A) 09/01/2016 12:00 AM Lissy Garcia Clinical Pharmacist Telepharmacy [phone] 12/06/2022, 12:00 PM * Telephone Encounter - Lissy Saavedra RPh - 12/06/2022 11:59 AM EDT Did you pend patient's preferred pharmacy and medication before forwarding?yes Pharmacy: [id number] [address] [facility] Pending Prescriptions: Disp Refills Furosemide 40 MG Oral Tablet (Lasix) [Pha*90 Tab*1 Sig: TAKE 1 TABLET BY MOUTH EVERY DAY Last Visit: 11/21/2022 (in office), Visit date not found (telemedicine) Next Visit: 12/24/2022 If no future appointments scheduled, and last appointment is greater than a year ago, please schedule patient for a follow-up appointment Last date the medication was ordered: 05/25/22 Is this request for a controlled substance?No Urine Drug Screen:No results found for this or any previous visit. Patient Phone Numbers Labs: Lab Results Component Value Date/Time CREAT 2.3 (H) 07/04/2022 10:09 AM CREAT 2.8 (H) 08/15/2020 03:19 PM POTASSIUM 4.7 07/04/2022 10:09 AM POTASSIUM 4.9 08/15/2020 03:19 PM TSH 1.30 11/18/2020 03:07 PM TSH 1.61 05/24/2017 12:02 PM LDLCALC UNINTERPRETABLE RESULT 04/22/2014 08:45 AM LDLDIRECT 67 04/02/2022 09:40 AM LDLDIRECT 57 03/29/2020 08:58 AM LDLDIRECT 100 10/02/2018 08:19 AM ALT 15 07/04/2022 10:09 AM ALT 15 08/15/2020 03:19 PM HGBA1C 7.6 (H) 04/02/2022 09:40 AM HGBA1C 7.0 (H) 06/03/2020 09:34 AM documented in this encounter Plan of Treatment Upcoming Encounters Date Type Specialty Care Team Description 12/12/2022 Imaging Radiology 12/19/2022 Hospital Encounter Surgery Chuy Asencio DO [address] [place] [address] 12/19/2022 Surgery Surgery Chuy Asencio DO [address] [place] [address] INJECTION SPINE LUMBAR OR SACRAL 12/24/2022 Office Visit Family Medicine Mark Santos DO [address] [facility] [place] [address] 12/27/2022 Office Visit Ophthalmology Kody Mason DO [address] [facility] [place] [phone] 12/28/2022 Office Visit Family Medicine Jamar Guerrero PA-C [address] [place], [place] [phone] 01/02/2023 Laboratory Laboratory [place], [address] [place], [place] [phone] 01/09/2023 Hospital Encounter Surgery Kody Mason, DO [address] [facility] [place] [address] 01/09/2023 Surgery Surgery Kody Mason, DO [address] [place] [address] LEFT EXTRACAPSULAR CATARACT REMOVAL COMPLEX WITH IOL 01/10/2023 Office Visit Ophthalmology Kody Mason, DO [address] [place] [address] 01/17/2023 Office Visit Ophthalmology Kody Mason, DO [address] [place] [address] 02/06/2023 Hospital Encounter Surgery Kody Mason, DO [address] [place] [address] 02/06/2023 Surgery Surgery Kody Mason, DO [address] [place] [address] RIGHT EXTRACAPSULAR CATARACT REMOVAL COMPLEX WITH IOL 02/07/2023 Office Visit Ophthalmology Kody Mason, [address] [place] [address] 02/13/2023 Office Visit Family Medicine Mark Santos, DO [address] [facility], [place] [address] 02/14/2023 Office Visit Ophthalmology Kody Mason, DO [address] [facility] [place] [address] Scheduled Procedures Name Priority Associated Diagnoses Date/Ti me INJECTION SPINE LUMBAR OR SACRAL Spinal stenosis of lumbar region with neurogenic claudication 12/19/2022 12:20 PM EDT EXTRACAPSULAR CATARACT REMOVAL COMPLEX WITH [...] (2 - Td or Tdap) 03/16/2018 03/16/2008 CKD HGB USE SMARTSET 42240 09/30/202204/02, 04/02/2022, 07/20/2021, Additional history exists HgA1C 09/30/2022 04/02/2022, 06/23, 11/18/2020, Additional history exists CKD CALCIUM USE SMARTSET 58503 10/02/2022 07/04/2022, 04/02/2022, 07/20/2021, Additional history exists GFR - Renal Function 01/02/2023 07/04/2022, 04/02/2022, 07/20/2021, Additional history exists Albumin/Creatinine Ratio 07/04/20232 022, 07/26/2021, 08/15/2020, Additional history exists CKD PHOS USE SMARTSET 19641 07/04/202306/21, 04/02/2022, 08/15/2020, Additional history exists DIABETES-FOOT EXAM 07/11/2023 07/11/2022, 1 09/05/2020, 04/11/2020, Additional history exists Depression Screening, Annual for Pts 12 and Over 07/11/2023 07/11/2022 CKD NEPHROLOGY EVAL USE SMARTSET 70513 07/26/2023 07/26/2021, 05/04/2009 DIABETES-EYE EXAM 11/02/2023 11/01/2022, , 11/01/2022, Additional history exists COLONOSCOPY-EVERY 3 YRS AGES 18-100 08/31/2024 08/31/2021, 08/31/2021, 09/16/2019, Additional history exists Lipid Panel 04/02/2027 04/02/2022, 06/23, 11/18/2020, Additional history exists LUNG CANCER SCREENING - USE SMARTSET 24710 Completed 07/13/2019, 05/23/2009 CKD PTH USE SMARTSET 99164 Completed 11/18, 08/15/2020, 08/03/2019, Additional history exists Pneumococcal Vaccine: 65+ Years Completed 07/05/2021, 06/07/2020, [...] as of this encounter Visit Diagnoses Diagnosis Proteinuria, unspecified type HTN, goal below 130/80 Unspecified essential hypertension Spinal stenosis of lumbar region with neurogenic claudication Spinal stenosis, lumbar region, with neurogenic claudication Cataract Unspecified cataract Cataract Unspecified cataract documented in this encounter Care Teams Public Information Relations Manager Relationship Specialty Start Date End Date Mark Santos, [address] [address] PCP - General Internal Medicine 12/09/20 documented as of this encounter
--- OUTSIDE RECORDS SUMMARY | 2023-06-01 14:46 | External Medical Summary | Summary of Care ---
Author Name Unknown Organization [facility] Address [address] [place] [facility] [place] [address] Phone [phone] Care Team Providers Care Inspector Type Name Role Phone Mark Choudhury DO Primary Care Provid er Encounter Details Date Type Department Care Team Description 12/18/[address] [address] Mark Choudhury DO [address] [place] [address] Allergies No known active allergiesdocumented as of this encounter (statuses as of 12/18/2022) Medications Medication Sig Dispensed Refills Start Date [...] as of this encounter (statuses as of 12/18/2022) Active Problems Problem Noted Date Insomnia due [...] as of this encounter (statuses as of 12/18/2022) Resolved Problems Problem Noted Date Resolved Date [...] as of this encounter (statuses as of 12/18/2022) Immunizations Name Administration Dates Next Due Pneumococcal [...] Miscellaneous Notes * Telephone Encounter - Mark Choudhury DO - 12/18/2022 11:56 AM EDT Noted. If scrotal drainage would recur, next step would be re-evaluation with Urology. If patient had significant infection /collection would still expect there to be changes on CT scan despite antibiotics * Telephone Encounter - Mari Metzger LPN - 12/18/2022 11:51 AM EDT Spoke with patient's Shelia. Gave her results and she said that because patient was given antibiotics that whatever was there disappeared so of course nothing would show up on the CT. She asked if they still needed to keep appointment on 12/24/2022 and I said yes especially if she is still having concerns. She declined and said they will just wait until the issue occurs again. * Telephone Encounter - Aron Lemus LPN - 12/18/2022 10:02 AM EDT ----- Message from Mark Choudhury DO sent at 12/15/2022 9:48 AM EDT ----- Reviewed patient's CT abdomen/pelvis. Does not seem to show any evidence of abscess or collection in his scrotal or pelvic area. At last visit he was having some drainage from previous surgical site there. If this continues I recommend he follow-up with urology documented in this encounter Plan of Treatment Upcoming Encounters Date Type Specialty Care Team Description 12/19/2022 Hospital Encounter Surgery Chuy Asencio, [address] [place] [address] 12/19/2022 Surgery Surgery Chuy Asencio, DO [address] [place] [address] INJECTION SPINE LUMBAR OR SACRAL 12/24/2022 Office Visit Family Medicine Macey Mark Morris, DO [address] [place] [address] 12/27/2022 Office Visit Ophthalmology Kody Mason, DO [address] [place] [address] 12/28/2022 Office Visit Family Medicine Jamar Guerrero PA-C [address] [place], [place] [phone] 01/02/2023 Laboratory Laboratory [place] [facility] [address] [place], [place] [phone] 01/09/2023 Hospital Encounter Surgery Kody Mason, DO [address] [place] [address] 01/09/2023 Surgery Surgery Kody Mason, DO [address] [place] [address] LEFT EXTRACAPSULAR CATARACT REMOVAL COMPLEX WITH IOL 01/10/2023 Office Visit Ophthalmology Kody Mason, [address] [place] [address] 01/17/2023 Office Visit Ophthalmology Kody Mason, [address] [place] [address] 02/06/2023 Hospital Encounter Surgery Kody Mason, [address] [place] [address] 02/06/2023 Surgery Surgery Kody Mason, DO [address] [place] [address] RIGHT EXTRACAPSULAR CATARACT REMOVAL COMPLEX WITH IOL 02/07/2023 Office Visit Ophthalmology Kody Mason, DO [address] [place] [address] 02/13/2023 Office Visit Family Medicine Mark Choudhury, DO [address] [facility] [place] [address] 02/14/2023 Office Visit Ophthalmology Kody Mason, DO [address] [place] [address] Scheduled Procedures Name Priority Associated Diagnoses Date/Ti [...] Comments DISCUSS TOBACCO CESSATION (REFER TO SMARTSET #1766) 1950 COVID-19 Vaccine (#1) 1950 Zoster Vaccines [...] exists LUNG CANCER SCREENING - USE SMARTSET 18437 Completed 07/13/2019, 05/23/2009 Pneumococcal Vaccine: 65+ Years [...] Not on filedocumented as of this encounter Care Teams Inspector Type Relationship Specialty Start Date End Date Mark Choudhury, [address] [place] [address] PCP - General Internal Medicine 12/09/20 documented as of this encounter
--- OUTSIDE RECORDS SUMMARY | 2023-06-01 14:46 | External Medical Summary | Summary of Care ---
Author Name Unknown Organization [facility] Address [address] [facility] [address] Phone [phone] Care Team Providers Care Fur Tinter Name Role Phone Mark Choudhuryothy Primary Care Provid er Reason for Visit * Reason Comments Follow Up IOL/HARPER Encounter Details Date Type Department Care Team Description 12/27/2022 Office Visit Ophthalmology, [facility] [address] [facility] [place] [address] Kody Mason DO [address] [place] [address] Age-related nuclear cataract of both eyes*; S/P LASIK surgery Allergies No known active allergiesdocumented as of this encounter (statuses as of 12/27/2022) Medications Medication Sig Dispensed Refills Start Date [...] as of this encounter (statuses as of 12/27/2022) Active Problems Problem Noted Date Insomnia due [...] as of this encounter (statuses as of 12/27/2022) Resolved Problems Problem Noted Date Resolved Date [...] as of this encounter (statuses as of 12/27/2022) Immunizations Name Administration Dates Next Due Pneumococcal [...] Progress Notes * Kody Mason, DO - 12/27/2022 10:00 AM EDT 12/27/22 [facility] Note HPI: José Gallardo Jr. is a 72 year old pt who presents to the eye clinic today as a return - IOL/harper. Past Ocular History: T2DM w/o hx of retinopathy Hx of LASIK OU (20 years ago, [place]) Eye Medications:Denies Family Ocular History: Denies Date: 11/01/22 OCT Macula: OD - Irregular foveal contour, temporal thinning OS - Irregular foveal contour A/P: Cataract OS>>OD Recommend CE/IOL left eye first. Risks, benefits, and alternatives were discussed with the patient.Explained the elective nature of the procedure and that no surgery is without risk. Discussed the option of continued non-surgical management and risks of worsening disease. Explained goals of surgery. No promises made re: outcome. Discussed options including glasses, surgery, observation. All pertinent risks and benefits reviewed with patient, including but not limited to: posterior capsule rupture, need for anterior vitrectomy, dropped/retained lens material, pain, inflammation, infection, abnormal IOP, retinal tear, retinal detachment, bleeding, need for more treatment/surgery, permanent vision loss. Typical postop course discussed and explained potential need for adjustment based on clinical course. The patient verbalized understanding of options, risks/benefits/alternatives of options, and that all questions/concerns were addressed. The patient verbalized a desire to proceed for CE/IOL Indication for removal = visually-significant both eyes, start OS Indication for cataract removal explained to patient, as well as expected postoperative visual outcome in setting of the patient's specific overall ocular health. Dilates = Poor, add MPF lidocaine and consider ring Guttata = None PXF=None Retina = OCT macula above Flomax = YES Claustrophobia = Denies Anesthesia = Mac/topical Hx of refractive procedure=YES - LASIK OU, unknown type Hx of trauma=Denies Hx of contact lens use=Denies IOL Measurements = Slight myopia target Understands need for readers May need glasses c/o astigmatism IOL interpretation = Biometry (IOL) & topography (if indicated) will be obtained in near futureto determine the intended refractive target for this patient. These choices will be reflected in the final selection of the intraocular lens at the time of surgery. Discussed options for surgical anesthesia and potential risks/benefits/alternatives of all options. Discussed need for post-operative drops. Discussed potential need for corrective lenses post-operatively. Discussed possible need for anterior vitrectomy Discussed need for post-operative laser procedure (Nd:YAG capsulotomy). Discussed other potential causes for current decreased visual acuity. The patient was strongly encouraged to call with any questions regarding surgery before and after. Dry Eyes, OU -Recommend artificial tears up to 4 times daily -Brand names given - Refresh or Systane Hx of LASIK OU -Looks good Diabetic Eye Exam -No evidence of Diabetic changes on anterior or posterior exam -Cont blood glucose control and HTN control -RTC in 1 year for routine f/u Last performed: 10/2022 Due next: 10/2023 Mottling of macula, OU -OCT overall stable RTC DOS or sooner prn. Kody Mason DO 12/27/22 documented in this encounter Nursing Notes * Willie Henry RN - 12/27/2022 10:00 AM EDT José Gallardo Jr. is a 72 year old male 11/01/2022 (in office), Visit date not found (telemedicine) IOL/ HARPER, for cataract discussion CHIEF COMPLAINT: none CURRENT EYE MEDICATIONS None History of present illness and complete medical history deferred to physician examination per physician protocol. Patient instructed to address all concerns with their physician. documented in this encounter Plan of Treatment Upcoming Encounters Date Type Specialty Care Team Description 12/28/2022 Office Visit Family Medicine Jamar Guerrero, W[facility] [address] [place] [address] 01/02/2023 Laboratory Laboratory [place], [address] [place] [address] 01/09/2023 Hospital Encounter Surgery Kody Mason, DO [address] [place] [address] 01/09/2023 Surgery Surgery Kody Mason, DO [address] [place] [address] LEFT EXTRACAPSULAR CATARACT REMOVAL COMPLEX WITH IOL 01/10/2023 Office Visit Ophthalmology Kody Mason, DO [address] [place] [address] 01/17/2023 Office Visit Ophthalmology Kody Mason, DO [address] [place] [address] 02/06/2023 Hospital Encounter Surgery Kody Mason, DO [address] [place] [address] 02/06/2023 Surgery Surgery Kody Mason, DO [address] [place] [address] RIGHT EXTRACAPSULAR CATARACT REMOVAL COMPLEX WITH IOL 02/07/2023 Office Visit Ophthalmology Kody Mason, DO [address] [place] [address] 02/13/2023 Office Visit Family Medicine Mark Choudhury, DO [address] [facility], [place] [address] 02/14/2023 Office Visit Ophthalmology Kody Mason, DO [address] [place] [address] Scheduled Orders Name Type Priority Associated Diagnoses Orde r Schedule COMPUTERIZED CORNEAL HARPER Procedures Routine Age-related nuclear cataract of both eyes Ordered: 12/27/2022 Scheduled Procedures Name Priority Associated Diagnoses Date/Ti me EXTRACAPSULAR CATARACT REMOVAL COMPLEX WITH IOL Cataract 01/09/2023 12:47 PM EDT EXTRACAPSULAR CATARACT REMOVAL COMPLEX WITH IOL Cataract 02/06/2023 10:24 AM EDT COLONOSCOPY FLEXIBLE PROXIMAL DIAGNOSTIC Recall History of colonic polyps Health Maintenance Due Date Last Done Comments DISCUSS TOBACCO CESSATION (REFER TO SMARTSET #3249) 1950 COVID-19 Vaccine (#1) 1950 Zoster Vaccines [...] exists LUNG CANCER SCREENING - USE SMARTSET 44758 Completed 07/13/2019, 05/23/2009 Pneumococcal Vaccine: 65+ Years [...] Visit Diagnoses Diagnosis Age-related nuclear cataract of both eyes- Primary Senile nuclear sclerosis S/P LASIK surgery Other states following surgery of eye and adnexa Cataract Unspecified cataract Cataract Unspecified cataract documented in this encounter Care Teams Fur Tinter Relationship Specialty Start Date End Date Mark Choudhury, DO [address] [place] [address] PCP - General Internal Medicine 12/09/20 documented as of this encounter
== END 2023-05-31 13:02 | disposition home or self-care (01) | DRG 454 ==
LOC: ASU 05:59 → 3E 10:07
DX: E87.5 Hyperkalemia; Z79.84 Long term (current) use of oral hypoglycemic drugs; E78.5 Hyperlipidemia, unspecified; F32.9 Major depressive disorder, single episode, unspecified; I95.81 Postprocedural hypotension; D62 Acute posthemorrhagic anemia; F17.210 Nicotine dependence, cigarettes, uncomplicated; N18.4 Chronic kidney disease, stage 4 (severe); Z79.899 Other long term (current) drug therapy; Z79.82 Long term (current) use of aspirin; I12.9 Hypertensive chronic kidney disease with stage 1 through stage 4 chronic kidney disease, or unspecified chronic kidney disease; K59.00 Constipation, unspecified; E11.22 Type 2 diabetes mellitus with diabetic chronic kidney disease; M48.062 Spinal stenosis, lumbar region with neurogenic claudication

== ENCOUNTER 2023-06-02 11:10 | Inpatient (IN) ==
--- NOTE | 2023-06-02 12:16 | Emergency Department Note ---
Impression & Plan Weakness, Falls, History of lumbar surgery, Acute pain of right knee ED Provider Note Provider: Manuel Arambula MD DATE OF SERVICE: 06/02/2023 CHIEF COMPLAINT: Fall x2 HISTORY OF PRESENT ILLNESS: Patient is a 73-year-old gentleman past medical history of diabetes, hypertension, CKD status post lumbar surgery and fusion on May [address] Michaud presenting here from home via ambulance. Patient discharged on Saturday home. States that since being home he had 1 episode where he was walking behind his holding his shoulder and she maybe was going too fast he fell forward. Denies striking his head or knocking himself out. Denies dizziness or chest pain. States with some effort they are able to get a mild. States last evening he was between 2 family members heading up the stairs when near the top he felt weak and got down on his hands and knees and had to crawl the rest of the way up the stairs until he could make it and crawl to his bed and get in. States his was concerned about how he was doing and thus called an ambulance and had him brought here this morning but denies falling this morning. States he has some back discomfort but not severe. States a little bit of pain when he moves his right knee but denies pain at rest. Denies injury to the other extremities. Denies fever. Still little bit of sore throat since the surgery but denies significant cough or respiratory symptoms. PAST MEDICAL HISTORY: As noted above MEDICATIONS: Reviewed home medication list SOCIAL HISTORY: Lives at home with PHYSICAL EXAM: GENERAL: alert and oriented in no acute distress on stretcher Head: normocephalic and atraumatic EYES: No injection, discharge or icterus. NECK: Trachea midline. ENT: Mucous membranes pink and moist. Pharynx without erythema or exudate. LUNGS: Airway patent. No retractions. Breath sounds clear with good air entry bilaterally. HEART: Regular rate and rhythm. No chest wall tenderness ABDOMEN: Soft and non-tender, without guarding or rebound. BACK: Slight mild lumbar lower bandaging in place. SKIN: Acyanotic, warm, dry, without rashes EXTREMITIES: Without swelling, tenderness or deformity slight pain with ROM of the right knee but not significant swollen or with bony tenderness at rest. NEUROLOGICAL: No focal deficits moves all extremities. A bit slow to sit up due to some pain in his back but able to do so.. No aphasia. No facial droop or slurred speech. Sensation to gross touch normal. Ambulatory. EK bpm normal sinus rhythm. No PVC. No acute ST segment elevation or depression with a QTc of 442 CONTINUOUS CARDIAC MONITORING: was ordered and showed a heart rate of 60s to 70s bpm in normal sinus rhythm Patient's laboratory studies and imaging reviewed. Differential includes Infection, dehydration, metabolic abnormality, hypo/hyperglycemia, electrolyte disturbance, anemia, hypoxia, cardiac sources, intracerebral event, toxicologic, neurologic, as well as other pathologies. IMPRESSION/MEDICAL DECISION MAKING: Patient does not appear to have any severe trauma or deformities on exam. Little bit pain with motion of the right knee but not significantly swollen or tender on exam at rest. Bandaged wound to the lower lumbar back but not severely tender here with significant discharge. Basic labs obtained. X-ray of the lumbar spine as well as the right knee obtained. Doubt fractures. Doubt internal bleeding. Discussed with the patient initially if he thought he might benefit from additional rehab. He states he really just wants to watch the football game at 1 PM and would prefer to go home. Lower suspicion for postsurgical infection at this time. No acute neurological deficits appreciated on exam. EKG reassuring. Denies any chest pain. Troponin normal. No signs of LFT abnormalities. Negative COVID. Stable CKD. No significant electrolyte abnormalities. Slight leukocytosis and 0.6 appears fairly stable and chronic since the surgery. Anemia is improving compared to previous. X-rays of the right knee as well as the lumbar spine reviewed by myself and radiology reports reviewed with slight joint effusion to the right knee but no significant hardware abnormalities noted of the lumbar spine. Discussed with patient options at this time if you wish to pursue possible placement or further rehab. Discussed with him risks including possible falls and that he could sustain significant injury or injure his back from this. I doubt that he is having a systemic infection at this time. In shared decision-making with him and his is now present she strongly wished for him to seek rehab services and he was agreeable. Hospitalist was contacted. DIAGNOSIS: Weakness, falls, recent lumbar spine surgery, right knee pain DISPOSITION: Hospitalist will evaluate Patient was agreeable with this plan. Past Med/Surg History Medical History (Updated 06/02/23 @ 18:23 by Manuel Arambula M.D.) Chronic kidney disease Stage IV, creatinine stable in the 2.1-2.4 range for past 1+ years PCP aware/monitoring Hard of hearing Anemia Colon cancer Dx 2007, Treated surgically Cyst, kidney, acquired PCP monitors Diabetes mellitus, type 2 Depression Hypertension Hyperlipidemia Surgical History (Updated 06/02/23 @ 18:23 by Manuel Arambula M.D.) History of cataract surgery Hx of arthroscopy of right knee Hx of resection of large bowel Hx of colonoscopy Social History Smoking Status: Current every day smoker Tobacco Type: Cigarettes Cigarettes Per Day: 1/2-1 PPD; Second Hand Exposure: Yes ( smokes); Do You Dip or Chew Tobacco: Yes (occasional- advised none DOS); Hx Alcohol Use: No Hx Substance Use: No Preferred Language: Togolese Communication Ability: Effective Weather Anchor Required: No Beliefs That Will Affect Care: None Current Living Situation: Spouse Feels Safe at Home: Yes Assistive Devices: Walker Allergies Allergies Allergy/AdvReac Type Severity Reaction Status Date / Time No Known Allergies Allergy Unknown Verified 06/02/23 15:21 Home Meds Home Medications Medication Instructions Recorded Confirmed amlodipine 10 mg tablet 5 mg PO QPM 07/17/19 06/02/23 atorvastatin 40 mg tablet 40 mg PO QAM 07/17/19 06/02/23 furosemide 40 mg tablet 40 mg PO QAM 07/17/19 06/02/23 glipizide 10 mg tablet 10 mg PO BID 07/17/19 06/02/23 lisinopril 40 mg tablet 40 mg PO BID 07/17/19 06/02/23 sertraline 25 mg tablet (Zoloft) 25 mg PO QAM 07/17/19 06/02/23 tamsulosin 0.4 mg capsule 0.4 mg PO QAM 07/17/19 06/02/23 multivitamin 1 tab PO QAM 09/09/21 06/02/23 ascorbic acid (vitamin C) 500 mg 500 mg PO QAM 05/01/23 06/02/23 tablet (Vitamin C) aspirin 81 mg tablet,delayed 81 mg PO QAM 05/01/23 06/02/23 release cinnamon bark 500 mg capsule 1,000 mg PO QPM 05/01/23 06/02/23 (Cinnamon) trazodone 150 mg tablet 150 mg PO HS 05/01/23 06/02/23 docusate sodium 50 mg capsule 50 mg PO DAILY 05/28/23 06/02/23 polyethylene glycol 3350 17 17 g PO DAILY 05/28/23 06/02/23 gram/dose oral powder ferrous sulfate 325 mg (65 mg 325 mg PO DAILY 06/02/23 06/02/23 iron) tablet (iron) zinc acetate 50 mg (zinc) capsule 50 mg PO DAILY 06/02/23 06/02/23 Previous Rx's Medication Instructions Recorded oxycodone 5 mg tablet 5 mg PO Q6H PRN pain #30 tabs 05/28/23 tramadol 50 mg tablet 50 mg PO Q6H PRN pain, moderate 05/28/23 #30 tabs Results & Data (ED) Vital Signs Vital Signs - 24 hr 06/02/23 11:15 06/02/23 11:37 06/02/23 12:03 Temperature 36.7 C Temperature Source Oral Pulse Rate 77 80 Pulse Rate [Apical] 70 Respiratory Rate 18 18 Respiratory Effort / Characteristics Non-Labored Spontaneous Non-Labored Spontaneous Respiratory Depth Normal Normal Blood Pressure 116/70 Blood Pressure [Right Arm] 116/70 Blood Pressure Mean 85 Blood Pressure Mean [Right Arm] 85 Blood Pressure Position Sitting Blood Pressure Position [Right Arm] Sitting Pulse Oximetry 98 93 Oxygen Delivery Method Room Air Room Air Sepsis Recent Fever Within 48 Hours No Sepsis New/Unexplained Change in Mental Status No Sepsis Action Taken by Nursing No Action Required 06/02/23 12:33 06/02/23 12:34 06/02/23 15:13 Temperature Temperature Source Pulse Rate 69 Pulse Rate [Apical] 69 72 Respiratory Rate 18 18 Respiratory Effort / Characteristics Non-Labored Spontaneous Non-Labored Spontaneous Respiratory Depth Normal Normal Blood Pressure Blood Pressure [Right Arm] 146/74 H 135/70 Blood Pressure Mean Blood Pressure Mean [Right Arm] 98 91 Blood Pressure Position Blood Pressure Position [Right Arm] Sitting Lying Pulse Oximetry 98 98 98 Oxygen Delivery Method Room Air Room Air Room Air Sepsis Recent Fever Within 48 Hours Sepsis New/Unexplained Change in Mental Status Sepsis Action Taken by Nursing 06/02/23 16:09 06/02/23 17:16 Temperature Temperature Source Pulse Rate 70 Pulse Rate [Apical] 66 Respiratory Rate 18 Respiratory Effort / Characteristics Non-Labored Spontaneous Respiratory Depth Normal Blood Pressure Blood Pressure [Right Arm] 137/69 Blood Pressure Mean Blood Pressure Mean [Right Arm] 91 Blood Pressure Position Blood Pressure Position [Right Arm] Lying Pulse Oximetry 94 Oxygen Delivery Method Room Air Sepsis Recent Fever Within 48 Hours Sepsis New/Unexplained Change in Mental Status Sepsis Action Taken by Nursing Laboratory Data 06/02/23 12:06/02/23 12:23 Lab Results 06/02/23 06/02/23 Range/Units 12: 14:31 WBC 11.67 H (4.8-10.8) K/ul RBC 3.04 L (4.70-6.10) M/uL Hgb 10.2 L (14.0-18.0) g/dl Hct 29.2 L (42.0-52.0) % MCV 96.1 (80.0-100.0) fL MCH 33.6 (25.0-34.0) pg MCHC 34.9 (32.0-36.0) g/dL RDW Std Deviation 43.9 (36.4-46.3) fL RDW Coeff of Matt 12.6 (11.5-14.5) % Plt Count 248 (130-400) K/uL MPV 9.9 (9.4-12.4) fL Immature Gran % (Auto) 0.6 % Neut % (Auto) 79.1 % Lymph % (Auto) 11.6 % [place] % (Auto) 8.1 % Eos % (Auto) 0.4 % Baso % (Auto) 0.2 % Neut # (Auto) 9.24 H (1.40-6.50) K/uL Lymph # (Auto) 1.35 (1.20-3.40) K/uL [place] # (Auto) 0.94 H (0.11-0.59) K/uL Eos # (Auto) 0.05 (0.00-0.50) K/uL Baso # (Auto) 0.02 (0.00-0.20) K/uL Immature Gran # (Auto) 0.07 (0.01-0.20) K/uL Sodium 138 (136-145) mmol/L Potassium 4.0 (3.5-5.1) mmol/L Chloride 104 (98-107) mmol/L Carbon Dioxide 27 (21-32) mmol/L Anion Gap 7 (3-11) BUN 44 H (6-23) mg/dl Creatinine 2.36 H (0.6-1.4) mg/dl Est Cr Clr Drug Dosing 31.4 ml/min Est GFR ( Amer) 30.9 ml/min Est GFR (Non-Af Amer) 26.7 ml/min BUN/Creatinine Ratio 18.6 (10-20) Glucose 195 H (70-99(Fasting)) mg/dl Calcium 8.9 (8.6-10.3) mg/dl Magnesium 1.8 (1.7-2.4) mg/dl Total Bilirubin 0.7 (0.2-1.0) mg/dl AST 20 (13-39) U/L ALT 8 (7-52) U/L Alkaline Phosphatase 77 (34-104) U/L Troponin I High Sens 5.3 (0-20) pg/ml Total Protein 6.4 (6.0-8.3) gm/dl Albumin 3.4 (3.4-5.0) gm/dl Globulin 3.0 (2.5-4.0) gm/dl Albumin/Globulin Ratio 1.1 (0.9-2) TSH 1.651 (0.300-4.500) uIu/ml Urine Color Yellow Urine Appearance Clear (Clear) Urine pH 5.0 (4.5-7.5) Ur Specific [place] 1.013 (1.000-1.030) Urine Protein Negative (Negative) Urine Glucose (UA) Negative (Negative) Urine Ketones Negative (Negative) Urine Blood Negative (Negative) Urine Nitrite Negative (Negative) Urine Bilirubin Negative (Negative) Urine Urobilinogen Negative (Negative) Ur Leukocyte Esterase Negative (Negative) SARS-CoV-2, RNA, NAAT NEGATIVE (NEGATIVE) Imaging Data Radiologist's Impression: Knee X-Ray 06/02/23 12:05 XR knee RT 3V CLINICAL HISTORY: falls. Right knee pain. COMPARISON STUDY: None. FINDINGS: No fracture or dislocation within the right knee. There is chondrocalcinosis. Vascular calcifications are noted. Moderate knee effusion. No significant soft tissue swelling. Moderate osteoarthritis within the right knee. IMPRESSION: 1. No acute fractures. 2. Moderate joint effusion. 3. Degenerative changes and chondrocalcinosis. ACT 112: Negative or not required by law. Electronically signed by: Ming Crespo M.D. 06/02/2023 1:54 PM Lumbar Spine X-Ray 06/02/23 12:05 XR lumbar spine 2-3V CLINICAL HISTORY: falls, s/p surgery COMPARISON STUDY: 05/28/2023. FINDINGS: Posterior decompression fusion with pedicle screws and rods from L4 through S1. The hardware appears intact. Disc spacers are placed. No abnormal periprosthetic lucency. No acute fracture or subluxation within the lumbar spine. Vascular calcifications are noted. Visualized sacrum is intact. Rectal suture material is noted. IMPRESSION: No fractures within the lumbar spine. Postoperative changes as described above. ACT 112: Negative or not required by law. Electronically signed by: Ming Crespo M.D. 06/02/2023 1:59 PM Chest X-Ray 06/02/23 12:06 XR chest 1V not portable HISTORY: weak/falls COMPARISON: Chest 05/07/2023. FINDINGS: The lungs are clear. Cardiac silhouette is normal in size. No pleural effusions. No pneumothorax. IMPRESSION: No acute process. ACT 112: Negative or not required by law. Electronically signed by: Ming Crespo M.D. 06/02/2023 1:52 PM Discharge Plan Visit Data Chief Complaint: Fall Stated Complaint: FALL ED Provider: Manuel Arambula Discharge Problem: Weakness, Falls, History of lumbar surgery, Acute pain of right knee Patient Disposition: Being Evaluated by Hospitalist Discharge Instructions Interventions: ED Discharge Assessment Last Done: 06/02/23 17:30 Forms Stand Alone Forms: [facility] Prescriptions Prescriptions: No Action furosemide 40 mg Tablet 40 mg PO QAM atorvastatin 40 mg Tablet 40 mg PO QAM glipizide 10 mg Tablet 10 mg PO BID tamsulosin 0.4 mg Capsule 0.4 mg PO QAM amlodipine 10 mg Tablet 5 mg PO QPM sertraline [Zoloft] 25 mg Tablet 25 mg PO QAM lisinopril 40 mg Tablet 40 mg PO BID aspirin 81 mg Tablet,Delayed Release (Dr/Ec) 81 mg PO QAM ascorbic acid (vitamin C) [Vitamin C] 500 mg Tablet 500 mg PO QAM trazodone 150 mg Tablet 150 mg PO HS cinnamon bark [Cinnamon] 500 mg Capsule 1,000 mg PO QPM docusate sodium 50 mg Capsule 50 mg PO DAILY polyethylene glycol 3350 17 gram/dose Powder 17 g PO DAILY tramadol 50 mg tablet 50 mg PO Q6H PRN (Reason: pain, moderate) Qty: 30 0RF oxycodone 5 mg tablet 5 mg PO Q6H PRN (Reason: pain) Qty: 30 0RF zinc acetate 50 mg (zinc) Capsule 50 mg PO DAILY ferrous sulfate [iron] 325 mg (65 mg iron) Tablet 325 mg PO DAILY multivitamin Tablet 1 tab PO QAM Referrals Referrals: Mark Choudhury MD [Primary Care Provider] - Discharge Problem: Falls Qualifiers: Encounter type: initial encounter Qualified Code(s): W19.XXXA - Unspecified fall, initial encounter
[2023-06-02 12:40] LABS: Basophils # (auto) 0.02 K/uL (0.00-0.20); Basophils % (auto) 0.2 %; Eosinophils # (auto) 0.05 K/uL (0.00-0.50); Eosinophils % (auto) 0.4 %; Hematocrit (blood only) 29.2 % (42.0-52.0); Hemoglobin 10.2 g/dl (14.0-18.0); Immature Granulocytes # (auto) 0.07 K/uL (0.01-0.20); Immature Granulocytes % (auto) 0.6 %; Lymphocytes # (auto) 1.35 K/uL (1.20-3.40); Lymphocytes % (auto) 11.6 %; Mean Corpuscular Hemoglobin 33.6 pg (25.0-34.0); Mean Corpuscular Hgb Conc 34.9 g/dL (32.0-36.0); Mean Corpuscular Volume 96.1 fL (80.0-100.0); Mean Platelet Volume 9.9 fL (9.4-12.4); Monocytes # (auto) 0.94 K/uL (0.11-0.59); Monocytes % (auto) 8.1 %; Neutrophils # (auto) 9.24 K/uL (1.40-6.50); Neutrophils % (auto) 79.1 %; Platelet Count 248 K/uL (130-400); RDW Coefficient of Variation 12.6 % (11.5-14.5); RDW Standard Deviation 43.9 fL (36.4-46.3); Red Blood Count 3.04 M/uL (4.70-6.10); White Blood Count 11.67 K/ul (4.8-10.8)
[2023-06-02 13:02] LABS: Albumin Globulin Ratio 1.1 (0.9-2); Albumin Level 3.4 gm/dl (3.4-5.0); BUN Creatinine Ratio 18.6 (10-20); Bilirubin,Total 0.7 mg/dl (0.2-1.0); Calcium 8.9 mg/dl (8.6-10.3); Creatinine Clr Calc Pharmacy 31.4 ml/min; Est GFR (African American) 30.9 ml/min; Est GFR (Non-African American) 26.7 ml/min; Magnesium 1.8 mg/dl (1.7-2.4); Total Protein 6.4 gm/dl (6.0-8.3)
[2023-06-02 13:09] LABS: Troponin I High Sensitivity 5.3 pg/ml (0-20)
[2023-06-02 13:18] LABS: Thyroid Stimulating Hormone 1.651 uIu/ml (0.300-4.500)
--- NOTE | 2023-06-02 13:55 | XRay Report ---
XR chest 1V not portable HISTORY: weak/falls COMPARISON: Chest 05/07/2023. FINDINGS: The lungs are clear. Cardiac silhouette is normal in size. No pleural effusions. No pneumot horax. IMPRESSION: No acute process. ACT 112: Negative or not required by law. Electronically signed by: Ming Crespo M.D. 06/02/2023 1:52 PM
--- NOTE | 2023-06-02 13:56 | XRay Report ---
XR knee RT 3V CLINICAL HISTORY: falls. Right knee pain. COMPARISON STUDY: None. FINDINGS: No fracture or dislocation within the right knee. There is chondrocalcinosis. Vascular calc ifications are noted. Moderate knee effusion. No significant soft tissue swelling. Moderate osteoarth ritis within the right knee. IMPRESSION: 1. No acute fractures. 2. Moderate joint effusion. 3. Degenerative changes and chondrocalcinosis. ACT 112: Negative or not required by law. Electronically signed by: Ming Crespo M.D. 06/02/2023 1:54 PM
--- NOTE | 2023-06-02 14:00 | XRay Report ---
XR lumbar spine 2-3V CLINICAL HISTORY: falls, s/p surgery COMPARISON STUDY: 05/28/2023. FINDINGS: Posterior decompression fusion with pedicle screws and rods from L4 through S1. The hardwar e appears intact. Disc spacers are placed. No abnormal periprosthetic lucency. No acute fracture or s ubluxation within the lumbar spine. Vascular calcifications are noted. Visualized sacrum is intact. R ectal suture material is noted. IMPRESSION: No fractures within the lumbar spine. Postoperative changes as described above. ACT 112: Negative or not required by law. Electronically signed by: Ming Crespo M.D. 06/02/2023 1:59 PM
[2023-06-02 14:43] LABS: Appearance Urine Clear (Clear); Bilirubin Urine Negative (Negative); Blood Urine Negative (Negative); Color Urine Yellow; Glucose Urine UA Negative (Negative); Ketones Urine Negative (Negative); Leukocyte Esterase Urine Negative (Negative); Nitrite Urine Negative (Negative); Protein Urine Negative (Negative); Specific Gravity Urine 1.013 (1.000-1.030); Urobilinogen Urine Negative (Negative)
[2023-06-02] MEDS ORDERED: ONDANSETRON INJ 2 MG/ML 2 ML VIAL IV PRN (16:04)
[2023-06-02] MEDS ORDERED: ALUMINUM/MAGNESIUM SUSP 30 ML UDC PO PRN (16:04)
[2023-06-02] MEDS ORDERED: POLYETHYLENE (MIRALAX) 17 GM PACK PO PRN (16:04)
[2023-06-02] MEDS ORDERED: ACETAMINOPHEN 325 MG TAB PO PRN (16:04)
--- NOTE | 2023-06-02 18:29 | History & Physical Report ---
Date of Service June 02, 2023 Assessment & Plan (1) Falls: (2) Weakness: (3) History of lumbar surgery: Plan 73 yo M with PMhx significant for HTN, HLD, DM II, MDD, CKD, diverticulosis with hx of benign colon polyps who is s/p L3-S1 lumbar decompression with fusion by Dr. Michaud on 05/28/2023 admitted with recurrent falls and weakness at home. requesting placement. Falls Lower extremity weakness s/p lumbar decompression surgery Per , progressive weakness at home post-op Falls and cannot help him, requesting placement Lumbar spine XRAY with no acute changes, notes post op changes Consult ortho spine- Dr. Michaud PT/OT- appreciate recs for placement CM consult- appreciate assistance with placement DMII Holding home glipizide ISS Continue other home meds as ordered Diet: DMII DVT Prophylaxis: Lovenox CODE STATUS: Full code Dispo: PT/OT, complex CM, requesting placement at [facility] preferably History of Present Illness Chief Complaint: Ambulatory dysfunction Primary Care Provider: Mark Choudhury MD 73 yo M with PMhx significant for HTN, HLD, DM II, MDD, CKD, diverticulosis with hx of benign colon polyps who is s/p L3-S1 lumbar decompression with fusion by Dr. Michaud on 05/28/2023 admitted with recurrent falls and weakness at home. requesting placement. Pt alone in the room but contacted by phone for further history. She states he was discharged on Saturday (2 days ago) and seemed to be doing well post his lumbar spinal surgery. States he was able to get up off the commode on his own. The next day (Saturday/yesterday) he fell and she and the granddaughter who was present could not catch him but they were able to get him up. States that he was unable to get off the commode that day and they had to pull him up. Later fell from the top of the stairs and they were able to catch him and let him slide down. States that he later crawled and has been crawling to get around. States that this AM, he could not move at all and she brought him in via ambulance for further evaluation. Notes she is only 147lbs and cannot help him at home especially when her granddaughter is not present. States she would like him placed, preferably at [facility] which is closer to home. Has not yet had follow up with any of his providers and has been taking medications as prescribed. Pt notes fecal incontinence but denies urinary incontinence. States he is not able to move his lower extremities bilaterally, but feels he is weak in all extremities though he can move his upper extremities. Allergies Allergy/AdvReac Type Severity Reaction Status Date / Time No Known Allergies Allergy Unknown Verified 06/02/23 15:21 Home Medications Medication Instructions Recorded Confirmed Type amlodipine 10 mg tablet 5 mg PO QPM 07/17/19 06/02/23 History atorvastatin 40 mg tablet 40 mg PO QAM 07/17/19 06/02/23 History furosemide 40 mg tablet 40 mg PO QAM 07/17/19 06/02/23 History glipizide 10 mg tablet 10 mg PO BID 07/17/19 06/02/23 History lisinopril 40 mg tablet 40 mg PO BID 07/17/19 06/02/23 History sertraline 25 mg tablet (Zoloft) 25 mg PO QAM 07/17/19 06/02/23 History tamsulosin 0.4 mg capsule 0.4 mg PO QAM 07/17/19 06/02/23 History multivitamin 1 tab PO QAM 09/09/21 06/02/23 History ascorbic acid (vitamin C) 500 mg 500 mg PO QAM 05/01/23 06/02/23 History tablet (Vitamin C) aspirin 81 mg tablet,delayed 81 mg PO QAM 05/01/23 06/02/23 History release cinnamon bark 500 mg capsule 1,000 mg PO QPM 05/01/23 06/02/23 History (Cinnamon) trazodone 150 mg tablet 150 mg PO HS 05/01/23 06/02/23 History docusate sodium 50 mg capsule 50 mg PO DAILY 05/28/23 06/02/23 History oxycodone 5 mg tablet 5 mg PO Q6H PRN pain #30 tabs 05/28/23 06/02/23 Rx polyethylene glycol 3350 17 17 g PO DAILY 05/28/23 06/02/23 History gram/dose oral powder tramadol 50 mg tablet 50 mg PO Q6H PRN pain, moderate 05/28/23 06/02/23 Rx #30 tabs ferrous sulfate 325 mg (65 mg 325 mg PO DAILY 06/02/23 06/02/23 History iron) tablet (iron) zinc acetate 50 mg (zinc) capsule 50 mg PO DAILY 06/02/23 06/02/23 History Past Med/Surg History Medical History Chronic kidney disease Stage IV, creatinine stable in the 2.1-2.4 range for past 1+ years PCP aware/monitoring Hard of hearing Anemia Colon cancer Dx 2007, Treated surgically Cyst, kidney, acquired PCP monitors Diabetes mellitus, type 2 Depression Hypertension Hyperlipidemia Surgical History History of cataract surgery Hx of arthroscopy of right knee Hx of resection of large bowel Hx of colonoscopy Social History Smoking Status: Current every day smoker Tobacco Type: Cigarettes Cigarettes Per Day: 1/2-1 PPD; Second Hand Exposure: Yes ( smokes); Do You Dip or Chew Tobacco: Yes (occasional- advised none DOS); Hx Alcohol Use: No Hx Substance Use: No Preferred Language: Yoruba Communication Ability: Effective Curriculum And Instruction Specialist Required: No Beliefs That Will Affect Care: None Current Living Situation: Spouse Feels Safe at Home: Yes Assistive Devices: Walker Review of Systems Review of Systems: All systems reviewed & are unremarkable except as noted in HPI & below Physical Exam Physical Exam: General: Alert, oriented. No acute distress Skin: No noted rashes or bruises Psych: Appropriate mood and affect Neuro: Unable to lift lower legs bilaterally from the bed HEENT: NC/AT Chest: Nontender to palpation. CV: RRR Resp: Breath sounds clear bilaterally, no increased effort of breathing. Abdomen: Soft, nontender, nondistended. Extremities: Unable to lift lower legs bilaterally from the bed, able to move upper extremities bilaterally Results & Data Results & Data Vital Signs (Past 12 Hours) Vital Signs Temp Pulse Pulse Resp BP BP Pulse Ox 06/02/23 15:13 72 18 135/70 98 06/02/23 12:34 69 18 146/74 H 98 06/02/23 12:33 69 98 06/02/23 12:03 80 06/02/23 11:37 70 18 116/70 93 06/02/23 11:15 36.7 C 77 18 116/70 98 O2 Del Method 06/02/23 15:13 Room Air 06/02/23 12:34 Room Air 06/02/23 12:33 Room Air 06/02/23 12:03 06/02/23 11:37 Room Air 06/02/23 11:15 Room Air Diagnostic Findings Knee X-Ray 06/02/23 12:05 XR knee RT 3V CLINICAL HISTORY: falls. Right knee pain. COMPARISON STUDY: None. FINDINGS: No fracture or dislocation within the right knee. There is chondrocalcinosis. Vascular calcifications are noted. Moderate knee effusion. No significant soft tissue swelling. Moderate osteoarthritis within the right knee. IMPRESSION: 1. No acute fractures. 2. Moderate joint effusion. 3. Degenerative changes and chondrocalcinosis. ACT 112: Negative or not required by law. Electronically signed by: Ming Crespo M.D. 06/02/2023 1:54 PM Lumbar Spine X-Ray 06/02/23 12:05 XR lumbar spine 2-3V CLINICAL HISTORY: falls, s/p surgery COMPARISON STUDY: 05/28/2023. FINDINGS: Posterior decompression fusion with pedicle screws and rods from L4 through S1. The hardware appears intact. Disc spacers are placed. No abnormal periprosthetic lucency. No acute fracture or subluxation within the lumbar spine. Vascular calcifications are noted. Visualized sacrum is intact. Rectal suture material is noted. IMPRESSION: No fractures within the lumbar spine. Postoperative changes as described above. ACT 112: Negative or not required by law. Electronically signed by: Ming Crespo M.D. 06/02/2023 1:59 PM Chest X-Ray 06/02/23 12:06 XR chest 1V not portable HISTORY: weak/falls COMPARISON: Chest 05/07/2023. FINDINGS: The lungs are clear. Cardiac silhouette is normal in size. No pleural effusions. No pneumothorax. IMPRESSION: No acute process. ACT 112: Negative or not required by law. Electronically signed by: Ming Crespo M.D. 06/02/2023 1:52 PM (1) Falls Encounter type: initial encounter Qualified Code(s): W19.XXXA - Unspecified fall, initial encounter
[2023-06-02] MEDS ORDERED: oxyCODONE HCL IR 5 MG TAB (IMMEDIATE RELEASE) PO PRN (18:34)
[2023-06-02] MEDS ORDERED: traMADol HCL 50 MG TABLET PO PRN (18:34)
[2023-06-02] MEDS ORDERED: GLUCOSE 40% GEL 15 GM TUBE PO PRN (19:08)
[2023-06-02] MEDS ORDERED: GLUCOSE 10 TAB/TUBE PO PRN (19:08)
[2023-06-02] MEDS ORDERED: GLUCAGON FOR INJ 1 MG VIAL SQ PRN (19:08)
[2023-06-02] MEDS ORDERED: DEXTROSE 50% 50 ML SYRINGE IV PRN (19:08)
[2023-06-02] MEDS ORDERED: CARBOHYDRATES FOR HYPOGLYCEMIA PO PRN (19:08)
[2023-06-02] MEDS: ENOXAPARIN INJ 40 MG/0.4 ML SYR SQ SCH (21:41)
[2023-06-02] MEDS: amLODIPine BESYLATE 5 MG TAB PO SCH (21:41)
[2023-06-02] MEDS: traZODone HCL 50 MG TAB PO SCH (21:42)
[2023-06-02] MEDS: lisinopril 40 MG TAB PO SCH (21:42)
[2023-06-02] MEDS: INSULIN ASPART PER UNIT CHARGE SC SCH (21:55)
--- NOTE | 2023-06-03 06:21 | Electrocardiogram Report ---
Test Reason : Blood Pressure : / mmHG Vent. Rate : 073 BPM Atrial Rate : 073 BPM P-R Int : 130 ms QRS Dur : 090 ms QT Int : 402 ms P-R-T Axes : 007 -28 030 degrees QTc Int : 442 ms Normal sinus rhythm Normal ECG When compared with ECG of 07-MAY-2023 14:21, No significant change was found Confirmed by Thomas Hines ([id number]) on 06/03/2023 6:21:21 AM Referred By: REFERRED SELF Confirmed By:Thomas Hines
[2023-06-03 06:46] LABS: Basophils # (auto) 0.02 K/uL (0.00-0.20); Basophils % (auto) 0.2 %; Eosinophils # (auto) 0.19 K/uL (0.00-0.50); Eosinophils % (auto) 2.3 %; Hematocrit (blood only) 24.6 % (42.0-52.0); Hemoglobin 8.7 g/dl (14.0-18.0); Immature Granulocytes # (auto) 0.06 K/uL (0.01-0.20); Immature Granulocytes % (auto) 0.7 %; Lymphocytes # (auto) 1.93 K/uL (1.20-3.40); Lymphocytes % (auto) 22.9 %; Mean Corpuscular Hemoglobin 33.5 pg (25.0-34.0); Mean Corpuscular Hgb Conc 35.4 g/dL (32.0-36.0); Mean Corpuscular Volume 94.6 fL (80.0-100.0); Mean Platelet Volume 9.9 fL (9.4-12.4); Monocytes % (auto) 9.5 %; Neutrophils # (auto) 5.43 K/uL (1.40-6.50); Neutrophils % (auto) 64.4 %; Platelet Count 216 K/uL (130-400); RDW Coefficient of Variation 12.4 % (11.5-14.5); RDW Standard Deviation 42.9 fL (36.4-46.3); White Blood Count 8.43 K/ul (4.8-10.8)
[2023-06-03 07:10] LABS: Albumin Globulin Ratio 1.1 (0.9-2); Albumin Level 2.8 gm/dl (3.4-5.0); BUN Creatinine Ratio 18.3 (10-20); Bilirubin,Total 0.7 mg/dl (0.2-1.0); Creatinine Clr Calc Pharmacy 32.2 ml/min; Est GFR (African American) 31.9 ml/min; Est GFR (Non-African American) 27.5 ml/min; Globulin 2.6 gm/dl (2.5-4.0); Phosphorus 3.9 mg/dl (2.5-4.9); Potassium 3.8 mmol/L (3.5-5.1); Total Protein 5.4 gm/dl (6.0-8.3)
[2023-06-03] MEDS: lisinopril 40 MG TAB PO SCH (08:25)
[2023-06-03] MEDS: ASPIRIN 81 MG ECTAB PO SCH (08:26)
[2023-06-03] MEDS: DOCUSATE SODIUM 100 MG CAP PO SCH (08:26)
[2023-06-03] MEDS: ASCORBIC ACID 500 MG TAB PO SCH (08:26)
[2023-06-03] MEDS: POLYETHYLENE (MIRALAX) 17 GM PACK PO SCH (08:26)
[2023-06-03] MEDS: FERROUS SULFATE 325 MG TAB PO SCH (08:26)
[2023-06-03] MEDS: SERTRALINE HCL 50 MG TABLET PO SCH (08:27)
[2023-06-03] MEDS: TAMSULOSIN HCL 0.4 MG CAP PO SCH (08:28)
[2023-06-03] MEDS: FUROSEMIDE 40 MG TAB PO SCH (08:28)
[2023-06-03] MEDS: ATORVASTATIN 40 MG TAB PO SCH (08:28)
[2023-06-03] MEDS: INSULIN ASPART PER UNIT CHARGE SC SCH ×4 (08:34→20:56)
[2023-06-03] MEDS ORDERED: DEXAMETHASONE SOD INJ 4 MG/ML VIAL IV SCH (09:50)
--- NOTE | 2023-06-03 09:57 | Orthopedic Consultation ---
Date of Consultation June 03, 2023 Assessment & Plan (1) Neurogenic claudication due to lumbar spinal stenosis: Assessment status post lumbar decompression fusion. Plan patient is still recovering from his surgery. Due to his age and weakness I would recommend rehab placement. We will try to get this arranged for next few days. History of Present Illness Reason for Consultation: Back pain and leg weakness Attending Physician: Odalis Johnston MD History of Present Illness This is a 73-year-old male status post lumbar decompression fusion. Been discharged home but unfortunately declined. He was noticing leg weakness and that and had been falling. This morning he denies any significant back pain denies any leg pain. Denies any pain in his legs with standing. He complains of some right knee pain that has been consistent for years. Allergies Allergy/AdvReac Type Severity Reaction Status Date / Time No Known Allergies Allergy Unknown Verified 06/02/23 15:21 Home Medications Medication Instructions Recorded Confirmed Type amlodipine 10 mg tablet 5 mg PO QPM 07/17/19 06/02/23 History atorvastatin 40 mg tablet 40 mg PO QAM 07/17/19 06/02/23 History furosemide 40 mg tablet 40 mg PO QAM 07/17/19 06/02/23 History glipizide 10 mg tablet 10 mg PO BID 07/17/19 06/02/23 History lisinopril 40 mg tablet 40 mg PO BID 07/17/19 06/02/23 History sertraline 25 mg tablet (Zoloft) 25 mg PO QAM 07/17/19 06/02/23 History tamsulosin 0.4 mg capsule 0.4 mg PO QAM 07/17/19 06/02/23 History multivitamin 1 tab PO QAM 09/09/21 06/02/23 History ascorbic acid (vitamin C) 500 mg 500 mg PO QAM 05/01/23 06/02/23 History tablet (Vitamin C) aspirin 81 mg tablet,delayed 81 mg PO QAM 05/01/23 06/02/23 History release cinnamon bark 500 mg capsule 1,000 mg PO QPM 05/01/23 06/02/23 History (Cinnamon) trazodone 150 mg tablet 150 mg PO HS 05/01/23 06/02/23 History docusate sodium 50 mg capsule 50 mg PO DAILY 05/28/23 06/02/23 History oxycodone 5 mg tablet 5 mg PO Q6H PRN pain #30 tabs 05/28/23 06/02/23 Rx polyethylene glycol 3350 17 17 g PO DAILY 05/28/23 06/02/23 History gram/dose oral powder tramadol 50 mg tablet 50 mg PO Q6H PRN pain, moderate 05/28/23 06/02/23 Rx #30 tabs ferrous sulfate 325 mg (65 mg 325 mg PO DAILY 06/02/23 06/02/23 History iron) tablet (iron) zinc acetate 50 mg (zinc) capsule 50 mg PO DAILY 06/02/23 06/02/23 History Patient History Medical History Chronic kidney disease Stage IV, creatinine stable in the 2.1-2.4 range for past 1+ years PCP aware/monitoring Hard of hearing Anemia Colon cancer Dx 2007, Treated surgically Cyst, kidney, acquired PCP monitors Diabetes mellitus, type 2 Depression Hypertension Hyperlipidemia Surgical History History of cataract surgery Hx of arthroscopy of right knee Hx of resection of large bowel Hx of colonoscopy Social History Smoking Status: Current every day smoker Tobacco Type: Cigarettes Cigarettes Per Day: 1/2-1 PPD; Second Hand Exposure: Yes ( smokes); Do You Dip or Chew Tobacco: Yes (occasional- advised none DOS); Hx Alcohol Use: No Hx Substance Use: No Preferred Language: Georgian Communication Ability: Effective Video Recorder Mechanic Required: No Beliefs That Will Affect Care: None Current Living Situation: Spouse Feels Safe at Home: Yes Assistive Devices: Walker Physical Exam Physical Exam: On exam he does appear comfortable. Is reasonable strength testing. Sensory is intact. Results & Data Vital Signs (Past 12 Hours) Vital Signs Temp Resp BP Pulse Ox O2 Del Method 06/03/23 07:23 37.1 C 16 104/50 L 97 Room Air
[2023-06-03] MEDS: dexAMETHasone 8 MG in SYRINGE 0 ML IV SCH (10:10)
[2023-06-03] MEDS: ACETAMINOPHEN 500 MG TAB PO SCH (13:16)
[2023-06-03] MEDS ORDERED: TRIAMCINOLONE ACET 40 MG/ML VIAL IA ONE (15:00)
[2023-06-03] MEDS ORDERED: BUPIVACAINE/EPINEPHRINE 0.25% 1:200,000 30 ML VIAL INFIL ONE (15:00)
--- NOTE | 2023-06-03 15:08 | Orthopedic Consultation ---
Date of Service June 03, 2023 Assessment & Plan (1) Osteoarthritis of right knee: At this point, x-rays were reviewed with the patient which he does have osteoarthritic changes to the right knee joint. Conservative treatment was discussed in entirely with the patient in which he elected to undergo a right knee intra-articular steroid injection. Orders were placed today for the injection to be completed tomorrow morning. It was discussed the possibility of discharge today. If the patient would like to hold off on the steroid injection in favor of being discharged today [facility], he may follow-up as an outpatient to get the injection. If the patient is still here tomorrow, we will complete the injection in the morning. He may continue to be weightbearing as tolerated to the right lower extremity. He may work with physical therapy and Occupational Therapy. Restrictions from spine, please see consultation from orthopedic spine. We will see him tomorrow for injection. History of Present Illness Reason for Consultation: . RIGHT KNEE EFFUSION Requesting Physician: . Attending Physician: Odalis Johnston MD . Patient is a 73-year-old male who was just released from the hospital from lumbar spine surgery last week who subsequentially fell on multiple occasions w ith the most recent landing on his right knee causing discomfort. He was brought into the emergency department today due to his wanted him to be placed into a rehabilitation unit. We were asked today to evaluate his right knee due to the right knee effusion. He notes that at this present time his pain is pretty diffuse throughout the right knee in which she would rated as like a 6 out of 10 at worst. He denies any low back pain, proximal/distal extremity pain, numbness/tingling, or paresthesias. He denies any other concerns at this point. Allergies Allergy/AdvReac Type Severity Reaction Status Date / Time No Known Allergies Allergy Unknown Verified 06/02/23 15:21 Home Medications Medication Instructions Recorded Confirmed Type amlodipine 10 mg tablet 5 mg PO QPM 07/17/19 06/02/23 History atorvastatin 40 mg tablet 40 mg PO QAM 07/17/19 06/02/23 History furosemide 40 mg tablet 40 mg PO QAM 07/17/19 06/02/23 History glipizide 10 mg tablet 10 mg PO BID 07/17/19 06/02/23 History lisinopril 40 mg tablet 40 mg PO BID 07/17/19 06/02/23 History sertraline 25 mg tablet (Zoloft) 25 mg PO QAM 07/17/19 06/02/23 History tamsulosin 0.4 mg capsule 0.4 mg PO QAM 07/17/19 06/02/23 History multivitamin 1 tab PO QAM 09/09/21 06/02/23 History ascorbic acid (vitamin C) 500 mg 500 mg PO QAM 05/01/23 06/02/23 History tablet (Vitamin C) aspirin 81 mg tablet,delayed 81 mg PO QAM 05/01/23 06/02/23 History release cinnamon bark 500 mg capsule 1,000 mg PO QPM 05/01/23 06/02/23 History (Cinnamon) trazodone 150 mg tablet 150 mg PO HS 05/01/23 06/02/23 History docusate sodium 50 mg capsule 50 mg PO DAILY 05/28/23 06/02/23 History oxycodone 5 mg tablet 5 mg PO Q6H PRN pain #30 tabs 05/28/23 06/02/23 Rx polyethylene glycol 3350 17 17 g PO DAILY 05/28/23 06/02/23 History gram/dose oral powder tramadol 50 mg tablet 50 mg PO Q6H PRN pain, moderate 05/28/23 06/02/23 Rx #30 tabs ferrous sulfate 325 mg (65 mg 325 mg PO DAILY 06/02/23 06/02/23 History iron) tablet (iron) zinc acetate 50 mg (zinc) capsule 50 mg PO DAILY 06/02/23 06/02/23 History Past Med/Surg History Medical History Chronic kidney disease Stage IV, creatinine stable in the 2.1-2.4 range for past 1+ years PCP aware/monitoring Hard of hearing Anemia Colon cancer Dx 2007, Treated surgically Cyst, kidney, acquired PCP monitors Diabetes mellitus, type 2 Depression Hypertension Hyperlipidemia Surgical History History of cataract surgery Hx of arthroscopy of right knee Hx of resection of large bowel Hx of colonoscopy Social History Smoking Status: Current every day smoker Tobacco Type: Cigarettes Cigarettes Per Day: 1/2-1 PPD; Second Hand Exposure: Yes ( smokes); Do You Dip or Chew Tobacco: Yes (occasional- advised none DOS); Hx Alcohol Use: No Hx Substance Use: No Preferred Language: Ukrainian Communication Ability: Effective Publishing Director Required: No Beliefs That Will Affect Care: None Current Living Situation: Spouse Feels Safe at Home: Yes Assistive Devices: None Review of Systems All systems reviewed & are unremarkable except as noted in HPI & below. Physical Exam . General: Alert, oriented. No acute distress Skin: No noted rashes or bruises Psych: Appropriate mood and affect Neuro: Unable to lift lower legs bilaterally from the bed HEENT: NC/AT Chest: Nontender to palpation. CV: RRR Resp: Breath sounds clear bilaterally, no increased effort of breathing. Abdomen: Soft, nontender, nondistended. Musculoskeletal Focused exam of the right lower extremities feels right knee effusion with no erythema, ecchymosis, or other obvious deformities. Slight tenderness to palpation diffusely throughout the right knee joint. Normal range of motion with subjective discomfort with deep flexion past 100 degrees with no laxity to valgus or varus stress. 4/5 strength against resistance in all planes. Calf soft nontender to palpation. Negative Homans' sign. +2 DP and PT pulses. Less than 2-second capillary refill. Normal sensation. Neurovascular intact. Results & Data Results & Data Laboratory Results . Diagnostic Findings . Knee X-Ray 06/02/23 12:05 XR knee RT 3V CLINICAL HISTORY: falls. Right knee pain. COMPARISON STUDY: None. FINDINGS: No fracture or dislocation within the right knee. There is chondrocalcinosis. Vascular calcifications are noted. Moderate knee effusion. No significant soft tissue swelling. Moderate osteoarthritis within the right knee. IMPRESSION: 1. No acute fractures. 2. Moderate joint effusion. 3. Degenerative changes and chondrocalcinosis. ACT 112: Negative or not required by law. Electronically signed by: Ming Crespo M.D. 06/02/2023 1:54 PM PG Care Time/CCT Total # of Minutes Spent Total Time Spent with Patient: Total time spent is greater than 50% in coordination of care (as documented) at patient's floor/unit and/or counseling patient: Coding Level of Care Code 40295 IN/OBS CONSULT LVL 4,60M Diagnoses Osteoarthritis of right knee M17.11
--- NOTE | 2023-06-03 15:47 | Hospitalist Progress Note ---
Date of Service June 03, 2023 Assessment & Plan (1) Falls: (2) Weakness: (3) History of lumbar surgery: Plan 73 yo M with PMhx significant for HTN, HLD, DM II, MDD, CKD, diverticulosis with hx of benign colon polyps who is s/p L3-S1 lumbar decompression with fusion by Dr. Michaud on 05/28/2023 admitted with recurrent falls and weakness at home. requesting placement. Falls Lower extremity weakness s/p lumbar decompression surgery Per , progressive weakness at home post-op, falls and cannot help him, requesting placement Lumbar spine XRAY with no acute changes, notes post op changes Consult ortho spine- Dr. Michaud -- will trial dexamethasone 8 mg IV x 3 days PT/OT recommending rehab, CM following Right knee pain Right knee XR shows moderate effusion Ortho consulted, planning on steroid injection tomorrow HTN Chronic, stable Continue amlodipine, lisinopril DMII Holding home glipizide Utilize NovoLog per protocol while hospitalized CKD Baseline creatinine mid-high 2s Creatinine 2.3 today Continue monitor renal function DVT PROPHYLAXIS SQ Lovenox Dispo -pending, PT/OT recommending rehab, CM following Patient seen in collaboration with Dr. Johnston. Admission and Anticipated Discharge Date Admission Date: June 02, 2023 Supervising Physician Co-Signing Physician Notes Attending addendum: The patient was seen and examined in medical floor in presence of the . He has been complaining of more pain at the back and has been falling at home with recent back surgery. Remains stable today. He was given increasing dose of dexamethasone to decrease the inflammation. PT and OT will be continued. He will be seen by Ortho with a possible injection of the knee joint for ongoing pain. His labs, imaging studies and medications reviewed Agree with assessment and plan as outlined above by Erma Johnston Subjective Follow-up for ambulatory dysfunction, fall, s/p recent back surgery. Patient seen and examined. Reports ongoing low back and right knee pain. Denies numbness, tingling, weakness to lower extremities. No bowel or bladder dysfunction. Denies chest pain and shortness of breath. No abdominal pain or nausea. Physical Exam Constitutional: WD/WN, vitals as above no acute distress Respiratory: normal respiratory effort, lungs clear to auscultation Cardiovascular: Rate/Rhythm: regular rate and regular rhythm Vessels: normal peripheral pulses Extremities: no edema Gastrointestinal (Abdomen): Percussion/Palpation: abdomen soft; abdomen nontender Musculoskeletal: right knee swelling noted, no erythema or warmth noted Skin: no rashes, warm and dry Neurologic: no focal motor deficits Psychiatric: A+Ox3, euthymic affect Results & Data Results & Data Vital Signs (Past 12 Hours) Vital Signs Temp Resp BP Pulse Ox O2 Del Method 06/03/23 07:23 37.1 C 16 104/50 L 97 Room Air Laboratory Results Short CBC 06/03/23 Range/Units 06:21 WBC 8.43 (4.8-10.8) K/ul Hgb 8.7 L (14.0-18.0) g/dl Hct 24.6 L (42.0-52.0) % Plt Count 216 (130-400) K/uL BMP 06/03/23 06:21 Sodium 140 Potassium 3.8 Chloride 108 H Carbon Dioxide 28 BUN 42 H Creatinine 2.30 H Glucose 96 Calcium 8.0 L Liver Function 06/03/23 Range/Units 06:21 Total Bilirubin 0.7 (0.2-1.0) mg/dl AST 15 (13-39) U/L ALT 8 (7-52) U/L Alkaline Phosphatase 61 (34-104) U/L Albumin 2.8 L (3.4-5.0) gm/dl (1) Falls Encounter type: initial encounter Qualified Code(s): W19.XXXA - Unspecified fall, initial encounter
[2023-06-03] MEDS ORDERED: PHARMACY GLYCEMIC MGMT CONSULT PRN (16:57)
[2023-06-03] MEDS ORDERED: LANTUS PER UNIT CHARGE SC STA (17:25)
[2023-06-03] MEDS: ENOXAPARIN INJ 40 MG/0.4 ML SYR SQ SCH (18:33)
[2023-06-03] MEDS: traZODone HCL 50 MG TAB PO SCH (20:49)
[2023-06-03] MEDS: amLODIPine BESYLATE 5 MG TAB PO SCH (20:49)
[2023-06-04] MEDS: ACETAMINOPHEN 500 MG TAB PO SCH ×3 (00:20→13:49)
[2023-06-04] MEDS: INSULIN ASPART PER UNIT CHARGE SC SCH ×4 (00:21→12:13)
[2023-06-04 06:22] LABS: Basophils # (auto) 0.01 K/uL (0.00-0.20); Basophils % (auto) 0.1 %; Eosinophils # (auto) 0.02 K/uL (0.00-0.50); Eosinophils % (auto) 0.2 %; Hematocrit (blood only) 22.3 % (42.0-52.0); Hemoglobin 7.9 g/dl (14.0-18.0); Immature Granulocytes # (auto) 0.05 K/uL (0.01-0.20); Immature Granulocytes % (auto) 0.5 %; Lymphocytes # (auto) 1.28 K/uL (1.20-3.40); Lymphocytes % (auto) 13.3 %; Mean Corpuscular Hemoglobin 32.9 pg (25.0-34.0); Mean Corpuscular Hgb Conc 35.4 g/dL (32.0-36.0); Mean Corpuscular Volume 92.9 fL (80.0-100.0); Mean Platelet Volume 10.1 fL (9.4-12.4); Monocytes # (auto) 0.61 K/uL (0.11-0.59); Monocytes % (auto) 6.3 %; Neutrophils # (auto) 7.65 K/uL (1.40-6.50); Neutrophils % (auto) 79.6 %; Platelet Count 199 K/uL (130-400); RDW Coefficient of Variation 12.2 % (11.5-14.5); RDW Standard Deviation 41.2 fL (36.4-46.3); White Blood Count 9.62 K/ul (4.8-10.8)
[2023-06-04 06:46] LABS: Albumin Level 2.7 gm/dl (3.4-5.0); BUN Creatinine Ratio 22.8 (10-20); Bilirubin,Total 0.6 mg/dl (0.2-1.0); Calcium 8.5 mg/dl (8.6-10.3); Creatinine Clr Calc Pharmacy 30.1 ml/min; Est GFR (African American) 29.4 ml/min; Est GFR (Non-African American) 25.4 ml/min; Globulin 2.6 gm/dl (2.5-4.0); Magnesium 2.1 mg/dl (1.7-2.4); Phosphorus 3.8 mg/dl (2.5-4.9); Polychromasia 1+; Potassium 4.1 mmol/L (3.5-5.1); Total Protein 5.3 gm/dl (6.0-8.3)
[2023-06-04] MEDS: ATORVASTATIN 40 MG TAB PO SCH (08:10)
[2023-06-04] MEDS: FERROUS SULFATE 325 MG TAB PO SCH (08:10)
[2023-06-04] MEDS: DOCUSATE SODIUM 100 MG CAP PO SCH (08:11)
[2023-06-04] MEDS: TAMSULOSIN HCL 0.4 MG CAP PO SCH (08:11)
[2023-06-04] MEDS: SERTRALINE HCL 50 MG TABLET PO SCH (08:11)
[2023-06-04] MEDS: POLYETHYLENE (MIRALAX) 17 GM PACK PO SCH (08:12)
[2023-06-04] MEDS: FUROSEMIDE 40 MG TAB PO SCH (08:12)
[2023-06-04] MEDS: dexAMETHasone 8 MG in SYRINGE 0 ML IV SCH (08:12)
[2023-06-04] MEDS: ASCORBIC ACID 500 MG TAB PO SCH (08:12)
[2023-06-04] MEDS: ASPIRIN 81 MG ECTAB PO SCH (08:12)
--- NOTE | 2023-06-04 08:36 | Orthopedic Progress Note ---
Date of Service June 04, 2023 Assessment & Plan (1) Osteoarthritis of right knee: At this point in time, patient exhibiting no pain or symptoms involving the right knee this morning whatsoever. I do feel it is appropriate at this point not to do the corticosteroid injection to the right knee due to him having no symptomatic issues with the right knee at this present moment. He is aware that if he starts to experience right knee pain once discharged, he he can make an appointment with [facility] [place] and a corticosteroid injection can be completed as an outpatient. From an orthopedic standpoint, he is cleared for discharge. Please Dora text or reach out to [facility] [place] if patient's status changes. Subjective . José was seen today on rounds doing very well with no pain whatsoever to his right knee. He noted that the discomfort that he was feeling to his right knee has completely alleviated at this point. At this point, he feels that he really does not need the shot in his knee. Review of Systems All systems reviewed & are unremarkable except as noted in HPI & below. Physical Exam . Focused exam of the right lower extremity reveals no erythema, ecchymosis, edema, or other obvious deformities. No tenderness to palpation. Normal range of motion and strength in all planes when compared bilaterally. Calf soft nontender to palpation. Negative Homans' sign. +2 DP and PT pulses. Less than 2-second capillary refill. Normal sensation. Neurovascular intact. Results & Data Results & Data Laboratory Results . Diagnostic Findings . PG Care Time/CCT Total # of Minutes Spent Total Time Spent with Patient: Total time spent is greater than 50% in coordination of care (as documented) at patient's floor/unit and/or counseling patient: Coding Level of Care Code 77074 SUB INP/OBS CARE 2/35MIN Diagnoses Osteoarthritis of right knee M17.11
[2023-06-04] MEDS ORDERED: lisinopril 40 MG TAB PO SCH (09:00)
--- NOTE | 2023-06-04 09:42 | Orthopedic Progress Note ---
Date of Service June 04, 2023 Assessment & Plan (1) Neurogenic claudication due to lumbar spinal stenosis: Plan: At this time he is getting continue physical therapy and transferred to rehab hopefully today. We will see him in the office as scheduled. Admission and Anticipated Discharge Date Admission Date: June 02, 2023 Subjective Patient is feeling much improved today. He feels he is ambulating better. Physical Exam Physical Exam: Patient is in the chair at the bedside. Skin strength testing. Appears comfortable. Results & Data Vital Signs (Past 12 Hours) Vital Signs Temp Pulse Resp BP Pulse Ox O2 Del Method 06/04/23 08:05 36.5 C 57 L 16 130/65 96 Room Air
[2023-06-04] MEDS ORDERED: LANTUS PER UNIT CHARGE SC ONE (12:30)
--- NOTE | 2023-06-04 14:15 | Discharge Summary ---
Date of Service June 04, 2023 Admission HPI Per Admitting Provider 73 yo M with PMhx significant for HTN, HLD, DM II, MDD, CKD, diverticulosis with hx of benign colon polyps who is s/p L3-S1 lumbar decompression with fusion by Dr. Michaud on 05/28/2023 admitted with recurrent falls and weakness at home. requesting placement. Pt alone in the room but contacted by phone for further history. She states he was discharged on Saturday (2 days ago) and seemed to be doing well post his lumbar spinal surgery. States he was able to get up off the commode on his own. The next day (Saturday/yesterday) he fell and she and the granddaughter who was present could not catch him but they were able to get him up. States that he was unable to get off the commode that day and they had to pull him up. Later fell from the top of the stairs and they were able to catch him and let him slide down. States that he later crawled and has been crawling to get around. States that this AM, he could not move at all and she brought him in via ambulance for further evaluation. Notes she is only 147lbs and cannot help him at home especially when her granddaughter is not present. States she would like him placed, preferably at [facility] which is closer to home. Has not yet had follow up with any of his providers and has been taking medications as prescribed. Pt notes fecal incontinence but denies urinary incontinence. States he is not able to move his lower extremities bilaterally, but feels he is weak in all extremities though he can move his upper extremities. Admission Exam Per Admitting Provider General: Alert, oriented. No acute distress Skin: No noted rashes or bruises Psych: Appropriate mood and affect Neuro: Unable to lift lower legs bilaterally from the bed HEENT: NC/AT Chest: Nontender to palpation. CV: RRR Resp: Breath sounds clear bilaterally, no increased effort of breathing. Abdomen: Soft, nontender, nondistended. Extremities: Unable to lift lower legs bilaterally from the bed, able to move upper extremities bilaterally Principal Diagnosis Ambulatory dysfunction Discharge Exam Constitutional WD/WN, vitals as above no acute distress Respiratory normal respiratory effort, lungs clear to auscultation Cardiovascular Rate/Rhythm: regular rate and regular rhythm Vessels: normal peripheral pulses Extremities: no edema Gastrointestinal (Abdomen) Percussion/Palpation: abdomen soft; abdomen nontender Musculoskeletal Strength strong and equal BLE Skin no rashes, warm and dry Neurologic no focal motor deficits Psychiatric A+Ox3, euthymic affect Discharge Data Allergies Allergy/AdvReac Type Severity Reaction Status Date / Time No Known Allergies Allergy Unknown Verified 06/02/23 15:21 Consultations 06/02/23 18:58 Consult Orthopedic Spine Surgery Routine 06/03/23 10:01 Consult Orthopedic Surgery Routine Ordered Studies Laboratory Results WBC 9.62 K/ul (4.8-10.8) 06/04/23 05:48 RBC 2.40 M/uL (4.70-6.10) L 06/04/23 05:48 Hgb 7.9 g/dl (14.0-18.0) L 06/04/23 05:48 Hct 22.3 % (42.0-52.0) L 06/04/23 05:48 MCV 92.9 fL (80.0-100.0) 06/04/23 05:48 MCH 32.9 pg (25.0-34.0) 06/04/23 05:48 MCHC 35.4 g/dL (32.0-36.0) 06/04/23 05:48 RDW Std Deviation 41.2 fL (36.4-46.3) 06/04/23 05:48 RDW Coeff of Matt 12.2 % (11.5-14.5) 06/04/23 05:48 Plt Count 199 K/uL (130-400) 06/04/23 05:48 MPV 10.1 fL (9.4-12.4) 06/04/23 05:48 Immature Gran % (Auto) 0.5 % 06/04/23 05:48 Neut % (Auto) 79.6 % 06/04/23 05:48 Lymph % (Auto) 13.3 % 06/04/23 05:48 [place] % (Auto) 6.3 % 06/04/23 05:48 Eos % (Auto) 0.2 % 06/04/23 05:48 Baso % (Auto) 0.1 % 06/04/23 05:48 Neut # (Auto) 7.65 K/uL (1.40-6.50) H 06/04/23 05:48 Lymph # (Auto) 1.28 K/uL (1.20-3.40) 06/04/23 05:48 [place] # (Auto) 0.61 K/uL (0.11-0.59) H 06/04/23 05:48 Eos # (Auto) 0.02 K/uL (0.00-0.50) 06/04/23 05:48 Baso # (Auto) 0.01 K/uL (0.00-0.20) 06/04/23 05:48 Immature Gran # (Auto) 0.05 K/uL (0.01-0.20) 06/04/23 05:48 Polychromasia 1+ 06/04/23 05:48 Sodium 138 mmol/L (136-145) 06/04/23 05:48 Potassium 4.1 mmol/L (3.5-5.1) 06/04/23 05:48 Chloride 107 mmol/L (98-107) 06/04/23 05:48 Carbon Dioxide 26 mmol/L (21-32) 06/04/23 05:48 Anion Gap 5 (3-11) 06/04/23 05:48 BUN 56 mg/dl (6-23) H 06/04/23 05:48 Creatinine 2.46 mg/dl (0.6-1.4) H 06/04/23 05:48 Est Cr Clr Drug Dosing 30.1 ml/min 06/04/23 05:48 Est GFR ( Amer) 29.4 ml/min 06/04/23 05:48 Est GFR (Non-Af Amer) 25.4 ml/min 06/04/23 05:48 BUN/Creatinine Ratio 22.8 (10-20) H 06/04/23 05:48 Glucose 94 mg/dl (70-99(Fasting)) 06/04/23 05:48 POC Glucose 213 mg/dl (70-99) H 06/04/23 11: Calcium 8.5 mg/dl (8.6-10.3) L 06/04/23 05:48 Ionized Calcium 1.22 mmol/L (1.12-1.32) 06/04/23 05:48 Phosphorus 3.8 mg/dl (2.5-4.9) 06/04/23 05:48 Magnesium 2.1 mg/dl (1.7-2.4) 06/04/23 05:48 Total Bilirubin 0.6 mg/dl (0.2-1.0) 06/04/23 05:48 AST 17 U/L (13-39) 06/04/23 05:48 ALT 13 U/L (7-52) 06/04/23 05:48 Alkaline Phosphatase 60 U/L (34-104) 06/04/23 05:48 Troponin I High Sens 5.3 pg/ml (0-20) 06/02/23 12:23 Total Protein 5.3 gm/dl (6.0-8.3) L 06/04/23 05:48 Albumin 2.7 gm/dl (3.4-5.0) L 06/04/23 05:48 Globulin 2.6 gm/dl (2.5-4.0) 06/04/23 05:48 Albumin/Globulin Ratio 1.0 (0.9-2) 06/04/23 05:48 TSH 1.651 uIu/ml (0.300-4.500) 06/02/23 12:23 Urine Color Yellow 06/02/23 14:31 Urine Appearance Clear (Clear) 06/02/23 14:31 Urine pH 5.0 (4.5-7.5) 06/02/23 14:31 Ur Specific [place] 1.013 (1.000-1.030) 06/02/23 14:31 Urine Protein Negative (Negative) 06/02/23 14:31 Urine Glucose (UA) Negative (Negative) 06/02/23 14:31 Urine Ketones Negative (Negative) 06/02/23 14:31 Urine Blood Negative (Negative) 06/02/23 14:31 Urine Nitrite Negative (Negative) 06/02/23 14:31 Urine Bilirubin Negative (Negative) 06/02/23 14:31 Urine Urobilinogen Negative (Negative) 06/02/23 14:31 Ur Leukocyte Esterase Negative (Negative) 06/02/23 14:31 SARS-CoV-2, RNA, NAAT NEGATIVE (NEGATIVE) 06/02/23 12:23 Impressions Knee X-Ray 06/02/23 12:05 XR knee RT 3V CLINICAL HISTORY: falls. Right knee pain. COMPARISON STUDY: None. FINDINGS: No fracture or dislocation within the right knee. There is chondrocalcinosis. Vascular calcifications are noted. Moderate knee effusion. No significant soft tissue swelling. Moderate osteoarthritis within the right knee. IMPRESSION: 1. No acute fractures. 2. Moderate joint effusion. 3. Degenerative changes and chondrocalcinosis. ACT 112: Negative or not required by law. Electronically signed by: Ming Crespo M.D. 06/02/2023 1:54 PM Lumbar Spine X-Ray 06/02/23 12:05 XR lumbar spine 2-3V CLINICAL HISTORY: falls, s/p surgery COMPARISON STUDY: 05/28/2023. FINDINGS: Posterior decompression fusion with pedicle screws and rods from L4 through S1. The hardware appears intact. Disc spacers are placed. No abnormal periprosthetic lucency. No acute fracture or subluxation within the lumbar spine. Vascular calcifications are noted. Visualized sacrum is intact. Rectal suture material is noted. IMPRESSION: No fractures within the lumbar spine. Postoperative changes as described above. ACT 112: Negative or not required by law. Electronically signed by: Ming Crespo M.D. 06/02/2023 1:59 PM Chest X-Ray 06/02/23 12:06 XR chest 1V not portable HISTORY: weak/falls COMPARISON: Chest 05/07/2023. FINDINGS: The lungs are clear. Cardiac silhouette is normal in size. No pleural effusions. No pneumothorax. IMPRESSION: No acute process. ACT 112: Negative or not required by law. Electronically signed by: Ming Crespo M.D. 06/02/2023 1:52 PM Hospital Course (1) Falls: (2) Weakness: (3) History of lumbar surgery: Plan 73 yo M with PMhx significant for HTN, HLD, DM II, MDD, CKD, diverticulosis with hx of benign colon polyps who is s/p L3-S1 lumbar decompression with fusion by Dr. Michaud on 05/28/2023 admitted with recurrent falls and weakness at home. requesting placement. Falls Lower extremity weakness s/p lumbar decompression surgery Per , progressive weakness at home post-op, falls and cannot help him, requesting placement Lumbar spine XRAY with no acute changes, notes post op changes Consult ortho spine- Dr. Michaud Patient received IV dexamethasone 8 mg x 2 doses with significant improvement in symptoms. Will discharge on short course of p.o. prednisone. PT/OT recommending rehab Right knee pain Right knee XR shows moderate effusion Ortho consulted, initially planned on steroid injection however patient had significant improvement after IV dexamethasone. Outpatient follow-up if continued symptoms. HTN Chronic, stable Continue amlodipine, lisinopril DMII Resume home glipizide at discharge, received NovoLog per protocol while hospitalized CKD Baseline creatinine mid-high 2s Creatinine 2.4 06/04 Anemia Hgb 7.9 06/04, 12.5 on 05/07 --> 8.7 on 05/29 postoperatively Likely multifactorial due to acute blood loss anemia from recent surgery and anemia of chronic disease in the setting of CKD Continue to monitor CBC No obvious signs of gross bleeding at this time Total Time Total Time Spent Total Time Spent (In Minutes): 40 Discharge Plan Discharge Items Patient Disposition: Transfer Inpatient Rehab Fac Reason For Visit: Weakness, Falls Discharge Diagnosis: Ambulatory Dysfunction Activity: As commented below Non-emergency contact: Primary Care Provider Call non-emergency contact if: you have any medication questions, your symptoms worsen, your pain is not controlled and you have a fever Follow-up/Referrals: Mark Choudhury MD [Primary Care Provider] - Diet: Carb Consistent or DM2 Addtl Attending Provider Instructions: Patient presenting on 06/02 for generalized weakness and frequent falls after being discharged on 05/31 after lumbar decompression and fusion. Evaluated by spine orthopedics and placed on IV dexamethasone with significant improvement in symptoms. Patient will be discharged on short course of p.o. prednisone. Also evaluated by orthopedics for right knee pain. Initially steroid injection was planned however patient improved with IV dexamethasone. Outpatient follow- up if continued symptoms. Patient was evaluated by PT/OT, rehab recommended. Pending Studies at Discharge: No Stand-Alone Forms: My [facility] Skilled Items Patient informed of condition?: Yes DNR: No Discharge Level of Care: Acute rehab Communicable Disease: No Discharge Prognosis: Stable Lines: None Urinary Catheter: No Medications and DC Order Prescriptions: New acetaminophen [Tylenol Extra Strength] 500 mg Tablet 1,000 mg PO Q8H Qty: 1 0RF prednisone 20 mg tablet 40 mg PO DAILY 3 Days Qty: 6 0RF Continued furosemide 40 mg Tablet 40 mg PO QAM atorvastatin 40 mg Tablet 40 mg PO QAM glipizide 10 mg Tablet 10 mg PO BID tamsulosin 0.4 mg Capsule 0.4 mg PO QAM amlodipine 10 mg Tablet 5 mg PO QPM sertraline [Zoloft] 25 mg Tablet 25 mg PO QAM lisinopril 40 mg Tablet 40 mg PO DAILY aspirin 81 mg Tablet,Delayed Release (Dr/Ec) 81 mg PO QAM ascorbic acid (vitamin C) [Vitamin C] 500 mg Tablet 500 mg PO QAM trazodone 150 mg Tablet 150 mg PO HS cinnamon bark [Cinnamon] 500 mg Capsule 1,000 mg PO QPM docusate sodium 50 mg Capsule 50 mg PO DAILY polyethylene glycol 3350 17 gram/dose Powder 17 g PO DAILY tramadol 50 mg tablet 50 mg PO Q6H PRN (Reason: pain, moderate) Qty: 30 0RF oxycodone 5 mg tablet 5 mg PO Q6H PRN (Reason: pain) Qty: 30 0RF zinc acetate 50 mg (zinc) Capsule 50 mg PO DAILY ferrous sulfate [iron] 325 mg (65 mg iron) Tablet 325 mg PO DAILY multivitamin Tablet 1 tab PO QAM Discharge Orders: Discharge Order (Routine); Ordered 06/04/23 Ordered By: Erma Strong Admission Data Admit Date/Time: 06/02/23 16:05 Attending Provider: Odalis Johnston Admit Provider: Maddy Cota Primary Care Provider: Mark Choudhury Other Providers: Maddy Cota; Romario Michaud James S.; [facility] Other Interventions: Discharge Summary Assessment (RN) Last Done: 06/04/23 13:36 Supervising Physician Co-Signing Physician Notes Attending addendum The patient was seen and examined in medical floor in presence of the . He has been feeling much better and the right knee pain is gone. Back pain is stable and he has been getting physical therapy and will be discharged to [facility] to continue physical therapy. He remained hemodynamically stable with unremarkable physical examination. Agree with assessment and plan as outlined above by Erma JAIMES. Dr Pan Johnston
== END 2023-06-04 14:57 | DRG 92 ==
LOC: ED 11:10 → 3W 16:05 → SUATTDRO 16:05 → 3W 17:30